=== PATIENT | female | born 2000 | race Caucasian/White ===

== ENCOUNTER 2023-02-18 18:04 | Outpatient (REF) | payer BC, MEDICAID, SELFPAY ==
[2023-02-18 21:37] LABS: HCT 44.8 % (36.0-46.0); HGB 14.4 g/dL (11.2-15.7); MCH 27.2 pg (27.0-33.0); MCHC 32.1 % (32.0-36.0); MCV 85 fL (80-95); MPV 11.5 fL (8.0-11.0); Platelet Count 368 10^3/uL (130-400); RBC 5.29 10^6/uL (3.93-5.22); RDW 14.4 % (11.7-14.6); RDW-SD 43.8 fL; WBC 14.12 10^3/uL (4.4-10.8)
[2023-02-18 21:59] LABS: Iron 37 ug/dL (50-170); Total Iron Binding Capacity 354 ug/dL (250-450); Transferrin Sat 10 % (15-50)
[2023-02-18 22:11] LABS: Vitamin D 25 Total 11.2 ng/mL (30-100)
[2023-02-18 22:17] LABS: ALT 19 U/L (14-59); AST 16 U/L (15-37); Albumin 4.3 g/dL (3.4-5.0); Alkaline Phosphatase 97 U/L (46-116); Anion Gap 10.6 mmol/L (3-11); BUN 10 mg/dL (7-18); Bilirubin, Total 0.3 mg/dL (0.2-1.0); CO2 27.4 mmol/L (21.0-32.0); CREATININE 0.8 mg/dL (0.55-1.02); Calcium 9.8 mg/dL (8.5-10.1); Chloride 104 mmol/L (98-107); Estimated GFR 106.11 (mL/min/1.73m2); Glucose 128 mg/dL (74-106); Potassium 4.8 mmol/L (3.5-5.1); Sodium 142 mmol/L (136-145); TSH (W/Ref FT4) 2.39 uIU/mL (0.36-3.74); Total Protein 7.8 g/dL (6.4-8.2); Vitamin B12 417 pg/mL (193-986)
[2023-02-18 22:36] LABS: Lipase 32 U/L (16-77)
== END 2023-02-18 18:05 | disposition home or self-care (01) ==
LOC: NCHCN 18:04
PROVIDERS: PCP Internal Medicine; Visit Provider Family Medicine
DX: R10.13 Epigastric pain (principal); R53.1 Weakness; E03.9 Hypothyroidism, unspecified; E55.9 Vitamin D deficiency, unspecified; D58.2 Other hemoglobinopathies; R53.83 Other fatigue; M79.10 Myalgia, unspecified site
CPT/HCPCS: 80053; 82306; 83690; 85027; 82607; 83540; 83550; 84443

== ENCOUNTER 2023-04-01 13:32 | Outpatient (REF) | payer BC, MEDICAID, SELFPAY ==
[2023-04-01 20:47] LABS: Abs Immature Grans 0.04 10^3/uL (0.0-0.06); Absolute Eosinophil Count 0.09 10^3/uL (0.0-0.7); Basophils % 0.6; Eosinophils % 0.6; HCT 43.8 % (36.0-46.0); HGB 14.4 g/dL (11.2-15.7); Immature Grans % 0.3; Lymphocytes % 23.5; MCH 27.8 pg (27.0-33.0); MCHC 32.9 % (32.0-36.0); MCV 85 fL (80-95); Monocytes % 8.2; Neutrophils % 66.8; Platelet Count 339 10^3/uL (130-400); RBC 5.18 10^6/uL (3.93-5.22); RDW 14.7 % (11.7-14.6); RDW-SD 45.5 fL; WBC 14.44 10^3/uL (4.4-10.8)
[2023-04-01 20:53] LABS: Absolute Basophil Count 0.09 10^3/uL (0.0-0.2); Absolute Lymphocyte Count 3.39 10^3/uL (1.2-3.4); Absolute Monocyte Count 1.18 10^3/uL (0.1-0.8); Absolute Neutrophil Count 9.65 10^3/uL (1.2-6.7)
[2023-04-01 21:18] LABS: TSH 4.73 uIU/mL (0.36-3.74)
[2023-04-01 21:47] LABS: FREE T4 1.08 ng/dL (0.76-1.46)
[2023-04-02 18:58] LABS: T3, Total 208 ng/dL (97-169)
== END 2023-04-01 13:33 | disposition home or self-care (01) ==
LOC: NCHCN 13:32
PROVIDERS: PCP Family Medicine; Visit Provider Family Medicine
DX: E03.9 Hypothyroidism, unspecified (principal); R53.1 Weakness
CPT/HCPCS: 84439; 84443; 84480; 85025

== ENCOUNTER 2023-04-07 08:24 | Day surgery (SDC) | payer BC, MEDICAID, SELFPAY ==
--- NOTE | 2023-04-07 06:26 | ANES.PREOP_ITS ---
General Info Height: 5 ft Weight: 90.889 kg Body Mass Index (BMI): 39.1 Surgical Procedure: Operation Date: 04/07/23 12:05 Proposed Procedure Side Surgeon p Gastroscopy Ramila Baptiste MD Meds Allergies and Home Medications Allergies Allergy/AdvReac Type Severity Reaction Status Date / Time dog dander Allergy Unknown Verified 04/06/23 12:16 gabapentin Allergy Unknown Verified 04/06/23 12:16 hydroxyzine [From Vistaril] Allergy Unknown Verified 04/06/23 12:16 pollen extracts Allergy Unknown Verified 04/06/23 12:16 Home Medication Medication Instructions Recorded albuterol sulfate 90 mcg/actuation 2 puff inhalation Q6H PRN 03/01/23 aerosol inhaler (ProAir HFA) [id number]-[id number]-[id number] 250 1 tab PO ONCE PRN 03/01/23 mg-250 mg-65 mg tablet (Excedrin Extra Strength) budesonide-formoterol HFA 80 1 puff inhalation BID 03/01/23 mcg-4.5 mcg/actuation aerosol inhaler (Symbicort) cholecalciferol (vitamin D3) 1,250 1,250 mcg PO QWEEK 03/01/23 mcg (50,000 unit) capsule cimetidine 200 mg tablet (Acid 200 mg PO DAILY 03/01/23 Utility Pipe Layer (cimetidine)) etonogestrel 68 mg subdermal 1 implant subdermal ONCE 03/01/23 implant (Nexplanon) ferrous sulfate 325 mg (65 mg 325 mg PO DAILY 03/01/23 iron) tablet ondansetron HCl 4 mg tablet 4 mg PO Q8H PRN 03/01/23 Current Visit Medications: Current Medications Generic Name Dose Route Start Last Admin Trade Name Freq PRN Reason Stop Dose Admin Ringer's Solution 1,000 mls @ 80 mls/hr 04/07/23 06:00 IV 05/06/23 23:59 INFUSION TYLOR IV Miscellaneous Supplies 1 each 04/07/23 06:00 Iv Access IV 05/06/23 23:59 DIRECTED TYLOR Sodium Chloride 0 ml 04/07/23 06:00 Normal Saline Flush 10 Ml Syr IV 05/06/23 23:59 PRN PRN Sodium Chloride 0 ml 04/07/23 06:00 Normal Saline 10 Ml Vial IJ 05/06/23 23:59 DIRECTED PRN Sterile Water 0 ml 04/07/23 06:00 Water,Injection,Sterile 10 Ml Vial IJ 05/06/23 23:59 DIRECTED PRN PFSH Active Problems Active Problems: Problem Status Onset Code Tetrahydrocannabinol (THC) dependence F12.20 Depression F32.A Anxiety F41.9 Nausea R11.0 Epigastric pain R10.13 Medical History Medical History Asthma Chronic pain Delayed puberty Hypothyroidism Iron deficiency (~2018) Migraines Numbness and tingling Tethered cord Tobacco Smoking/Tobacco Use Status: Never Alcohol Alcohol Intake: current Alcohol intake frequency: holidays/special occasions only Substance Use Substance use: Daily Substance use type: marijuana Vital Signs and Lab Results Lab Results Blood Type / Crossmatch: No Data to Display Complete Blood Count: White Blood Count 14.44 10^3/uL (4.4-10.8) H 04/01/23 13:20 Red Blood Count 5.18 10^6/uL (3.93-5.22) 04/01/23 13:20 Hemoglobin 14.4 g/dL (11.2-15.7) 04/01/23 13:20 Hematocrit 43.8 % (36.0-46.0) 04/01/23 13:20 Platelet Count 339 10^3/uL (130-400) 04/01/23 13:20 Complete Metabolic Panel: No Data to Display Liver Function Panel: No Data to Display Coagulation Panel: No Data to Display Cardiac Panel: No Data to Display Arterial Blood Gas: No Data to Display Venous Blood Gas: No Data to Display Pancreas Panel: No Data to Display Thyroid Panel: Thyroid Stimulating Hormone (TSH) 4.73 uIU/mL (0.36-3.74) H 04/01/23 13:20 Total Triiodothyronine 208 ng/dL (97-169) H 04/01/23 13:20 Infectious Disease: No Data to Display Blood Cultures: No Data to Display Toxicology Panel: 2 No Data to Display Panel: No Data to Display Anesthesia Assessment and Plan Anesthesia History Personal History: No History of Anesthesia Complications Family History: No Family History of Anesthesia Complications Implantable Cardiac Device Does patient have a Pacemaker or an ICD?: No Anesthesia Plan Resuscitation Status: Full Code Anesthesia Technique: General Anesthesia Airway Planned: Natural Airway Monitors Used: Standard Monitors Preoperative Comments:: 22 yo female for EGD. Sig PMHx: asthma, hypothyroid, depression/anxiety. daily cannabis, occ EtOH.
[2023-04-07 08:28] VITALS: BP 143/104; PULSE 121; RESP 18; TEMP 37; O2SAT 99
[2023-04-07] MEDS: Lactated Ringers 1,000 ML 80 ML IV (08:56)
--- NOTE | 2023-04-07 09:02 | W.PM.PROGNOT ---
Date of Service Date of service: 04/07/23 Time of Service: 10:48 Assessment and Plan Assessment and plan (1) Epigastric pain: Status: Acute Assessment and plan: Doc is a 22-year-old female who comes in with 4 years of epigastric abdominal pain which has worsened over the last year and a half.? It is not affected by what she eats or if she eats.? She has tried several antacids none of which have helped.? I was asked to see the patient for consideration of an EGD and to do biopsies to rule out celiac disease.? She has lost some weight recently because of her decrease in intake.? She does not have the classic diarrhea or abdominal pain with eating.? We discussed the procedure using a picture.? We also reviewed the risks, benefits and complications.? After our discussion she had a good understanding of the procedure and the possible complications.? Risks, benefits and complications have been reviewed. Complications include but are not limited to bleeding, pain, perforation, sore throat, aspiration, and adverse reaction to the medications.? Questions were entertained and answered to their satisfaction and they wished to proceed. No guarantees were given or implied. Subjective Subjective Interval history since last seen: I saw Doc in [facility] today. She continues with epigastric pain and bloating. Nothing seems to help. No N/V. No hematoemesis She has not had a cold recently Exam Const General: cooperative, comfortable and no acute distress Nutritional Appearance: average body habitus Orientation: alert and oriented x3 HENMT Head: normocephalic and atraumatic Resp Effort & Inspection: normal respiratory effort Objective Last Vital Signs Temp 98.6 F 04/07/23 08:28 Pulse 121 H 04/07/23 08:28 Resp 18 04/07/23 08:28 BP 143/104 H 04/07/23 08:28 Pulse Ox 99 04/07/23 08:28 Time Spent with Patient Time Spent with Patient: <25 minutes Time was spent: counseling the patient
--- NOTE | 2023-04-07 09:03 | ROE_ITS ---
Date of service: 04/07/23 Time of Service: 11:57 Operative Note Operative Note DATE OF PROCEDURE: 04/07/23 PRE-OP DIAGNOSIS: epigastric pain POST-OP DIAGNOSIS: other (gastritis) PROCEDURE: EGD with biopsies SURGEON: Ramila Baptiste Refer to Anesthesia Record ESTIMATED BLOOD LOSS: 3 PATHOLOGY: other (Bx of antrum, duodenum, and GE junction) COMPLICATIONS: None Patient was transported to: same day Patient's condition: stable Indications: Doc is a 22-year-old female who comes in with 4 years of epigastric abdominal pain which has worsened over the last year and a half.? It is not affected by what she eats or if she eats.? She has tried several antacids none of which have helped.? I was asked to see the patient for consideration of an EGD and to do biopsies to rule out celiac disease.? She has lost some weight recently because of her decrease in intake.? She does not have the classic diarrhea or abdominal pain with eating.? We discussed the procedure using a picture.? We also reviewed the risks, benefits and complications.? After our discussion she had a good understanding of the procedure and the possible complications.? Risks, benefits and complications have been reviewed. Complications include but are not limited to bleeding, pain, perforation, sore throat, aspiration, and adverse reaction to the medications.? Questions were entertained and answered to their satisfaction and they wished to proceed. No guarantees were given or implied. Findings: Mild inflammation of the stomach ? reflux esophagitis Procedure Description: After informed consent was obtained the patient was take to the procedure room and placed in a supine position. Monitors were applied and a time out was done. The patients name, date of , procedure type, allergies to medications and metal in their body was reviewed. A bite block was placed and the patient was sedated. Once sedated and comfortable the gastroscope was advanced through the oropharynx which was grossly normal into the esophagus. The proximal and mid- esophagus were normal. In the distal esophagus there was some mild inflammation noted. The scope was advanced into the stomach and through the pylorus into the 3rd portion of the duodenum. The duodenum was noted to be normal. Biopsies were done to rule out celiac disease. The scope was retracted back into the stomach. There was mild inflammation and biopsies were done to rule out H. pylori. There were no ulcers.. The scope was retroflexed. The cardia and fundus were noted to be normal. There was no hiatal hernia noted. The scope was retracted back into the esophagus and biopsies were done of the GE junction to rule out Portillo's. The Z line was regular. The GE junction was at 36 cm. The scope was removed and the patient was woken up and taken back to [facility] in stable condition. Follow up: 2 weeks
--- NOTE | 2023-04-07 09:05 | W.PM.DSUDISC ---
Date of service: 04/07/23 Time of Service: 11:43 Discharge Plan Disposition Patient Disposition: Home Condition: Stable Discharge Details Reason For Visit: Epigastric pain Attending Provider: Ramila Baptiste Primary Care Provider: Sudha Salazar Home Meds and New Rx's Prescriptions: New sucralfate [Carafate] 1 gram tablet 1 g PO QACHS Qty: 56 0RF omeprazole 40 mg capsule,delayed release(DR/EC) 40 mg PO DAILY Qty: 30 0RF Continued budesonide-formoterol [Symbicort] 80-4.5 mcg/actuation HFA aerosol inhaler 1 puff inhalation BID Nexplanon 68 mg implant 1 implant subdermal ONCE Rx Instructions: as a single dose ondansetron HCl 4 mg tablet 4 mg PO Q8H PRN cholecalciferol (vitamin D3) 1,250 mcg (50,000 unit) capsule 1,250 mcg PO QWEEK ferrous sulfate 325 mg (65 mg iron) tablet 325 mg PO DAILY Excedrin Extra Strength 250-250-65 mg tablet 1 tab PO ONCE PRN albuterol sulfate [ProAir HFA] 90 mcg/actuation HFA aerosol inhaler 2 puff inhalation Q6H PRN Discontinued cimetidine [Acid Licensed Physical Therapist (cimetidine)] 200 mg tablet 200 mg PO DAILY Discharge Instructions Instructions: Gastritis (DC), Diet for Stomach Ulcers and Gastritis (ED) Additional Instructions: Findings: mild inflammation of the stomach and esophagus New Medication: Stop Cimetidine Start Omeprazole 40 mg daily and Carafate 1 gm 30 minutes before meals and at bedtime Follow up: 2 weeks Please call if you develop: fevers >101.5 Nausea or Vomiting Abdominal pain that is not transient Rectal bleeding that is more then a tbsp A hard abdomen and inability to pass gas DAY SURGERY UNIT POST ENDOSCOPY INSTRUCTIONS Instructions for everyone who is given Anesthesia: For your safety, please do the following for the next 24 Hours: a. Do not drive or operate dangerous equipment b. Do not drink alcohol beverages or use any recreational drugs for the first 24 hours or while taking pain medications. The medications in your body may have a reaction that can be dangerous. c. Do not make any important decisions or sign any important papers 1. Generally there are no restrictions on your activity after a day or so has gone by, but you may feel a bit fatigued for a few days. 2. After you arrive home you may have a light meal and return to a normal diet as you can tolerate it without feeling sick to your stomach. 3. After surgery, you may feel pain or discomfort. This should be only transient, but if it persists please contact your doctor. 4. If there are any questions regarding the findings of your procedure, please feel free to contact your doctor. 6. If you are unable to contact your doctor with a problem, contact the hospital at [phone]. 7. Continue all your regular medications unless directed otherwise. I understand the above instructions and have no questions. Signature of Patient or Responsible Adult Escort Date/Time Name of Responsible Adult Escort Signature of Nurse Date/Time Stand Alone Forms: Anesthesia Discharge Inst., Fabian Mitchell (DSU) Referrals: Ramila Baptiste MD [ [facility]] - 04/19/23 1:00 pm Activity:: Activity as Tolerated Diet:: low acid DS: Diagnosis Discharge Diagnosis (1) Epigastric pain: Status: Acute Asessment and Plan: Patient is seen and examined after their endoscopy. Patient has minimal sore throat. They have been able to tolerate liquids. They do not have any Nausea or Vomiting. They are not having any chest pain or shortness of breath. They have been able to pass gas and are not having any abdominal pain or distention. they have not vomited any blood. The vital signs have been stable-see nursing notes. She has a bit of a cough We discussed findings on their endoscopy We reviewed the importance of lifestyle modifications- see diet recommendations We reviewed any new medications that the patient may be prescribed- see medicine reconciliation. Patient will either be sent a letter with the biopsy results or follow up in the office- see discharge instructions Patient was given explicit instructions for emergency follow up post endoscopy- see discharge instructions Patient verbalized understanding and was discharged in stable and satisfactory condition. See nursing notes.
--- NOTE | 2023-04-07 09:51 | W.ANESPRE ---
General Info Date of Service Date Performed: 04/07/23 Height: 5 ft Weight: 91.8 kg Body Mass Index (BMI): 39.5 Surgical Procedure: Operation Date: 04/07/23 12:05 Proposed Procedure Side Surgeon p Gastroscopy Ramila Baptiste MD Meds Allergies and Home Medications Allergies Allergy/AdvReac Type Severity Reaction Status Date / Time dog dander Allergy Unknown Verified 04/07/23 08:40 pollen extracts Allergy Unknown Verified 04/07/23 08:40 gabapentin AdvReac Unknown Verified 04/07/23 08:40 hydroxyzine [From Vistaril] AdvReac Unknown Verified 04/07/23 08:40 Home Medication Medication Instructions Recorded albuterol sulfate 90 mcg/actuation 2 puff inhalation Q6H PRN 03/01/23 aerosol inhaler (ProAir HFA) akreqct-ooewambozdwrx-gztngois 250 1 tab PO ONCE PRN 03/01/23 mg-250 mg-65 mg tablet (Excedrin Extra Strength) budesonide-formoterol HFA 80 1 puff inhalation BID 03/01/23 mcg-4.5 mcg/actuation aerosol inhaler (Symbicort) cholecalciferol (vitamin D3) 1,250 1,250 mcg PO QWEEK 03/01/23 mcg (50,000 unit) capsule cimetidine 200 mg tablet (Acid 200 mg PO DAILY 03/01/23 Director Of Maternity Services (cimetidine)) etonogestrel 68 mg subdermal 1 implant subdermal ONCE 03/01/23 implant (Nexplanon) ferrous sulfate 325 mg (65 mg 325 mg PO DAILY 03/01/23 iron) tablet ondansetron HCl 4 mg tablet 4 mg PO Q8H PRN 03/01/23 Current Visit Medications: Current Medications Generic Name Dose Route Start Last Admin Trade Name Freq PRN Reason Stop Dose Admin Ringer's Solution 1,000 mls @ 80 mls/hr 04/07/23 06:00 04/07/23 08:56 IV 05/06/23 23:59 80 mls/hr INFUSION TYLOR Administration IV Miscellaneous Supplies 1 each 04/07/23 06:00 Iv Access IV 05/06/23 23:59 DIRECTED TYLOR Ondansetron HCl 4 mg 04/07/23 09:04 Ondansetron 4 Mg/2 Ml Vial IVP 05/07/23 09:03 Q4H PRN PRN Nausea / Vomiting Sodium Chloride 0 ml 04/07/23 06:00 Normal Saline Flush 10 Ml Syr IV 05/06/23 23:59 PRN PRN Sodium Chloride 0 ml 04/07/23 06:00 Normal Saline 10 Ml Vial IJ 05/06/23 23:59 DIRECTED PRN Sterile Water 0 ml 04/07/23 06:00 Water,Injection,Sterile 10 Ml Vial IJ 05/06/23 23:59 DIRECTED PRN PFSH Active Problems Active Problems: Problem Status Onset Code Epigastric pain R10.13 Nausea R11.0 Anxiety F41.9 Depression F32.A Tetrahydrocannabinol (THC) dependence F12.20 Medical History Medical History Asthma Chronic pain Delayed puberty Hypothyroidism Iron deficiency (~2018) Migraines Numbness and tingling Tethered cord Surgical History Surgical History (Updated 04/07/23 @ 08:38 by Kimberli Saha) Hx of breast reduction, elective Tobacco Smoking/Tobacco Use Status: Never Alcohol Alcohol Intake: current Alcohol intake frequency: holidays/special occasions only Substance Use Substance use: Daily Substance use type: marijuana Vital Signs and Lab Results Vital Signs Most Recent Vital Signs in EMR: Most Recent Vital Signs Temp Pulse Resp BP Pulse Ox 37 C 121 H 18 143/104 H 99 04/07/23 08:28 04/07/23 08:28 04/07/23 08:28 04/07/23 08:28 04/07/23 08:28 Lab Results Blood Type / Crossmatch: No Data to Display Complete Blood Count: White Blood Count 14.44 10^3/uL (4.4-10.8) H 04/01/23 13:20 Red Blood Count 5.18 10^6/uL (3.93-5.22) 04/01/23 13:20 Hemoglobin 14.4 g/dL (11.2-15.7) 04/01/23 13:20 Hematocrit 43.8 % (36.0-46.0) 04/01/23 13:20 Platelet Count 339 10^3/uL (130-400) 04/01/23 13:20 Complete Metabolic Panel: No Data to Display Liver Function Panel: No Data to Display Coagulation Panel: No Data to Display Cardiac Panel: No Data to Display Arterial Blood Gas: No Data to Display Venous Blood Gas: No Data to Display Pancreas Panel: No Data to Display Thyroid Panel: Thyroid Stimulating Hormone (TSH) 4.73 uIU/mL (0.36-3.74) H 04/01/23 13:20 Total Triiodothyronine 208 ng/dL (97-169) H 04/01/23 13:20 Infectious Disease: No Data to Display Blood Cultures: No Data to Display Toxicology Panel: No Data to Display Panel: No Data to Display Anesthesia Assessment and Plan Anesthesia History Personal History: No History of Anesthesia Complications Family History: No Family History of Anesthesia Complications Exercise Tolerance Exercise Tolerance: Metabolic Equivalents>4 Pertinent Negatives Pertinent Negatives: No Major Cardiovascular Symptoms or Complaints Cardiac & Pulmonary Exam Cardiac Exam: Normal S1/S2 Heart Sounds Pulmonary Exam: Clear Bilateral Breath Sounds Implantable Cardiac Device Does patient have a Pacemaker or an ICD?: No Airway Exam Known Difficult Airway: No Mallampati Class: 1 Mouth Opening: Normal (> 3cm) Thyromental Distance: Less than 3 cm Neck Range of Motion: Full ROM Neck Circumference: Normal Teeth Condition: Normal Dentition ASA Classification ASA Score: ASA 2 Emergency Case?: No NPO Status NPO Status: NPO Clears >2 hours, Solids >8 hours Status Status: Negative HCG Anesthesia Plan Resuscitation Status: Full Code Anesthesia Technique: General Anesthesia Airway Planned: Natural Airway Monitors Used: Standard Monitors
[2023-04-07 09:52] VITALS: BMI 39.5
[2023-04-07] MEDS: Sodium Citrate 30 ML CUP PO (11:00)
--- NOTE | 2023-04-07 11:14 | STOM_PTH ---
PATIENT: Jagruti Acevedo LOC: [facility] U#:[id number] AGE/SX: 22/F ROOM: RE04/07/[address]: Ramila Baptiste MD : [id number] BED: DIS: 04/07/2023 SPEC #: [id number] RECD: 04/07/23 13:24 STATUS: SRAVAN REQ #: [id number] CELESTINE: 04/07/23 11:[address]: Ramila Baptiste DEPT: Surgical Specimen RECD BY: Jaqueline Guy ENTERED: 04/07/23 13:25 SP TYPE: STOMACH OTHR DR: Sudha Salazar Tissues: 1 - BIOPSY BOWEL 2 - STOMACH BIOPSY 3 - ESOPHAGUS BIOPSY Procedures: GROSS AND MICRO LEVEL 4 Comments: [id number]
[2023-04-07 11:26] VITALS: BP 116/54; PULSE 105; RESP 14; TEMP 36.7; O2SAT 96
[2023-04-07 12:10] VITALS: BP 115/74; PULSE 77; RESP 16; TEMP 36.8; O2SAT 98
--- NOTE | 2023-04-07 12:31 | W.ANESPOSTOP ---
Postoperative Evaluation Date, Time and Location Date Performed: 04/07/23 Time Performed: 12:35 Patient Location: Day Surgery Unit Vital Signs Most Recent Imported Vital Signs: Most Recent Vital Signs Temp Pulse Resp BP Pulse Ox 36.8 C 77 16 115/74 98 04/07/23 12:10 04/07/23 12:10 04/07/23 12:10 04/07/23 12:10 04/07/23 12:10 Pain Score Most Recent Pain Score: Most Recent Pain Score Pain Level 0 04/07/23 11:26 Assessment Mental Status: Awake (Alert & Oriented to Patient Baseline) Airway and Respiratory Function: Patent airway with normal (patient baseline) respiratory exam Cardiovascular Function: Hemodynamically Stable Hydration Status: Adequately Hydrated Nausea & Vomiting: No Nausea or Vomiting Pain: Pt. Denies Any Pain Peripheral Nerve Block: Patient did not receive a nerve block
== END 2023-04-07 12:45 | disposition home or self-care (01) ==
PROVIDERS: PCP Family Medicine; Visit Provider Surgery
PROC: 0DJ68ZZ Inspection of Stomach, Via Natural or Artificial Opening Endoscopic (ICD-10-PCS; CPT 43235; principal; 2023-04-07 12:00)
DX: R10.13 Epigastric pain (principal); K29.70 Gastritis, unspecified, without bleeding; K20.90 Esophagitis, unspecified without bleeding; K31.89 Other diseases of stomach and duodenum; K22.89 Other specified disease of esophagus
CPT/HCPCS: 43239; 81025; 88305; J2704

== ENCOUNTER 2023-04-26 21:37 | Outpatient (REF) | payer BC, MEDICAID, SELFPAY ==
[2023-04-26 23:16] LABS: FREE T4 0.96 ng/dL (0.76-1.46)
[2023-04-27 18:11] LABS: T3,Free 3.2 pg/mL (2.8-5.3)
== END 2023-04-26 21:38 | disposition home or self-care (01) ==
LOC: NCHCN 21:37
PROVIDERS: PCP Family Medicine; Visit Provider Family Medicine
DX: E03.9 Hypothyroidism, unspecified (principal); R00.2 Palpitations; E55.9 Vitamin D deficiency, unspecified; R42 Dizziness and giddiness
CPT/HCPCS: 84439; 84443; 84481

== ENCOUNTER 2023-06-16 06:11 | Day surgery (SDC) | payer BC, SELFPAY ==
[2023-06-16] VITALS (12 sets, daily range): BP systolic 102–147; BP diastolic 57–93; PULSE 78–104; RESP 10–28; TEMP 36.4–36.8; O2SAT 97–100; BMI 39.4
--- NOTE | 2023-06-16 06:18 | ROE_ITS ---
Date of service: 06/16/23 Time of Service: 08:41 Operative Note Operative Note DATE OF PROCEDURE: 06/16/23 PRE-OP DIAGNOSIS: Biliary colic POST-OP DIAGNOSIS: same Mild Fatty Liver Intrahepatic Gallbladder PROCEDURE: Laparoscopic Cholecystectomy SURGEON: Ramila Baptiste BUSINESS CONTINUITY SPECIALIST: Amanda Hoyos ANESTHESIA TYPE: Local By Surgeon and General LMA/ETT Refer to Anesthesia Record ESTIMATED BLOOD LOSS: 25 PATHOLOGY: other (gallbladder) COMPLICATIONS: None Patient was transported to: PACU Patient's condition: stable Indications: Doc is a pleasant 22-year-old female with ongoing right upper quadrant, epigastric pain that radiates to the back with concomitant nausea. EGD was pretty unremarkable and placing them on a PPI did nothing to help Them with symptoms. We tried a low-fat diet, although I am not sure if they really followed it. They has not had any improvement of Their symptoms. They feel her symptoms are getting worse and more frequent. I did discuss with Them that they do have stones and most likely this is the reason for their discomfort but that I cannot guarantee it. We reviewed the procedure of laparoscopic cholecystectomy as well as possible open. We reviewed the pathophysiology of gallstone. I reviewed the risks, benefits and complications of the surgery. After conversation they seemed to have a good understanding of the procedure and possible complications, and they wished to proceed. Risks, benefits, complications were reviewed with the patient in the office. Complications include but are not limited to bleeding, infection, injury to stomach, small bowel and large bowel, injury to the pancreas, injury to the common bile duct necessitating drainage and referral to tertiary center for repair, bile leak, post-cholecystectomy syndrome, post-cholecystectomy diarrhea, adverse reactions to the medications, complications of intubation including a sore throat or injury to the uvula, [place], stroke and even . Questions were entertained and answered to her satisfaction and she wished to proceed. No guarantees were given or implied. Findings: 2 cm stone in the neck of the Gallbladder Fatty liver Intrahepatic Gallbladder Procedure Description: After informed consent was obtained the patient was brought to the operating room, placed in a supine position and monitors were applied. SCDs were applied to their lower extremities and they were placed under general anesthesia and intubated without difficulty. Their abdomen was then prepped and draped in a sterile fashion using ChloraPrep. At this point a timeout was done and the patient's name, date of , procedure type, allergies to medications, metal in their body, antibiotic and DVT prophylaxis, and fire risk was assessed. At this point 0.25% Bupivocaine was injected just above the umbilicus into the dermis and subcutaneous tissue. A 5 mm incision was made with an 11 blade. The subcutaneous tissue was dissected with a hemostat. The fascia was grasped with cockers. The fascia was opened sharply. The skin next to the incision was grasped with penetrating towel clamps and while pulling up on the skin a 5 mm port was placed under direct visualization. The abdomen was insuflated and then 3 more ports were placed. A 12 mm port was placed in the subxiphoid area and two 5 mm ports were placed in the right upper quadrant. The liver was inspected and had some mild fatty infiltration. The patient's bed was then turned to the left and their head was brought up. The gallbladder was grasped at the body and pushed towards the right shoulder, this allowed me to visualize the neck of the gallbladder. There was a large stone in the ncek of the gallbladder. The body of the Gallbladder was intrahepatic. The neck was grasped and pulled towards the right flank and down allowing me to visualize the lymph node. Using a [place] dissector and hand held cautery the lymph node was gently dissected away from the tissues and the fatty tissue was also dissected away. The cystic duct was identified it was normal in size. The duct was dissected 360 degrees using the [place] dissector in order for me to visualize its entrance into the gallbladder. Liver was noted behind it. There were no other structures right behind. Critical view was achieved. 3 clips were placed one proximal and 2 distal and the cystic duct was cut. The cystic artery was then identified and dissected 360 degrees. It was located just medial to the cystic duct. there was an accessory artery noted coming off laterally. It was visualized going into the gallbladder. Once dissected 3 more clips were placed one proximal and 2 distal and the main artery, and the accessory artery, and they were both was cut. Using the hook dissector the gallbladder was then dissected away from the liver bed and placed into an Endo Catch bag and pulled through the 12 mm port site. The 12 mm port was placed back into the abdomen under direct visualization. The liver bed was inspected and a small amount of bleeding was noted. The bleeding was stopped using cautery and a sheet of surgicel. Pressure was held with a SciAps over the surgicell. The raytech was then removed as well as the surgicel and no bleeding was noted. The abdomen was then irrigated with a 1 1/2 liters of normal saline until the effluent was clear. Once all the fluid was suctioned out, the 12 mm and the 2 right upper quadrant ports were removed under direct visualization and no bleeding was noted from the fascia. The abdomen was deflated completely and lastly the umbilical port was removed. The skin was cleaned and the incisions were closed with 4-0 Monocryl. The skin was dried and skin affix was applied over the closed incisions. Needle, instrument and sponge counts were correct at the end of the case. At this point the patient was woken up, extubated and taken back to recovery in stable condition. There were no immediate complications.
--- NOTE | 2023-06-16 06:24 | PDOC.DSDIS_ITS ---
Date of service: 06/16/23 Time of Service: 11:02 Discharge Plan Disposition Patient Disposition: Home Condition: Stable Discharge Details Reason For Visit: Biliary colic Attending Provider: Ramila Baptiste Primary Care Provider: Sudha Salazar Home Meds and New Rx's Prescriptions: New tramadol 50 mg tablet 50 mg PO Q6H PRNQty: 10 0RF Continued budesonide-formoterol [Symbicort] 80-4.5 mcg/actuation HFA aerosol inhaler 1 puff inhalation BID Nexplanon 68 mg implant 1 implant subdermal ONCE Patient Comments: 06/16/23 pt reports implanted 3 years ago Rx Instructions: as a single dose cholecalciferol (vitamin D3) 1,250 mcg (50,000 unit) capsule 1,250 mcg PO QWEEK ferrous sulfate 325 mg (65 mg iron) tablet 325 mg PO DAILY Excedrin Extra Strength 250-250-65 mg tablet 1 tab PO ONCE PRN albuterol sulfate [ProAir HFA] 90 mcg/actuation HFA aerosol inhaler 2 puff inhalation Q6H PRN venlafaxine 37.5 mg capsule,extended release 24hr PO Patient Comments: TAKE 1 CAPSULE BY MOUTH ONCE DAILY FOR 7 DAYS THEN 2 ONCE DAILY IF TOLERATING WELL. cetirizine 10 mg tablet Patient Comments: TAKE 1 TABLET BY MOUTH ONCE DAILY ondansetron HCl 4 mg tablet Patient Comments: TAKE 1 TABLET BY MOUTH THREE TIMES DAILY NEEDED FOR NAUSEA omeprazole 40 mg capsule,delayed release(DR/EC) 40 mg PO DAILY Qty: 30 0RF Discharge Instructions Instructions: Non-Alcoholic Fatty Liver Disease (DC), Laparoscopic Cholecystectomy (DC) Additional Instructions: Activity at Home after surgery: 1. Make sure you walk outside at least 4 times per day 2. You should be able to climb a flight of stairs 3. No driving while in pain or taking pain medications 4. No strenuous activity or heavy lifting for 2 weeks (laparoscopic surgery) Diet, Nutrition, & wound healin. Avoid alcohol until after you are recovered from your surgery 2. Make sure to eat plenty of lean protein (meat, fish, eggs, cottage cheese, beans) 3. Eat a variety of fruits and vegetables. Eat plenty of high fiber foods to avoid constipation. 4. Drink plenty of liquids to stay hydrated and avoid constipation Pain Medications: 1. Tylenol 650mg every 6 hours as needed and Ibuprofen 600 mg every 6 hours as needed. You may alternate between the 2 medications every 3 hours 2. If a narcotic has been prescribed take as directed only for breakthrough pain For Constipation: 1. Take Milk of Magnesia or MiraLax as needed for constipation Other: 1. You may shower daily. Do not scrub the incisions 2. Do not soak the incisions for 1 week 3. You may alternate ice and heat as needed for pain and swelling Wound Care: 1. Keep the incisions clean and dry Please call our office if you develop: 1. Fevers >101.5 2. Nausea or Vomiting 3. Worsening pain 4. Redness and thick discharge from the wounds If after hours please call the Hospital at and ask to speak to the on-call surgeon Stand Alone Forms: Anesthesia Discharge InstFabian Dumont (DSU) Referrals: Ramila Baptiste MD [ [facility] STAFF PHYSICIAN] - 06/28/23 Activity:: as above Remove Dressings/Wound Care:: Do Not Remove Shower/Bathe:: 24 hours Diet:: low fat Discharge Orders Discharge Orders: Discharge Order (Routine); Ordered 06/16/23 Ordered By: Ramila Baptiste DS: Diagnosis Discharge Diagnosis (1) Biliary colic: Status: Acute Asessment and Plan: The patient is doing well post-op from their Laparoscopic Cholecystectomy surgery.? They having no nausea or vomiting. They are tolerating liquids and a snack. The pt is not having any chest pain or SOB.? Their pain is adequately controlled. ? ?HEENT:? no eye pain/drainage/redness/swelling. Mild sore throat ?Cardio- NSR, no chest pain, BP stable- see VS record ?Pulm: no sob or productive cough. No hemoptysis ?Incision- dressing is c/d/i w/ no excessive bleeding or drainage ?I discussed with the patient the findings at the time of surgery and the patient?s progress. ?We reviewed expectations at home; what the patient could expect for recovery time, and in the post-operative period.? We discussed the importance of walking to avoid blood clots and pneumonia.? We discussed and reviewed the patient's post-operative wound care and dressing needs.?? We reviewed their step-bailey pain management plan, Rx called to the pharmacy of their choice.? We reviewed activity and limitations-see discharge instructions. We reviewed warning signs, and when to seek medical attention- see d/c instructions.?? Patient was given a postoperative follow-up appointment. Patient verbalized understanding of their postoperative instructions, how do to take care of themselves and their incision, and the pain management plan. Please see discharge instructions.?
--- NOTE | 2023-06-16 06:28 | W.ANESPRE ---
General Info Date of Service Date Performed: 06/16/23 Height: 5 ft Weight: 91.626 kg Body Mass Index (BMI): 39.4 Surgical Procedure: Operation Date: 06/16/23 07:40 Proposed Procedure Side Surgeon p Cholecystectomy Laparoscopic Ramila Baptiste MD Meds Allergies and Home Medications Allergies Allergy/AdvReac Type Severity Reaction Status Date / Time dog dander Allergy Unknown Verified 06/16/23 06:38 pollen extracts Allergy Unknown Verified 06/16/23 06:38 gabapentin AdvReac Unknown Verified 06/16/23 06:38 hydroxyzine [From Vistaril] AdvReac Unknown Verified 06/16/23 06:38 Home Medication Medication Instructions Recorded albuterol sulfate 90 mcg/actuation 2 puff inhalation Q6H PRN 03/01/23 aerosol inhaler (ProAir HFA) [id number]-uoyuwfmxhyaxc-[id number] 250 1 tab PO ONCE PRN 03/01/23 mg-250 mg-65 mg tablet (Excedrin Extra Strength) budesonide-formoterol HFA 80 1 puff inhalation BID 03/01/23 mcg-4.5 mcg/actuation aerosol inhaler (Symbicort) cholecalciferol (vitamin D3) 1,250 1,250 mcg PO QWEEK 03/01/23 mcg (50,000 unit) capsule etonogestrel 68 mg subdermal 1 implant subdermal ONCE 03/01/23 implant (Nexplanon) ferrous sulfate 325 mg (65 mg 325 mg PO DAILY 03/01/23 iron) tablet omeprazole 40 mg capsule,delayed 40 mg PO DAILY #30 caps 04/07/23 release cetirizine 10 mg tablet mg 06/16/23 ondansetron HCl 4 mg tablet mg 06/16/23 venlafaxine 37.5 mg mg PO 06/16/23 capsule,extended release 24 hr Current Visit Medications: Current Medications Generic Name Dose Route Start Last Admin Trade Name Freq PRN Reason Stop Dose Admin Acetaminophen 1,000 mg 06/16/23 06:00 Acetaminophen 500 Mg Tab PO 06/16/23 23:59 PREOP TYLOR Celecoxib 200 mg 06/16/23 06:00 Celecoxib 200 Mg Cap PO 06/16/23 23:59 PREOP TYLOR Ringer's Solution 1,000 mls @ 80 mls/hr 06/16/23 06:00 IV 06/16/23 23:59 INFUSION TYLOR Ampicillin Sodium/Sulbactam 100 mls @ 200 mls/hr 06/16/23 06:00 Sodium 3 gm/ Sodium Chloride IVPB 06/16/23 16:00 PREOP TYLOR IV Miscellaneous Supplies 1 each 06/16/23 06:00 Iv Access IV 06/16/23 23:59 DIRECTED TYLOR Sodium Chloride 0 ml 06/16/23 06:00 Normal Saline Flush 10 Ml Syr IV 06/16/23 23:59 PRN PRN Sodium Chloride 0 ml 06/16/23 06:00 Normal Saline 10 Ml Vial IJ 06/16/23 23:59 DIRECTED PRN Sterile Water 0 ml 06/16/23 06:00 Water,Injection,Sterile 10 Ml Vial IJ 06/16/23 23:59 DIRECTED PRN PFSH Active Problems Active Problems: Problem Status Onset Code Gallstones K80.20 Tetrahydrocannabinol (THC) dependence F12.20 Depression F32.A Anxiety F41.9 Nausea R11.0 Epigastric pain R10.13 Medical History Medical History (Updated 06/16/23 @ 06:24 by Ramila Baptiste MD) Iron deficiency (~2017) Numbness and tingling Delayed puberty Chronic pain Hypothyroidism Tethered cord Asthma Migraines Surgical History Surgical History (Updated 06/15/23 @ 11:04 by David Henry) Status post bilateral hernia repair @ 4 months old per mom History of esophagogastroduodenoscopy (~04/2023) Hx of breast reduction, elective Tobacco Smoking/Tobacco Use Status: Never Alcohol Alcohol Intake: current Alcohol intake frequency: holidays/special occasions only Substance Use Substance use: Daily Substance use type: marijuana Vital Signs and Lab Results Vital Signs Most Recent Vital Signs in EMR: Temp Pulse Resp BP Pulse Ox 36.8 C 101 H 16 123/90 99 06/16/23 06:22 06/16/23 06:22 06/16/23 06:22 06/16/23 06:22 06/16/23 06:22 Lab Results Blood Type / Crossmatch: No Data to Display Complete Blood Count: No Data to Display Complete Metabolic Panel: No Data to Display Liver Function Panel: No Data to Display Coagulation Panel: No Data to Display Cardiac Panel: No Data to Display Arterial Blood Gas: No Data to Display Venous Blood Gas: No Data to Display Pancreas Panel: No Data to Display Thyroid Panel: No Data to Display Infectious Disease: No Data to Display Blood Cultures: No Data to Display Toxicology Panel: No Data to Display Panel: No Data to Display Anesthesia Assessment and Plan Anesthesia History Personal History: No History of Anesthesia Complications Family History: No Family History of Anesthesia Complications Exercise Tolerance Exercise Tolerance: Metabolic Equivalents>4 Cardiac & Pulmonary Exam Cardiac Exam: Normal S1/S2 Heart Sounds Pulmonary Exam: Clear Bilateral Breath Sounds Implantable Cardiac Device Does patient have a Pacemaker or an ICD?: No Airway Exam Known Difficult Airway: No Mallampati Class: 1 Mouth Opening: Normal (> 3cm) Thyromental Distance: Less than 3 cm Neck Range of Motion: Full ROM Neck Circumference: Normal Teeth Condition: Normal Dentition ASA Classification ASA Score: ASA 2 Emergency Case?: No NPO Status NPO Status: NPO Clears >2 hours, Solids >8 hours Status Status: Negative HCG Anesthesia Plan Resuscitation Status: Full Code Anesthesia Technique: General Anesthesia Airway Planned: Endotracheal Tube Monitors Used: Standard Monitors Preoperative Comments:: 22 yo female for lap tejal. Sig PMHx: asthma (albut, sybicort), GERD, anxiety/depression, hypothyroid, chronic pain, daily cannabis. Previous Anes: - EGD, prop (280+gtt), natural airway, no issues.
[2023-06-16] MEDS: Acetaminophen 500 MG TAB 1000 MG PO (06:48)
[2023-06-16] MEDS: Celecoxib 200 MG CAP PO (06:48)
[2023-06-16] MEDS: Lactated Ringers 1,000 ML 80 ML IV (06:56)
[2023-06-16] MEDS: AMPICILLIN/SULBACTAM 3 GM in Normal Saline 100 ML IVPB (07:27)
[2023-06-16] MEDS: Bupivacaine 0.25% Pres-Free 30 ML VIAL (07:49)
[2023-06-16] MEDS: Cellulose,Oxidized 4X8 1 PACKET MC (08:11)
--- NOTE | 2023-06-16 08:21 | GB_PTH ---
PATIENT: Jagruti Acevedo LOC: [facility] U#:[id number] AGE/SX: 22/F ROOM: RE06/16/[address]: Ramila Baptiste MD : [id number] BED: DIS: 06/16/2023 SPEC #: [id number] RECD: 06/16/23 12:56 STATUS: SRAVAN REQ #: [id number] CELESTINE: 06/16/23 08:[address]: Ramila Baptiste DEPT: Surgical Specimen RECD BY: Jaqueline Guy ENTERED: 06/16/23 12:56 SP TYPE: GB OTHR DR: Sudha Salazar Tissues: 1 - GALLBLADDER Procedures: GROSS AND MICRO LEVEL 3 Comments: [id number]
[2023-06-16] MEDS: HYDROmorphone 2 MG/ML SYR IVP ×2 (08:56→09:09)
[2023-06-16] MEDS: Normal Saline 10 ML VIAL IJ ×3 (08:57→09:07)
[2023-06-16] MEDS: LORazepam 2 MG/ML VIAL 0.5 MG IVP (09:05)
[2023-06-16] MEDS: fentaNYL 100 MCG/2 ML VIAL IVP ×2 (09:21→09:41)
--- NOTE | 2023-06-16 09:39 | W.ANESPOSTOP ---
Postoperative Evaluation Date, Time and Location Date Performed: 06/16/23 Time Performed: 09:39 Patient Location: PACU Vital Signs Most Recent Imported Vital Signs: Most Recent Vital Signs Temp Pulse Resp BP Pulse Ox 36.4 C L 85 16 142/85 H 100 06/16/23 09:20 06/16/23 09:20 06/16/23 09:20 06/16/23 09:20 06/16/23 09:20 Pain Score Most Recent Pain Score: Most Recent Pain Score Pain Level 9 06/16/23 09:20 Assessment Mental Status: Awake (Alert & Oriented to Patient Baseline) Airway and Respiratory Function: Patent airway with normal (patient baseline) respiratory exam Cardiovascular Function: Hemodynamically Stable Hydration Status: Adequately Hydrated Nausea & Vomiting: No Nausea or Vomiting Pain: Pain is Moderate or Severe Postoperative Pain Management: Pain being addressed with medication Peripheral Nerve Block: Patient did not receive a nerve block
[2023-06-16] MEDS: Droperidol 5 MG/2 ML VIAL 0.625 MG IVP (09:58)
== END 2023-06-16 11:30 | disposition home or self-care (01) ==
PROVIDERS: PCP Family Medicine; Visit Provider Surgery
PROC: 0FT44ZZ Resection of Gallbladder, Percutaneous Endoscopic Approach (ICD-10-PCS; CPT 47562; principal; 2023-06-16 07:30)
DX: K80.10 Calculus of gallbladder with chronic cholecystitis without obstruction (principal); K21.9 Gastro-esophageal reflux disease without esophagitis; K76.0 Fatty (change of) liver, not elsewhere classified
CPT/HCPCS: 47562; 81025; 88304; J0295; J1100; J1170; J1790; J1885; J2060; J2250; J2405; J2704; J3010; J3475

== ENCOUNTER → 2023-07-05 03:12 | Outpatient (CLI) | payer BC, SELFPAY ==
--- NOTE | 2023-07-05 12:38 | DI.RAD_ITS ---
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 TECHNIQUE: 2D digital imaging was performed. COMPARISON: No exams were available for comparison FINDINGS: BONES: No acute fracture is present. Visualized vertebral body and disc heights are maintained. Alig nment is normal. SOFT TISSUE:Airway is patent without radiopaque foreign body. Epiglottis is not enlarged. Prevertebra l soft tissues appear unremarkable. The hyoid bone appears normal on the lateral view but is not wel l seen on the AP view due to bony overlap. IMPRESSION: Unremarkable radiographs of soft tissue neck. DATA REPOSITORY: RADIATION DOSE DELIVERED:
== END ==
PROVIDERS: PCP Family Medicine; Visit Provider Family Medicine
DX: M89.9 Disorder of bone, unspecified (principal)
CPT/HCPCS: 70360

== ENCOUNTER → 2023-08-04 02:16 | Outpatient (CLI) | payer OTHER, SELFPAY ==
--- NOTE | 2023-08-04 | DI.MRI_ITS ---
Exam(s) MR LUMBAR SPINE WO/W EXAM: MR LUMBAR SPINE WO/W CLINICAL HISTORY: LOW LYING CONUS MEDULLARIS, PAIN BOTH LOWER EXTREMITIES, WEAKNESS BOTH LEGS. TECHNIQUE: Multiplanar multisequence MRI of the Lumbar spine was performed. COMPARISON: None FINDINGS: Bones: The last intervertebral disc space is designated the L5/S1 level for the numbering purpose of this examination. The vertebral body heights are well maintained. Alignment is satisfactory. The si gnal characteristics are unremarkable. No vertebral body deformities identified. Cord: The conus tip is low lying, at the L 3 level.. It is of normal size and signal intensity. Intervertebral discs are normal in height. There is minimal disc bulging at L5-S1 and L 1 2. Soft tissues: The visualized SI joints and sacrum are well maintained. The paraspinal soft tissues ar e unremarkable. Metallic artifact in pelvis, anterior to sacrum which may be related to the rectum. No abnormal enhancement seen in the spine, cord or surrounding soft tissues. IMPRESSION: Low lying conus medullaris, at the level of L3. No evidence of mass, disc herniation or central irma l stenosis. DATA REPOSITORY:
[2023-08-04] MEDS: Normal Saline Flush 10 ML SYR IVP (14:10)
[2023-08-04] MEDS: Gadoterate meglumine 20 ML SYRINGE 18 ML IVP (14:11)
== END ==
PROVIDERS: PCP Family Medicine; Visit Provider Physician Assistant Medical
DX: G95.81 Conus medullaris syndrome (principal)
CPT/HCPCS: 72158

== ENCOUNTER → 2023-09-01 02:09 | Outpatient (CLI) | payer OTHER, SELFPAY ==
--- NOTE | 2023-09-01 14:30 | ST.MBS ---
Date of Service Date of service: 09/01/23 Time of Service: 15:20 Modified Barium Swallow Study Findings: Video fluoroscopic Swallowing Evaluation (VFSE) / Modified Barium Swallow Study (MBSS) Speech Language Pathology Report Patient referred for VFSE/MBSS from Sudha Salazar given reported pain with swallowing. HPI & Patient report of function: Patient is a 23 year old patient with GERD on omeprazole, asthma, tethered cord, and trauma to the front of neck as a child. They report on and off pain in the hyoid area over the years but nothing that was ever very concerning to them, however, they note that since their recent abdominal surgery (biliary colic) the pain has been more frequent, and sometimes worse with swallowing. They do endorse history of reflux. Patient also presents with mild hoarse/breathy voice quality which is their baseline and not bothersome. Endorses frequent tension in the neck and shoulders secondary to cord tethering. All Active Problems (Updated 06/28/23 @ 14:13 by Ramila Baptiste MD) Tetrahydrocannabinol (THC) dependence (Acute) Depression (Chronic) Anxiety (Chronic) Medical History (Updated 06/28/23 @ 14:13 by Ramila Baptiste MD) Biliary colic Gallstones Iron deficiency (~2018) Numbness and tingling Delayed puberty Chronic pain Hypothyroidism Tethered cord Asthma Migraines Surgical History (Updated 06/28/23 @ 14:13 by Ramila Baptiste MD) S/P laparoscopic cholecystectomy (~06/16/23) Chronic cholecystitis, cholesterolosis and Cholelithiasis Status post bilateral hernia repair @ 4 months old per mom History of esophagogastroduodenoscopy (~04/2023) Hx of breast reduction, elective IMPRESSIONS: Swallow safety is largely preserved; swallow efficiency is preserved. Mild chronic pharyngoesophageal dysphagia. Characterized primarily by mild delayed onset of pharyngeal swallow, specifically noting sluggish laryngeal elevation relative to UES distension resulting in laryngeal penetration of large sips of thin liquids before and during the swallow from current bolus, with scant residue remaining at the level of the vocal folds, clears effectively with cued throat clear. Patient not spontaneously sensate to penetration. No clear evidence of aspiration during the study, but there is a chance patient aspirates negligible amounts of post-swallow residue. Notably, Hyoid excursion was excellent, UES distension was adequate. Minimal pharyngeal residue. Epiglottis inverts completely. There was some persistent mid-proximal esophageal retention of what appeared to be puree even after liquid wash, without corresponding sensation. It is unclear if patient's reported odynophagia and mild deficits noted above are caused by the same thing. Especially since patient notes it increased noticeably since recent surgery, suspect also an increased impact of reflux on patient's clinical symptoms. There could also be a tension component. Patient appears to be at low risk for potential aspiration PNA and/or pulmonary compromise and low risk for malnutrition, low risk for dehydration. Diet modification is not indicated; non-oral nutrition is not indicated. Swallow prognosis is excellent given: Positive prognostic factors: Age, Severity, Cognitive status, RECOMMENDATIONS: Diet Texture Recommendation:? IDDSI LEVEL SOLIDS 7-Regular Solids LIQUIDS 0-Thin Liquids Please see further details at?[email or web address] MEDICATIONS Whole with 0-Thin Liquids or 4-Puree Do not alter medications (e.g., cut)? without advice from your MD or pharmacist. Risk Management Strategies:? Behavioral reflux precautions, including upright position during + 90 mins after meals. Small sips, approx 10 mL Control risk factors for aspiration pneumonia via (a) thorough oral hygiene & (b) maintaining physical mobility as tolerated PLAN: Therapy: Patient declines further therapy Risk management strategies were discussed with the patient. ----- OBJECTIVE Videofluoroscopic Swallow Evaluation (VFSE/MBSS) was conducted in the lateral and [id number] projection by Speech-Language Pathologist, in collaboration with Radiologist, to evaluate oropharyngeal swallow function. Anatomic view under fluoroscopy: WFL Brief Oral-Motor and Periferal Exam: Unremarkable PO Barium Contrast Trials Oral barium water-soluble contrast was administered as follows: IDDSI Level 0 Varibar thin liquid (40% w/v) IDDSI Level 2 Varibar nectar thick/mildly thick liquid (40% w/v) IDDSI Level 4 Varibar pudding/pureed/extremely thick (40% w/v) IDDSI Level 7 Regular Solid: 1/2 daija cracker coated in 3 mL Varibar pudding 13 mm barium tablet taken with Thin Liquids. MBSImP Component Scores: COMPONENT Scale SCORE 1 Lip closure (0-4) 0 Resulted in no labial escape 2 Hold Position (0-3) 0 Maintained a cohesive bolus between tongue to palatal seal 3 Bolus Preparation (0-4) 0 Resulted in timely and efficient chewing and mashing 4 Bolus Transport (0-4) 0 Was with brisk tongue motion 5 Oral Residue (0-4) 1 Was a trace, lining oral structures 6 Swallow Initiation (0-4) 3 Occurred when the bolus head was in the pyriform sinuses 7 Soft Palate Elevation (0-4) 0 Resulted in no bolus between soft palate and the pharyngeal wall 8 Laryngeal Elevation (0-3) 1 Was decreased with partial superior movement of thyroid cartilage/partial approximation of arytenoids to epiglottic petiole 9 Anterior Hyoid Motion (0-2) 0 Demonstrated complete anterior movement 10 Epiglottic Movement (0-2) 0 Resulted in complete inversion 11 Laryngeal Closure (0-2) 1 Was incomplete with narrow a column of air/contrast in laryngeal vestibule 12 Pharyngeal Stripping Wave (0-2) 0 Was present and complete 13 Pharyngeal (0-3) 0 Was complete 14 PES Opening (0-3) 0 Was completely distended and complete duration with no obstruction of flow 15 Tongue Base Retraction (0-4) 1 Allowed a trace column of contrast or air between tongue base and pharyngeal wall 16 Pharyngeal Residue (0-4) 1 Showed a trace within or on pharyngeal structures 17 Esophageal Clearance (0-4) 1 Resulted in esophageal retention Penetration-Aspiration Scale: COMPONENT Scale SCORE 1 Thin liquid (1-8) 5 Contrast entered the airway, contacted the vocal folds, and was not ejected from the airway. 2 [place] thick (1-8) 1 Contrast did not enter the airway 3 Honey thick (1-8) NA 4 Pudding thick (1-8) 1 Contrast did not enter the airway 5 Cookie (1-8) 1 Contrast did not enter the airway Trialed Compensatory Strategies & Outcome: Maneuvers Successful (+) Unsuccessful (-) Postures Successful (+) Unsuccessful (-) 3 second Preparatory Set? ?+/- Chin Tuck Posture? ? Cough? ? Posterior Head tilt? Reflexive? Cued? Throat Clear? ? Head Tilt to? Reflexive? Left? Cued? ?+ ? Right? ? Saliva swallow? ? Head Turn/ Rotate to? ? Supraglottic Swallow? Left? ? Super-supraglottic Swallow? Right? ? Bolus Modifications Successful (+) Unsuccessful (-) Delivery/Alternating Consistencies ? Follow with Liquid Wash - (to clear esophageal stasis) ? Follow with Solid Bolus? - (to clear esophageal stasis) Delivery/Via Straw? ? Reduced Volume? + (laryngeal penetration) Reduced Rate of Intake? +(laryngeal penetration) Increased Viscosity? ?+(laryngeal penetration) Other:?? ? Thank you for allowing us to take part in this patient's care. Please feel free to contact the [facility] Speech Language Pathology Department with any questions/concerns. Coding CPT Codes MOTION FLUOROSCOPY/SWALLOW - [id number] ([id number])
[2023-09-01] MEDS: Barium Sulfate 700 MG TAB PO (15:18)
[2023-09-01] MEDS: Barium Sulfate 81% w/w for Oral Suspension 148 GM BTL PO (15:18)
[2023-09-01] MEDS: Barium Sulfate Oral Paste 40% W/V 230 ML TUBE PO (15:19)
[2023-09-01] MEDS: Barium Sulfate 40% W/V 240 ML BTL PO (15:20)
--- NOTE | 2023-09-01 15:23 | DI.RAD_ITS ---
Exam(s) RF MODIFIED SPEECH BA SWALLOW TECHNIQUE: Modified barium swallow was performed in conjunction with speech pathology. CONTRAST MATERIAL: Oral barium contrast was administered. COMPARISON: No exams were available for comparison FINDINGS: Note that this is not a dedicated esophagram, distal esophagus not evaluated. Examination was performed with thin barium, barium paste and barium coated cracker. The patient also swallowed a barium tablet. There is no evidence of aspiration. There was penetration with thin liq uids. Speech pathology report to follow. IMPRESSION: Penetration was noted with thin liquids. No aspiration was seen. RADIATION DOSE DELIVERED: lashon Hines=5.1 mGy
== END ==
PROVIDERS: PCP Family Medicine; Visit Provider Family Medicine
DX: R13.14 Dysphagia, pharyngoesophageal phase (principal)
CPT/HCPCS: 92526; 92611; 74221

== ENCOUNTER 2024-01-28 15:57 | Outpatient (REF) | payer OTHER, SELFPAY ==
[2024-01-28 21:45] LABS: TSH (W/Ref FT4) 3.72 uIU/mL (0.36-3.74)
== END 2024-01-28 15:58 | disposition home or self-care (01) ==
LOC: NCHCN 15:57
PROVIDERS: PCP Family Medicine; Visit Provider Family Medicine
DX: E06.3 Autoimmune thyroiditis (principal)
CPT/HCPCS: 84443

== ENCOUNTER 2024-02-22 19:13 | Outpatient (REF) | payer OTHER, SELFPAY ==
--- OUTSIDE RECORDS SUMMARY | 2024-02-22 19:17 | XMS_ITS | Data Portability ---
Author Organization [place] - [facility], [facility] Address [address] [address] Assessment Encounter Date Assessment Date Assessment LastModified by Organization Details LastModified Time 08/19/2023 08/19/2023 The total time devoted to today's encounter, including both the wdrl-gx-yuwo time with the patient and/or family/caregi teresa and ydx-arwr-ln-f carlito time I personally spent is 54 minutes. [facility] Not available 08/19/2023 17:04:36 Plan of Treatment Reminders Order Date Submit Date Provider Last Modified By Organization Details Last Modified Time Details Appointments Nurse Visit 2023 01:00P M Lengby Nursing Staff Not available Not available Not available Nurse Visit 2023 01:00P M Lengby Nursing Staff Not available Not available Not available Office Visit 30 2023 01:30P M Sudha Salazar Not available Not available Not available Lab urinalysi s, dipstick [address], [address] [place] [address], [address], 02/01/2024 14:37:21 urinalysi s, dipstick 2023 024 [facility], [address] [place] [address], [address], 01/28/2024 15:53:57 TSH, serum, reflex free T4 - 1 green top drawn in office-SN 2023 024 [facility] (Registration ), [address] [place] [address] [place], [address], 02/01/2024 14:36:53 urinalysi s, dipstick 2023 024 [facility], [address], [place], [address], 02/22/2024 14:48:50 culture, urine + sensitivi ty - Urine sample 2023 024 [facility] (Registration ), [address] [place] [address] [place], [address], 02/22/2024 14:48:50 Referral None recorded. Procedures None recorded. Surgeries None recorded. Imaging XR, neck - history of trauma to neck, pain in region of hyoid bone [address] [facility] (Radiology), [address] [place] [address] [address] [facility] [place], [address], 10/19/2023 16:19:04 FL, modified barium swallow study - Pain with swallowin g, patient feels hyoid bone does not move properly with swallowin g, normal xray. 2023 024 [facility], [address], [place], [address], 10/19/2023 16:18:41 Medication Orders Aimovig Autoinjec tor 140 mg/mL subcutane ous auto-inje ctor 2023 024 [facility], [address], [place], [address], 08/19/2023 16:56:59 meloxicam 15 mg tablet 2023 024 [facility], [address], [place], [address], 08/19/2023 16:56:59 Symbicort 80 mcg-4.5 mcg/actua tion HFA aerosol inhaler 2023 024 [facility], [address], [place], [address], 08/19/2023 16:56:59 albuterol sulfate HFA 90 mcg/actua tion aerosol inhaler 2023 024 [facility], [address] [place] [address] Road [address], [place], [address], 08/19/2023 16:56:59 omeprazol e 40 mg capsule,d elayed release 2023 024 [facility], [address] [place] [address] [address], [place], [address], 08/19/2023 16:56:59 Aimovig Autoinjec tor 140 mg/mL subcutane ous auto-inje ctor 2023 024 [facility], [address] [place] [address] [address], [place], [address], 10/18/2023 16:02:48 Vitamin D3 25 mcg (1,000 unit) capsule 2023 024 [facility] [address], [address] [place] [address] [address], [place], [address], 10/18/2023 16:02:48 omeprazol e 40 mg capsule,d elayed release 2023 024 [facility], [address], [place], [address], 10/18/2023 16:02:48 venlafaxi ne ER 75 mg capsule,e xtended release 24 hr 2023 024 [facility], [address], [place], [address], 10/18/2023 16:02:51 Patient TargetsNo targets recorded. Patient Instructions Encounter Date Encounter Id Patient Instructions Last Modified By Organization Details Last Modified Time 08/19/2023 [id number] - verify that it is symbicort 80mcg-4.5mcg/actu ation that you are taking, increase to 2 puffs twice a day. - if this is not what you are taking, please let me know - rescue inhaler and symbicort should be used with a spacer. - will try injectable migraine medication, once a month (CGRP antagonist). - try meloxicam once a day for pain, do not take with other nsaids (ibuprofen, aleve, advil, motrin, etc). Ok to take with tylenol. eoleson Not available 08/19/2023 15:32:55 10/18/2023 [id number] learning about healthy weight eoleson Not available 10/19/2023 13:19:47 Reason for Referral None Reported. Results Created Date Observation Date Name Description Value Unit Range Abnormal Flag LastModifiedBy Organization Detail LastModifiedTime 01/28/20 24 01/28/2024 TSH (W/RE F FT4) TSH (w/ref FT4) 3.72 uIU/m L 0.36-3 .74 normal Not Available [facility] (Registration ) [address] [place] [address] [place], [address], 01/28/2024 21:54:45 01/28/20 24 01/28/2024 urina lysis , dipst ick Unknown Analyte Not Available [address], [address], 01/28/2024 15:30:57 01/28/20 24 01/28/2024 urina lysis , dipst ick Leukocytes Small Not Available [address], [address], 01/28/2024 15:31:40 01/28/20 24 01/28/2024 urina lysis , dipst ick Nitrite negati ve Not Available [address], [address], 01/28/2024 15:31:40 01/28/20 24 01/28/2024 urina lysis , dipst ick Urobilinogen .2 Not Available [address], [address], 01/28/2024 15:31:40 01/28/20 24 01/28/2024 urina lysis , dipst ick Protein Trace Not Available [address], [address], 01/28/2024 15:31:40 01/28/20 24 01/28/2024 urina lysis , dipst ick pH 6.0 Not Available [address], [address], 01/28/2024 15:31:40 01/28/20 24 01/28/2024 urina lysis , dipst ick Blood Negati ve Not Available [address], [address], 01/28/2024 15:31:40 01/28/20 24 01/28/2024 urina lysis , dipst ick Specific [place] 1.005 Not Available [address], [address], 01/28/2024 15:31:40 01/28/20 24 01/28/2024 urina lysis , dipst ick Ketone Negati ve Not Available [address], [address], 01/28/2024 15:31:40 01/28/20 24 01/28/2024 urina lysis , dipst ick Bilirubin Negati ve Not Available [address], [address], 01/28/2024 15:31:40 01/28/20 24 01/28/2024 urina lysis , dipst ick Glucose Negati ve Not Available [address], [address], 01/28/2024 15:31:40 01/28/20 24 01/28/2024 urina lysis , dipst ick Appearance Clear Not Available [address], [address], 01/28/2024 15:31:40 01/28/20 24 01/28/2024 urina lysis , dipst ick Color Yellow Not Available [address], [address], 01/28/2024 15:31:40 07/05/20 23 07/05/2023 XR, neck Patien t Name: Kathia Velasco Unit #: [id number] Loc: DI Orderi [facility] er: Sudha Salazar Accoun t #: [id number] Status : REG CLI Primar y Care Provid er: Sudha Salazar Date of Exam: Sex: F Admiss ion Date: : 2000 Age: 22 Exam(s ) XR SOFT TISSUE NECK EXAM: XR SOFT TISSUE NECK CLINIC AL HISTOR Y: DISORD ER OF HYOID BONE,M 89.9,H /O TRAUMA TO NECK,P AIN IN REGION HYOID BONE. TECHNI QUE: 2D digita l imagin g was perfor med. COMPAR DMITRY: No exams were availa ble for compar dmitry FINDIN GS: BONES: No acute fractu re is presen t. Visual ized verteb ral body and disc height s are mainta ined. Alignm ent is normal . SOFT TISSUE :Airwa y is patent withou t radiop aque foreig n body. Epiglo ttis is not enlarg ed. Prever tebral soft tissue s appear unrema rkable . The hyoid bone appear s normal on the latera l view but is not well seen on the AP view due to bony overla p. IMPRES OFELIA: Unrema rkable radiog raphs of soft tissue neck. DATA REPOSI TORY: RADIAT ION DOSE DELIVE RED: Ordere d By: Sudha Salazar CC: ------ ------ ------ ------ ------ ------ ------ ------ ------ ------ ------ ------ - Dictat ed By: Mitra Harp 1640 1640 Transc ribed By: Lizz Art 1640 This is privil eged, confid ential inform ation intend ed only for the provid er named. Any use or distri bution by any person other than this provid er is strict ly prohib ited. If you receiv e this report in error, please notify us immedi ately at and return the origin al report to us at the addres s above. Thank- you. [email or web address] [facility] (Radiology) [address], [place], [address], 10/19/2023 16:19:04 08/04/19 24 08/04/2023 MRI imagi ng repor t Patien t Name: Kathia Velasco Unit #: [id number] Loc: DI Orderi ng Provid er: Latonia Carlton Accoun t #: [id number] Status : REG CLI Primar y Care Provid er: Sudha Salazar Date of Exam: Sex: F Admiss ion Date: : 2000 Age: 22 Exam(s ) MR LUMBAR SPINE WO/W EXAM: MR LUMBAR SPINE WO/W CLINIC AL HISTOR Y: LOW LYING CONUS MEDULL SAVANNA, PAIN BOTH LOWER EXTREM ITIES, WEAKNE SS BOTH LEGS. TECHNI QUE: Multip lanar multis equenc e MRI of the Lumbar spine was perfor med. COMPAR DMITRY: None FINDIN GS: Bones: The last interv ertebr al disc space is design ated the L5/S1 level for the number ing purpos e of this examin ation. The verteb ral body height s are well mainta ined. Alignm ent is satisf actory . The signal charac terist ics are unrema rkable . No verteb ral body deform ities identi fied. Cord: The conus tip is low lying, at the L 3 level. . It is of normal size and signal intens ity. Interv ertebr al discs are normal in height . There is minima l disc bulgin g at L5-S1 and L 1 2. Soft tissue s: The visual ized SI joints and sacrum are well mainta ined. The parasp inal soft tissue s are unrema rkable . Metall ic artifa ct in pelvis , anteri or to sacrum which may be relate d to the rectum . No abnorm al enhanc ement seen in the spine, cord or surrou nding soft tissue s. IMPRES OFELIA: Low lying conus medull savanna, at the level of L3. No eviden ce of mass, disc hernia tion or centra l canal stenos is. DATA REPOSI TORY: Ordere d By: Latonia Carlton CC: ------ ------ ------ ------ ------ ------ ------ ------ ------ ------ ------ ------ - Dictat ed By: Mtira Harp 1530 1530 Transc ribed By: Lizz Art 1530 This is privil eged, confid ential inform ation intend ed only for the provid er named. Any use or distri bution by any person other than this provid er is strict ly prohib ited. If you receiv e this report in error, please notify us immjaki дмитрий at and return the origin al report to us at the addres s above. Thank- you. polo [facility] [address] [place] [address] Dr, [place], [address] 08/04/2023 15:53:25 09/01/19 24 09/01/2023 modif ied melissau m lamarall ow Modifi ed Barium Swallo w MACY Posada NAME: Kathia Velasco UNIT #: [id number] ORDERI NG PROVID ER: ACCOUN T #: [id number] PRIMAR Y CARE PROVID ER: MARIA LUISA MALDONADO, SUDHA DATE/T NANO OF SER VICE: : 2000 Date of Servic e Date of servic e: Time of Servic e: 15:20 Modifi ed Barium Swallo w Study Findin gs: Video fluoro scopic Swallo wing Evalua tion (VFSE) / Modifi ed Barium Swallo w Study (MBSS) Speech Langua ge Pathol ogy Report Macy posada referr ed for VFSE/M BSS from Sudha Salazar given report ed pain with swallo wing. HPI Macy posada report of functi on: Macy posada is a 23 year old patien t with GERD on omepra zole, asthma , tether ed cord, and trauma to the front of neck as a child. They report on and off pain in the hyoid area over the years but nothin g that was ever very concer kacie to them, aura r, they note that since their recent abdomi nal surger y (bilia ry colic) the pain has been more freque nt, and someti mes worse with swallo wing. They do endors e histor y of reflux . Macy posada also presen ts with mild hoarse /breat hy voice qualit y which is their baseli ne and not bother some. Endors es freque nt tensio n in the neck and should ers second slava to cord tether ing. All Active Proble ms (Updat ed @ 14:13 by Ramila caldwell MD) Tetrah ydroca nnabin ol (THC) depend ence (Acute ) Depres ofelia (Chron ic) Anxiet y (Chron ic) Medica l Histor y (Updat ed @ 14:13 by Ramila caldwell MD) Biliar y colic Gallst ones Iron defici ency ( 2018) Numbne ss and tingli ng Delaye d pubert y Chroni c pain Hypoth yroidi sm Tether ed cord Asthma Migrai sharon Surgic al Histor y (Updat ed @ 14:13 by Ramila caldwell MD) S/P laparo scopic cholec ystect shahriar ( ) Chroni c cholec ystiti s, choles terolo sis and Cholel ithias is Status post bilate ral hernia repair @ 4 months old per mom Histor y of esopha gogast roduod enosco py ( 3) Hx of breast reduct ion, electi ve IMPRES SIONS: Swallo w safety is largel y preser joyce; swallo w effici ency is preser joyce. Mild chroni c pharyn goesop hageal dyspha sandhya. Charac terize d primar viji by mild delaye d onset of pharyn geal swallo w, specif ically noting sluggi sh laryng eal elevat ion relati ve to UES disten ofelia result ing in laryng eal penetr ation of large sips of thin liquid s before and during the swallo w from curren t bolus, with scant residu e remain ing at the level of the vocal folds, clears effect ively with cued throat clear. Patien t not sponta neousl y sensat e to penetr ation. No clear eviden ce of aspira tion during the study, but there is a chance patien t aspira melonie neglig ible amount s of post-s wallow residu e. Notabl y, Hyoid excurs ion was excell ent, UES disten ofelia was adequa te. Minima l pharyn geal residu e. Epiglo ttis invert s comple tely. There was some persis tent mid-pr oximal esopha geal retent ion of what appear ed to be puree even after liquid wash, fidel t rachel washburn g sensat ion. It is unclea r if patien t's report ed odynop hagia and mild defici ts noted above are caused by the same thing. Especi ally since patien t notes it increa sed notice ably since recent surger y, suspec t also an increa sed impact of reflux on patien t's clinic al sympto ms. There could also be a tensio n compon ent. Patien t appear s to be at low risk for potent ial aspira tion PNA and/or pulmon slava compro mise and low risk for malnut rition , low risk for dehydr ation. Diet modifi cation is not indica celina; non-or al nutrit ion is not indica celina. Matilde vaca progno sis is excell ent given: Positi ve progno stic factor s: Age, Severi ty, Cognit anjana status , RECOMM ENDATI ONS: Diet Textur e Recomm endati on:??? IDDSI LEVEL SOLIDS 7-Regu lar Solids LIQUID S 0-Thin Liquid s Please see furthe r detail s at???w [email or web address] MEDICA TIONS Whole with 0-Thin Liquid s or 4-Pure e Do not alter medica tions (e.g., cut)?? ? withou t advice from your MD or pharma cist. Risk Manage ment Strate gies:? ?? Behavi oral reflux precau tions, includ ing uprigh t positi on during + 90 mins after meals. Small sips, approx 10 mL Contro l risk factor s for aspira tion pneumo jarvis via (a) thorou gh oral hygien e (b) mainta ining physic al mobili ty as tolera celina PLAN: Therap y: Patibriseyda t declin es furthe r therap y Risk manage ment strate gies were discus sed with the patibriseyda posada. ----- OBJECT ANJANA Videof luomisty vaca Evalua tion (VFSE/ MBSS) was conduc celina in the latera l and anteri or-to- ward service supervisor ior projec tion by Speech -Langu age Pathol ogist, in collab oratio n with Radiol ogist, to evalua te oropha ryngea l matilde vaca functi on. Anatom ic view under fluoro scopy: WFL Brief Oral-M otor and Perife ral Exam: Unrema rkable PO Barium Contra st Trials Oral barium water- solubl e contra st was admini stered as follow s: IDDSI Level 0 Variba r thin liquid (40% w/v) IDDSI Level 2 Variba r nectar thick/ mildly thick liquid (40% w/v) IDDSI Level 4 Variba r puddin g/pure ed/ext remely thick (40% w/v) IDDSI Level 7 Regula r Solid: 1/2 daija cracke r coated in 3 mL Variba r puddin g 13 mm barium tablet taken with Thin Liquid s. MBSImP Compon ent Scores : COMPON ENT Scale SCORE 1 Lip closur e (0-4) 0 Result ed in no labial escape 2 Hold Positi on (0-3) 0 Mainta ined a cohesi ve bolus betwee n tongue to palata l seal 3 Bolus Prepar ation (0-4) 0 Result ed in timely and effici ent chewin g and mashin g 4 Bolus Transp ort (0-4) 0 Was with brisk tongue motion 5 Oral Residu e (0-4) 1 Was a trace, lining oral struct ures 6 Swallo w Initia tion (0-4) 3 Occurr ed when the bolus head was in the pyrifo rm sinuse s 7 Soft Palate Elevat ion (0-4) 0 Result ed in no bolus betwee n soft palate and the pharyn geal wall 8 Laryng eal Elevat ion (0-3) 1 Was decrea sed with partia l superi or moveme nt of thyroi d cartil age/pa rtial approx imatio n of aryten oids to epiglo ttic petiol e 9 Anteri or Hyoid Motion (0-2) 0 Demons trated comple te anteri or moveme nt 10 Epiglo ttic Moveme nt (0-2) 0 Result ed in comple te invers ion 11 Laryng eal Closur e (0-2) 1 Was incomp lete with narrow a column of air/co ntrast in laryng eal vestib ule 12 Pharyn geal Stripp ing Wave (0-2) 0 Was presen t and comple te 13 Pharyn geal (0-3) 0 Was comple te 14 PES Openin g (0-3) 0 Was comple tely disten ded and comple te durati on with no obstru ction of flow 15 Tongue Base Retrac tion (0-4) 1 Allowe d a trace column of contra st or air betwee n tongue base and pharyn geal wall 16 Pharyn geal Residu e (0-4) 1 Showed a trace within or on pharyn geal struct ures 17 Esopha geal Cleara nce (0-4) 1 Result ed in esopha geal retent ion Penetr ation- Aspira tion Scale: COMPON ENT Scale SCORE 1 Thin liquid (1-8) [address] entere d the airway , contac celina the vocal folds, and was not ejecte d from the airway . 2 Peak thick (1-8) [address] did not enter the airway 3 Honey thick (1-8) NA 4 Puddin g thick (1-8) [address] did not enter the airway 5 Cookie (1-8) [address] did not enter the airway Triale d Compen satory Strate gies Outcom e: Maneuv ers Succes sful (+) Unsucc essful (-) Postur es Succes sful (+) Unsucc essful (-) 3 second Prepar atory Set?+/- Chin Tuck Postur e? Cough? Shallot Cleaner ior Head tilt? Reflex anjana? Cued? Throat Clear? Head Tilt to? Reflex anjana? Left? Cued?+ ? Right? Saliva swallo w? Head Turn/ Rotate to? Suprag lottic Swallo w? Left? Super- suprag lottic Matilde w? Right? Bolus Modifi cation s Succes sful (+) Unsucc essful (-) Delive ry/Alt ernati ng Consis tencie s ? Follow with Liquid Wash - (to clear esopha geal stasis ) ? Follow with Solid Bolus? ?? - (to clear esopha geal stasis ) Delive ry/Via Straw? Reduce d Volume ??? + (laryn geal penetr ation) Reduce d Rate of Intake ??? +(shaye ngeal penetr ation) Increa sed Viscos ity?+(l arynge al penetr ation) Other: ? Thank you for kathyai ng us to take part in this patien t's care. Please feel free to contac t the [facility] Speech Langua ge Pathol ogy Depart ment with any questi ons/co ncerns . Coding CPT Codes MOTION FLUORO DORIANIona/ MATILDE W - [id number] ([id number]) CC:SUDHA DHALIWAL MD ------ ------ ------ ------ ------ ------ ------ ------ ------ ------ ------ ------ ------ ------ ------ ------ ---- -- Dictat ed by: CORTNEY LABOY Dicttesha ed:: 1430 1701 Transc ribed Date: Transc ribed Time: 1520 By: GENIE This is privil eged, confid ential inform ation, intend ed only for the provid er named. Any use or distri bution by any person other than this provid er is strict ly prohib ited. If you receiv e this report in error, please notify us immludy choe at and return the origin al report to us at the addres s above. Thank you. MC [facility] [address] [place], [address] 09/11/2023 18:08:30 09/01/19 24 09/01/2023 FL, modif ied bariu m lamarall ow study Patien t Name: Kathia Velasco Unit #: [id number] Loc: DI Orderi ng Provid er: Sudha Salazar Jessica t #: [id number] Status : REG CLI Primar y Care Provid er: Sudha Salazar Date of Exam: Sex: F Admiss ion Date: : 2000 Age: 23 Exam(s ) RF MODIFI ED SPEECH BA SWALLO W TECHNI QUE: Modifi ed barium swallo w was perfor med in conjun ction with speech pathol ogy. CONTRA ST MATERI AL: Oral barium contra st was admini stered . COMPAR DMITRY: No exams were availa ble for compar dmitry FINDIN GS: Note that this is not a dedica celina esopha gram, distal esopha justina not evalua celina. Examin ation was perfor med with thin barium , barium paste and barium coated cracke r. The patien t also swallo wed a barium tablet . There is no eviden ce of aspira tion. There was penetr ation with thin liquid s. Speech pathol ogy report to follow . IMPRES OFELIA: Penetr ation was noted with thin liquid s. No aspira tion was seen. RADIAT ION DOSE DELIVE RED: Ka,r=5 .1 mGy Ordere d By: Sudha Salazar CC: DAVID CHAPMAN, CORTNEY ------ ------ ------ ------ ------ ------ ------ ------ ------ ------ ------ ------ - Dictat ed By: Gerardo Calero M.D. 1812 Transc ribed By: Gerardo Calero 1812 This is privil eged, confid ential inform ation intend ed only for the provid er named. Any use or distri bution by any person other than this provid er is strict ly prohib ited. If you receiv e this report in error, please notify us immedi ately at and return the origin al report to us at the addres s above. Thank- you. [email or web address] [facility] [address], [place], [address], 10/19/2023 16:18:41 Result Notes None recorded. 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 [address], [facility] [address] , [facility] 4 16:34:48 Menometrorrhagia Completed 202208/19/[address], [place] [id number] , [facility] 4 16:34:53 Uncomplicated moderate persistent asthma Active [address], [facility] [address] , [facility] 4 16:33:48 Social phobia Completed 202208/19/[address], [facility] [address] , [facility] 4 16:34:35 Vitamin D deficiency Active [address], [facility] [phone] [place] [address] 4 16:34:17 Sensorineural hearing loss of bilateral ears Completed 202208/19/2023 Problem Code: H90.3; Problem Code Type: ICD-10; MD Shira [address], [facility] [id number] [place] [address] 4 16:34:22 Major depression, single episode Active [address], [facility] [phone] [place] [address] 4 16:34:11 Attention deficit hyperactivity disorder, predominantly inattentive type Active 2022 Problem Code: F90.0; Problem Code Type: ICD-10; Not Available [facility] 3 04:31:37 Chronic pain Active [address], [facility] [id number] 4 16:33:09 Autoimmune thyroiditis Completed 202208/19/2023 Problem Code: E06.3; Problem Code Type: ICD-10; MD Shira [address], [facility] [address] , [facility] 4 15:02:13 Hypothyroidism Completed 202208/19/2023 Problem Code: E03.9; Problem Code Type: ICD-10; MD Shira [address], [facility] [address] , [facility] 4 16:33:37 Intervertebral disc prolapse Completed 202208/19/2023 Problem Code: M51.25; Problem Code Type: ICD-10; MD Shira GARLAND Dr, [address] 4 16:33:29 Sleep disorder Completed 202208/19/2023 Problem Code: G47.8; Problem Code Type: ICD-10; MD Shira GARLAND Dr, [address] 4 16:34:43 Congenital anomaly of spinal cord Active [address], [address] 4 16:33:26 Fatigue Active [address], [address] 4 16:33:44 Asthenia Completed 202208/19/2023 Problem Code: R53.1; Problem Code Type: ICD-10; MD Shira GARLAND Dr, [address] 4 16:33:15 Epigastric pain Completed 202208/19/2023 Problem Code: R10.13; Problem Code Type: ICD-10; MD Shira GARLAND Dr, [address] 4 16:33:17 Palpitations Completed 202208/19/2023 Problem Code: R00.2; Problem Code Type: ICD-10; MD Shira GARLAND Dr, [address] 4 16:33:20 Leukocytosis Active [address], [place], [address] , [facility] 4 16:33:13 Height below average Completed 200504/28/2023 Problem Code: 783.43; Problem Code Type: ICD-9; Not Available [facility] 3 04:31:39 Abnormal gait Completed 202202/21/2023 Problem Code: R26.89; Problem Code Type: ICD-10; Not Available [facility] 3 04:31:39 Hemoglobinopathy Completed 202202/21/2023 Problem Code: D58.2; Problem Code Type: ICD-10; Not Available [facility] 3 04:31:40 Recurrent acute tonsillitis Completed 200802/21/2023 Problem Code: J03.91; Problem Code Type: ICD-10; Not Available [facility] 3 04:31:40 Obstructive sleep apnea syndrome Completed 202202/21/2023 Problem Code: G47.33; Problem Code Type: ICD-10; Not Available [facility] 3 04:31:40 Acne Completed 201304/28/2023 Not Available [facility] 3 04:31:40 Headache Completed 200804/28/2023 Not Available [facility] 3 04:31:40 Snoring Completed 202202/21/2023 Problem Code: R06.83; Problem Code Type: ICD-10; Not Available [facility] 3 04:31:40 Disorder of hyoid bone Active [address], [place], [address] , [facility] 4 16:31:26 Electrocardiogram abnormal Completed 202208/19/2023 Problem Code: R94.31; Problem Code Type: ICD-10; MD Shira GAR[address] Dr, [facility] [address] , [facility] 4 16:31:20 Dizziness and giddiness Completed 202208/19/2023 Problem Code: R42; Problem Code Type: ICD-10; MD Shira GARLAND Dr, [facility] [address] , [facility] 4 16:31:12 Gastroesophageal reflux disease Active [address], [facility] [address] , [facility] 4 16:31:16 Chronic migraine without aura Active [address], [facility] [address] , [facility] 4 16:32:08 Shortened [place] interval Active [address], [facility] [address] , [facility] 4 16:35:52 Iron deficiency Active [address], [facility] [address] , [facility] 4 16:39:09 Dysuria Active [address], [facility] [address] , [facility] 4 15:01:48 Autoimmune thyroiditis Active 2023 Problem Code: E06.3; Problem Code Type: ICD-10; MD Shira GARLAND Dr, [facility] [address] , [facility] 4 15:02:13 Polyuria Active [address], [facility] [address] , [facility] 14:48:37 Problem Notes None recorded. Procedures Surgical History Date Name Laterality Status Provider Name and Address Organization Details Recorded Time 3 Removal of gallbladder completed MD Shira GARLAND Dr, [place], [address], [facility] 06/16/2023 09:26:56 Imaging Results Imaging Date Name Status LastModified by Organiz ation Details LastModified Time 07/05/2023 XR, neck completed [id number] [facility] (Radiology) [address] [place] [address] [place], [address], 10/19/2023 16:19:04 08/04/2023 MRI imaging report completed [address] [place], [address] 08/04/2023 15:53:25 09/01/2023 modified barium swallow completed [address] [place], [address] 09/11/2023 18:08:30 09/01/2023 [place], modified barium swallow study completed [email or web address] [facility], [place], [address], 10/19/2023 16:18:41 Procedure Notes None recorded. Medical Equipment None Reported. Allergies Allergen ID Allergen Name Allergen Category Reaction Reaction Severity Criticality Documentation Date Start Date Code Code System Note Provider Name and Address Organization Details Recorded Time 90966 Canis lupus familiari s extract environme nt other mild Not available 06/11/20232022 83522 4 RxNorm No react ion enter ed [facility] 4 22:20:04 13303 gabapenti n medicatio n other mild Not available 06/11/20232022 45256 RxNorm No react ion enter ed [facility] 4 22:20:32 99162 POLLEN EXTRACTS environme nt,medica tion other mild Not available 06/11/20232022 82995 6 RxNorm No react ion enter ed [facility] 4 22:21:07 56076 Vistaril medicatio n other mild Not available 06/11/20232022 21074 9 RxNorm No react ion enter ed [facility] 4 22:21:35 Medications Name Sig Start Date Stop Date Status Note LastModified by Organization Details LastModified Time vitamin d3 (tejal) 1,000iu cap TAKE 1 CAPSULE BY MOUTH ONCE DAILY 01/27 completed Not Available Not Available Not Available venlafaxine ER 37.5 mg capsule,ext ended release 24 hr 2 ONCE DAILY 10/17 completed Not Available Not Available Not Available venlafaxine ER 75 mg capsule,ext ended release 24 hr TAKE 1 CAPSULE BY MOUTH ONCE DAILY active Not Available Not Available No t Available Concerta 18 mg tablet,exte nded release 04/26 completed Not Available Not Available Not Available cetirizine 10 mg tablet 1 tap po daily active Not Available Not Available No t Available hydrocodone 5 mg-acetamin ophen 325 mg tablet TAKE 1 TABLET BY MOUTH EVERY 6 HOURS 01/27 completed Not Available Not Available Not Available Claritin 10 mg tablet 1TAB qd 11/02 completed Not Available Not Available Not Available meloxicam 15 mg tablet TAKE 1 TABLET BY MOUTH ONCE DAILY WITH MEALS active Not Available Not Available No t Available sucralfate 1 gram tablet TAKE 1 TABLET BY MOUTH BEFORE MEAL(S) AND 1 AT BEDTIME 07/02 completed Not Available Not Available Not Available ondansetron HCl 4 mg tablet TAKE 1 TABLET BY MOUTH THREE TIMES DAILY NEEDED FOR NAUSEA active Not Available Not Available No t Available methylpheni date 5 mg tablet TAKE 1 TABLET BY MOUTH ONCE DAILY . DO NOT EXCEED 1 PER 24 HOURS 07/02 completed Not Available Not Available Not Available prednisone 20 mg tablet TAKE 2 TABLETS BY MOUTH ONCE DAILY FOR 5 DAYS 07/02 completed Not Available Not Available Not Available fluoxetine 10 mg tablet 1 cap 2014 active Not Available Not Available Not Avai lable permethrin 1 % lotion lotion 1, repeat in 7 days 11/17 completed Not Available Not Available Not Available sumatriptan 50 mg tablet 1 tab daily 07/02 completed Not Available Not Available Not Available Space Chamber USE DIRECTED active Not Available Not Available No t Available omeprazole 40 mg capsule,del ayed release TAKE 1 CAPSULE BY MOUTH ONCE DAILY NEEDED active Not Available Not Available No t Available tramadol 50 mg tablet Take 1 tablet every 6 hours by oral route as needed. 07/02 completed Not Available Not Available Not Available IBU-200 200 mg tablet PRN 08/19 completed Not Available Not Available Not Available famotidine 20 mg tablet TAKE 1 TABLET BY MOUTH TWICE DAILY 07/02 completed Not Available Not Available Not Available Lice Treatment (permethrin ) 1 % topical liquid lotion 1, repeat in 7 days 11/02 completed Not Available Not Available Not Available levothyroxi ne 50 mcg tablet TAKE 1/2 (ONE-HALF ) TABLET BY MOUTH ONCE DAILY 07/02 completed Not Available Not Available Not Available pantoprazol e 40 mg tablet,joellen yed release TAKE 1 TABLET BY MOUTH ONCE DAILY 07/02 completed Not Available Not Available Not Available lansoprazol e 30 mg capsule,del ayed release TAKE 1 CAPSULE BY MOUTH ONCE DAILY 07/02 completed Not Available Not Available Not Available fluoxetine 10 mg capsule TAKE 1 CAPSULE BY MOUTH ONCE DAILY 08/19 completed Not Available Not Available Not Available albuterol sulfate HFA 90 mcg/actuati on aerosol inhaler INHALE 2 PUFFS BY MOUTH EVERY 4 HOURS NEEDED active Not Available Not Available No t Available sertraline 50 mg tablet 1 tab daily 04/01 completed Not Available Not Available Not Available fluticasone propionate 110 mcg/actuati on HFA aerosol inhaler Inhale 1 puff twice a day by inhalatio n route. 08/19 completed Not Available Not Available Not Available Acid Instrument Tech (cimetidine ) 200 mg tablet 1 tablet by mouth once a day as needed 02/23 completed Not Available Not Available Not Available escitalopra m 10 mg tablet TAKE 2 TABLETS BY MOUTH ONCE DAILY 07/02 completed Not Available Not Available Not Available escitalopra m 20 mg tablet Take 1 tablet every day by oral route. 08/19 completed Not Available Not Available Not Available Vitamin D3 25 mcg (1,000 unit) capsule Take 1 capsule every day by oral route. 2023 active Not Available Not Available Not Avai lable escitalopra m 5 mg tablet TAKE 1 TABLET BY MOUTH ONCE DAILY IN ADDITION TO 20MG TABLET FOR A TOTAL DAILY DOSE OF 25MG. 08/19 completed Not Available Not Available Not Available duloxetine 30 mg capsule,del ayed release Take 1 capsule every day by oral route. 08/19 completed Not Available Not Available Not Available Flovent HFA 44 mcg/actuati on aerosol inhaler 2 puffs 2 times a day 08/19 completed Not Available Not Available Not Available pregabalin 100 mg capsule TAKE 1 CAPSULE BY MOUTH TWICE DAILY . DO NOT EXCEED 2 PER 24 HOURS 08/19 completed Not Available Not Available Not Available Excedrin 1 10/17 completed Not Available Not Available Not Available Albuterol Sulfate HFA 2 puffs qid 2013 active Not Available Not Available Not Avai lable cholecalcif rosalind (vitamin D3) 1,250 mcg (50,000 unit) capsule Take 1 capsule by mouth once a week 05/14 completed Not Available Not Available Not Available FeroSul 325 mg (65 mg iron) tablet TAKE 1 TABLET BY MOUTH ONCE DAILY TAKE WITH ACIDIC FOOD OR DRINK active Not Available Not Available No t Available omeprazole 20 mg tablet,joellen yed release Take 40 mg by mouth once a day 08/19 completed Not Available Not Available Not Available Nexplanon 68 mg subdermal implant active Not Available Not Available Not Available Aimovig Autoinjecto r 140 mg/mL subcutaneou s auto-inject or INJECT 1 ML SUBCUTANE OUSLY ONCE EVERY MONTH active Not Available Not Available No t Available Breyna 80 mcg-4.5 mcg/actuati on HFA aerosol inhaler INHALE 2 PUFFS BY MOUTH TWICE DAILY active Not Available Not Available No t Available Vitals Date Recorded Body height Body mass index (BMI) Body weight Body temperature Oxygen saturation Oxygen saturation in Arterial blood by Pulse oximetry Heart rate Respiratory rate Systolic blood pressure Diastolic blood pressure Provider Name and Address Organization Details Last Updated DateTime 3 152.298 4 cm 39.4 kg/m2 83957.5 g 98.3 [degF] 99 % 99 % 73 /min 16 /min 120 mm[Hg] 68 mm[Hg] MIRZA DESAI RN [facility] 3 11:34:17 Date Recorded Body height Body mass index (BMI) Body weight Oxygen saturation Oxygen saturation in Arterial blood by Pulse oximetry Heart rate Respiratory rate Systolic blood pressure Diastolic blood pressure Provider Name and Address Organization Details Last Updated DateTime 4 152.298 4 cm 37.5 kg/m2 15213.7 4 g 99 % 99 % 118 /min 18 /min 118 mm[Hg] 66 mm[Hg] HATTIE SIMMONS RN [facility] 4 15:03:33 Date Recorded Body height Body mass index (BMI) Body weight Respiratory rate Oxygen saturation Oxygen saturation in Arterial blood by Pulse oximetry Heart rate Body temperature Systolic blood pressure Diastolic blood pressure Provider Name and Address Organization Details Last Updated DateTime 4 152.298 4 cm 38.7 kg/m2 87798.2 9 g 18 /min 99 % 99 % 106 /min 98 [degF] 110 mm[Hg] 68 mm[Hg] BETTY LOPEZ MA [facility] 4 14:28:46 Date Recorded Body height Body mass index (BMI) Body weight Body temperature Oxygen saturation Oxygen saturation in Arterial blood by Pulse oximetry Heart rate Systolic blood pressure Diastolic blood pressure Provider Name and Address Organization Details Last Updated DateTime 4 152.298 4 cm 38.9 kg/m2 30286.8 8 g 97.8 [degF] 97 % 97 % 80 /min 118 mm[Hg] 70 mm[Hg] BTETY LOPEZ MA [facility], [facility] 4 14:35:09 Social History Question Answer Notes LastModified by Organizat ion Details LastModified Time Tobacco Smoking Status Never Smoker MIRZA DESAI RN [facility], [facility], [facility] 07/02/2023 11:37:13 What Was The Date Of Your Most Recent Tobacco Screening? 10/18/2023 Information not available 10/18/2023 Has Tobacco Cessation Counseling Been Provided? No [place] [address] Information not available 07/02/2023 Do You Or Have You Ever Used Any Other Forms Of Tobacco Or Nicotine? No [place] [address] Information not available 07/02/2023 Sex: Female Functional Status None recorded. Mental Status None recorded. Family History Relationship Description Onset Age of this Age Resolved Age Notes Notes:*Problem: paternal gra ndfather type 1 diabetes. Father with type 2 diabetes. Mother - lupus, RA, fibro, chiari malformation. GM - HTN, diabetes, HLD, dementia Medical History No medical history recorded. Gynecological HistoryNo gynecological history recorded. Obstetrics History GPAL:G 0 P 0 0 0 0 Immunizations Vaccine Type Date Status Provider Name and Address Organization Details Recorded Time MMR 09/22/2006 completed Not Available [facility] 05:56:15 MMR 02/18/2001 completed Not Available [facility] 05:56:16 DTaP, unspecified formulation 10/01/2006 completed Not Available [facility] 06/11/2023 05:56:16 DTaP, unspecified formulation 1999 completed Not Available [facility] 06/11/2023 05:56:16 DTaP, unspecified formulation 11/23/2000 completed Not Available [facility] 06/11/2023 05:56:16 DTaP, unspecified formulation 1999 completed Not Available [facility] 06/11/2023 05:56:16 DTaP, unspecified formulation 02/18/2000 completed Not Available [facility] 06/11/2023 05:56:16 Tdap 09/22/2011 completed Not Available [facility] 05:56:16 Novel Xjrpqznzt-Z1D3-26, all formulations 08/19/2009 completed Not Available [facility] 06/11/2023 05:56:16 Novel Lssnqqshr-Z1D6-31, all formulations 07/18/2009 completed Not Available [facility] 06/11/2023 05:56:16 HPV, unspecified formulation 12/12/2021 completed Not Available [facility] 06/11/2023 05:56:17 HPV, unspecified formulation 02/06/2021 completed Not Available [facility] 06/11/2023 05:56:17 HPV, unspecified formulation 05/13/2021 completed Not Available [facility] 06/11/2023 05:56:17 Pneumococcal Conjugate, unspecified formulation 08/24/2000 completed Not Available [facility] 06/11/2023 05:56:17 Pneumococcal Conjugate, unspecified formulation 11/23/2000 completed Not Available [facility] 06/11/2023 05:56:17 Hib, unspecified formulation 1999 completed Not Available [facility] 06/11/2023 05:56:17 Hib, unspecified formulation 11/23/2000 completed Not Available [facility] 06/11/2023 05:56:17 Hib, unspecified formulation 1999 completed Not Available [facility] 06/11/2023 05:56:17 Hib, unspecified formulation 02/18/2000 completed Not Available [facility] 06/11/2023 05:56:17 COVID-19, mRNA, LNP-S, PF, 30 mcg/0.3 mL dose 11/24/2020 completed Not Available [facility] 06/11/2023 05:56:18 COVID-19, mRNA, LNP-S, PF, 30 mcg/0.3 mL dose 12/15/2020 completed Not Available [facility] 06/11/2023 05:56:18 COVID-19, mRNA, LNP-S, PF, 30 mcg/0.3 mL dose 06/27/2021 completed Not Available [facility] 06/11/2023 05:56:18 varicella 08/24/2000 completed Not Available [facility] 05:56:18 varicella 07/16/2006 completed Not Available [facility] 05:56:18 COVID-19, mRNA, LNP-S, bivalent, PF, 30 mcg/0.3 mL dose 06/05/2022 completed Not Available [facility] 06/11/2023 05:56:18 Hep B, unspecified formulation 1999 completed Not Available [facility] 06/11/2023 05:56:18 Hep B, unspecified formulation 1999 completed Not Available [facility] 06/11/2023 05:56:18 Hep B, unspecified formulation 05/29/2000 completed Not Available [facility] 06/11/2023 05:56:18 influenza, unspecified formulation 05/16/2009 completed Not Available [facility] 06/11/2023 05:56:19 influenza, unspecified formulation 05/31/2007 completed Not Available [facility] 06/11/2023 05:56:19 influenza, unspecified formulation 06/05/2022 completed Not Available [facility] 06/11/2023 05:56:19 influenza, unspecified formulation 06/08/2008 completed Not Available [facility] 06/11/2023 05:56:19 polio, unspecified formulation 1999 completed Not Available [facility] 06/11/2023 05:56:19 polio, unspecified formulation 1999 completed Not Available [facility] 06/11/2023 05:56:19 polio, unspecified formulation 01/15/2004 completed Not Available [facility] 06/11/2023 05:56:19 polio, unspecified formulation 02/18/2001 completed Not Available [facility] 06/11/2023 05:56:19 Tdap 04/26/2023 completed Not Available [facility] 05:31:00 Influenza, split virus, quadrivalent, PF 04/26/2023 completed Not Available [facility] 08/13/2023 05:31:00 Influenza, split virus, quadrivalent, PF 05/27/2023 completed Not Available [facility] 08/13/2023 05:31:00 Past Encounters Encounter ID Performer Location Encounter Start Date Encounter Closed Date Diagnosis/Indication Diagnosis SNOMED-CT Code [id number] SUDHA SALAZAR MD [address] [address] 07/02/2023 11:21:17 07/02/2023 13:09:01 Disorder of hyoid bone 921984435 [id number] SUDHA SALAZAR MD [address] [address] 08/19/2023 14:48:33 08/19/2023 16:32:17 Disorder of hyoid bone 521935543 Gastroesop hageal reflux disease 959844017 Uncomplica celina moderate persistent asthma 587271297 Chronic pain 21739658 Chronic mi graine without aura 764403271593621 [id number] SUDHA SALAZAR MD [address] [address] 10/18/2023 14:10:14 10/18/2023 16:08:36 Chronic migraine without aura 413324337019261 Gastroesop hageal reflux disease 382953198 Vitamin D deficiency 347 75603 Anxiety disorder 4842088 06 Body mass index 30+ - obesity 870320449 Uncomplica celina moderate persistent asthma 344835326 Iron deficiency 09820704 Chronic pain 28905117 [id number] SUDHA SALAAZR MD [address] [address] 01/28/2024 14:07:20 01/28/2024 15:17:00 Dysuria 81529151 Autoimmune thyroiditis 98399422 Chronic mi graine without aura 090439072461197 Chronic pain 12588520 [id number] ASHA HALL CMA [address] [address] 02/22/2024 12:55:25 02/22/2024 13:28:47 Dysuria 66126093 Health Concerns Section Related Observation LastModified by Organization Detai ls LastModified Time None Recorded Concern Status LastModified by Organization Details LastModified Time None Recorded Advance Directives Directive None Recorded Payers Encounter Date Sequence Insurance Name Policy Number Policy Adams Covered Member ID Adams Member ID Guarantor Name 07/02/2023 1 [place] [employer] [place] Cassiopeia L Acevedo [id number] Cassiopeia L Acevedo 08/19/2023 1 [facility] [id number] Cassiopeia L Acevedo [id number] Cassiopeia L Acevedo 10/18/2023 1 [facility] [id number] Cassiopeia L Acevedo [id number] Cassiopeia L Acevedo 01/28/2024 1 [facility] [id number] Cassiopeia L Acevedo [id number] Cassiopeia L Acevedo 02/22/2024 1 [facility] [id number] Cassiopeia L Acevedo [id number] Cassiopeia L Acevedo Notes Date Note Type Note Provider Name and Address Organization Details Recorded Time 07/02/2023 text/html HPI Notes: Here for neck pain. After surgery symptoms worsened but has been ongoing issue for 10 years now. Started with collision during game of tag approx 10 years ago, someone's head went into their neck, sometimes felt like there was something in their throat that was a little loose, felt like something was getting caught or stuck but could maneuver it back. 2-3 years ago became worse, would wake up with throat feeling stuck or caught. Has been wanting to talk about it but have been other pressing issues. 2-3 days after cholecystectomy woke up and couldn't move neck. [place] could feel bone catching in throat and radiating to neck and head. Had pain radiating from front of throat, on the left, directly back to the neck. Went to ED on 06/22, wasn't much help. Trigger point helped with headache but improvement was short lived. CT scan done, no acute issues seen but feels they were focused on the soft tissues. Today no pain, sometimes sore, usually constant pressure type feeling unless hits a certain angle that makes it ache a lot. Can feel bone pressing into the throat. Always been weird to swallow for last couple years. Surgery went well. Itching from surgical glue was the worst part of recovery. Has no other pressing concerns at this time. SUDHA SALAZAR MD [address], [place], [address], [facility]. 07/02/2023 12:30:59 08/19/2023 text/html HPI Notes: Asthm a Reported by patient. Notes: Asthma is worse with the cold weather. Does not think the controller medication helps. They are not certain which ones are taking but thinks it is Symbicort. Taking once a day. Not using spacer. Has been coughing so hard they are vomiting at times. Rescue inhaler takes half an hour to work. Wheezing, throat chino, coughing. Chronic Pain Follow-up Reported by patient. Notes: [place] has pains in their arms and legs. Some days are better than others. Sometimes will start with the legs, progress to the arms and cause the arms to have decreased movement. 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 I am uncertain how this would cause pain in the arms. They are seeing their neurosurgeon next week to discuss MRI results. Did not tolerate PT. [place] it was not helpful and is hard to keep up with. Would like medication for pain management. Aware that I will not prescribe opiates. Would like to consider other options. Headache Reported by patient. Notes: Migraines persist. Not sure if venlafaxine is helpful. Has migraines 5-6 out of 7 days of the week. Has 1 right now. Mostly in the front but also worsens pain at the base of the neck too. Associated w light sensitivity and nausea. Throat Pain Reported by patient. Notes: Pain in region of hyoid bone persists. Xray normal. Still uncomfortable to swallow but less acutely painful. Feels a restriction when breathing. When lying in bed the pillow on the throat is painful. SUDHA SALAZAR MD [address], [place], [address], [facility]. 08/19/2023 17:05:08 10/18/2023 text/html HPI Notes: Denta l issues - needs tooth extractions. Migraines - not better with the aimovig yet. Anxiety, ADHD - her psychiatrist is leaving, transferring psych care to me. Feels venlafaxine has overall been helpful. Chronic pain/chiari malformation - saw neurosurg who referred to [facility] for spinal issues and limb pain. Upper neck is biggest source of pain right now, gets knot on the left, makes it hard to move head or sleep. PT has never been helpful. Has not tried meloxicam yet. Was confused about what she could or could not take it with. Asthma - better since increasing symbicort. SUDHA SALAZAR MD [address], [place], [address], [facility]. 10/19/2023 14:24:30 01/28/2024 text/html HPI Notes: [place] presents in follow up. Biggest concern is wondering about a UTI. Has had urinary frequency and discomfort with urination for a week and a half. No fevers. Migraines - not better with the aimovig yet. Still having intense migraines, 5-6 days on end. Anxiety, ADHD - Feels venlafaxine has overall been helpful. Chronic pain/chiari malformation - saw neurosurg who referred to [facility] for spinal issues and limb pain. Saw Dr. Valdez at [facility]. Didn't offer surgical solution. Did do rheum labs and hasn't heard results or the plan from there. Is not taking meloxicam every day, not sure if it is helpful. Finds it hard to do logistically because it should be taken with food. Asthma - initially said better since increasing symbicort. On Breyna (equivalent) now and not taking regularly. Still notes SOB at times. SUDHA SALAZAR MD [address], [place], [address], [place] [facility]. 01/28/2024 20:29:22 OBGyn Episode No OBEpisode recorded.
--- OUTSIDE RECORDS SUMMARY | 2024-02-22 19:17 | XMS_ITS | Continuity of Care Document ---
Author Organization [facility] Address [address] [place] [address] Assessment No assessment recorded. Plan of Treatment Reminders Order Date Submit Date Provider Last Modified By Organization Details Last Modified Time Details Appointments Nurse Visit 2023 01:00P [facility] Not available Not available Not available Nurse Visit 2023 01:00P [facility] Not available Not available Not available Office Visit 2023 01:30P M Ursula Salazar Not available Not available Not available Lab urinalysi s, dipstick 2023 024 [facility], [address] [place] [address], [id number], 02/22/2024 14:48:50 culture, urine + sensitivi ty - Urine sample 2023 [facility] (Registration ), [address] [place] [address] , [place], [address], 02/22/2024 14:48:50 Referral None recorded. Procedures None recorded. Surgeries None recorded. Imaging None recorded. Medication Orders None recorded. Patient TargetsNo targets recorded. Patient InstructionsNo instructions recorded. Reason for Referral None Reported. 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 [address], [place] [address] , [facility] 4 16:34:48 Menometrorrhagia Completed 202208/19/[address], [address] 16:34:53 Uncomplicated moderate persistent asthma Active [address], [address] 16:33:48 Social phobia Completed 202208/19/[address], [place] [address] , [facility] 4 16:34:35 Vitamin D deficiency Active [address], [place], [place], [address] [place] [address] , [facility] 16:34:17 Sensorineural hearing loss of bilateral ears Completed 202208/19/2023 Problem Code: H90.3; Problem Code Type: ICD-10; MD Shira [address] Dr, [address] 4 16:34:22 Major depression, single episode Active [address], [place], [address] , [facility] 16:34:11 Attention deficit hyperactivity disorder, predominantly inattentive type Active 2022 Problem Code: F90.0; Problem Code Type: ICD-10; Not Available [facility] 3 04:31:37 Chronic pain Active [address], [facility] [address] [place] [address] 4 16:33:09 Autoimmune thyroiditis Completed 202208/19/2023 Problem Code: E06.3; Problem Code Type: ICD-10; MD Shira [address], [facility] [address] 4 15:02:13 Hypothyroidism Completed 202208/19/2023 Problem Code: E03.9; Problem Code Type: ICD-10; MD Shira [address]AR[address] Dr, [facility] [address] [place] [address] 4 16:33:37 Intervertebral disc prolapse Completed 202208/19/2023 Problem Code: M51.25; Problem Code Type: ICD-10; MD Shira [address]AR[address], [facility] [address] [place] [address] 4 16:33:29 Sleep disorder Completed 202208/19/2023 Problem Code: G47.8; Problem Code Type: ICD-10; MD Shira [address] Dr, [facility] [address] 4 16:34:43 Congenital anomaly of spinal cord Active [address], [facility] [address] [place] [address] 4 16:33:26 Fatigue Active [address], [facility] [address] 4 16:33:44 Asthenia Completed 202208/19/2023 Problem Code: R53.1; Problem Code Type: ICD-10; MD Shira GARLAND Dr, [address] 4 16:33:15 Epigastric pain Completed 202208/19/2023 Problem Code: R10.13; Problem Code Type: ICD-10; MD Shira GARLAND Dr, [address] 4 16:33:17 Palpitations Completed 202208/19/2023 Problem Code: R00.2; Problem Code Type: ICD-10; MD Shira GARLAND Dr, [address] 4 16:33:20 Leukocytosis Active [address], [address] 4 16:33:13 Height below average Completed 200504/28/2023 Problem Code: 783.43; Problem Code Type: ICD-9; Not Available [facility] 3 04:31:39 Abnormal gait Completed 202202/21/2023 Problem Code: R26.89; Problem Code Type: ICD-10; Not Available [facility] 3 04:31:39 Hemoglobinopathy Completed 202202/21/2023 Problem Code: D58.2; Problem Code Type: ICD-10; Not Available [facility] 3 04:31:40 Recurrent acute tonsillitis Completed 200802/21/2023 Problem Code: J03.91; Problem Code Type: ICD-10; Not Available [facility] 3 04:31:40 Obstructive sleep apnea syndrome Completed 202202/21/2023 Problem Code: G47.33; Problem Code Type: ICD-10; Not Available [facility] 3 04:31:40 Acne Completed 201304/28/2023 Not Available [facility] 3 04:31:40 Headache Completed 200804/28/2023 Not Available [facility] 3 04:31:40 Snoring Completed 202202/21/2023 Problem Code: R06.83; Problem Code Type: ICD-10; Not Available [facility] 3 04:31:40 Disorder of hyoid bone Active [address], [address] [place] [address] 4 16:31:26 Electrocardiogram abnormal Completed 202208/19/2023 Problem Code: R94.31; Problem Code Type: ICD-10; MD Shira GAR[address] Dr, [place] [id number] [place] [address] 4 16:31:20 Dizziness and giddiness Completed 202208/19/2023 Problem Code: R42; Problem Code Type: ICD-10; MD Shira GAR[address] Dr, [place] [id number] 4 16:31:12 Gastroesophageal reflux disease Active [address], [facility] [address] [place] [address] 4 16:31:16 Chronic migraine without aura Active [address], [address] 4 16:32:08 Shortened ID interval Active [address], [facility] [phone] [place] [address] 4 16:35:52 Iron deficiency Active [address], [facility] [address] , [facility] 4 16:39:09 Dysuria Active [address], [facility] [address] , [facility] 4 15:01:48 Autoimmune thyroiditis Active 2023 Problem Code: E06.3; Problem Code Type: ICD-10; MD Shira GAR[address] Dr, [facility] [address] , [facility] 4 15:02:13 Polyuria Active [address], [facility] [address] , [facility] 4 14:48:37 Problem Notes None recorded. Procedures Surgical History Date Name Laterality Status Provider Name and Address Organization Details Recorded Time 3 Removal of gallbladder completed MD Shira [address], [place], [address], [facility] 06/16/2023 09:26:56 Imaging Results None recorded. Procedure Notes None recorded. Medical Equipment None Reported. Allergies Allergen ID Allergen Name Allergen Category Reaction Reaction Severity Criticality Documentation Date Start Date Code Code System Note Provider Name and Address Organization Details Recorded Time 25405 Canis lupus familiari s extract environme nt other mild Not available 06/11/20232022 25222 4 RxNorm No react ion enter ed [facility] 4 22:20:04 00959 gabapenti n medicatio n other mild Not available 06/11/20232022 99920 RxNorm No react ion enter ed [facility] 22:20:32 38861 POLLEN EXTRACTS environme nt,medica tion other mild Not available 06/11/20232022 15544 6 RxNorm No react ion enter ed [facility] 4 22:21:07 10879 Vistaril medicatio n other mild Not available 06/11/20232022 61946 9 RxNorm No react ion enter ed [facility] 4 22:21:35 Medications Name Sig Start Date [...] Not Available Not Available Not Available Acid Refrigerating Technician (cimetidine ) 200 mg tablet 1 tablet [...] active Not Available Not Available Not Avai labdomonique cholecalcif rosalind (vitamin D3) 1,250 mcg (50,000 [...] Available Not Available No t Available Vitals None Recorded Social History Question Answer Notes LastModified by Organizat ion Details LastModified Time Tobacco Smoking Status Never Smoker MIRZA DESAI RN null, [place] - [facility]. 07/02/2023 11:37:13 What Was The Date Of Your Most Recent Tobacco Screening? 10/18/2023 Information not available 10/18/2023 Has Tobacco Cessation Counseling Been Provided? No [facility] – Information not available 07/02/2023 Do You Or Have You Ever Used Any Other Forms Of Tobacco Or Nicotine? No [facility] – Information not available 07/02/2023 Sex: Female Functional [...] Recorded Time MMR 09/22/2006 completed Not Available [facility] 05:56:15 MMR 02/18/2001 completed Not Available [facility] 05:56:16 DTaP, unspecified formulation 10/01/2006 completed Not Available [facility] 06/11/2023 05:56:16 DTaP, unspecified formulation 1999 completed Not Available [facility] 06/11/2023 05:56:16 DTaP, unspecified formulation 11/23/2000 completed Not Available [facility] 06/11/2023 05:56:16 DTaP, unspecified formulation 1999 completed Not Available [facility] 06/11/2023 05:56:16 DTaP, unspecified formulation 02/18/2000 completed Not Available [facility] 06/11/2023 05:56:16 Tdap 09/22/2011 completed Not Available [facility] 05:56:16 Novel [id number], all formulations 08/19/2009 completed Not Available [facility] 06/11/2023 05:56:16 Novel [id number], all formulations 07/18/2009 completed Not Available [facility] 06/11/2023 05:56:16 HPV, unspecified formulation 12/12/2021 completed Not Available [facility] 06/11/2023 05:56:17 HPV, unspecified formulation 02/06/2021 completed Not Available [facility] 06/11/2023 05:56:17 HPV, unspecified formulation 05/13/2021 completed Not Available [facility] 06/11/2023 05:56:17 Pneumococcal Conjugate, unspecified formulation 08/24/2000 completed Not Available [facility] 06/11/2023 05:56:17 Pneumococcal Conjugate, unspecified formulation 11/23/2000 completed Not Available [facility] 06/11/2023 05:56:17 Hib, unspecified formulation 1999 completed Not Available [facility] 06/11/2023 05:56:17 Hib, unspecified formulation 11/23/2000 completed Not Available [facility] 06/11/2023 05:56:17 Hib, unspecified formulation 1999 completed Not Available [facility] 06/11/2023 05:56:17 Hib, unspecified formulation 02/18/2000 completed Not Available [facility] 06/11/2023 05:56:17 COVID-19, mRNA, LNP-S, PF, 30 mcg/0.3 mL dose 11/24/2020 completed Not Available [facility] 06/11/2023 05:56:18 COVID-19, mRNA, LNP-S, PF, 30 mcg/0.3 mL dose 12/15/2020 completed Not Available [facility] 06/11/2023 05:56:18 COVID-19, mRNA, LNP-S, PF, 30 mcg/0.3 mL dose 06/27/2021 completed Not Available [facility] 06/11/2023 05:56:18 varicella 08/24/2000 completed Not Available [facility] 05:56:18 varicella 07/16/2006 completed Not Available [facility] 05:56:18 COVID-19, mRNA, LNP-S, bivalent, PF, 30 mcg/0.3 mL dose 06/05/2022 completed Not Available [facility] 06/11/2023 05:56:18 Hep B, unspecified formulation 1999 completed Not Available [facility] 06/11/2023 05:56:18 Hep B, unspecified formulation 1999 completed Not Available [facility] 06/11/2023 05:56:18 Hep B, unspecified formulation 05/29/2000 completed Not Available [facility] 06/11/2023 05:56:18 influenza, unspecified formulation 05/16/2009 completed Not Available [facility] 06/11/2023 05:56:19 influenza, unspecified formulation 05/31/2007 completed Not Available [facility] 06/11/2023 05:56:19 influenza, unspecified formulation 06/05/2022 completed Not Available [facility] 06/11/2023 05:56:19 influenza, unspecified formulation 06/08/2008 completed Not Available [facility] 06/11/2023 05:56:19 polio, unspecified formulation 1999 completed Not Available [facility] 06/11/2023 05:56:19 polio, unspecified formulation 1999 completed Not Available [facility] 06/11/2023 05:56:19 polio, unspecified formulation 01/15/2004 completed Not Available [facility] 06/11/2023 05:56:19 polio, unspecified formulation 02/18/2001 completed Not Available [facility] 06/11/2023 05:56:19 Tdap 04/26/2023 completed Not Available [facility] 05:31:00 Influenza, split virus, quadrivalent, PF 04/26/2023 completed Not Available [facility] 08/13/2023 05:31:00 Influenza, split virus, quadrivalent, PF 05/27/2023 completed Not Available [facility] 08/13/2023 05:31:00 Past Encounters Encounter ID Performer Location Encounter Start Date Encounter Closed Date Diagnosis/Indication Diagnosis SNOMED-CT Code [id number] URSLUA SALAZAR MD [address] [address] 01/28/2024 14:07:20 01/28/2024 15:17:00 Dysuria [id number] Autoimmune thyroiditis [id number] Chronic mi graine without aura [id number] Chronic pain [id number] ASHA HALL CMA [address] [address] 02/22/2024 12:55:25 02/22/2024 13:28:47 Dysuria [id number] Health Concerns Section Related Observation LastModified by Organization Luis F ls LastModified Time None Recorded Concern Status LastModified by Organization Details LastModified Time None Recorded Payers Encounter Date Sequence Insurance Name Policy Number Policy Adams Covered Member ID Adams Member ID Guarantor Name 02/22/2024 1 [facility] [id number] Jagruti Cherrying [id number] Jagruti Acevedo OBGyn Episode No OBEpisode recorded.
--- OUTSIDE RECORDS SUMMARY | 2024-02-22 19:18 | XMS_ITS | Continuity of Care Document ---
Author Organization [place] - [facility] Address [address] [place] [id number] Assessment No assessment recorded. Plan of Treatment Reminders Order Date Submit Date Provider Last Modified By Organization Details Last Modified Time Details Appointments Nurse Visit 2023 01:00P [facility] Not available Not available Not available Nurse Visit 2023 01:00P [facility] Not available Not available Not available Office Visit 2023 01:30P M Ursula Salazar Not available Not available Not available Lab urinalysi s, dipstick [address], [address] [place] [address], [phone], 02/01/2024 14:37:21 urinalysi s, dipstick 2023 024 [facility], [address] [place] [address], [phone], 01/28/2024 15:53:57 TSH, serum, reflex free T4 - 1 green top drawn in office-SN 2023 024 [facility] (Registration ), [address] [place] [address] [place], [address], 02/01/2024 14:36:53 Referral None recorded. Procedures None recorded. Surgeries None recorded. Imaging None recorded. Medication Orders None recorded. Patient TargetsNo targets recorded. Patient InstructionsNo instructions recorded. Reason for Referral None Reported. Results Created Date Observation Date Name Description Value Unit Range Abnormal Flag LastModifiedBy Organization Detail LastModifiedTime 01/28/20 24 01/28/2024 urina lysis , dipst ick Unknown Analyte Not Available [address], [address], 01/28/2024 15:30:57 01/28/20 24 01/28/2024 urina lysis , dipst ick Leukocytes Small Not Available [address], [address], 01/28/2024 15:31:40 01/28/20 24 01/28/2024 urina lysis , dipst ick Nitrite negati ve Not Available [address], [address], 01/28/2024 15:31:40 01/28/20 24 01/28/2024 urina lysis , dipst ick Urobilinogen .2 Not Available [address], [address], 01/28/2024 15:31:40 01/28/20 24 01/28/2024 urina lysis , dipst ick Protein Trace Not Available [address], [address], 01/28/2024 15:31:40 01/28/20 24 01/28/2024 urina lysis , dipst ick pH 6.0 Not Available [address], [address], 01/28/2024 15:31:40 01/28/20 24 01/28/2024 urina lysis , dipst ick Blood Negati ve Not Available [address], [address], 01/28/2024 15:31:40 01/28/20 24 01/28/2024 urina lysis , dipst ick Specific Allison 1.005 Not Available [address], [address], 01/28/2024 15:31:40 01/28/20 24 01/28/2024 urina lysis , dipst ick Ketone Negati ve Not Available [address], [address], 01/28/2024 15:31:40 01/28/20 24 01/28/2024 urina lysis , dipst ick Bilirubin Negati ve Not Available [address], [address], 01/28/2024 15:31:40 01/28/20 24 01/28/2024 urina lysis , dipst ick Glucose Negati ve Not Available [address], [address], 01/28/2024 15:31:40 01/28/20 24 01/28/2024 urina lysis , dipst ick Appearance Clear Not Available [address], [address], 01/28/2024 15:31:40 01/28/20 24 01/28/2024 urina lysis , dipst ick Color Yellow Not Available [address], [address], 01/28/2024 15:31:40 Result Notes None recorded. Problems Name Status Onset Date Resolution Date Notes Provider Name and Address Organization Details Recorded Time Anxiety disorder Active [address], [place], [address] , [facility]. 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 [address], [address] 4 16:34:48 Menometrorrhagia Completed 202208/19/[address], [address] 4 16:34:53 Uncomplicated moderate persistent asthma Active [address], [address] 4 16:33:48 Social phobia Completed 202208/19/[address], [address] 4 16:34:35 Vitamin D deficiency Active [address], [address] 4 16:34:17 Sensorineural hearing loss of bilateral ears Completed 202208/19/2023 Problem Code: H90.3; Problem Code Type: ICD-10; MD Shira [address], [address] 4 16:34:22 Major depression, single episode Active [address], [address] 4 16:34:11 Attention deficit hyperactivity disorder, predominantly inattentive type Active 2022 Problem Code: F90.0; Problem Code Type: ICD-10; Not Available [facility] 3 04:31:37 Chronic pain Active [address], [facility] [id number] [place] [address] 4 16:33:09 Autoimmune thyroiditis Completed 202208/19/2023 Problem Code: E06.3; Problem Code Type: ICD-10; MD Shira [address], [facility] [address] [place] [address] 4 15:02:13 Hypothyroidism Completed 202208/19/2023 Problem Code: E03.9; Problem Code Type: ICD-10; MD Shira [address], [facility] [address] 4 16:33:37 Intervertebral disc prolapse Completed 202208/19/2023 Problem Code: M51.25; Problem Code Type: ICD-10; MD Shira [address], [facility] [address] 4 16:33:29 Sleep disorder Completed 202208/19/2023 Problem Code: G47.8; Problem Code Type: ICD-10; MD Shira [address], [facility] [address] , [facility] 4 16:34:43 Congenital anomaly of spinal cord Active [address], [facility] [address] [place] [address] 4 16:33:26 Fatigue Active [address], [facility] [address] [place] [address] 4 16:33:44 Asthenia Completed 202208/19/2023 Problem Code: R53.1; Problem Code Type: ICD-10; MD Shira [address]AR[address] Dr, [address] 4 16:33:15 Epigastric pain Completed 202208/19/2023 Problem Code: R10.13; Problem Code Type: ICD-10; MD Shira [address], [address] 4 16:33:17 Palpitations Completed 202208/19/2023 Problem Code: R00.2; Problem Code Type: ICD-10; MD Shira [address]AR[address] Dr, [address] 4 16:33:20 Leukocytosis Active [address], [address] 4 16:33:13 Height below average Completed 200504/28/2023 Problem Code: 783.43; Problem Code Type: ICD-9; Not Available [facility] 3 04:31:39 Abnormal gait Completed 202202/21/2023 Problem Code: R26.89; Problem Code Type: ICD-10; Not Available [facility] 3 04:31:39 Hemoglobinopathy Completed 202202/21/2023 Problem Code: D58.2; Problem Code Type: ICD-10; Not Available [facility] 3 04:31:40 Recurrent acute tonsillitis Completed 200802/21/2023 Problem Code: J03.91; Problem Code Type: ICD-10; Not Available [facility] 3 04:31:40 Obstructive sleep apnea syndrome Completed 202202/21/2023 Problem Code: G47.33; Problem Code Type: ICD-10; Not Available [facility] 3 04:31:40 Acne Completed 201304/28/2023 Not Available [facility] 3 04:31:40 Headache Completed 200804/28/2023 Not Available [facility] 3 04:31:40 Snoring Completed 202202/21/2023 Problem Code: R06.83; Problem Code Type: ICD-10; Not Available [facility] 3 04:31:40 Disorder of hyoid bone Active [address], [facility] [address] [place] [address] 4 16:31:26 Electrocardiogram abnormal Completed 202208/19/2023 Problem Code: R94.31; Problem Code Type: ICD-10; MD Shira [address], [facility] [address] , [facility] 4 16:31:20 Dizziness and giddiness Completed 202208/19/2023 Problem Code: R42; Problem Code Type: ICD-10; MD Shira [address], [facility] [address] 4 16:31:12 Gastroesophageal reflux disease Active [address], [facility] [address] , [facility] 4 16:31:16 Chronic migraine without aura Active [address], [facility] [address] [place] [address] 4 16:32:08 Shortened TN interval Active [address], [facility] [address] , [facility] 4 16:35:52 Iron deficiency Active [address], [place], [address] , [facility] 4 16:39:09 Dysuria Active [address], [place], [address] , [facility] 4 15:01:48 Autoimmune thyroiditis Active 2023 Problem Code: E06.3; Problem Code Type: ICD-10; MD [address], [place], [address] , [facility] 4 15:02:13 Polyuria Active [address], [facility] [address] , [facility] 4 14:48:37 Problem Notes None recorded. Procedures Surgical History Date Name Laterality Status Provider Name and Address Organization Details Recorded Time 3 Removal of gallbladder completed MD Shira [address], [place], [address], [facility] 06/16/2023 09:26:56 Imaging Results None recorded. Procedure Notes None recorded. Medical Equipment None Reported. Allergies Allergen ID Allergen Name Allergen Category Reaction Reaction Severity Criticality Documentation Date Start Date Code Code System Note Provider Name and Address Organization Details Recorded Time 98938 Canis lupus familiari s extract environme nt other mild Not available 06/11/20232022 48892 4 RxNorm No react ion enter ed [facility] 4 22:20:04 32620 gabapenti n medicatio n other mild Not available 06/11/20232022 96760 RxNorm No react ion enter ed [facility] 4 22:20:32 83742 POLLEN EXTRACTS environme nt,medica tion other mild Not available 06/11/20232022 65524 6 RxNorm No react ion enter ed [facility] 4 22:21:07 49350 Vistaril medicatio n other mild Not available 06/11/20232022 16375 9 RxNorm No react ion enter ed [facility] 4 22:21:35 Medications Name Sig Start Date [...] Not Available Not Available Not Available Acid Door Core Assembler (cimetidine ) 200 mg tablet 1 tablet [...] DateTime 4 152.298 4 cm 38.9 kg/m2 25613.8 8 g 97.8 [degF] 97 % 97 % 80 /min 118 mm[Hg] 70 mm[Hg] BETTY LOPEZ MA [facility] 14:35:09 Social History Question Answer Notes LastModified by Organizat ion Details LastModified Time Tobacco Smoking Status Never Smoker MIRZA DESIA RN [facility], [facility] 07/02/2023 11:37:13 What Was The Date Of Your Most Recent Tobacco Screening? 10/18/2023 Information not available 10/18/2023 Has Tobacco Cessation Counseling Been Provided? No Information not available 07/02/2023 Do You Or Have You Ever Used Any Other Forms Of Tobacco Or Nicotine? No Information not available 07/02/2023 Sex: Female Functional [...] Recorded Time MMR 09/22/2006 completed Not Available [facility] 05:56:15 MMR 02/18/2001 completed Not Available [facility] 05:56:16 DTaP, unspecified formulation 10/01/2006 completed Not Available [facility] 06/11/2023 05:56:16 DTaP, unspecified formulation 1999 completed Not Available [facility] 06/11/2023 05:56:16 DTaP, unspecified formulation 11/23/2000 completed Not Available [facility] 06/11/2023 05:56:16 DTaP, unspecified formulation 1999 completed Not Available [facility] 06/11/2023 05:56:16 DTaP, unspecified formulation 02/18/2000 completed Not Available [facility] 06/11/2023 05:56:16 Tdap 09/22/2011 completed Not Available [facility] 05:56:16 Novel [id number]-[id number], all formulations 08/19/2009 completed Not Available [facility] 06/11/2023 05:56:16 Novel Xjqdxztfp-[id number], all formulations 07/18/2009 completed Not Available [facility] 06/11/2023 05:56:16 HPV, unspecified formulation 12/12/2021 completed Not Available [facility] 06/11/2023 05:56:17 HPV, unspecified formulation 02/06/2021 completed Not Available [facility] 06/11/2023 05:56:17 HPV, unspecified formulation 05/13/2021 completed Not Available [facility] 06/11/2023 05:56:17 Pneumococcal Conjugate, unspecified formulation 08/24/2000 completed Not Available [facility] 06/11/2023 05:56:17 Pneumococcal Conjugate, unspecified formulation 11/23/2000 completed Not Available [facility] 06/11/2023 05:56:17 Hib, unspecified formulation 1999 completed Not Available [facility] 06/11/2023 05:56:17 Hib, unspecified formulation 11/23/2000 completed Not Available [facility] 06/11/2023 05:56:17 Hib, unspecified formulation 1999 completed Not Available [facility] 06/11/2023 05:56:17 Hib, unspecified formulation 02/18/2000 completed Not Available [facility] 06/11/2023 05:56:17 COVID-19, mRNA, LNP-S, PF, 30 mcg/0.3 mL dose 11/24/2020 completed Not Available [facility] 06/11/2023 05:56:18 COVID-19, mRNA, LNP-S, PF, 30 mcg/0.3 mL dose 12/15/2020 completed Not Available [facility] 06/11/2023 05:56:18 COVID-19, mRNA, LNP-S, PF, 30 mcg/0.3 mL dose 06/27/2021 completed Not Available [facility] 06/11/2023 05:56:18 varicella 08/24/2000 completed Not Available [facility] 05:56:18 varicella 07/16/2006 completed Not Available [facility] 05:56:18 COVID-19, mRNA, LNP-S, bivalent, PF, 30 mcg/0.3 mL dose 06/05/2022 completed Not Available [facility] 06/11/2023 05:56:18 Hep B, unspecified formulation 1999 completed Not Available [facility] 06/11/2023 05:56:18 Hep B, unspecified formulation 1999 completed Not Available [facility] 06/11/2023 05:56:18 Hep B, unspecified formulation 05/29/2000 completed Not Available [facility] 06/11/2023 05:56:18 influenza, unspecified formulation 05/16/2009 completed Not Available [facility] 06/11/2023 05:56:19 influenza, unspecified formulation 05/31/2007 completed Not Available [facility] 06/11/2023 05:56:19 influenza, unspecified formulation 06/05/2022 completed Not Available [facility] 06/11/2023 05:56:19 influenza, unspecified formulation 06/08/2008 completed Not Available [facility] 06/11/2023 05:56:19 polio, unspecified formulation 1999 completed Not Available [facility] 06/11/2023 05:56:19 polio, unspecified formulation 1999 completed Not Available [facility] 06/11/2023 05:56:19 polio, unspecified formulation 01/15/2004 completed Not Available [facility] 06/11/2023 05:56:19 polio, unspecified formulation 02/18/2001 completed Not Available [facility] 06/11/2023 05:56:19 Tdap 04/26/2023 completed Not Available [facility] 05:31:00 Influenza, split virus, quadrivalent, PF 04/26/2023 completed Not Available [facility] 08/13/2023 05:31:00 Influenza, split virus, quadrivalent, PF 05/27/2023 completed Not Available [facility] 08/13/2023 05:31:00 Past Encounters Encounter ID Performer Location Encounter Start Date Encounter Closed Date Diagnosis/Indication Diagnosis SNOMED-CT Code [id number] URSULA SALAZAR MD [address] [address] 01/28/2024 14:07:20 01/28/2024 15:17:00 Dysuria 13809719 Autoimmune thyroiditis 07489997 Chronic mi graine without aura 513937512796870 Chronic pain 21888183 Health Concerns Section Related Observation LastModified by Organization Detai ls LastModified Time None Recorded Concern Status LastModified by Organization Details LastModified Time None Recorded Payers Encounter Date Sequence Insurance Name Policy Number Policy Adams Covered Member ID Adams Member ID Guarantor Name 01/28/2024 1 [facility] [id number] Jagruti L Acevedo [id number] Cassioponiela L Acevedo Notes Date Note Type Note Provider Name and Address Organization Details Recorded Time 01/28/2024 text/html HPI Notes: [place] presents in follow up. Biggest concern is wondering about a UTI. Has had urinary frequency and discomfort with urination for a week and a half. No fevers. Migraines - not better with the aimovig yet. Still having intense migraines, 5-6 days on end. Anxiety, ADHD - Feels venlafaxine has overall been helpful. Chronic pain/chiari malformation - saw neurosurg who [place] [facility] [place] and [place] pain. Saw [place]. Valdez [place] [facility] Didn't offer surgical solution. Did do rheum labs and hasn't heard results or the plan from there. Is not taking meloxicam every day, not sure if it is helpful. Finds it hard to do logistically because it should be taken with food. Asthma - initially said better since increasing symbicort. On Breyna (equivalent) now and not taking regularly. Still notes SOB at times. URSULA SALAZAR MD [address], [place], [address], [facility]. 01/28/2024 20:29:22 OBGyn Episode No OBEpisode recorded.
== END 2024-02-22 19:14 | disposition home or self-care (01) ==
LOC: NCHCN 19:13
PROVIDERS: PCP Family Medicine; Visit Provider Family Medicine
DX: R30.0 Dysuria (principal)
CPT/HCPCS: 87086

== ENCOUNTER 2024-03-21 02:59 | Emergency (ER) | payer OTHER, SELFPAY ==
[2024-03-21 03:06] VITALS: BP 173/129; PULSE 78; RESP 16; TEMP 36.8; O2SAT 98
[2024-03-21 03:10] VITALS: TEMP 36.8
--- NOTE | 2024-03-21 03:13 | ED.GENADUL_ITS ---
Discharge Plan Disposition Patient Disposition: Home Condition: Good Discharge Details Clinical Impression: Ovarian cyst Primary Care Provider: Sudha Salazar ED Provider: Rocky Batista Home Meds and New Rx's Prescriptions: No Action budesonide-formoterol [Symbicort] 80-4.5 mcg/actuation HFA aerosol inhaler 1 puff inhalation BID Nexplanon 68 mg implant 1 implant subdermal ONCE Patient Comments: 06/16/23 pt reports implanted 3 years ago Rx Instructions: as a single dose cholecalciferol (vitamin D3) 1,250 mcg (50,000 unit) capsule 1,250 mcg PO QWEEK ferrous sulfate 325 mg (65 mg iron) tablet 325 mg PO DAILY albuterol sulfate [ProAir HFA] 90 mcg/actuation HFA aerosol inhaler 2 puff inhalation Q6H PRN venlafaxine 37.5 mg capsule,extended release 24hr 37.5 mg PO ONCE Patient Comments: TAKE 1 CAPSULE BY MOUTH ONCE DAILY FOR 7 DAYS THEN 2 ONCE DAILY IF TOLERATING WELL. cetirizine 10 mg tablet Patient Comments: TAKE 1 TABLET BY MOUTH ONCE DAILY ondansetron HCl 4 mg tablet 4 mg PO PRN PRN Patient Comments: TAKE 1 TABLET BY MOUTH THREE TIMES DAILY NEEDED FOR NAUSEA omeprazole 40 mg capsule,delayed release(DR/EC) 40 mg PO DAILY Qty: 30 0RF Discharge Instructions Instructions: Ovarian Cyst ED Additional Instructions: At this time you have evidence of an ovarian cyst. These usually improve over the next few days. Please take Tylenol and Motrin as needed for pain. Please take the Zofran as needed for nausea. If you notice any worsening of your symptoms, or any new symptoms such as vomiting, diarrhea, fever, chills, shortness of breath, chest pain, numbness, weakness, or fainting , please return immediately to the emergency department for reevaluation. Please follow up with your primary care provider as soon as possible for reassessment and reevaluation. As always, it was a pleasure participating in your medical care today. Referrals: Sudha Salazar [Primary Care Provider] - Discharge Data Discharge Date/Time-TO BE ENTERED AT DEPARTURE: 03/21/24 06:16 HPI General Date/Time Provider Initiated Documentation: 03/21/24 03:03 . HPI Narrative: 23-year-old female who goes by pronouns he/them, with a past medical history of cholecystectomy, tethered spinal cord, hernia repair 1 years old, presents today for evaluation of abdominal pain. Patient states that for the last few days the patient has had intermittent sharp pain throughout the abdomen, both at the epigastric and lower pelvic region. Patient started their menstrual period today. Patient has had occasional diarrhea, but no vomiting. Today at around 2:30 AM the patient's pain worsened and radiated to the right lower quadrant. Patient was concerned about this and came to the ER for further assessment. Symptoms improved by resting, symptoms worsened by sitting up or walking around. No urinary complaints otherwise. No other complaints at this time. Related Data Home Medications ?Medication ?Instructions ?Recorded ?Confirmed albuterol sulfate 90 mcg/actuation 2 puff inhalation Q6H PRN 03/01/23 03/21/24 aerosol inhaler (ProAir HFA) budesonide-formoterol HFA 80 1 puff inhalation BID 03/01/23 03/21/24 mcg-4.5 mcg/actuation aerosol inhaler (Symbicort) cholecalciferol (vitamin D3) 1,250 1,250 mcg PO QWEEK 03/01/23 03/21/24 mcg (50,000 unit) capsule etonogestrel 68 mg subdermal 1 implant subdermal ONCE 03/01/23 03/21/24 implant (Nexplanon) ferrous sulfate 325 mg (65 mg 325 mg PO DAILY 03/01/23 03/21/24 iron) tablet omeprazole 40 mg capsule,delayed 40 mg PO DAILY #30 caps 04/07/23 03/21/24 release cetirizine 10 mg tablet mg 06/16/23 06/28/23 ondansetron HCl 4 mg tablet 4 mg PO PRN PRN 06/16/23 03/21/24 venlafaxine 37.5 mg 37.5 mg PO ONCE 06/16/23 03/21/24 capsule,extended release 24 hr Previous Rx's ?Medication ?Instructions ?Recorded omeprazole 40 mg capsule,delayed 40 mg PO DAILY #30 caps 04/07/23 release Allergies Allergy/AdvReac Type Severity Reaction Status Date / Time pollen extracts Allergy Mild Unknown Verified 03/21/24 03:16 dog dander Allergy Unknown Topical Verified 03/21/24 03:16 Irritation gabapentin AdvReac Unknown Dizziness/L Verified 03/21/24 03:16 ighthead hydroxyzine (From Vistaril) AdvReac Unknown Diarrhea Verified 03/21/24 03:16 dermabond AdvReac Mild Itching Uncoded 03/21/24 03:16 General Stated Complaint: Abd Prob VALENTINO: 3 Review of Systems All systems reviewed & are unremarkable except as noted in HPI and below Exam Narrative Exam Narrative: 1.Const: Well-nourished, Well-developed, appearing stated age 2.Eyes: PERRL, no conjunctival injection, and symmetrical lids. 3.ENT: Atraumatic external nose and ears. Moist MM. Neck: Symmetric, trachea midline, No thyromegaly. 4.CVS: +S1/S2, No murmurs or gallops. Peripheral pulses 2+ and equal in all extremities. Brisk capillary refill in all extremities. 5.RESP: Unlabored respiratory effort. Clear to auscultation bilaterally. No wheezes rales or rhonchi 6.GI: Soft, nondistended, no guarding or rebound. No worsening of pain on palpation of the lower abdomen, mild worsening of pain on palpation of the epigastric region. No flank or CVA tenderness. 7.MSK: Normocephalic/Atraumatic, Extremities w/o deformity or ttp No cyanosis or clubbing, Normal movement of all extremities 8.Skin: Warm, Dry. No rashes or lesions. 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 Sensation grossly intact, no focal neurologic deficits. 10.Psych: (AAO) x3. Appropriate mood and affect Course Vital Signs Vital signs: Vital Signs Temperature 36.8 C 03/21/24 03:06 Pulse 78 03/21/24 03:06 Respiratory Rate 16 03/21/24 03:06 Blood Pressure 173/129 H 03/21/24 03:06 Pulse Oximetry 98 03/21/24 03:06 Temperature 36.8 C 03/21/24 03:06 Temperature Source Oral 03/21/24 03:06 Pulse 78 03/21/24 03:06 Respiratory Rate 16 03/21/24 03:06 Blood Pressure 173/129 H 03/21/24 03:06 Blood Pressure Position Sitting 03/21/24 03:06 Pulse Oximetry 98 03/21/24 03:06 Medical Decision Making 23-year-old female who goes by pronouns he/them, with a past medical history of cholecystectomy, tethered spinal cord, hernia repair 1 years old, presents today for evaluation of abdominal pain. Patient states that for the last few days the patient has had intermittent sharp pain throughout the abdomen, both at the epigastric and lower pelvic region. Patient started their menstrual period today. Patient has had occasional diarrhea, but no vomiting. Today at around 2:30 AM the patient's pain worsened and radiated to the right lower quadrant. Patient was concerned about this and came to the ER for further assessment. Symptoms improved by resting, symptoms worsened by sitting up or walking around. No urinary complaints otherwise. No other complaints at this time. Exam demonstrates well-appearing patient, no guarding or rebound. Mild worsening of pain on palpation of the left upper quadrant, but no focal worsening of pain in the left or right lower quadrants. Negative heel strike test. Negative obturator and psoas sign. Differential includes ovarian cyst, pancreatitis, enteritis, or appendicitis. Will treat with Toradol and Ofirmev, rehydrate, get a CT scan monitor closely and reassess. CT scan has returned with a small 2.4 cm left ovarian cyst, borderline splenomegaly, however hemoglobin is normal. She has no sore throat to suggest mono. Urinalysis shows no infection. On reassessment patient feels well and would like to go home. Repeat abdominal exam shows no signs of an acute surgical abdomen whatsoever. Symptoms inconsistent with ovarian torsion. Patient stable for discharge. Will recommend continued NSAID therapy at home. Discussed red flags for which to return. I have extensively reviewed the treatment plan and discharge instructions with the patient. I have addressed all patient concerns at this time. The patient was made aware of what symptoms to monitor for that would warrant a return to the emergency department. Discussed the plan with the patient, they demonstrate verbal understanding and agreement with our assessment and plan at this time. The documentation in this chart was dictated using [employer] dictation software. Please excuse any dictation errors. FINDINGS: Liver: Hepatic steatosis. Gallbladder and biliary ducts: Prior cholecystectomy. No biliary ductal dilatation. Pancreas: Unremarkable. Spleen: Borderline splenomegaly. Adrenal glands: Normal. No mass. Kidneys and ureters: Normal. No hydronephrosis. Stomach and bowel: No bowel wall thickening or intestinal obstruction. Appendix: Normal appendix. Intraperitoneal space: Unremarkable. No pneumoperitoneum. No abscess. Vasculature: Unremarkable. Lymph nodes: Unremarkable. Urinary bladder: Unremarkable as visualized. Reproductive: 2.4 cm left ovarian cyst. Bones/joints: Unremarkable. No acute fracture. Soft tissues: Unremarkable. IMPRESSION: 1. 2.4 cm left ovarian cyst. 2. Borderline splenomegaly. Thank you for allowing us to participate in the care of your patient. Dictated and Authenticated by: Canelo Thompson MD 03/21/2024 5:38 AM Eastern Time ([place] & [place]) Quality:SDOH Health Related Social Needs: No Data to Display PFSH All Active Problems (Updated 03/21/24 @ 05:55 by Rocky Batista DO) Ovarian cyst (Acute) Tetrahydrocannabinol (THC) dependence (Acute) Depression (Chronic) Anxiety (Chronic) Medical History Biliary colic Gallstones Iron deficiency (~2017) Numbness and tingling Delayed puberty Chronic pain Hypothyroidism Tethered cord Asthma Migraines Surgical History S/P laparoscopic cholecystectomy (~06/16/23) Chronic cholecystitis, cholesterolosis and Cholelithiasis Status post bilateral hernia repair @ 4 months old per mom History of esophagogastroduodenoscopy (~04/2023) Hx of breast reduction, elective Social History Smoking/Tobacco Use Status: Never Smoking risk assessment performed?: Yes Alcohol Intake: current Alcohol Intake frequency: holidays/special occasions only Drug use: Occasionally Substance use type: marijuana Details: 06/16/23 pt reports has not had any marijuana since 06/11/23 Housing: house Additional Social history: unable to assess [facility]
--- OUTSIDE RECORDS SUMMARY | 2024-03-21 03:18 | XMS_ITS | Continuity of Care Document ---
Author Organization [place] [facility], [facility] Address [address] [place] [address] Assessment No assessment recorded. Plan of Treatment Reminders Order Date Submit Date Provider Last Modified By Organization Details Last Modified Time Details Appointments Office Visit 30 2023 01:30P M Not available Not available Not available Lab urinalysi s, dipstick 2023 024 [facility], [address] [place] [address], [phone], 02/22/2024 14:48:50 culture, urine + sensitivi ty - Urine sample 2023 024 [facility] (Registration ), [address] [place] [address], [id number], 02/25/2024 07:42:53 Referral None recorded. Procedures None recorded. Surgeries None recorded. Imaging None recorded. Medication Orders None recorded. Patient TargetsNo targets recorded. Patient InstructionsNo instructions recorded. Reason for Referral Urologist Referral for Painf ul urinary bladder spasm dysuria, bladder spasms and pressure. Negative urinalysis and culture, symptoms for several weeks. Referring Physician: Ursula Salazar, Family Medicine, Encounter Date: 02/29/2024 Results Created Date Observation Date Name Description Value Unit Range Abnormal Flag LastModifiedBy Organization Detail LastModifiedTime 02/22/20 24 02/22/2024 urina lysis , dipst ick Leukocytes Negati ve Not Available [address], [address], 02/22/2024 13:25:05 02/22/20 24 02/22/2024 urina lysis , dipst ick Nitrite negati ve Not Available [address], [address], 02/22/2024 13:25:05 02/22/20 24 02/22/2024 urina lysis , dipst ick Urobilinogen .2 Not Available [address], [address], 02/22/2024 13:25:05 02/22/20 24 02/22/2024 urina lysis , dipst ick Protein Negati ve Not Available [address], [address], 02/22/2024 13:25:05 02/22/20 24 02/22/2024 urina lysis , dipst ick pH 6.5 Not Available [address], [address], 02/22/2024 13:25:05 02/22/20 24 02/22/2024 urina lysis , dipst ick Blood Negati ve Not Available [address], [address], 02/22/2024 13:25:05 02/22/20 24 02/22/2024 urina lysis , dipst ick Specific [place] 1.005 Not Available [address], [address], 02/22/2024 13:25:05 02/22/20 24 02/22/2024 urina lysis , dipst ick Ketone Negati ve Not Available [address], [address], 02/22/2024 13:25:05 02/22/20 24 02/22/2024 urina lysis , dipst ick Bilirubin Negati ve Not Available [address], [address], 02/22/2024 13:25:05 02/22/20 24 02/22/2024 urina lysis , dipst ick Glucose Negati ve Not Available [address], [address], 02/22/2024 13:25:05 02/22/20 24 02/22/2024 urina lysis , dipst ick Appearance Cloudy Not Available [address], [address], 02/22/2024 13:25:05 02/22/20 24 02/22/2024 urina lysis , dipst ick Color Pale Yellow Not Available [address], [address], 02/22/2024 13:25:05 Result Notes None recorded. Problems Name Status Onset Date Resolution Date Notes Provider Name and Address Organization Details Recorded Time Anxiety disorder Active [address], [place], [address] , [facility] 16:34:29 Environmental allergy Completed 201308/19/[address], [place], [address] , 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 16:34:48 Menometrorrhagia Completed 202208/19/[address], [place], [address] , [facility] 4 16:34:53 Uncomplicated moderate persistent asthma Active [address], [address] 4 16:33:48 Social phobia Completed 202208/19/[address], [address] 4 16:34:35 Vitamin D deficiency Active [address], [address] 4 16:34:17 Sensorineural hearing loss of bilateral ears Completed 202208/19/2023 Problem Code: H90.3; Problem Code Type: ICD-10; MD Shira [address], [facility] [id number] [place] [address] 4 16:34:22 Major depression, single episode Active [address], [address] 4 16:34:11 Attention deficit hyperactivity disorder, predominantly inattentive type Active 2022 Problem Code: F90.0; Problem Code Type: ICD-10; Not Available [facility] 3 04:31:37 Chronic pain Active [address], [address] 4 16:33:09 Autoimmune thyroiditis Completed 202208/19/2023 Problem Code: E06.3; Problem Code Type: ICD-10; MD Shira [address] Dr, [address] 4 15:02:13 Hypothyroidism Completed 202208/19/2023 Problem Code: E03.9; Problem Code Type: ICD-10; MD Shira [address], [facility] [address] [place] [address] 4 16:33:37 Intervertebral disc prolapse Completed 202208/19/2023 Problem Code: M51.25; Problem Code Type: ICD-10; MD Shira [address], [facility] [address] [place] [address] 4 16:33:29 Sleep disorder Completed 202208/19/2023 Problem Code: G47.8; Problem Code Type: ICD-10; MD Shira [address], [facility] [address] , [facility] 4 16:34:43 Congenital anomaly of spinal cord Active [address], [facility] [address] [place] [address] 4 16:33:26 Fatigue Active [address], [facility] [address] , [facility] 4 16:33:44 Asthenia Completed 202208/19/2023 Problem Code: R53.1; Problem Code Type: ICD-10; MD Shira [address]AR[address] Dr, [facility] [address] , [facility] 4 16:33:15 Epigastric pain Completed 202208/19/2023 Problem Code: R10.13; Problem Code Type: ICD-10; MD Shira [address]AR[address] Dr, [facility] [address] , [facility] 4 16:33:17 Palpitations Completed 202208/19/2023 Problem Code: R00.2; Problem Code Type: ICD-10; MD Shira [address], [place], [address] , [facility] 4 16:33:20 Leukocytosis Active [address], [facility] [address] , [facility] 4 16:33:13 Height below average Completed 200504/28/2023 Problem Code: 783.43; Problem Code Type: ICD-9; Not Available [facility] 3 04:31:39 Abnormal gait Completed 202202/21/2023 Problem Code: R26.89; Problem Code Type: ICD-10; Not Available [facility] 3 04:31:39 Hemoglobinopathy Completed 202202/21/2023 Problem Code: D58.2; Problem Code Type: ICD-10; Not Available [facility] 3 04:31:40 Recurrent acute tonsillitis Completed 200802/21/2023 Problem Code: J03.91; Problem Code Type: ICD-10; Not Available [facility] 3 04:31:40 Obstructive sleep apnea syndrome Completed 202202/21/2023 Problem Code: G47.33; Problem Code Type: ICD-10; Not Available [facility] 3 04:31:40 Acne Completed 201304/28/2023 Not Available [facility] 3 04:31:40 Headache Completed 200804/28/2023 Not Available [facility] 3 04:31:40 Snoring Completed 202202/21/2023 Problem Code: R06.83; Problem Code Type: ICD-10; Not Available [facility] 3 04:31:40 Disorder of hyoid bone Active [address] [facility] [address] , [facility] 4 16:31:26 Electrocardiogram abnormal Completed 202208/19/2023 Problem Code: R94.31; Problem Code Type: ICD-10; MD Shira GARLAND Dr, [address] 4 16:31:20 Dizziness and giddiness Completed 202208/19/2023 Problem Code: R42; Problem Code Type: ICD-10; MD Shira GARLAND Dr, [address] 4 16:31:12 Gastroesophageal reflux disease Active [address], [address] 4 16:31:16 Chronic migraine without aura Active [address], [address] 4 16:32:08 Shortened TX interval Active [address], [address] 4 16:35:52 Iron deficiency Active [address], [address] 4 16:39:09 Dysuria Active [address], [address] 4 15:01:48 Autoimmune thyroiditis Active 2023 Problem Code: E06.3; Problem Code Type: ICD-10; MD Shira GAR[address] Dr, [facility] [address] , [facility] 4 15:02:13 Polyuria Active [address], [facility] [address] , [facility] 4 14:48:37 Painful urinary bladder spasm Active [address], [facility] [address] , [facility] 4 20:47:27 Problem Notes None recorded. Procedures Surgical History Date Name Laterality Status Provider Name and Address Organization Details Recorded Time 3 Removal of gallbladder completed MD Shira [address]ARLAND Dr, [place] [address], [facility] 06/16/2023 09:26:56 Imaging Results None recorded. Procedure Notes None recorded. Medical Equipment None Reported. Allergies Allergen ID Allergen Name Allergen Category Reaction Reaction Severity Criticality Documentation Date Start Date Code Code System Note Provider Name and Address Organization Details Recorded Time 27413 Canis lupus familiari s extract environme nt other mild Not available 06/11/20232022 18418 4 RxNorm No react ion enter ed [facility] 4 22:20:04 52671 gabapenti n medicatio n other mild Not available 06/11/20232022 62235 RxNorm No react ion enter ed [facility] 4 22:20:32 46757 POLLEN EXTRACTS environme nt,medica tion other mild Not available 06/11/20232022 73623 6 RxNorm No react ion enter ed [facility] 4 22:21:07 96560 Vistaril medicatio n other mild Not available 06/11/20232022 67612 9 RxNorm No react ion enter ed [facility], [facility]. 22:21:35 Medications Name Sig Start Date Stop [...] Not Available Not Available Not Available Acid Director Channel (cimetidine ) 200 mg tablet 1 tablet [...] Smoking Status Never Smoker MIRZA DESAI RN [facility], [place] - [facility] 07/02/2023 11:37:13 What Was The Date [...] Recorded Time MMR 09/22/2006 completed Not Available [facility] 05:56:15 MMR 02/18/2001 completed Not Available [facility] 05:56:16 DTaP, unspecified formulation 10/01/2006 completed Not Available [facility] 06/11/2023 05:56:16 DTaP, unspecified formulation 1999 completed Not Available [facility] 06/11/2023 05:56:16 DTaP, unspecified formulation 11/23/2000 completed Not Available [facility] 06/11/2023 05:56:16 DTaP, unspecified formulation 1999 completed Not Available [facility] 06/11/2023 05:56:16 DTaP, unspecified formulation 02/18/2000 completed Not Available [facility] 06/11/2023 05:56:16 Tdap 09/22/2011 completed Not Available [facility] 05:56:16 Novel [id number]-[id number], all formulations 08/19/2009 completed Not Available [facility] 06/11/2023 05:56:16 Novel [id number], all formulations 07/18/2009 completed Not Available [facility] 06/11/2023 05:56:16 HPV, unspecified formulation 12/12/2021 completed Not Available [facility] 06/11/2023 05:56:17 HPV, unspecified formulation 02/06/2021 completed Not Available [facility] 06/11/2023 05:56:17 HPV, unspecified formulation 05/13/2021 completed Not Available [facility] 06/11/2023 05:56:17 Pneumococcal Conjugate, unspecified formulation 08/24/2000 completed Not Available [facility] 06/11/2023 05:56:17 Pneumococcal Conjugate, unspecified formulation 11/23/2000 completed Not Available [facility] 06/11/2023 05:56:17 Hib, unspecified formulation 1999 completed [facility] 06/11/2023 05:56:17 Hib, unspecified formulation 11/23/2000 completed Not Available [facility] 06/11/2023 05:56:17 Hib, unspecified formulation 1999 completed Not Available [facility] 06/11/2023 05:56:17 Hib, unspecified formulation 02/18/2000 completed [facility] 06/11/2023 05:56:17 COVID-19, mRNA, LNP-S, PF, 30 mcg/0.3 mL dose 11/24/2020 completed Not Available [facility] 06/11/2023 05:56:18 COVID-19, mRNA, LNP-S, PF, 30 mcg/0.3 mL dose 12/15/2020 completed Not Available [facility] 06/11/2023 05:56:18 COVID-19, mRNA, LNP-S, PF, 30 mcg/0.3 mL dose 06/27/2021 completed Not Available [facility] 06/11/2023 05:56:18 varicella 08/24/2000 completed Not Available [facility] 05:56:18 varicella 07/16/2006 completed Not Available [facility] 05:56:18 COVID-19, mRNA, LNP-S, bivalent, PF, 30 mcg/0.3 mL dose 06/05/2022 completed Not Available [facility] 06/11/2023 05:56:18 Hep B, unspecified formulation 1999 completed Not Available [facility] 06/11/2023 05:56:18 Hep B, unspecified formulation 1999 completed Not Available [facility] 06/11/2023 05:56:18 Hep B, unspecified formulation 05/29/2000 completed Not Available [facility] 06/11/2023 05:56:18 influenza, unspecified formulation 05/16/2009 completed Not Available [facility] 06/11/2023 05:56:19 influenza, unspecified formulation 05/31/2007 completed Not Available [facility] 06/11/2023 05:56:19 influenza, unspecified formulation 06/05/2022 completed Not Available [facility] 06/11/2023 05:56:19 influenza, unspecified formulation 06/08/2008 completed Not Available [facility] 06/11/2023 05:56:19 polio, unspecified formulation 1999 completed Not Available [facility] 06/11/2023 05:56:19 polio, unspecified formulation 1999 completed Not Available [facility] 06/11/2023 05:56:19 polio, unspecified formulation 01/15/2004 completed Not Available [facility] 06/11/2023 05:56:19 polio, unspecified formulation 02/18/2001 completed Not Available [facility] 06/11/2023 05:56:19 Tdap 04/26/2023 completed Not Available [facility] 05:31:00 Influenza, split virus, quadrivalent, PF 04/26/2023 completed Not Available [facility] 08/13/2023 05:31:00 Influenza, split virus, quadrivalent, PF 05/27/2023 completed Not Available [facility] 08/13/2023 05:31:00 Past Encounters Encounter ID Performer Location Encounter Start Date Encounter Closed Date Diagnosis/Indication Diagnosis SNOMED-CT Code [id number] URSULA SALAZAR MD [address] [address] 01/28/2024 14:07:20 01/28/2024 15:17:00 Dysuria 75209160 Autoimmune thyroiditis 30929162 Chronic mi graine without aura [id number] Chronic pain [id number] ASHA HALL CMA [address] [address] 02/22/2024 12:55:25 02/22/2024 13:28:47 Dysuria 61607572 Health Concerns Section Related Observation LastModified by Organization Detai ls LastModified Time None Recorded Concern Status LastModified by Organization Details LastModified Time None Recorded Payers Encounter Date Sequence Insurance Name Policy Number Policy Adams Covered Member ID Adams Member ID Guarantor Name 02/22/2024 1 [facility] [id number] Cassiopeia L Acevedo [id number] Cassiopeia L Acevedo OBGyn Episode No OBEpisode recorded.
--- OUTSIDE RECORDS SUMMARY | 2024-03-21 03:18 | XMS_ITS | Continuity of Care Document ---
Author Organization [facility] Address [address] [place] [address] Assessment No assessment recorded. Plan of Treatment Reminders Order Date Submit Date Provider Last Modified By Organization Details Last Modified Time Details Appointments Office Visit 30 2023 01:30P M Not available Not available Not available Lab hemoglobi n A1C, fingersti ck 2023 024 [facility], [address] [place] [address], [phone], 02/24/2024 13:24:02 Referral None recorded. Procedures None recorded. Surgeries [...] Range Abnormal Flag LastModifiedBy Organization Detail LastModifiedTime 02/24/2002/24/2024 hemog lobin A1C, finge rstic k hemoglobin A1C 6.0 % <5.7 Not Available [address], [address], 02/23/2024 13:28:21 Result Notes None recorded. 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 [address], [address] 4 16:34:48 Menometrorrhagia Completed 202208/19/[address], [address] 4 16:34:53 Uncomplicated moderate persistent asthma Active [address], [address] 4 16:33:48 Social phobia Completed 202208/19/[address], [address] 4 16:34:35 Vitamin D deficiency Active [address], [address] 4 16:34:17 Sensorineural hearing loss of bilateral ears Completed 202208/19/2023 Problem Code: H90.3; Problem Code Type: ICD-10; MD Shira GARLAND Dr, [address] 4 16:34:22 Major depression, single episode Active [address], [place], [address] , [facility] 4 16:34:11 Attention deficit hyperactivity disorder, predominantly inattentive type Active 2022 Problem Code: F90.0; Problem Code Type: ICD-10; Not Available [facility] 3 04:31:37 Chronic pain Active [address], [facility] [phone] [place] [address] 4 16:33:09 Autoimmune thyroiditis Completed 202208/19/2023 Problem Code: E06.3; Problem Code Type: ICD-10; MD Shira GARLAND Dr, [address] 4 15:02:13 Hypothyroidism Completed 202208/19/2023 Problem Code: E03.9; Problem Code Type: ICD-10; MD Shira GARLAND Dr, [facility] [address] 4 16:33:37 Intervertebral disc prolapse Completed 202208/19/2023 Problem Code: M51.25; Problem Code Type: ICD-10; MD Shira GAR[address] Dr, [facility] [phone] 4 16:33:29 Sleep disorder Completed 202208/19/2023 Problem Code: G47.8; Problem Code Type: ICD-10; MD Shira GARLAND Dr, [facility] [phone] [place] [address] 4 16:34:43 Congenital anomaly of spinal cord Active [address], [facility] [phone] [place] [address] 4 16:33:26 Fatigue Active [address], [facility] [phone] [place] [address] 4 16:33:44 Asthenia Completed 202208/19/2023 Problem Code: R53.1; Problem Code Type: ICD-10; MD Shira GARLAND Dr, [address] 4 16:33:15 Epigastric pain Completed 202208/19/2023 Problem Code: R10.13; Problem Code Type: ICD-10; MD Shira GARLAND Dr, [address] 4 16:33:17 Palpitations Completed 202208/19/2023 Problem Code: R00.2; Problem Code Type: ICD-10; MD Shira GARLAND Dr, [address] 4 16:33:20 Leukocytosis Active [address], [address] 4 16:33:13 Height below average Completed 200504/28/2023 Problem Code: 783.43; Problem Code Type: ICD-9; Not Available [facility] 3 04:31:39 Abnormal gait Completed 202202/21/2023 Problem Code: R26.89; Problem Code Type: ICD-10; Not Available [facility] 3 04:31:39 Hemoglobinopathy Completed 202202/21/2023 Problem Code: D58.2; Problem Code Type: ICD-10; Not Available [facility] 3 04:31:40 Recurrent acute tonsillitis Completed 200802/21/2023 Problem Code: J03.91; Problem Code Type: ICD-10; Not Available [facility] 3 04:31:40 Obstructive sleep apnea syndrome Completed 202202/21/2023 Problem Code: G47.33; Problem Code Type: ICD-10; Not Available [facility] 3 04:31:40 Acne Completed 201304/28/2023 Not Available [facility] 3 04:31:40 Headache Completed 200804/28/2023 Not Available [facility] 3 04:31:40 Snoring Completed 202202/21/2023 Problem Code: R06.83; Problem Code Type: ICD-10; Not Available [facility] 3 04:31:40 Disorder of hyoid bone Active [address], [facility] [address] , [facility] 4 16:31:26 Electrocardiogram abnormal Completed 202208/19/2023 Problem Code: R94.31; Problem Code Type: ICD-10; MD Shira GAR[address] Dr, [facility] [address] , [facility] 4 16:31:20 Dizziness and giddiness Completed 202208/19/2023 Problem Code: R42; Problem Code Type: ICD-10; MD Shira GARLAND Dr, [facility] [address] , [facility] 4 16:31:12 Gastroesophageal reflux disease Active [address], [facility] [address] , [facility] 4 16:31:16 Chronic migraine without aura Active [address], [facility] [address] , [facility] 4 16:32:08 Shortened MA interval Active [address], [facility] [phone] [place] [address] 4 16:35:52 Iron deficiency Active [address], [place] [phone] 4 16:39:09 Dysuria Active [address], [address] 4 15:01:48 Autoimmune thyroiditis Active 2023 Problem Code: E06.3; Problem Code Type: ICD-10; MD Shira GARLAND Dr, [address] 4 15:02:13 Polyuria Active [address], [address] 4 14:48:37 Painful urinary bladder spasm Active [address], [address] 4 20:47:27 Problem Notes None recorded. Procedures Surgical History Date Name Laterality Status Provider Name and Address Organization Details Recorded Time 3 Removal of gallbladder completed MD Shira GARLAND Dr, [address] 06/16/2023 09:26:56 Imaging Results None recorded. Procedure Notes None recorded. Medical Equipment None Reported. Allergies Allergen ID Allergen Name Allergen Category Reaction Reaction Severity Criticality Documentation Date Start Date Code Code System Note Provider Name and Address Organization Details Recorded Time 00950 Canis lupus familiari s extract environme nt other mild Not available 06/11/20232022 03284 4 RxNorm No react ion enter ed [facility] 4 22:20:04 99733 gabapenti n medicatio n other mild Not available 06/11/20232022 62369 RxNorm No react ion enter ed [facility] 4 22:20:32 53016 POLLEN EXTRACTS environme nt,medica tion other mild Not available 06/11/20232022 97213 6 RxNorm No react ion enter ed [facility] 4 22:21:07 15448 Vistaril medicatio n other mild Not available 06/11/20232022 78382 9 RxNorm No react ion enter ed [facility] 4 22:21:35 Medications Name Sig Start [...] Not Available Not Available Not Available Acid Certified Surgical Technician (cimetidine ) 200 mg tablet 1 [...] Smoking Status Never Smoker MIRZA DESAI RN [facility], [facility] 07/02/2023 11:37:13 What Was The Date Of [...] Recorded Time MMR 09/22/2006 completed Not Available [facility] 05:56:15 MMR 02/18/2001 completed Not Available [facility] 05:56:16 DTaP, unspecified formulation 10/01/2006 completed Not Available [facility] 06/11/2023 05:56:16 DTaP, unspecified formulation 1999 completed Not Available [facility] 06/11/2023 05:56:16 DTaP, unspecified formulation 11/23/2000 completed Not Available [facility] 06/11/2023 05:56:16 DTaP, unspecified formulation 1999 completed Not Available [facility] 06/11/2023 05:56:16 DTaP, unspecified formulation 02/18/2000 completed Not Available [facility] 06/11/2023 05:56:16 Tdap 09/22/2011 completed Not Available [facility] 05:56:16 Novel [id number], all formulations 08/19/2009 completed Not Available [facility] 06/11/2023 05:56:16 Novel [id number], all formulations 07/18/2009 completed Not Available [facility] 06/11/2023 05:56:16 HPV, unspecified formulation 12/12/2021 completed Not Available [facility] 06/11/2023 05:56:17 HPV, unspecified formulation 02/06/2021 completed Not Available [facility] 06/11/2023 05:56:17 HPV, unspecified formulation 05/13/2021 completed Not Available [facility] 06/11/2023 05:56:17 Pneumococcal Conjugate, unspecified formulation 08/24/2000 completed Not Available [facility] 06/11/2023 05:56:17 Pneumococcal Conjugate, unspecified formulation 11/23/2000 completed Not Available [facility] 06/11/2023 05:56:17 Hib, unspecified formulation 1999 completed Not Available [facility] 06/11/2023 05:56:17 Hib, unspecified formulation 11/23/2000 completed Not Available [facility] 06/11/2023 05:56:17 Hib, unspecified formulation 1999 completed Not Available [facility] 06/11/2023 05:56:17 Hib, unspecified formulation 02/18/2000 completed Not Available [facility] 06/11/2023 05:56:17 COVID-19, mRNA, LNP-S, PF, 30 mcg/0.3 mL dose 11/24/2020 completed Not Available [facility] 06/11/2023 05:56:18 COVID-19, mRNA, LNP-S, PF, 30 mcg/0.3 mL dose 12/15/2020 completed Not Available [facility] 06/11/2023 05:56:18 COVID-19, mRNA, LNP-S, PF, 30 mcg/0.3 mL dose 06/27/2021 completed Not Available [facility] 06/11/2023 05:56:18 varicella 08/24/2000 completed Not Available [facility] 05:56:18 varicella 07/16/2006 completed Not Available [facility] 05:56:18 COVID-19, mRNA, LNP-S, bivalent, PF, 30 mcg/0.3 mL dose 06/05/2022 completed Not Available [facility] 06/11/2023 05:56:18 Hep B, unspecified formulation 1999 completed Not Available [facility] 06/11/2023 05:56:18 Hep B, unspecified formulation 1999 completed Not Available [facility] 06/11/2023 05:56:18 Hep B, unspecified formulation 05/29/2000 completed Not Available [facility] 06/11/2023 05:56:18 influenza, unspecified formulation 05/16/2009 completed Not Available [facility] 06/11/2023 05:56:19 influenza, unspecified formulation 05/31/2007 completed Not Available [facility] 06/11/2023 05:56:19 influenza, unspecified formulation 06/05/2022 completed Not Available [facility] 06/11/2023 05:56:19 influenza, unspecified formulation 06/08/2008 completed Not Available [facility] 06/11/2023 05:56:19 polio, unspecified formulation 1999 completed Not Available [facility] 06/11/2023 05:56:19 polio, unspecified formulation 1999 completed Not Available [facility] 06/11/2023 05:56:19 polio, unspecified formulation 01/15/2004 completed Not Available [facility] 06/11/2023 05:56:19 polio, unspecified formulation 02/18/2001 completed Not Available [facility] 06/11/2023 05:56:19 Tdap 04/26/2023 completed Not Available [facility] 05:31:00 Influenza, split virus, quadrivalent, PF 04/26/2023 completed Not Available [facility] 08/13/2023 05:31:00 Influenza, split virus, quadrivalent, PF 05/27/2023 completed Not Available [facility] 08/13/2023 05:31:00 Past Encounters Encounter ID Performer Location Encounter Start Date Encounter Closed Date Diagnosis/Indication Diagnosis SNOMED-CT Code [id number] URSULA SALAZAR MD [address] [address] 01/28/2024 14:07:20 01/28/2024 15:17:00 Dysuria 26280766 Autoimmune thyroiditis 59060112 Chronic mi graine without aura 450388951344900 Chronic pain [id number] ASHA GAOH [address] [address] 02/22/2024 12:55:25 02/22/2024 13:28:47 Dysuria [id number] ASHA HALL [address] [address] 02/24/2024 12:56:26 02/24/2024 12:58:00 Family history of diabetes mellitus [id number] Health Concerns Section Related Observation LastModified by Organization Detai ls LastModified Time None Recorded Concern Status LastModified by Organization Details LastModified Time None Recorded Payers Encounter Date Sequence Insurance Name Policy Number Policy Adams Covered Member ID Adams Member ID Guarantor Name 02/24/2024 1 [facility] [id number] Jagruti Cherrying [id number] Jagruti Cherrying OBGyn Episode No OBEpisode recorded.
--- OUTSIDE RECORDS SUMMARY | 2024-03-21 03:18 | XMS_ITS | Data Portability ---
Author Organization [place] - [facility], [facility] [place] [address] Assessment Encounter Date Assessment Date Assessment LastModified by Organization Details LastModified Time 08/19/2023 08/19/2023 The total time devoted to today's encounter, including both the gtnc-ec-ptkh time with the patient and/or family/caregi teresa and erw-zzag-zx-f carlito time I personally spent is 54 minutes. [facility] Not available 08/19/2023 17:04:36 Plan of Treatment Reminders Order Date Submit Date Provider Last Modified By Organization Details Last Modified Time Details Appointments Office Visit 30 2023 01:30P M Not available Not available Not available Lab urinalysi s, dipstick [address], [address] [place] [address], [address], 02/01/2024 14:37:21 urinalysi s, dipstick 2023 024 [facility], [address] [place] [address], [address], 01/28/2024 15:53:57 TSH, serum, reflex free T4 - 1 green top drawn in office-SN 2023 024 [facility] (Registration ), [address] [place] [address] [place], [address], 02/01/2024 14:36:53 urinalysi s, dipstick 2023 024 [facility], [address] [place], [address], 02/22/2024 14:48:50 culture, urine + sensitivi ty - Urine sample 2023 024 [facility] (Registration ), [facility], [place], [address], 02/25/2024 07:42:53 hemoglobi n A1C, fingersti ck 2023 024 [facility], [address] [place], [address], 02/24/2024 13:24:02 Referral None recorded. Procedures None recorded. Surgeries None recorded. Imaging [place], modified barium swallow study - Pain with swallowin g, patient feels hyoid bone does not move properly with swallowin g, normal xray. 2023 024 [facility], [address], [place], [address], 10/19/2023 16:18:41 Medication Orders Aimovig Autoinjec tor 140 mg/mL subcutane ous auto-inje ctor 2023 024 [facility], [address] [place] [address] [address], [place], [address], 08/19/2023 16:56:59 meloxicam 15 mg tablet 2023 024 [facility], [address] [facility] [address], [place], [address], 08/19/2023 16:56:59 Symbicort 80 mcg-4.5 mcg/actua tion HFA aerosol inhaler 2023 024 [facility], [address] [place] [address] [address], [place], [address], 08/19/2023 16:56:59 albuterol sulfate HFA 90 mcg/actua tion aerosol inhaler 2023 024 [facility], [address] [place] [address] [address], [place], [address], 08/19/2023 16:56:59 omeprazol e 40 mg capsule,d elayed release 2023 024 [facility], [address] [place] [address] [address], [place], [address], 08/19/2023 16:56:59 Aimovig Autoinjec tor 140 mg/mL subcutane ous auto-inje ctor 2023 024 [facility], [address] [place] [address] [address], [place], [address], 10/18/2023 16:02:48 Vitamin D3 25 mcg (1,000 unit) capsule 2023 024 [facility], [address] [place] [address] [address], [place], [address], 10/18/2023 16:02:48 omeprazol e 40 mg capsule,d elayed release 2023 024 [facility], [address] [place] [address] [address], [place], [address], 10/18/2023 16:02:48 venlafaxi ne ER 75 mg capsule,e xtended release 24 hr 2023 024 [facility], [address] [place] [address] [address], [place], [address], 10/18/2023 16:02:51 Patient TargetsNo targets recorded. Patient Instructions Encounter Date Encounter Id Patient Instructions Last Modified By Organization Details Last Modified Time 08/19/2023 [id number] - verify that it is symbicort 80mcg-4.5mcg/actu [...] tylenol. eoleson Not available 08/19/2023 15:32:55 10/18/2023 [id number] learning about healthy weight eoleson Not available 10/19/2023 13:19:47 Reason for Referral Urologist Referral for Painf ul urinary bladder spasm dysuria, bladder spasms and pressure. Negative urinalysis and culture, symptoms for several weeks. Referring Physician: Sudha Salazar, Family Medicine, Encounter Date: 02/29/2024 Results Created Date Observation Date Name Description Value Unit Range Abnormal Flag LastModifiedBy Organization Detail LastModifiedTime 01/28/20 24 01/28/2024 TSH (W/RE F FT4) TSH (w/ref FT4) 3.72 uIU/m L 0.36-3 .74 normal Not Available [facility] (Registration ) [address] [place] [address] [place], [address], 01/28/2024 21:54:45 01/28/20 24 01/28/2024 urina lysis , dipst ick Unknown Analyte Not Available [address], [address], 01/28/2024 15:30:57 01/28/20 24 01/28/2024 urina lysis , dipst ick Leukocytes Small Not Available [address], [address], 01/28/2024 15:31:40 01/28/20 24 01/28/2024 urina lysis , dipst ick Nitrite negati ve Not Available [address], [address], 01/28/2024 15:31:40 01/28/20 24 01/28/2024 urina lysis , dipst ick Urobilinogen .2 Not Available [address], [address], 01/28/2024 15:31:40 01/28/20 24 01/28/2024 urina lysis , dipst ick Protein Trace Not Available [address], [address], 01/28/2024 15:31:40 01/28/20 24 01/28/2024 urina lysis , dipst ick pH 6.0 Not Available [address], [address], 01/28/2024 15:31:40 01/28/20 24 01/28/2024 urina lysis , dipst ick Blood Negati ve Not Available [address], [address], 01/28/2024 15:31:40 01/28/20 24 01/28/2024 urina lysis , dipst ick Specific [place] 1.005 Not Available [address], [address], 01/28/2024 15:31:40 01/28/20 24 01/28/2024 urina lysis , dipst ick Ketone Negati ve Not Available [address], [address], 01/28/2024 15:31:40 01/28/20 24 01/28/2024 urina lysis , dipst ick Bilirubin Negati ve Not Available [address], [address], 01/28/2024 15:31:40 01/28/20 24 01/28/2024 urina lysis , dipst ick Glucose Negati ve Not Available [address], [address], 01/28/2024 15:31:40 01/28/20 24 01/28/2024 urina lysis , dipst ick Appearance Clear Not Available [address], [address], 01/28/2024 15:31:40 01/28/20 24 01/28/2024 urina lysis , dipst ick Color Yellow Not Available [address], [address], 01/28/2024 15:31:40 02/22/20 24 02/24/2024 URINE CULTU RE urine culture Not Available [facility] (Registration ) [address] [place] [address] [place], [address], 02/24/2024 13:17:49 02/22/20 24 02/24/2024 URINE CULTU RE urine culture colon ies/m L Not Available [facility] (Registration ) [address] [place] [address] [place], [address], 02/24/2024 13:17:49 02/22/20 24 02/25/2024 URINE CULTU RE urine culture Not Available [address] [place], [address] 02/25/2024 09:18:40 02/22/20 24 02/25/2024 URINE CULTU RE urine culture colon ies/m L Not Available [address] [facility] [place], [address] 02/25/2024 09:18:40 02/22/20 24 02/22/2024 urina lysis , dipst ick Leukocytes Negati ve Not Available [address], [address], 02/22/2024 13:25:05 02/22/20 24 02/22/2024 urina lysis , dipst ick Nitrite negati ve Not Available [address], [address], 02/22/2024 13:25:05 02/22/20 24 02/22/2024 urina lysis , dipst ick Urobilinogen .2 Not Available [address], [address], 02/22/2024 13:25:05 02/22/20 24 02/22/2024 urina lysis , dipst ick Protein Negati ve Not Available [address], [address], 02/22/2024 13:25:05 02/22/20 24 02/22/2024 urina lysis , dipst ick pH 6.5 Not Available [address], [address], 02/22/2024 13:25:05 02/22/20 24 02/22/2024 urina lysis , dipst ick Blood Negati ve Not Available [address], [address], 02/22/2024 13:25:05 02/22/20 24 02/22/2024 urina lysis , dipst ick Specific [place] 1.005 Not Available [address], [address], 02/22/2024 13:25:05 02/22/20 24 02/22/2024 urina lysis , dipst ick Ketone Negati ve Not Available [address], [address], 02/22/2024 13:25:05 02/22/20 24 02/22/2024 urina lysis , dipst ick Bilirubin Negati ve Not Available [address], [address], 02/22/2024 13:25:05 02/22/20 24 02/22/2024 urina lysis , dipst ick Glucose Negati ve Not Available [address], [address], 02/22/2024 13:25:05 02/22/20 24 02/22/2024 urina lysis , dipst ick Appearance Cloudy Not Available [address], [address], 02/22/2024 13:25:05 02/22/20 24 02/22/2024 urina lysis , dipst ick Color Pale Yellow Not Available [address], [address], 02/22/2024 13:25:05 02/24/20 24 02/24/2024 hemog lobin A1C, finge rstic k hemoglobin A1C 6.0 % <5.7 Not Available [address], [address], 02/23/2024 13:28:21 08/04/19 24 08/04/2023 MRI imagi ng repor t Macy t Name: Kathia Velasco Unit #: [id number] Loc: DI Orderi ng Provid er: Latonia Carlton Accoun t #: [id number] Status : REG CLI Primar [...] ------ - Dictat ed By: Mitra Harp 1530 153 Transc ribed By: Lizz Art 153 This is privil eged, confid ential inform ation intend ed only for the provid er named. Any use or distri bution by any person other than this provid er is strict ly prohib ited. If you receiv e this report in error, please notify us immedi valentinaly at and return the origin al report to us at the addres s above. Thank- you. [facility] [address], [place], [address] 08/04/2023 15:53:25 09/01/19 24 09/01/2023 modif ied bariu m swall ow Modifi ed Barium Swallo w MACY Posada NAME: Kathia Velasco UNIT #: [id number] ORDERI NG PROVID ER: ACCOUN T #: [id number] PRIMAR Y CARE PROVID ER: SUDHA SALAZAR MD DATE/T NANO OF SER VICE: : 2000 [...] even after liquid wash, fidel t rachel white sensat ion. It is unclea r if patien t's report ed odynop hagia and mild defici ts noted above are caused by the same thing. Especi ally since macy posada notes it increa sed notice ably since recent surger y, suspec t also an increa sed impact of reflux on macy posada's clinic al sympto ms. There could also be a tensio n compon ent. Macy posada appear s to be at low risk for potent ial aspira tion PNA and/or pulmon slava compro mise and low risk for malnut rition , low risk for dehydr ation. Diet modifi cation is not indica celina; non-or al nutrit ion is not indica celina. Lucyo w progno sis is excell ent given: Positi [...] ty as tolera celina PLAN: Therap y: Macy posada declin es furthe r therap y Risk manage ment strate gies were discus sed with the macy posada. ----- OBJECT ANJANA Videof luoros copic Matilde vaca Evalua tion (VFSE/ MBSS) was conduc celina in the latera l and anteri or-to- santa's helper ior projec tion by Speech -Langu age [...] ejecte d from the airway . 2 Interior thick (1-8) [address] did not [...] atory Set?+/- Chin Tuck Postur e? Cough? Flight Software Test Engineer ior Head tilt? Reflex anjana? Cued? Throat Clear? Head Tilt to? Reflex anjana? Left? Cued?+ ? Right? Saliva swallo w? Head Turn/ Rotate to? Suprag lottic Swallo w? Left? Super- suprag lottic Swallo w? Right? Bolus Modifi cation s Succes [...] Please feel free to contac t the [place] Speech Langua ge Pathol ogy Depart ment with any questi ons/co ncerns . Coding CPT Codes MOTION FLUORO SCOPY/ SWALLO W - [id number] ([id number]) CC:SUDHA DHALIWAL MD ------ ------ ------ ------ ------ ------ ------ ------ ------ ------ ------ ------ ------ ------ ------ ------ ---- -- Dictat ed by: CORTNEY LABOY Dictat ed:: [id number] [id number] Transc ribed Date: 01/31/ 24 Transc ribed Time: 1520 By: GENIE This is privil eged, confid ential inform ation, intend ed only for the provid er named. Any use or distri bution by any person other than this provid er is strict ly prohib ited. If you receiv e this report in error, please notify us immedi ately at [phone] and return the origin al report to us at the addres s above. Thank you. [facility] [address], [place], [address] 09/11/2023 18:08:30 09/01/19 24 09/01/2023 [place], modif ied bariu m lamarall ow study Patien t Name: Kathia Velasco Unit #: [id number] Loc: DI Orderi ng Provid er: Sudha Salazar Accoun t #: [id number] Status : REG CLI Primar y [...] mGy Ordere d By: Sudha Salazar CC: CORTNEY LABOY ------ ------ ------ ------ ------ ------ ------ [...] error, please notify us immedi ately at [phone] and return the origin al report to us at the addres s above. Thank- you. [email or web address] [facility] [address], [place], [address], 10/19/2023 16:18:41 Result Notes None recorded. 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 [address], [facility] [address] , [facility] 4 16:34:48 Menometrorrhagia Completed 202208/19/[address], [place], [address] , [facility] 4 16:34:53 Uncomplicated moderate persistent asthma Active [address], [facility] [address] , [facility] 4 16:33:48 Social phobia Completed 202208/19/[address], [facility] [address] , [facility] 4 16:34:35 Vitamin D deficiency Active [address], [place] [address] , [facility] 4 16:34:17 Sensorineural hearing loss of bilateral ears Completed 202208/19/2023 Problem Code: H90.3; Problem Code Type: ICD-10; MD Shira [address], [facility] [address] [place] [address] 4 16:34:22 Major depression, single episode Active [address], [facility] [address] [place] [address] 4 16:34:11 Attention deficit hyperactivity disorder, predominantly inattentive type Active 2022 Problem Code: F90.0; Problem Code Type: ICD-10; Not Available [facility] 3 04:31:37 Chronic pain Active [address], [facility] [address] 4 16:33:09 Autoimmune thyroiditis Completed 202208/19/2023 Problem Code: E06.3; Problem Code Type: ICD-10; MD Shira [address], [facility] [address] 4 15:02:13 Hypothyroidism Completed 202208/19/2023 Problem Code: E03.9; Problem Code Type: ICD-10; MD Shira [address], [facility] [address] [place] [address] 4 16:33:37 Intervertebral disc prolapse Completed 202208/19/2023 Problem Code: M51.25; Problem Code Type: ICD-10; MD Shira [address] Dr, [address] 4 16:33:29 Sleep disorder Completed 202208/19/2023 Problem Code: G47.8; Problem Code Type: ICD-10; MD Shira [address] Dr, [address] 16:34:43 Congenital anomaly of spinal cord Active [address], [address] 4 16:33:26 Fatigue Active [address], [address] 4 16:33:44 Asthenia Completed 202208/19/2023 Problem Code: R53.1; Problem Code Type: ICD-10; MD Shira [address] Dr, [address] 4 16:33:15 Epigastric pain Completed 202208/19/2023 Problem Code: R10.13; Problem Code Type: ICD-10; MD Shira [address], [address] 4 16:33:17 Palpitations Completed 202208/19/2023 Problem Code: R00.2; Problem Code Type: ICD-10; MD [address]ira [address], [place], [address] , [facility] 4 16:33:20 Leukocytosis Active [address], [facility] [address] , [facility] 4 16:33:13 Height below average Completed 200504/28/2023 Problem Code: 783.43; Problem Code Type: ICD-9; Not Available [facility] 3 04:31:39 Abnormal gait Completed 202202/21/2023 Problem Code: R26.89; Problem Code Type: ICD-10; Not Available [facility] 3 04:31:39 Hemoglobinopathy Completed 202202/21/2023 Problem Code: D58.2; Problem Code Type: ICD-10; Not Available [facility] 3 04:31:40 Recurrent acute tonsillitis Completed 200802/21/2023 Problem Code: J03.91; Problem Code Type: ICD-10; Not Available [facility] 3 04:31:40 Obstructive sleep apnea syndrome Completed 202202/21/2023 Problem Code: G47.33; Problem Code Type: ICD-10; Not Available [facility] 3 04:31:40 Acne Completed 201304/28/2023 Not Available [facility] 3 04:31:40 Headache Completed 200804/28/2023 Not Available [facility] 3 04:31:40 Snoring Completed 202202/21/2023 Problem Code: R06.83; Problem Code Type: ICD-10; Not Available [facility] 3 04:31:40 Disorder of hyoid bone Active [address], [place], [address] , [facility] 4 16:31:26 Electrocardiogram abnormal Completed 202208/19/2023 Problem Code: R94.31; Problem Code Type: ICD-10; MD Shira [address] Dr, [address] 4 16:31:20 Dizziness and giddiness Completed 202208/19/2023 Problem Code: R42; Problem Code Type: ICD-10; MD Shira [address], [address] 4 16:31:12 Gastroesophageal reflux disease Active [address], [address] 4 16:31:16 Chronic migraine without aura Active [address], [address] 4 16:32:08 Shortened NV interval Active [address], [address] 4 16:35:52 Iron deficiency Active [address], [address] 4 16:39:09 Dysuria Active [address], [address] 4 15:01:48 Autoimmune thyroiditis Active 2023 Problem Code: E06.3; Problem Code Type: ICD-10; MD Shira [address], [facility] [address] [place] [address] 4 15:02:13 Polyuria Active [address], [place], [address] , [facility] 14:48:37 Painful urinary bladder spasm Active [address], [place], [address] , [facility] 20:47:27 Problem Notes None recorded. Procedures Surgical History Date Name Laterality Status Provider Name and Address Organization Details Recorded Time Removal of gallbladder completed MD Shira [address], [place], [address], [facility] 06/16/2023 09:26:56 Imaging Results Imaging Date Name Status LastModified by Organiz ation Details LastModified Time 08/04/2023 MRI imaging report completed [address] , [place], [address] 08/04/2023 15:53:25 09/01/2023 modified barium swallow completed [address] , [place], [address] 09/11/2023 18:08:30 09/01/2023 [place], modified barium swallow study completed [address] [address], [place], [address], 10/19/2023 16:18:41 Procedure Notes None recorded. Medical Equipment None Reported. Allergies Allergen ID Allergen Name Allergen Category Reaction Reaction Severity Criticality Documentation Date Start Date Code Code System Note Provider Name and Address Organization Details Recorded Time 59069 Canis lupus familiari s extract environme nt other mild Not available 06/11/20232022 79541 4 RxNorm No react ion enter ed [facility] 22:20:04 01054 gabapenti n medicatio n other mild Not available 06/11/20232022 16784 RxNorm No react ion enter ed [facility] 22:20:32 09568 POLLEN EXTRACTS environme nt,medica tion other mild Not available 06/11/20232022 90040 6 RxNorm No react ion enter ed [facility] 4 22:21:07 23095 Vistaril medicatio n other mild Not available 06/11/20232022 04089 9 RxNorm No react ion enter ed [facility] 4 22:21:35 Medications Name [...] Not Available Not Available Not Available [employer] Marine Service Manager (cimetidine ) 200 mg tablet 1 tablet [...] DateTime 4 152.298 4 cm 37.5 kg/m2 93963.7 4 g 99 % 99 % 118 /min 18 /min 118 mm[Hg] 66 mm[Hg] HATTIE SIMMONS RN [facility] 4 15:03:33 Date Recorded Body height Body mass index (BMI) Body weight Respiratory rate Oxygen saturation Oxygen saturation in Arterial blood by Pulse oximetry Heart rate Body temperature Systolic blood pressure Diastolic blood pressure Provider Name and Address Organization Details Last Updated DateTime 4 152.298 4 cm 38.7 kg/m2 09220.2 9 g 18 /min 99 % 99 % 106 /min 98 [degF] 110 mm[Hg] 68 mm[Hg] BETTY LOPEZ MA [facility] 4 14:28:46 Date Recorded Body height Body mass index (BMI) Body weight Body temperature Oxygen saturation Oxygen saturation in Arterial blood by Pulse oximetry Heart rate Systolic blood pressure Diastolic blood pressure Provider Name and Address Organization Details Last Updated DateTime 4 152.298 4 cm 38.9 kg/m2 28957.8 8 g 97.8 [degF] 97 % 97 % 80 /min 118 mm[Hg] 70 mm[Hg] BETTY LOPEZ MA [facility] 4 14:35:09 Social History Question Answer Notes LastModified by Organizat ion Details LastModified Time Tobacco Smoking Status Never Smoker MIRZA DESAI RN [facility], [facility] 07/02/2023 11:37:13 What Was The Date [...] Recorded Time MMR 09/22/2006 completed Not Available [facility] 05:56:15 MMR 02/18/2001 completed Not Available [facility] 05:56:16 DTaP, unspecified formulation 10/01/2006 completed Not Available [facility] 06/11/2023 05:56:16 DTaP, unspecified formulation 1999 completed Not Available [facility] 06/11/2023 05:56:16 DTaP, unspecified formulation 11/23/2000 completed Not Available [facility] 06/11/2023 05:56:16 DTaP, unspecified formulation 1999 completed Not Available [facility] 06/11/2023 05:56:16 DTaP, unspecified formulation 02/18/2000 completed Not Available [facility] 06/11/2023 05:56:16 Tdap 09/22/2011 completed Not Available [facility] 05:56:16 Novel Qdkszldel-[id number], all formulations 08/19/2009 completed Not Available [facility] 06/11/2023 05:56:16 Novel Rycdyuvpe-C5J0-27, all formulations 07/18/2009 completed Not Available [facility] 06/11/2023 05:56:16 HPV, unspecified formulation 12/12/2021 completed Not Available [facility] 06/11/2023 05:56:17 HPV, unspecified formulation 02/06/2021 completed Not Available [facility] 06/11/2023 05:56:17 HPV, unspecified formulation 05/13/2021 completed Not Available [facility] 06/11/2023 05:56:17 Pneumococcal Conjugate, unspecified formulation 08/24/2000 completed Not Available [facility] 06/11/2023 05:56:17 Pneumococcal Conjugate, unspecified formulation 11/23/2000 completed Not Available [facility] 06/11/2023 05:56:17 Hib, unspecified formulation 1999 completed Not Available [facility] 06/11/2023 05:56:17 Hib, unspecified formulation 11/23/2000 completed Not Available [facility] 06/11/2023 05:56:17 Hib, unspecified formulation 1999 completed Not Available [facility] 06/11/2023 05:56:17 Hib, unspecified formulation 02/18/2000 completed Not Available [facility] 06/11/2023 05:56:17 COVID-19, mRNA, LNP-S, PF, 30 mcg/0.3 mL dose 11/24/2020 completed Not Available [facility] 06/11/2023 05:56:18 COVID-19, mRNA, LNP-S, PF, 30 mcg/0.3 mL dose 12/15/2020 completed Not Available [facility] 06/11/2023 05:56:18 COVID-19, mRNA, LNP-S, PF, 30 mcg/0.3 mL dose 06/27/2021 completed Not Available [facility] 06/11/2023 05:56:18 varicella 08/24/2000 completed Not Available [facility] 05:56:18 varicella 07/16/2006 completed Not Available [facility] 05:56:18 COVID-19, mRNA, LNP-S, bivalent, PF, 30 mcg/0.3 mL dose 06/05/2022 completed Not Available [facility] 06/11/2023 05:56:18 Hep B, unspecified formulation 1999 completed Not Available [facility] 06/11/2023 05:56:18 Hep B, unspecified formulation 1999 completed Not Available [facility] 06/11/2023 05:56:18 Hep B, unspecified formulation 05/29/2000 completed Not Available [facility] 06/11/2023 05:56:18 influenza, unspecified formulation 05/16/2009 completed Not Available [facility] 06/11/2023 05:56:19 influenza, unspecified formulation 05/31/2007 completed Not Available [facility] 06/11/2023 05:56:19 influenza, unspecified formulation 06/05/2022 completed Not Available [facility] 06/11/2023 05:56:19 influenza, unspecified formulation 06/08/2008 completed Not Available [facility] 06/11/2023 05:56:19 polio, unspecified formulation 1999 completed Not Available [facility] 06/11/2023 05:56:19 polio, unspecified formulation 1999 completed Not Available [facility] 06/11/2023 05:56:19 polio, unspecified formulation 01/15/2004 completed Not Available [facility] 06/11/2023 05:56:19 polio, unspecified formulation 02/18/2001 completed Not Available [facility] 06/11/2023 05:56:19 Tdap 04/26/2023 completed Not Available [facility] 05:31:00 Influenza, split virus, quadrivalent, PF 04/26/2023 completed Not Available [facility] 08/13/2023 05:31:00 Influenza, split virus, quadrivalent, PF 05/27/2023 completed Not Available [facility] 08/13/2023 05:31:00 Past Encounters Encounter ID Performer Location Encounter Start Date Encounter Closed Date Diagnosis/Indication Diagnosis SNOMED-CT Code [id number] SUDHA SALAZAR MD [address] [address] 07/02/2023 11:21:17 07/02/2023 13:09:01 Disorder of hyoid bone [id number] SUDHA SALAZAR MD [address] [address] 08/19/2023 14:48:33 08/19/2023 16:32:17 Disorder of hyoid bone 732790856 Gastroesop hageal reflux disease 719545017 Uncomplica celina moderate persistent asthma 930011027 Chronic pain 40052578 Chronic mi graine without aura [id number] SUDHA SALAZAR MD [address] [address] 10/18/2023 14:10:14 10/18/2023 16:08:36 Chronic migraine without aura [id number] Gastroesop hageal reflux disease 998566824 Vitamin D deficiency 347 25964 Anxiety disorder 2972534 06 Body mass index 30+ - obesity 910724309 Uncomplica celina moderate persistent asthma 683388351 Iron deficiency 67379014 Chronic pain 77107005 [id number] SUDHA SALAZAR MD [address] [address] 01/28/2024 14:07:20 01/28/2024 15:17:00 Dysuria 05441675 Autoimmune thyroiditis 78359485 Chronic mi graine without aura [id number] Chronic pain 58909344 [id number] ASHA HALL [address] [address] 02/22/2024 12:55:25 02/22/2024 13:28:47 Dysuria 61239661 [id number] ASHA [address] [address] 02/24/2024 12:56:26 02/24/2024 12:58:00 Family history of diabetes mellitus 949747636 Health Concerns Section Related Observation LastModified by Organization Detai ls LastModified Time None Recorded Concern Status LastModified by Organization Details LastModified Time None Recorded Advance Directives Directive None Recorded Payers Encounter Date Sequence Insurance Name Policy Number Policy Adams Covered Member ID Adams Member ID Guarantor Name 08/19/2023 1 [facility] [id number] Cassiopeia L Acevedo [id number] Cassiopeia L Acevedo 10/18/2023 1 [facility] [id number] Cassiopeia L Acevedo [id number] Cassiopeia L Acevedo 01/28/2024 1 [facility] [id number] Cassiopeia L Acevedo [id number] Cassiopeia L Acevedo 02/22/2024 1 [facility] [id number] Cassiopeia L Acevedo [id number] Cassiopeia L Acevedo 02/24/2024 1 [facility] [id number] Cassiopeia L Acevedo [id number] Cassiopeia L Acevedo Notes Date Note Type Note Provider Name and Address Organization Details Recorded Time 08/19/2023 text/html HPI Notes: Asthm a Reported [...] Chronic Pain Follow-up Reported by patient. Notes: Doc has pains in their arms and legs. [...] discuss MRI results. Did not tolerate PT. Bonduel it was not helpful and is hard [...] the pillow on the throat is painful. MD Shira [address], [place], [address], [facility] 08/19/2023 17:05:08 10/18/2023 text/html HPI Notes: Denta l issues - needs tooth extractions. Migraines - not better with the aimovig yet. Anxiety, ADHD - her psychiatrist is leaving, transferring psych care to me. Feels venlafaxine has overall been helpful. Chronic pain/chiari malformation - saw neurosurg who referred to [facility] for spinal issues and limb pain. Upper neck is biggest source of pain right now, gets knot on the left, makes it hard to move head or sleep. PT has never been helpful. Has not tried meloxicam yet. Was confused about what she could or could not take it with. Asthma - better since increasing symbicort. MD Shira [address], [place], [address], [facility] 10/19/2023 14:24:30 01/28/2024 text/html HPI Notes: [place] presents in follow up. Biggest concern is wondering about a UTI. Has had urinary frequency and discomfort with urination for a week and a half. No fevers. Migraines - not better with the aimovig yet. Still having intense migraines, 5-6 days on end. Anxiety, ADHD - Feels venlafaxine has overall been helpful. Chronic pain/chiari malformation - saw neurosurg who referred to [facility] for spinal issues and limb pain. Saw Dr. Valdez at [facility]. Didn't offer surgical solution. Did do rheum [...] times. SUDHA SALAZAR MD [address], [place], [address], [facility], [facility]. 01/28/2024 20:29:22 OBGyn Episode No OBEpisode recorded.
--- OUTSIDE RECORDS SUMMARY | 2024-03-21 03:18 | XMS_ITS | Continuity of Care Document ---
Author Organization [facility] Address [address] [place] [phone] Assessment No assessment recorded. Plan of Treatment Reminders Order Date Submit Date Provider Last Modified By Organization Details Last Modified Time Details Appointments Office Visit 30 2023 01:30P M Not available Not available Not available Lab urinalysi s, dipstick [address], [address] [place] [address], [phone], 02/01/2024 14:37:21 urinalysi s, dipstick 2023 024 [facility], [address] [place] [address], [phone], 01/28/2024 15:53:57 TSH, serum, reflex free T4 - 1 green top drawn in office-SN 2023 024 [facility] (Registration ), [address] [place] [address], [phone], 02/01/2024 14:36:53 Referral None recorded. Procedures None [...] , dipst ick Unknown Analyte Not Available [address], [address], 01/28/2024 15:30:57 01/28/20 24 01/28/2024 urina lysis , dipst ick Leukocytes Small Not Available [address], [address], 01/28/2024 15:31:40 01/28/20 24 01/28/2024 urina lysis , dipst ick Nitrite negati ve Not Available [address], [address], 01/28/2024 15:31:40 01/28/20 24 01/28/2024 urina lysis , dipst ick Urobilinogen .2 Not Available [address], [address], 01/28/2024 15:31:40 01/28/20 24 01/28/2024 urina lysis , dipst ick Protein Trace Not Available [address], [address], 01/28/2024 15:31:40 01/28/20 24 01/28/2024 urina lysis , dipst ick pH 6.0 Not Available [address], [address], 01/28/2024 15:31:40 01/28/20 24 01/28/2024 urina lysis , dipst ick Blood Negati ve Not Available [address], [address], 01/28/2024 15:31:40 01/28/20 24 01/28/2024 urina lysis , dipst ick Specific [place] 1.005 Not Available [address], [address], 01/28/2024 15:31:40 01/28/20 24 01/28/2024 urina lysis , dipst ick Ketone Negati ve Not Available [address], [address], 01/28/2024 15:31:40 01/28/20 24 01/28/2024 urina lysis , dipst ick Bilirubin Negati ve Not Available [address], [address], 01/28/2024 15:31:40 01/28/20 24 01/28/2024 urina lysis , dipst ick Glucose Negati ve Not Available [address], [address], 01/28/2024 15:31:40 01/28/20 24 01/28/2024 urina lysis , dipst ick Appearance Clear Not Available [address], [address], 01/28/2024 15:31:40 01/28/20 24 01/28/2024 urina lysis , dipst ick Color Yellow Not Available [address], [address], 01/28/2024 15:31:40 Result Notes None recorded. Problems Name Status Onset Date Resolution Date Notes Provider Name and Address Organization Details Recorded Time Anxiety disorder Active [address], [place], [address] , [facility] 16:34:29 Environmental allergy Completed 201308/19/[address], 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 [address], [place] [address] , [facility] 16:34:48 Menometrorrhagia Completed 202208/19/[address], [place] [address] , [facility] 4 16:34:53 Uncomplicated moderate persistent asthma Active [address], [address] 16:33:48 Social phobia Completed 202208/19/[address], [place] [address] , [facility] 4 16:34:35 Vitamin D deficiency Active [address], [address] 16:34:17 Sensorineural hearing loss of bilateral ears Completed 202208/19/2023 Problem Code: H90.3; Problem Code Type: ICD-10; MD Shira [address] Dr, [facility] [address] [address] 4 16:34:22 Major depression, single episode Active [address], [address] 4 16:34:11 Attention deficit hyperactivity disorder, predominantly inattentive type Active 2022 Problem Code: F90.0; Problem Code Type: ICD-10; Not Available [facility] 3 04:31:37 Chronic pain Active [address], [facility] [address] [place] [address] 4 16:33:09 Autoimmune thyroiditis Completed 202208/19/2023 Problem Code: E06.3; Problem Code Type: ICD-10; MD Shira [address] Dr, [facility] [address] [place] [address] 4 15:02:13 Hypothyroidism Completed 202208/19/2023 Problem Code: E03.9; Problem Code Type: ICD-10; MD Shira [address], [facility] [address] [place] [address] 4 16:33:37 Intervertebral disc prolapse Completed 202208/19/2023 Problem Code: M51.25; Problem Code Type: ICD-10; MD Shira [address]AR[address] Dr, [facility] [address] [place] [address] 4 16:33:29 Sleep disorder Completed 202208/19/2023 Problem Code: G47.8; Problem Code Type: ICD-10; MD Shira [address], [facility] [address] 4 16:34:43 Congenital anomaly of spinal cord Active [address], [facility] [address] [place] [address] 4 16:33:26 Fatigue Active [address], [facility] [address] [place] [address] 4 16:33:44 Asthenia Completed 202208/19/2023 Problem Code: R53.1; Problem Code Type: ICD-10; MD Shira GAR[address] Dr, [address] 4 16:33:15 Epigastric pain Completed 202208/19/2023 Problem Code: R10.13; Problem Code Type: ICD-10; MD Shira GAR[address] Dr, [address] 4 16:33:17 Palpitations Completed 202208/19/2023 Problem Code: R00.2; Problem Code Type: ICD-10; MD Shira GAR[address] Dr, [address] 4 16:33:20 Leukocytosis Active [address], [address] 4 16:33:13 Height below average Completed 200504/28/2023 Problem Code: 783.43; Problem Code Type: ICD-9; Not Available [facility] 3 04:31:39 Abnormal gait Completed 202202/21/2023 Problem Code: R26.89; Problem Code Type: ICD-10; Not Available [facility] 3 04:31:39 Hemoglobinopathy Completed 202202/21/2023 Problem Code: D58.2; Problem Code Type: ICD-10; Not Available [facility] 3 04:31:40 Recurrent acute tonsillitis Completed 200802/21/2023 Problem Code: J03.91; Problem Code Type: ICD-10; Not Available [facility] 3 04:31:40 Obstructive sleep apnea syndrome Completed 202202/21/2023 Problem Code: G47.33; Problem Code Type: ICD-10; Not Available [facility] 3 04:31:40 Acne Completed 201304/28/2023 Not Available [facility] 3 04:31:40 Headache Completed 200804/28/2023 Not Available [facility] 3 04:31:40 Snoring Completed 202202/21/2023 Problem Code: R06.83; Problem Code Type: ICD-10; Not Available [facility] 3 04:31:40 Disorder of hyoid bone Active [address], [facility] [address] [place] [address] 4 16:31:26 Electrocardiogram abnormal Completed 202208/19/2023 Problem Code: R94.31; Problem Code Type: ICD-10; MD Shira [address] Dr, [facility] [address] 4 16:31:20 Dizziness and giddiness Completed 202208/19/2023 Problem Code: R42; Problem Code Type: ICD-10; MD Shira [address] Dr, [facility] [address] [place] [address] 4 16:31:12 Gastroesophageal reflux disease Active [address], [facility] [address] [place] [address] 4 16:31:16 Chronic migraine without aura Active [address], [facility] [address] [place] [address] 4 16:32:08 Shortened PA interval Active [address], [facility] [address] [place] [address] 4 16:35:52 Iron deficiency Active [address], [place], [address] , [facility] 4 16:39:09 Dysuria Active [address], [facility] [address] , [facility] 4 15:01:48 Autoimmune thyroiditis Active 2023 Problem Code: E06.3; Problem Code Type: ICD-10; MD Shira GAR[address] Dr, [facility] [address] , [facility] 4 15:02:13 Polyuria Active [address], [facility] [address] , [facility] 4 14:48:37 Painful urinary bladder spasm Active [address], [facility] [address] , [facility] 4 20:47:27 Problem Notes None recorded. Procedures Surgical History Date Name Laterality Status Provider Name and Address Organization Details Recorded Time 3 Removal of gallbladder completed MD Shira [address] Dr, [facility] [address], [facility] 06/16/2023 09:26:56 Imaging Results None recorded. Procedure Notes None recorded. Medical Equipment None Reported. Allergies Allergen ID Allergen Name Allergen Category Reaction Reaction Severity Criticality Documentation Date Start Date Code Code System Note Provider Name and Address Organization Details Recorded Time 20315 Canis lupus familiari s extract environme nt other mild Not available 06/11/20232022 73280 4 RxNorm No react ion enter ed [facility] 4 22:20:04 80201 gabapenti n medicatio n other mild Not available 06/11/20232022 44230 RxNorm No react ion enter ed [facility], [facility] 4 22:20:32 08220 POLLEN EXTRACTS environme nt,medica tion other mild Not available 06/11/20232022 88764 6 RxNorm No react ion enter ed [facility] 4 22:21:07 16557 Vistaril medicatio n other mild Not available 06/11/20232022 59391 9 RxNorm No react ion enter ed [facility], [facility] 4 22:21:35 Medications Name Sig Start Date [...] Not Available Not Available Not Available Acid Crepe Laminator Operator (cimetidine ) 200 mg tablet 1 tablet [...] DateTime 4 152.298 4 cm 38.9 kg/m2 64665.8 8 g 97.8 [degF] 97 % 97 % 80 /min 118 mm[Hg] 70 mm[Hg] BETTY LOPEZ MA [facility] 4 14:35:09 Social History Question Answer Notes LastModified by Organizat ion Details LastModified Time Tobacco Smoking Status Never Smoker MIRZA DESAI RN [facility], [facility] 07/02/2023 11:37:13 What Was The [...] Recorded Time MMR 09/22/2006 completed Not Available [facility] 05:56:15 MMR 02/18/2001 completed Not Available [facility] 05:56:16 DTaP, unspecified formulation 10/01/2006 completed Not Available [facility] 06/11/2023 05:56:16 DTaP, unspecified formulation 1999 completed Not Available [facility] 06/11/2023 05:56:16 DTaP, unspecified formulation 11/23/2000 completed Not Available [facility] 06/11/2023 05:56:16 DTaP, unspecified formulation 1999 completed Not Available [facility] 06/11/2023 05:56:16 DTaP, unspecified formulation 02/18/2000 completed Not Available [facility] 06/11/2023 05:56:16 Tdap 09/22/2011 completed Not Available [facility] 05:56:16 Novel Bzfmwbyot-[id number], all formulations 08/19/2009 completed Not Available [facility] 06/11/2023 05:56:16 Novel [id number]-[id number], all formulations 07/18/2009 completed Not Available [facility] 06/11/2023 05:56:16 HPV, unspecified formulation 12/12/2021 completed Not Available [facility] 06/11/2023 05:56:17 HPV, unspecified formulation 02/06/2021 completed Not Available [facility] 06/11/2023 05:56:17 HPV, unspecified formulation 05/13/2021 completed Not Available [facility] 06/11/2023 05:56:17 Pneumococcal Conjugate, unspecified formulation 08/24/2000 completed Not Available [facility] 06/11/2023 05:56:17 Pneumococcal Conjugate, unspecified formulation 11/23/2000 completed Not Available [facility] 06/11/2023 05:56:17 Hib, unspecified formulation 1999 completed Not Available [facility] 06/11/2023 05:56:17 Hib, unspecified formulation 11/23/2000 completed Not Available [facility] 06/11/2023 05:56:17 Hib, unspecified formulation 1999 completed Not Available [facility] 06/11/2023 05:56:17 Hib, unspecified formulation 02/18/2000 completed Not Available [facility] 06/11/2023 05:56:17 COVID-19, mRNA, LNP-S, PF, 30 mcg/0.3 mL dose 11/24/2020 completed Not Available [facility] 06/11/2023 05:56:18 COVID-19, mRNA, LNP-S, PF, 30 mcg/0.3 mL dose 12/15/2020 completed Not Available [facility] 06/11/2023 05:56:18 COVID-19, mRNA, LNP-S, PF, 30 mcg/0.3 mL dose 06/27/2021 completed Not Available [facility] 06/11/2023 05:56:18 varicella 08/24/2000 completed Not Available [facility] 05:56:18 varicella 07/16/2006 completed Not Available [facility] 05:56:18 COVID-19, mRNA, LNP-S, bivalent, PF, 30 mcg/0.3 mL dose 06/05/2022 completed Not Available [facility] 06/11/2023 05:56:18 Hep B, unspecified formulation 1999 completed Not Available [facility] 06/11/2023 05:56:18 Hep B, unspecified formulation 1999 completed Not Available [facility] 06/11/2023 05:56:18 Hep B, unspecified formulation 05/29/2000 completed Not Available [facility] 06/11/2023 05:56:18 influenza, unspecified formulation 05/16/2009 completed Not Available [facility] 06/11/2023 05:56:19 influenza, unspecified formulation 05/31/2007 completed Not Available [facility] 06/11/2023 05:56:19 influenza, unspecified formulation 06/05/2022 completed Not Available [facility] 06/11/2023 05:56:19 influenza, unspecified formulation 06/08/2008 completed Not Available [facility] 06/11/2023 05:56:19 polio, unspecified formulation 1999 completed Not Available [facility] 06/11/2023 05:56:19 polio, unspecified formulation 1999 completed Not Available [facility] 06/11/2023 05:56:19 polio, unspecified formulation 01/15/2004 completed Not Available [facility] 06/11/2023 05:56:19 polio, unspecified formulation 02/18/2001 completed Not Available [facility] 06/11/2023 05:56:19 Tdap 04/26/2023 completed Not Available [facility] 05:31:00 Influenza, split virus, quadrivalent, PF 04/26/2023 completed Not Available [facility] 08/13/2023 05:31:00 Influenza, split virus, quadrivalent, PF 05/27/2023 completed Not Available [facility] 08/13/2023 05:31:00 Past Encounters Encounter ID Performer Location Encounter Start Date Encounter Closed Date Diagnosis/Indication Diagnosis SNOMED-CT Code [id number] URSULA SALAZAR MD [address] [address] 01/28/2024 14:07:20 01/28/2024 15:17:00 Dysuria 06403556 Autoimmune thyroiditis 57706281 Chronic mi graine without aura 856911763287548 Chronic pain 53191595 Health Concerns Section Related Observation LastModified by Organization Detai ls LastModified Time None Recorded Concern Status LastModified by Organization Details LastModified Time None Recorded Payers Encounter Date Sequence Insurance Name Policy Number Policy Adams Covered Member ID Adams Member ID Guarantor Name 01/28/2024 1 [facility] [id number] Cassiopeia L Acevedo [id number] Cassiopeia L Acevedo Notes Date Note Type Note Provider Name and Address Organization Details Recorded Time 01/28/2024 text/html HPI Notes: [place] presents in follow up. Biggest concern is wondering about a UTI. Has had urinary frequency and discomfort with urination for a week and a half. No fevers. Migraines - not better with the aimovig yet. Still having intense migraines, 5-6 days on end. Anxiety, ADHD - Feels venlafaxine has overall been helpful. Chronic pain/chiari malformation - saw neurosurg who referred to [facility] for spinal issues and limb pain. Saw Dr. Valdez at [facility]. Didn't offer surgical solution. Did do rheum labs and hasn't heard results or the plan from there. Is not taking meloxicam every day, not sure if it is helpful. Finds it hard to do logistically because it should be taken with food. Asthma - initially said better since increasing symbicort. On Breyna (equivalent) now and not taking regularly. Still notes SOB at times. MD Shira [address], [place], [address], [place] [facility]. 01/28/2024 20:29:22 OBGyn Episode No OBEpisode recorded.
[2024-03-21 04:11] LABS: Lactate 1.3 mmol/L (0.6-1.4)
[2024-03-21] MEDS: Normal Saline 1,000 ML 1000 ML IV (04:12)
[2024-03-21] MEDS: ACETAMINOPHEN 1,000 MG/100 ML BTL 400 MG IVPB (04:12)
[2024-03-21 04:13] LABS: Abs Immature Grans 0.04 10^3/uL (0.0-0.06); Absolute Basophil Count 0.08 10^3/uL (0.0-0.2); Basophils % 0.6 %; HCT 41.6 % (36.0-46.0); HGB 13.6 g/dL (11.2-15.7); Immature Grans % 0.3 %; Lymphocytes % 25.1 %; MCHC 32.7 % (32.0-36.0); MCV 89 fL (80-95); Monocytes % 9.1 %; Neutrophils % 63.9 %; Platelet Count 319 10^3/uL (130-400); RBC 4.69 10^6/uL (3.93-5.22); RDW-SD 45.3 fL; WBC 13.36 10^3/uL (4.4-10.8)
[2024-03-21 04:22] LABS: Absolute Eosinophil Count 0.13 10^3/uL (0.0-0.7); Absolute Lymphocyte Count 3.35 10^3/uL (1.2-3.4); Absolute Monocyte Count 1.22 10^3/uL (0.1-0.8); Absolute Neutrophil Count 8.54 10^3/uL (1.2-6.7)
[2024-03-21] MEDS: Ketorolac 15 MG/ML VIAL IVP (04:25)
[2024-03-21 04:27] LABS: Bilirubin Negative (Negative); Blood Large (Negative); Clarity Clear (Clear); Glucose Negative (Negative); Ketones Negative (Negative); Leukocyte Esterase Trace (Negative); Nitrite Negative (Negative); Urobilinogen 0.2 mg/dL (Up to 0.2); pH 6.5 (5-8)
[2024-03-21 04:38] LABS: Bacteria Few HPF (Negative); C & S Indicated? No; Casts Negative LPF (Negative); Crystals Negative HPF (Negative); Epithelial Cells Rare HPF (Negative); Mucus Negative (Negative); RBC 20-50 HPF (0-2)
[2024-03-21] MEDS: Normal Saline - Diluent 50 ML VIAL IJ (04:48)
[2024-03-21 04:51] LABS: ALT 20 U/L (14-59); AST 12 U/L (15-37); Albumin 4.1 g/dL (3.4-5.0); Alkaline Phosphatase 88 U/L (46-116); Anion Gap 12.4 mmol/L (3-11); BUN 11 mg/dL (7-18); Bilirubin, Total 0.28 mg/dL (0.2-1.0); CO2 23.6 mmol/L (21.0-32.0); CREATININE 0.9 mg/dL (0.55-1.02); Chloride 103 mmol/L (98-107); Estimated GFR 91.55 (mL/min/1.73m2); Glucose 148 mg/dL (74-106); Lipase 53 U/L (16-77); Potassium 3.7 mmol/L (3.5-5.1); Sodium 139 mmol/L (136-145); Total Protein 7.8 g/dL (6.4-8.2)
[2024-03-21 05:02] LABS: Calcium 9.8 mg/dL (8.5-10.1)
--- NOTE | 2024-03-21 05:07 | DI.CT_ITS ---
Exam(s) CT ABDOMEN PELVIS W EXAM: CT ABDOMEN PELVIS W CLINICAL HISTORY: RLQ pain, eval for appe. TECHNIQUE: Imaging Protocol: Axial computed tomography images with coronal and sagittal reformatted images were created and reviewed CONTRAST MATERIAL: Intravenous: Omnipaque 350 Contrast volume:100 ml Oral: no COMPARISON: No exams were available for comparison FINDINGS: ABDOMEN and PELVIS: Lung Bases: No acute findings. Liver: Normal density. No suspicious mass. Gallbladder and biliary tract: Status post cholecystectomy. No biliary dilation. Pancreas: Normal density. No abnormal calcifications or inflammatory process. No evidence of mass. Spleen: Normal. Kidneys: Normal size, contour and axis. No radiodense stones. No obstructive uropathy. No suspicious masses seen. Adrenal glands: No masses seen. Vasculature: Abdominal aorta non-dilated. Soft tissues: Unremarkable. Bladder: No gross wall thickening. No calculi.No focal mass. Bowel: No obstruction. No bowel wall thickening. Appendix normal. Normal quantity of stool. Peritoneal cavity: No ascites. No focal collection. No mesenteric inflammatory response. Bones: Unremarkable for age. Reproductive organs: Unremarkable. Follicle left ovary. Lymph nodes: No pathologically enlarged lymph nodes. IMPRESSION:: No acute abnormality in the abdomen or pelvis. No evidence of appendicitis. RADIATION DOSE DELIVERED: Total DLP DATA REPOSITORY: All CT scans at this facility are submitted to the National Radiology Data Registry (NRDR) Dose Index Registry (DIR) with the [employer] (A[employer]). RADIATION OPTIMIZATION: All CT scans at this facility use at least one of these dose optimization te chniques: automated exposure control; mA and/or kV adjustment per patient size (includes targeted exa ms where dose is matched to clinical indication); or iterative reconstruction.
[2024-03-21] MEDS: Ondansetron 4 MG/2 ML VIAL IVP (05:25)
--- NOTE | 2024-03-21 05:38 | DI.VRAD_ITS ---
PROCEDURE INFORMATION: Exam: CT Abdomen And Pelvis With Contrast Exam date and time: 03/21/2024 4:54 AM Age: 23 years old Clinical indication: Abdominal pain; Localized; Right lower quadrant (rlq) TECHNIQUE: Imaging protocol: Computed tomography of the abdomen and pelvis with contrast. Radiation optimization: All CT scans at this facility use at least one of these dose optimization techniques: automated exposure control; mA and/or kV adjustment per patient size (includes targeted exams where dose is matched to clinical indication); or iterative reconstruction. Contrast material: OMNI 350; Contrast volume: 100 ml; Contrast route: INTRAVENOUS (IV); COMPARISON: US ABDOMEN LIMITED 04/29/2023 1:10 PM FINDINGS: Liver: Hepatic steatosis. Gallbladder and biliary ducts: Prior cholecystectomy. No biliary ductal dilatation. Pancreas: Unremarkable. Spleen: Borderline splenomegaly. Adrenal glands: Normal. No mass. Kidneys and ureters: Normal. No hydronephrosis. Stomach and bowel: No bowel wall thickening or intestinal obstruction. Appendix: Normal appendix. Intraperitoneal space: Unremarkable. No pneumoperitoneum. No abscess. Vasculature: Unremarkable. Lymph nodes: Unremarkable. Urinary bladder: Unremarkable as visualized. Reproductive: 2.4 cm left ovarian cyst. Bones/joints: Unremarkable. No acute fracture. Soft tissues: Unremarkable. IMPRESSION: 1. 2.4 cm left ovarian cyst. 2. Borderline splenomegaly. Dictated and Authenticated by: Canelo Thompson MD. Ordering:FELIPE Hidalgo MD
[2024-03-21] MEDS: Ondansetron O.D.T. 4 MG TABEF, 3 TABS/BTL PO (06:08)
[2024-03-21 06:15] VITALS: BP 144/90; PULSE 88; RESP 14; TEMP 37; O2SAT 98
== END 2024-03-21 06:16 | disposition home or self-care (01) ==
PROVIDERS: Emergency Provider Student in an Organized Health Care Education/Training Program; PCP Family Medicine
DX: N83.202 Unspecified ovarian cyst, left side (principal)
CPT/HCPCS: 36415; 80053; 81025; 83690; 96361; 96365; 96375; 99285; 74177; 81003; 81015; 83605; 85025; 99284; J0131; J1885; J2405

== ENCOUNTER 2024-03-31 16:45 | Outpatient (REF) | payer OTHER, SELFPAY ==
--- OUTSIDE RECORDS SUMMARY | 2024-03-31 16:59 | XMS_ITS | Continuity of Care Document ---
Author Organization [facility] Ambulatory Clinics Address [address] [place] [address] Care Team Providers Care Tin Worker Name Role Phone URSULA GLASS MD Primary Care Physician Encounter [facility] NBR [id number] Date(s): 03/21/24 - 03/21/24 [facility] Ambulatory Clinics [address] [place] [address]- [place] Discharge Disposition: Home Assessment and Plan Future Appointments Patient Care team information Care Team Personnel Name: URSULA GLASS MD Position: No Access Member Role: Primary Care Physician Address: [address] [place] [address] [address] [place], [place] [address] Insurance Providers Guarantor name: Health Plan Information #: 1 Payer: [facility] CARE Member Number: NA Policy Number: NA
--- OUTSIDE RECORDS SUMMARY | 2024-03-31 16:59 | XMS_ITS | Continuity of Care Document ---
Author Organization [facility] Ambulatory Clinics Address [address] [place] [address] Care Team Providers Care Lumber Press Operator Name Role Phone URSULA GLASS MD Primary Care Physician Encounter [facility] [facility] NBR [id number] Date(s): 03/02/24 - 03/02/24 [facility] Ambulatory Clinics [address] [place] [address]- [place] Patient Care team information Care Team Personnel Name: URSULA GLASS MD Position: No Access Member Role: Primary Care Physician Address: Address: [address] [place] [address] [address] [place], [place] [address]
--- OUTSIDE RECORDS SUMMARY | 2024-03-31 17:00 | XMS_ITS | Continuity of Care Document ---
Author Organization [place] - [facility], [facility] Address [address] [place] [address] Assessment Encounter Date Assessment Date Assessment LastModified by Organization Details LastModified Time 03/31/2024 03/31/2024 Doc Acevedo presents with ongoing painful bladder spasms, frequent urination, and difficulty initiating urination. They have a history of an ovarian cyst discovered during a recent ER visit, which caused severe pain. Doc has pre-diabetes with a hemoglobin A1c of 6 and struggles with appetite due to constant nausea. A urine analysis showed trace leukocyte esterase, and a urine culture has been sent. The plan includes starting amitriptyline for bladder pain, dietary suggestions, monitoring the ovarian cyst, and refilling venlafaxine and cetirizine prescriptions. Follow-up is scheduled for May. Consider ultrasound of liver and spleen in a few months to confirm if hepatic steatosis and splenomegaly are present or not, with conflicting CT reads. eoleson Not available 03/31/2024 08:22:11 Plan of Treatment Reminders Order Date Submit Date Provider Last Modified By Organization Details Last Modified Time Details Appointments follow up ER 2023 07:30A M Not available Not available Not available Office Visit 30 2023 01:30P M Not available Not available Not available Lab culture, urine - 1 urine collected in office-SN 2023 024 RIKI [facility] (Registration ), [address] [place] [address] [place], [address], 03/31/2024 08:35:25 urinalysi s, dipstick 2023 024 [facility], [address] [place], [address], 03/31/2024 09:42:59 Referral None recorded. Procedures None recorded. Surgeries None recorded. Imaging None recorded. Medication Orders cetirizin e 10 mg tablet 2023 [facility], [address] [place], [address], 03/31/2024 08:10:55 amitripty line 10 mg tablet 2023 024 [facility], [address] [place], [address], 03/31/2024 08:10:53 venlafaxi ne ER 75 mg capsule,e xtended release 24 hr 2023 [facility], [address] [place], [address], 03/31/2024 08:10:52 Patient TargetsNo targets recorded. Patient Instructions Encounter Date Encounter Id Patient Instructions Last Modified By Organization Details Last Modified Time 03/31/2024 [id number] Dear Alvaro Roach you for visiting today and discussing your ongoing health concerns. I appreciate your commitment to improving your health and understanding the complexities of your symptoms. Here is a summary of our discussion and the next steps for your care: - Urine Analysis: We have sent your urine for culture to confirm the absence or presence of an infection, given the trace leukocyte esterase found. Results should be available within 24-48 hours. Please check the patient portal for updates. If the culture looks positive, call the on-call doctor or go to urgent care. - Medication Adjustments: - Amitriptyline: Prescribed for potential interstitial cystitis. Start with a low dose at bedtime due to its sedative effects. Monitor for any side effects like dry mouth or constipation. Call or send a message in a couple of weeks about how you're tolerating it. If you're tolerating it okay but haven't noticed improvement, we may increase the dose. - Venlafaxine and Cetirizine: Refills provided as requested. - Dietary Changes: - Focus on reducing sugar and carbohydrate intake to manage pre-diabetes. Avoid sugar-sweetened beverages and limit high-carb foods like bread, rice, pasta, and potatoes. - Increase intake of lean proteins (chicken, fish, tofu) and vegetables. Moderate your fruit consumption, opting for berries as a healthier choice. - Try to pair carb-rich foods with fat or protein when possible. - Consider meeting with a concrete craftsman for more detailed dietary guidance if needed. - Imaging and Monitoring: - We discussed the possibility of conducting an ultrasound of your spleen, liver, and pelvic area in a few months if symptoms persist, especially considering the differing reports from your recent CT scans. - Lifestyle and Management: - I provided handouts on managing interstitial cystitis through dietary adjustments. Review these for additional guidance on foods to avoid and lifestyle changes. - Consider pelvic floor physical therapy post-urology consultation if bladder emptying issues continue. - Follow-Up: Please keep me updated on your response to the new medication and any changes in your symptoms. We have scheduled your next appointment for May. If you have any urgent concerns, especially after reviewing your urine culture results, do not hesitate to contact the on-call doctor or visit urgent care. Thank you for your proactive approach to your health. I look forward to seeing you at your next appointment and am hopeful that these adjustments will provide relief and improve your quality of life. Sincerely, Dr. Sudha Salazar MD Family Medicine eoleson Not available 03/31/2024 08:13:25 Reason for Referral Urologist Referral for Painf ul urinary bladder spasm dysuria, bladder spasms and pressure. Negative urinalysis and culture, symptoms for several weeks. Referring Physician: Sudha Salazar, Family Medicine, Encounter Date: 02/29/2024 Results Created Date Observation Date Name Description Value Unit Range Abnormal Flag Note LastModifiedBy Organization Detail LastModifiedTime 03/31/2003/31/2024 urina lysis , dipst ick Leukocytes Trace Not Available [address], [address], 03/31/2024 08:25:43 08/30/20 24 03/31/2024 urina lysis , dipst ick Nitrite negati ve Not Available [address], [address], 03/31/2024 08:25:43 03/31/20 24 03/31/2024 urina lysis , dipst ick Urobilinogen .2 Not Available [address], [address], 03/31/2024 08:25:43 03/31/20 24 03/31/2024 urina lysis , dipst ick Protein Negati ve Not Available [address], [address], 03/31/2024 08:25:43 03/31/20 24 03/31/2024 urina lysis , dipst ick pH 5.0 Not Available [address], [address], 03/31/2024 08:25:43 03/31/20 24 03/31/2024 urina lysis , dipst ick Blood Negati ve Not Available [address], [address], 03/31/2024 08:25:43 03/31/20 24 03/31/2024 urina lysis , dipst ick Specific [place] 1.020 Not Available [address], [address], 03/31/2024 08:25:43 03/31/20 24 03/31/2024 urina lysis , dipst ick Ketone Negati ve Not Available [address], [address], 03/31/2024 08:25:43 03/31/20 24 03/31/2024 urina lysis , dipst ick Bilirubin Negati ve Not Available [address] [place], [address], 03/31/2024 08:25:43 03/31/20 24 03/31/2024 urina lysis , dipst ick Glucose Negati ve Not Available [address], [address], 03/31/2024 08:25:43 03/31/20 24 03/31/2024 urina lysis , dipst ick Appearance Clear Not Available [address], [address], 03/31/2024 08:25:43 03/31/20 24 03/31/2024 urina lysis , dipst ick Color Pale Yellow Not Available [address], [address], 03/31/2024 08:25:43 03/21/20 24 03/21/2024 vrad repor t Patien t Name: Kathia Velasco tieshaemilie Lam Unit #: [id number] Loc: ER OrderCritical access hospital er: Jessica t #: [id number] Status : REG ER Primar y [facility] er: Sudha Salazar Date of Exam: Sex: F : 2000 Age: 23 Exam(s ) PROCED URE INFORM ATION: Exam: CT Abdome n And Pelvis With Contra st Exam date and time: 024 4:54 AM Age: 23 years old Clinic al indica tion: Abdomi nal pain; Locali zed; Right lower quadra nt (rlq) TECHNI QUE: Imagin g protoc ol: Comput ed tomogr aphy of the abdome n and pelvis with contra st. Radiat ion optimi zation : All CT scans at this facili ty use at least one of these dose optimi zation techni ques: automa celina exposu re contro l; mA and/or kV adjust ment per patien t size (inclu andrea target ed exams where dose is matche d to clinic al indica tion); or iterat saundra recons tructi on. Contra st materi al: OMNI 350; Contra st volume : 100 ml; Contra st route: INTRAV ENOUS (IV); COMPAR DMITRY: US ABDOME N LIMITE D 023 1:10 PM FINDIN GS: Liver: Hepati c steato sis. Gallbl adder and biliar y ducts: Prior cholec ystect shahriar. No biliar y ductal dilata tion. Pancre as: Unrema rkable . Spleen : Border line spleno megaly . Adrena l glands : Normal . No mass. Kidney s and ureter s: Normal . No hydron ephros is. Stomac h and bowel: No bowel wall thicke kacie or intest inal obstru ction. Append ix: Normal append ix. Intrap eriton eal space: Unrema rkable . No pneumo perito neum. No absces s. Vascul ature: Unrema rkable . Lymph nodes: Unrema rkable . Urinar y bladde r: Unrema rkable as visual ized. Reprod uctive : 2.4 cm left ovaria n cyst. Bones/ joints : Unrema rkable . No acute fractu re. Soft tissue s: Unrema rkable . IMPRES OFELIA: 1. 2.4 cm left ovaria n cyst. 2. Border line spleno megaly . Dictat ed and Authen ticate d by: Emily matias MD. Orderi ng:P.S ASIF Hidalgo MD Access ion#=[id number] Ordernya d By: CC: ------ ------ ------ ------ ------ ------ ------ ------ ------ ------ ------ ------ ---- Dictat ed By: Report s vrad 0454 0538 Transc ribed By: Stephie Torres 4 This is privil eged, confid ential inform ation intend ed only for the provid er named. Any use or distri bution by any person other than this provid er is strict ly prohib ited. If you receiv e this report in error, please notify us immedi ately at and return the origin al report to us at the addres s above. Thank- you. [facility] [address] [place], [address] 03/22/2024 07:53:14 03/21/20 24 03/21/2024 CT imagi ng repor t Patien t Name: Kathia Velasco Unit #: [id number] Loc: ER Orderi ng Provid er: Kin Batista DO Accoun t #: [id number] Status : DEP ER Primar y Care Provid er: Sudha Salazar Date of Exam: Sex: F : 2000 Age: 23 Exam(s ) a CT:CT abdome n pelvis w Exam(s ) CT ABDOME N PELVIS W EXAM: CT ABDOME N PELVIS W CLINIC AL HISTOR Y: RLQ pain, eval for appe. TECHNI QUE: Imagin g Protoc ol: Axial comput ed tomogr aphy images with raygoza l and sagitt al reform atted images were create d and review ed CONTRA ST MATERI AL: Intrav enous: Omnipa que [address] volume :100 ml Oral: no COMPAR DMITRY: No exams were availa ble for compar dmitry FINDIN GS: ABDOME N and PELVIS : Lung Bases: No acute findin gs. Liver: Normal densit y. No suspic ious mass. Gallbl adder and biliar y tract: Status post cholec ystect shahriar. No biliar y dilati on. Pancre as: Normal densit y. No abnorm al calcif icatio ns or inflam matory proces s. No eviden ce of mass. Spleen : Normal . Kidney s: Normal size, contou r and axis. No radiod ense stones . No obstru ctive uropat hy. No suspic ious masses seen. Adrena l glands : No masses seen. Vascul ature: Abdomi nal aorta non-di lated. Soft tissue s: Unrema rkable . Bladde r: No gross wall thicke kacie. No calcul i.No focal mass. Bowel: No obstru ction. No bowel wall thicke kacie. Append ix normal . Normal quanti ty of stool. Perito carlos cavity : No ascite s. No focal collec tion. No mesent mara inflam matory respon se. Bones: Unrema rkable for age. Reprod uctive organs : Unrema rkable . Follic le left ovary. Lymph nodes: No pathol ogical ly enlarg ed lymph nodes. IMPRES OFELIA:: No acute abnorm ality in the abdome n or pelvis . No eviden ce of append icitis . RADIAT ION DOSE DELIVE RED: Total DLP DATA REPOSI TORY: All CT scans at this facili ty are submit celina to the [facility] al Radiol ogy Data Regist ry (NRDR) Dose Index Regist ry (DIR) with the [place] [employer] [place] of Radiol ogy (ACR). RADIAT ION OPTIMI ZATION : All CT scans at this facili ty use at least one of these dose optimi zation techni ques: automa celina exposu re contro l; mA and/or kV adjust ment per patien t size (inclu andrea target ed exams where dose is matche d to clinic al indica tion); or iterat saundra recons tructi on. 006: Total DLP = 0.00 mGy-cm Ordere d By: Kin Batista DO CC: ------ ------ ------ ------ ------ ------ ------ ------ ------ ------ ------ ------ ---- Dictat ed By: Mitra Harp 940 Transc ribed By: Lizz Art 940 This is privil eged, confid ential inform ation intend ed only for the provid er named. Any use or distri bution by any person other than this provid er is strict ly prohib ited. If you receiv e this report in error, please notify us immedi valentinaly at and return the origin al report to us at the addres s above. Thank- you. [facility] [address], [place], [address] 03/22/2024 07:53:15 Result Notes None recorded. 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 434439154 Active [address], [facility] [address] , [facility] 16:34:48 Menometr orrhagia 722490589 Completed 202208/19/[address], [facility] [address] , [facility] 16:34:53 Uncompli cated moderate persiste nt asthma 734584673 Active [address], [facility] [address] , [facility] 16:33:48 Social phobia 73359367 Completed 202208/19/[address], [facility] [address] , [facility] 16:34:35 Vitamin D deficien cy 84496887 Active [address], [facility] [address] , [facility] 4 16:34:17 Sensorin eural hearing loss of bilatera l ears 488443106 Completed 202208/19/2023 Problem Code: H90.3; Problem Code Type: ICD-10; MD Shira [address], [place] [address] , [facility] 4 16:34:22 Major depressi on, single episode 66425952 Active [address], [address] 4 16:34:11 Attentio n deficit hyperact ivity disorder , predomin antly inattent saundra type 01412259 Active 2022 Problem Code: F90.0; Problem Code Type: ICD-10; Not Available [facility] 3 04:31:37 Chronic pain 04739269 Active [address], [address] 4 16:33:09 Autoimmu ne thyroidi tis 00273123 Completed 202208/19/2023 Problem Code: E06.3; Problem Code Type: ICD-10; MD Shira [address] Dr, [address] 4 15:02:13 Hypothyr oidism 25557641 Completed 202208/19/2023 Problem Code: E03.9; Problem Code Type: ICD-10; MD Shira GARLAND Dr, [address] 4 16:33:37 Interver tebral disc prolapse 82837440 Completed 202208/19/2023 Problem Code: M51.25; Problem Code Type: ICD-10; MD Shira GARLAND Dr, [address] 4 16:33:29 Sleep disorder 10216448 Completed 202208/19/2023 Problem Code: G47.8; Problem Code Type: ICD-10; MD Shira GARLAND Dr, [address] 4 16:34:43 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 [address], [address] 4 16:33:26 Fatigue 26961144 Active [address], [address] 4 16:33:44 Asthenia 81111981 Completed 202208/19/2023 Problem Code: R53.1; Problem Code Type: ICD-10; MD Shira GARLAND Dr, [address] 4 16:33:15 Epigastr ic pain 98189149 Completed 202208/19/2023 Problem Code: R10.13; Problem Code Type: ICD-10; MD Shira GARLAND Dr, [address] 4 16:33:17 Palpitat ions 56761788 Completed 202208/19/2023 Problem Code: R00.2; Problem Code Type: ICD-10; MD Shira GARLAND Dr, [address] 4 16:33:20 Leukocyt osis 659279222 Active [address], [place], [address] , [facility] 4 16:33:13 Height below average 027445606 Completed 200504/28/2023 Problem Code: 783.43; Problem Code Type: ICD-9; Not Available [facility] 3 04:31:39 Abnormal gait 41287709 Completed 202202/21/2023 Problem Code: R26.89; Problem Code Type: ICD-10; Not Available [facility] 3 04:31:39 Hemoglob inopathy 60050918 Completed 202202/21/2023 Problem Code: D58.2; Problem Code Type: ICD-10; Not Available [facility] 3 04:31:40 Recurren t acute tonsilli tis 897123039 Completed 200802/21/2023 Problem Code: J03.91; Problem Code Type: ICD-10; Not Available [facility] 3 04:31:40 Obstruct saundra sleep apnea syndrome 96065719 Completed 202202/21/2023 Problem Code: G47.33; Problem Code Type: ICD-10; Not Available [facility] 3 04:31:40 Acne 86375087 Completed 201304/28/2023 Not Available [facility] 3 04:31:40 Headache 21077876 Completed 200804/28/2023 Not Available [facility] 3 04:31:40 Snoring 49047486 Completed 202202/21/2023 Problem Code: R06.83; Problem Code Type: ICD-10; Not Available [facility] 3 04:31:40 Disorder of hyoid bone 796544366 Active [address], [place], [address] , [facility] 4 16:31:26 Electroc ardiogra m abnormal 494516931 Completed 202208/19/2023 Problem Code: R94.31; Problem Code Type: ICD-10; MD Shira GARLAND Dr, [address] 4 16:31:20 Dizzines s and giddines s 349954690 Completed 202208/19/2023 Problem Code: R42; Problem Code Type: ICD-10; MD Shira GARLAND Dr, [address] 4 16:31:12 Gastroes ophageal reflux disease 057020962 Active [address], [address] 4 16:31:16 Chronic migraine without aura 32966188208 4105 Active [address], [address] 16:32:08 Shortene d [place] interval 33956064 Active [address], [address] 16:35:52 Iron deficien cy 32533993 Active [address], [address] 16:39:09 Dysuria 97445534 Active [address], [address] 15:01:48 Autoimmu ne thyroidi tis 48765923 Active 2023 Problem Code: E06.3; Problem Code Type: ICD-10; MD Shira [address] Dr, [facility] [address] , [facility] 4 15:02:13 Polyuria 65891093 Active [address], [place] [address] , [facility] 4 14:48:37 Painful urinary bladder spasm 4002400 Active [address], [address] 4 20:47:27 Chronic intersti tial cystitis 854144537 Active [address], [address] 4 07:40:29 Allergic rhinitis 58923669 Active [address], [address] 4 08:10:37 Prediabe melonie 645651764 Active [address], [address] 4 08:19:10 Problem Notes None recorded. Procedures Surgical History Date Name Laterality Status Provider Name and Address Organization Details Recorded Time 3 Removal of gallbladder completed MD Shira [address] Dr, [place] [address], [facility] 06/16/2023 09:26:56 Imaging Results None recorded. Procedure Notes None recorded. Medical Equipment None Reported. Allergies Allergen ID Allergen Name Allergen Category Reaction Reaction Severity Criticality Documentation Date Start Date Code Code System Note Provider Name and Address Organization Details Recorded Time 40407 Canis lupus familiari s extract environme nt other mild Not available 06/11/20232022 59838 4 RxNorm No react ion enter ed [facility] 4 22:20:04 69067 gabapenti n medicatio n other mild Not available 06/11/20232022 49418 RxNorm No react ion enter ed [facility] 4 22:20:32 77618 POLLEN EXTRACTS environme nt,medica tion other mild Not available 06/11/20232022 67379 6 RxNorm No react ion enter ed [facility] 4 22:21:07 12845 Vistaril medicatio n other mild Not available 06/11/20232022 29517 9 RxNorm No react ion enter ed [facility] 4 22:21:35 Medications Name Sig Start [...] 75 mg capsule,ext ended release 24 hr Take 1 capsule every day by oral route. 2023 active Not Available Not Available Not Avai lable Concerta 18 mg tablet,exte nded release 04/26 completed Not Available Not Available Not Available cetirizine 10 mg tablet 1 tap po daily 2023 active Not Available Not Available Not Avai lable hydrocodone 5 mg-acetamin ophen 325 mg tablet [...] completed Not Available Not Available Not Available amitriptyli ne 10 mg tablet Take 1 tablet every day by oral route. 2023 active Not Available Not Available Not Avai lable levothyroxi ne 50 mcg tablet TAKE 1/2 [...] Not Available Not Available Not Available Acid Biomedical Scientist (cimetidine ) 200 mg tablet 1 tablet [...] Not Available Nexplanon 68 mg subdermal implant Was re-implan celina on 03/29 active Not Available Not Available No t Available Aimovig Autoinjecto r 140 mg/mL subcutaneou s auto-inject or INJECT 1 ML SUBCUTANE OUSLY ONCE EVERY MONTH active Not Available Not Available No t Available Breyna 80 mcg-4.5 mcg/actuati on HFA aerosol inhaler INHALE 2 PUFFS BY MOUTH TWICE DAILY active Not Available Not Available No t Available Vitals Date Recorded Body height Body temperature Body mass index (BMI) Body weight Oxygen saturation Oxygen saturation in Arterial blood by Pulse oximetry Heart rate Systolic blood pressure Diastolic blood pressure Provider Name and Address Organization Details Last Updated DateTime 4 152.298 4 cm 97.8 [degF] 39.5 kg/m2 86188.6 6 g 99 % 99 % 87 /min 118 mm[Hg] 68 mm[Hg] BETTY LOPEZ [facility] 4 07:34:24 Social History Question Answer Notes LastModified by Organizat ion Details LastModified Time Tobacco Smoking Status Never Smoker MIRZA DESAI RN [facility], [facility] 07/02/2023 11:37:13 What Was The Date Of Your Most Recent Tobacco Screening? 10/18/2023 Information not available 10/18/2023 Has Tobacco Cessation Counseling Been Provided? No [email or web address] Information not available 07/02/2023 Do You Or Have You Ever Used Any Other Forms Of Tobacco Or Nicotine? No [email or web address] Information not available 07/02/2023 Sex: Female Functional Status None recorded. Mental Status None recorded. Family History Nothing Reported Notes:*Problem: paternal gra ndfather type 1 diabetes. Father with type 2 diabetes. Mother - lupus, RA, fibro, chiari malformation. GM - HTN, diabetes, HLD, dementia Medical History No medical history recorded. Gynecological HistoryNo gynecological history recorded. Obstetrics History GPAL:G 0 P 0 0 0 0 Immunizations Vaccine Type Date Status Provider Name and Address Organization Details Recorded Time MMR 09/22/2006 completed Not Available [facility] 05:56:15 MMR 02/18/2001 completed Not Available [facility] 05:56:16 DTaP, unspecified formulation 10/01/2006 completed Not Available [facility] 06/11/2023 05:56:16 DTaP, unspecified formulation 1999 completed Not Available [facility] 06/11/2023 05:56:16 DTaP, unspecified formulation 11/23/2000 completed Not Available [facility] 06/11/2023 05:56:16 DTaP, unspecified formulation 1999 completed Not Available [facility] 06/11/2023 05:56:16 DTaP, unspecified formulation 02/18/2000 completed Not Available [facility] 06/11/2023 05:56:16 Tdap 09/22/2011 completed Not Available [facility] 05:56:16 Novel [id number], all formulations 08/19/2009 completed Not Available [facility] 06/11/2023 05:56:16 Novel [id number], all formulations 07/18/2009 completed Not Available [facility] 06/11/2023 05:56:16 HPV, unspecified formulation 12/12/2021 completed Not Available [facility] 06/11/2023 05:56:17 HPV, unspecified formulation 02/06/2021 completed Not Available [facility] 06/11/2023 05:56:17 HPV, unspecified formulation 05/13/2021 completed Not Available [facility] 06/11/2023 05:56:17 Pneumococcal Conjugate, unspecified formulation 08/24/2000 completed Not Available [facility] 06/11/2023 05:56:17 Pneumococcal Conjugate, unspecified formulation 11/23/2000 completed Not Available [facility] 06/11/2023 05:56:17 Hib, unspecified formulation 1999 completed Not Available [facility] 06/11/2023 05:56:17 Hib, unspecified formulation 11/23/2000 completed Not Available [facility] 06/11/2023 05:56:17 Hib, unspecified formulation 1999 completed Not Available [facility] [facility] 05:56:17 Hib, unspecified formulation 02/18/2000 completed Not Available [facility] 06/11/2023 05:56:17 COVID-19, mRNA, LNP-S, PF, 30 mcg/0.3 mL dose 11/24/2020 completed Not Available [facility] 06/11/2023 05:56:18 COVID-19, mRNA, LNP-S, PF, 30 mcg/0.3 mL dose 12/15/2020 completed Not Available [facility] 06/11/2023 05:56:18 COVID-19, mRNA, LNP-S, PF, 30 mcg/0.3 mL dose 06/27/2021 completed Not Available [facility] 06/11/2023 05:56:18 varicella 08/24/2000 completed Not Available [facility] 05:56:18 varicella 07/16/2006 completed Not Available [facility] 05:56:18 COVID-19, mRNA, LNP-S, bivalent, PF, 30 mcg/0.3 mL dose 06/05/2022 completed Not Available [facility] 06/11/2023 05:56:18 Hep B, unspecified formulation 1999 completed Not Available [facility] 06/11/2023 05:56:18 Hep B, unspecified formulation 1999 completed Not Available [facility] 06/11/2023 05:56:18 Hep B, unspecified formulation 05/29/2000 completed Not Available [facility] 06/11/2023 05:56:18 influenza, unspecified formulation 05/16/2009 completed Not Available [facility] 06/11/2023 05:56:19 influenza, unspecified formulation 05/31/2007 completed Not Available [facility] 06/11/2023 05:56:19 influenza, unspecified formulation 06/05/2022 completed Not Available [facility] 06/11/2023 05:56:19 influenza, unspecified formulation 06/08/2008 completed Not Available [facility] 06/11/2023 05:56:19 polio, unspecified formulation 1999 completed Not Available [facility] 06/11/2023 05:56:19 polio, unspecified formulation 1999 completed Not Available [facility] 06/11/2023 05:56:19 polio, unspecified formulation 01/15/2004 completed Not Available [facility] 06/11/2023 05:56:19 polio, unspecified formulation 02/18/2001 completed Not Available [facility] 06/11/2023 05:56:19 Tdap 04/26/2023 completed Not Available [facility] 05:31:00 Influenza, split virus, quadrivalent, PF 04/26/2023 completed Not Available [facility] 08/13/2023 05:31:00 Influenza, split virus, quadrivalent, PF 05/27/2023 completed Not Available [facility] 08/13/2023 05:31:00 Past Encounters Encounter ID Performer Location Encounter Start Date Encounter Closed Date Diagnosis/Indication Diagnosis SNOMED-CT Code Diagnosis ICD10 Code [id number] SUDHA SALAZAR MD [address] [address] 03/31/2024 07:21:38 03/31/2024 08:16:13 Chronic interstitial cystitis 333311312 N30.10 Anxiety disorder 6272618 06 F41.9 Allergic rhinitis 718350 04 J30.9 Prediabetes 380601739 R7 3.03 Health Concerns Section Related Observation LastModified by Organization Detai ls LastModified Time None Recorded Concern Status LastModified by Organization Details LastModified Time None Recorded Payers Encounter Date Sequence Insurance Name Policy Number Policy Adams Covered Member ID Adams Member ID Guarantor Name 03/31/2024 1 [facility] [id number] Clevelandonielortega Carole Acevedo [id number] [place] Lam Kristina Notes Date Note Type Note Provider Name and Address Organization Details Recorded Time 03/31/2024 text/html HPI Notes: Doc Acevedo presents with ongoing and painful bladder issues, experiencing painful bladder spasms similar to the pressure felt when the bladder is full. They report frequent urges to urinate, often within five minutes of the previous void, but struggle to initiate urination, sometimes with no output. Painful urination is also reported, though not consistently. Pressure on the area exacerbates the pain, but no correlation with allergy flare-ups has been noticed. Bladder Issues - Doc visited the emergency room a week and a half ago due to severe bladder pain and was found to have an ovarian cyst. The pain from the cyst was different from their usual bladder pain and was the worst they have ever experienced. While the cyst pain has improved, discomfort persists. Their mother noticed trace leukocyte esterase in their lab results, suggesting a possible infection. Doc has been consistent with water intake but admits to not drinking as much as they should daily, though they have increased their consumption since the ER visit. Doc does not feel like they completely empty their bladder when voiding and has to press on their lower abdomen to do so. They have recently experienced a slower stream and increased time to void. The pain is worst when lying down, especially when sleeping on their stomach. The bladder pain has been ongoing for a couple of months. Medications and Allergies - Doc is currently taking venlafaxine and requires a refill, as well as cetirizine for allergies. They have a history of a negative reaction to hydroxyzine, which caused violent nausea. Pre-diabetes - Doc has pre-diabetes with an elevated glucose level and a hemoglobin A1c of 6. They consume sugar in coffee and honey in tea but do not drink sugar-sweetened beverages frequently. Doc struggles with appetite due to constant nausea and tends to consume snack foods like chips and crackers. Gynecological History - The patient has a Nexplanon implant for control and has noticed that their cyst pain coincided with the return of their menstrual cycle. Doc expresses concern about the cyst, mentioning a family history of painful ovarian cysts. - CT Scan: - Date: Approximately 1.5 weeks ago - Conflicting reports; one indicating fatty infiltration of the liver, borderline enlarged spleen, and a 2.4 cm left ovarian cyst. Another report found spleen, liver, and reproductive organs unremarkable except for a normal follicle in the left ovary. SUDHA SALAZAR MD [address], [place], [address], [facility]. 03/31/2024 09:03:53 OBGyn Episode No OBEpisode recorded.
--- OUTSIDE RECORDS SUMMARY | 2024-03-31 17:00 | XMS_ITS | Continuity of Care Document ---
Author Organization [facility] Address [address] [place] [address] Assessment No assessment recorded. Plan of Treatment Reminders Order Date Submit Date Provider Last Modified By Organization Details Last Modified Time Details Appointments follow up ER 2023 07:30A M Not available Not available Not available Office Visit 30 2023 01:30P M Not available Not available Not available Lab hemoglobi n A1C, fingersti ck 2023 024 [facility], [address] [place] [address], [address], 02/24/2024 13:24:02 Referral None recorded. Procedures None [...] Abnormal Flag Note LastModifiedBy Organization Detail LastModifiedTime 02/24/2002/24/2024 hemog lobshruthi A1C, finge rstic k hemoglobin A1C 6.0 % <5.7 Not Available [facility] [address] [place], [address], 02/23/2024 13:28:21 03/21/20 24 03/21/2024 vrad repor t Patien t Name: Kathia Velasco Unit #: [id number] Loc: ER Orderi ng Provid er: Accjet t #: [id number] Status : REG ER Primar y Care Provid er: Sudha [...] ticate d by: Emily matias MD. Orderi ng:Gomez Hidalgo MD Access ion#=[id number] Ordere d By: CC: ------ ------ ------ ------ ------ ------ ------ ------ ------ ------ ------ ------ ---- Dictat ed By: Report s vrad [id number] Transc ribed By: Di Merge 4 This is privil eged, confid ential [...] at the addres s above. Thank- you. [facility] [address], [place], [address] 03/22/2024 07:53:14 03/21/2003/21/2024 CT imagi ng ofelia t Elana t Name: Kathia Velasco Unit #: [id number] Loc: ER Orderi ng Provid er: Kin Batista DO Accoun t #: [id number] Status : DEP ER Primar y [...] facili ty are submit celina to the Nation al Radiol ogy Data Regist ry (NRDR) Dose Index Regist ry (DIR) with the [employer] (ACR). RADIAT ION [...] at the addres s above. Thank- you. [facility] [address] , [place], [address] 03/22/2024 07:53:15 Result Notes None recorded. Problems Name Problem SNOMED Code Status Onset Date Resolution Date Notes Provider Name and Address Organization Details Recorded Time Anxiety disorder 503833788 Active [address], [place], [address] , [facility] 16:34:29 Environm ental allergy 210313120 Completed 201308/19/[address], [place], [address] , [facility] 16:34:42 Idiopath ic hypersom jarvis associat ed with long sleep time 585437070 Active [address], [place], [address] , [facility] 4 16:34:48 Menometr orrhagia 682904571 Completed 202208/19/[address], [address] 4 16:34:53 Uncompli cated moderate persiste nt asthma 302644339 Active [address], [address] 4 16:33:48 Social phobia 45976385 Completed 202208/19/[address], [address] 4 16:34:35 Vitamin D deficien cy 93601691 Active [address], [address] 4 16:34:17 Sensorin eural hearing loss of bilatera l ears 578038358 Completed 202208/19/2023 Problem Code: H90.3; Problem Code Type: ICD-10; MD Shira [address], [address] 4 16:34:22 Major depressi on, single episode 83814735 Active [address], [address] 4 16:34:11 Attentio n deficit hyperact ivity disorder , predomin antly inattent saundra type 37140169 Active 2022 Problem Code: F90.0; Problem Code Type: ICD-10; Not Available [facility] 3 04:31:37 Chronic pain 35700285 Active [address], [address] [place] [address] 4 16:33:09 Autoimmu ne thyroidi tis 47821570 Completed 202208/19/2023 Problem Code: E06.3; Problem Code Type: ICD-10; MD Shira [address], [address] 4 15:02:13 Hypothyr oidism 92418281 Completed 202208/19/2023 Problem Code: E03.9; Problem Code Type: ICD-10; MD Shira [address], [address] 4 16:33:37 Interver tebral disc prolapse 07892648 Completed 202208/19/2023 Problem Code: M51.25; Problem Code Type: ICD-10; MD Shira [address], [address] 4 16:33:29 Sleep disorder 24974969 Completed 202208/19/2023 Problem Code: G47.8; Problem Code Type: ICD-10; MD Shira [address], [address] 4 16:34:43 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 Active [address], [address] 4 16:33:26 Fatigue 02665238 Active [address], [address] 4 16:33:44 Asthenia 34262398 Completed 202208/19/2023 Problem Code: R53.1; Problem Code Type: ICD-10; MD [address], [place], [place], [address] [place] [address] , [facility] 4 16:33:15 Epigastr ic pain 09863298 Completed 202208/19/2023 Problem Code: R10.13; Problem Code Type: ICD-10; MD Shira [address], [place] [address] , [facility] 4 16:33:17 Palpitat ions 82256592 Completed 202208/19/2023 Problem Code: R00.2; Problem Code Type: ICD-10; MD [address], [place] [address] , [facility] 4 16:33:20 Leukocyt osis 062830109 Active [address], [place] [address] , [facility] 16:33:13 Height below average 863761265 Completed 200504/28/2023 Problem Code: 783.43; Problem Code Type: ICD-9; Not Available [facility] 3 04:31:39 Abnormal gait 64387655 Completed 202202/21/2023 Problem Code: R26.89; Problem Code Type: ICD-10; Not Available [facility] 04:31:39 Hemoglob inopathy 13285602 Completed 202202/21/2023 Problem Code: D58.2; Problem Code Type: ICD-10; Not Available [facility] 04:31:40 Recurren t acute tonsilli tis 198174413 Completed 200802/21/2023 Problem Code: J03.91; Problem Code Type: ICD-10; Not Available [facility] 3 04:31:40 Obstruct saundra sleep apnea syndrome 35841879 Completed 202202/21/2023 Problem Code: G47.33; Problem Code Type: ICD-10; Not Available [facility] 3 04:31:40 Acne 37789710 Completed 201304/28/2023 Not Available [facility] 3 04:31:40 Headache 25225099 Completed 200804/28/2023 Not Available [facility] 3 04:31:40 Snoring 61822589 Completed 202202/21/2023 Problem Code: R06.83; Problem Code Type: ICD-10; Not Available [facility] 3 04:31:40 Disorder of hyoid bone 142165839 Active [address], [place] [address] , [facility] 4 16:31:26 Electroc ardiogra m abnormal 193389626 Completed 202208/19/2023 Problem Code: R94.31; Problem Code Type: ICD-10; MD Shira [address], [address] , [facility] 4 16:31:20 Dizzines s and giddines s 939856671 Completed 202208/19/2023 Problem Code: R42; Problem Code Type: ICD-10; MD Shira [address], [facility] [address] , [facility] 4 16:31:12 Gastroes ophageal reflux disease 102894369 Active [address], [facility] [address] , [facility] 4 16:31:16 Chronic migraine without aura 18873714622 4105 Active [address] [place] [address] , [facility] 4 16:32:08 Shortene d TX interval 92646103 Active [address], [address] 4 16:35:52 Iron deficien cy 85247717 Active [address], [address] 4 16:39:09 Dysuria 60832186 Active [address], [address] 4 15:01:48 Autoimmu ne thyroidi tis 11630136 Active 2023 Problem Code: E06.3; Problem Code Type: ICD-10; MD Shira [address], [address] 4 15:02:13 Polyuria 88496173 Active [address], [address] 4 14:48:37 Painful urinary bladder spasm 9864715 Active [address], [address] 4 20:47:27 Chronic intersti tial cystitis 167108177 Active [address], [address] 4 07:40:29 Allergic rhinitis 73083110 Active [address], [address] [place] [address] 4 08:10:37 Prediabe melonie 424412438 Active [address], [address] 4 08:19:10 Problem Notes None recorded. Procedures Surgical History Date Name Laterality Status Provider Name and Address Organization Details Recorded Time 3 Removal of gallbladder completed MD Shira GARLAND Dr, [address] 06/16/2023 09:26:56 Imaging Results None recorded. Procedure Notes None recorded. Medical Equipment None Reported. Allergies Allergen ID Allergen Name Allergen Category Reaction Reaction Severity Criticality Documentation Date Start Date Code Code System Note Provider Name and Address Organization Details Recorded Time 21209 Canis lupus familiari s extract environme nt other mild Not available 06/11/20232022 49951 4 RxNorm No react ion enter ed [facility] 4 22:20:04 51773 gabapenti n medicatio n other mild Not available 06/11/20232022 75664 RxNorm No react ion enter ed [facility] 4 22:20:32 90951 POLLEN EXTRACTS environme nt,medica tion other mild Not available 06/11/20232022 96916 6 RxNorm No react ion enter ed [facility] 4 22:21:07 88501 Vistaril medicatio n other mild Not available 06/11/20232022 75712 9 RxNorm No react ion enter ed [facility] 4 22:21:35 Medications Name Sig Start [...] Not Available Not Available Not Available Acid Rig Builder (cimetidine ) 200 mg tablet 1 tablet [...] Smoking Status Never Smoker MIRZA DESAI RN [facility], [place] - [facility] 07/02/2023 11:37:13 What Was The Date Of [...] Recorded Time MMR 09/22/2006 completed Not Available [facility] 05:56:15 MMR 02/18/2001 completed Not Available [facility] 05:56:16 DTaP, unspecified formulation 10/01/2006 completed Not Available [facility] 06/11/2023 05:56:16 DTaP, unspecified formulation 1999 completed Not Available [facility] 06/11/2023 05:56:16 DTaP, unspecified formulation 11/23/2000 completed Not Available [facility] 06/11/2023 05:56:16 DTaP, unspecified formulation 1999 completed Not Available [facility] 06/11/2023 05:56:16 DTaP, unspecified formulation 02/18/2000 completed Not Available [facility] 06/11/2023 05:56:16 Tdap 09/22/2011 completed Not Available [facility] 05:56:16 Novel Raqrupcyp-[id number], all formulations 08/19/2009 completed Not Available [facility] 06/11/2023 05:56:16 Novel Jzmjvpaam-I7G2-07, all formulations 07/18/2009 completed Not Available [facility] 06/11/2023 05:56:16 HPV, unspecified formulation 12/12/2021 completed Not Available [facility] 06/11/2023 05:56:17 HPV, unspecified formulation 02/06/2021 completed Not Available [facility] 06/11/2023 05:56:17 HPV, unspecified formulation 05/13/2021 completed Not Available [facility] 06/11/2023 05:56:17 Pneumococcal Conjugate, unspecified formulation 08/24/2000 completed Not Available [facility] 06/11/2023 05:56:17 Pneumococcal Conjugate, unspecified formulation 11/23/2000 completed Not Available [facility] 06/11/2023 05:56:17 Hib, unspecified formulation 1999 completed Not Available [facility] 06/11/2023 05:56:17 Hib, unspecified formulation 11/23/2000 completed [...] B, unspecified formulation 05/29/2000 completed Not Available [facility] 06/11/2023 05:56:18 influenza, unspecified formulation 05/16/2009 completed Not Available [facility] 06/11/2023 05:56:19 influenza, unspecified formulation 05/31/2007 completed Not Available [facility] 06/11/2023 05:56:19 influenza, unspecified formulation 06/05/2022 completed Not Available [facility] 06/11/2023 05:56:19 influenza, unspecified formulation 06/08/2008 completed Not Available [facility] 06/11/2023 05:56:19 polio, unspecified formulation 1999 completed Not Available [facility] 06/11/2023 05:56:19 polio, unspecified formulation 1999 completed Not Available [facility] 06/11/2023 05:56:19 polio, unspecified formulation 01/15/2004 completed Not Available [facility] 06/11/2023 05:56:19 polio, unspecified formulation 02/18/2001 completed Not Available [facility] 06/11/2023 05:56:19 Tdap 04/26/2023 completed Not Available [facility] 05:31:00 Influenza, split virus, quadrivalent, PF 04/26/2023 completed Not Available [facility] 08/13/2023 05:31:00 Influenza, split virus, quadrivalent, PF 05/27/2023 completed Not Available [facility] 08/13/2023 05:31:00 Past Encounters Encounter ID Performer Location Encounter Start Date Encounter Closed Date Diagnosis/Indication Diagnosis SNOMED-CT Code Diagnosis ICD10 Code [id number] SUDHA SALAZAR MD [address] [address] 01/28/2024 14:07:20 01/28/2024 15:17:00 Dysuria 09500059 R30.0 Autoimmune thyroiditis 38393870 E06.3 Chronic mi graine without aura 2953168257 29692 G43.709 Chronic pain 48308362 G8 9.29 [id number] ASHA HALL [address] [address] 02/22/2024 12:55:25 02/22/2024 13:28:47 Dysuria 77164722 R30.0 [id number] ASHA HALL [address] [address] 02/24/2024 12:56:26 02/24/2024 12:58:00 Family history of diabetes mellitus 435161616 Z83.3 Health Concerns Section Related Observation LastModified by Organization Detai ls LastModified Time None Recorded Concern Status LastModified by Organization Details LastModified Time None Recorded Payers Encounter Date Sequence Insurance Name Policy Number Policy Adams Covered Member ID Adams Member ID Guarantor Name 02/24/2024 1 [facility] [id number] Jagruti Cherrying [id number] Jagruti Acevedo OBGyn Episode No OBEpisode recorded.
--- OUTSIDE RECORDS SUMMARY | 2024-03-31 17:00 | XMS_ITS | Continuity of Care Document ---
Author Organization [facility] Address [address] [place] [id number] Assessment No assessment recorded. Plan of Treatment Reminders Order Date Submit Date Provider Last Modified By Organization Details Last Modified Time Details Appointments follow up ER 2023 07:30A M Not available Not available Not available Office Visit 30 2023 01:30P M Not available Not available Not available Lab urinalysi s, dipstick [address], [address] [place] [address], [phone], 02/01/2024 14:37:21 urinalysi s, dipstick 2023 024 [facility], [address] [place] [address], [phone], 01/28/2024 15:53:57 TSH, serum, reflex free T4 - 1 green top drawn in office-SN 2023 024 [facility] (Registration ), [address] [place] [address] [place], [address], 02/01/2024 14:36:53 Referral None recorded. Procedures None [...] Abnormal Flag Note LastModifiedBy Organization Detail LastModifiedTime 01/28/20 24 01/28/2024 urina lysis , dipst ick Unknown Analyte Not Available [address], [address], 01/28/2024 15:30:57 01/28/20 24 01/28/2024 urina lysis , dipst ick Leukocytes Small Not Available [address], [address], 01/28/2024 15:31:40 01/28/20 24 01/28/2024 urina lysis , dipst ick Nitrite negati ve Not Available [address], [address], 01/28/2024 15:31:40 01/28/20 24 01/28/2024 urina lysis , dipst ick Urobilinogen .2 Not Available [address], [address], 01/28/2024 15:31:40 01/28/20 24 01/28/2024 urina lysis , dipst ick Protein Trace Not Available [address], [address], 01/28/2024 15:31:40 01/28/20 24 01/28/2024 urina lysis , dipst ick pH 6.0 Not Available [address], [address], 01/28/2024 15:31:40 01/28/20 24 01/28/2024 urina lysis , dipst ick Blood Negati ve Not Available [address], [address], 01/28/2024 15:31:40 01/28/20 24 01/28/2024 urina lysis , dipst ick Specific [place] 1.005 Not Available [address], [address], 01/28/2024 15:31:40 01/28/20 24 01/28/2024 urina lysis , dipst ick Ketone Negati ve Not Available [address], [address], 01/28/2024 15:31:40 01/28/20 24 01/28/2024 urina lysis , dipst ick Bilirubin Negati ve Not Available [address], [address], 01/28/2024 15:31:40 01/28/20 24 01/28/2024 urina lysis , dipst ick Glucose Negati ve Not Available [address], [address], 01/28/2024 15:31:40 01/28/20 24 01/28/2024 urina lysis , dipst ick Appearance Clear Not Available [address], [address], 01/28/2024 15:31:40 01/28/20 24 01/28/2024 urina lysis , dipst ick Color Yellow Not Available [address], [address], 01/28/2024 15:31:40 03/21/20 24 03/21/2024 lemuel posada Name: Dilipshruthi whiteKathia wray Carole Unit #: [id number] Loc: ER Orderi ng Provid er: Accjet t #: [id number] Status : REG ER Primar y [...] MD. Orderi ng:Gomez Hidalgo MD Access ion#=[id number] Michael d By: CC: ------ ------ ------ ------ ------ ------ ------ ------ ------ ------ ------ ------ ---- Dictat ed By: Report s vrad [id number] Transc ribed By: Di Merge 4 [...] at the addres s above. Thank- you. [facility] [address], [place], [address] 03/22/2024 07:53:14 03/21/2003/21/2024 CT imagi ng ofelia posada Name: Kathia Velasco Unit #: [id number] Loc: ER Orderi ng Provid er: Kin Batista DO Accoun t #: [id number] Status : DEP ER Primar y [...] tion); or iterat saundra recons tructi on. 819- 006: Total DLP = 0.00 mGy-cm Ordere d By: Kin Batista R DO CC: ------ ------ ------ ------ ------ [...] report in error, please notify us immedi дмитрий at 020-05 6-2728 and return the origin al report to us at the addres s above. Thank- you. [facility] [address], [place], [address] 03/22/2024 07:53:15 Result Notes None recorded. Problems Name Problem SNOMED Code Status Onset Date Resolution Date Notes Provider Name and Address Organization Details Recorded Time Anxiety disorder 625117097 Active [address], [place], [address] , [facility] 4 16:34:29 Environm ental allergy 865213601 Completed 201308/19/[address], [place], [address] , [facility] 4 16:34:42 Idiopath ic hypersom jarvis associat ed with long sleep time 228759998 Active [address], [place], [address] , [facility] 4 16:34:48 Menometr orrhagia 302056805 Completed 202208/19/[address], [place] [address] , [facility] 4 16:34:53 Uncompli cated moderate persiste nt asthma 928966988 Active [address], [place] [address] , [facility] 4 16:33:48 Social phobia 90868197 Completed 202208/19/[address], [address] 4 16:34:35 Vitamin D deficien cy 98199917 Active [address], [address] 4 16:34:17 Sensorin eural hearing loss of bilatera l ears 917778489 Completed 202208/19/2023 Problem Code: H90.3; Problem Code Type: ICD-10; MD Shira [address], [address] 4 16:34:22 Major depressi on, single episode 67418606 Active [address], [address] 4 16:34:11 Attentio n deficit hyperact ivity disorder , predomin antly inattent saundra type 03519986 Active 2022 Problem Code: F90.0; Problem Code Type: ICD-10; Not Available [facility] 3 04:31:37 Chronic pain 90730913 Active [address], [address] 4 16:33:09 Autoimmu ne thyroidi tis 70512705 Completed 202208/19/2023 Problem Code: E06.3; Problem Code Type: ICD-10; MD Shira [address], [address] 15:02:13 Hypothyr oidism 74041559 Completed 202208/19/2023 Problem Code: E03.9; Problem Code Type: ICD-10; MD Shira [address], [address] 16:33:37 Interver tebral disc prolapse 46898866 Completed 202208/19/2023 Problem Code: M51.25; Problem Code Type: ICD-10; MD Shira [address], [address] 16:33:29 Sleep disorder 11570069 Completed 202208/19/2023 Problem Code: G47.8; Problem Code Type: ICD-10; MD Shira [address], [address] 16:34:43 Congenit al anomaly of spinal cord 38014619 Active [address], [address] 4 16:33:26 Fatigue 63506393 Active [address], [address] 16:33:44 Asthenia 37039101 Completed 202208/19/2023 Problem Code: R53.1; Problem Code Type: ICD-10; MD [address], [place], [address] [place] [address] 4 16:33:15 Epigastr ic pain 06227923 Completed 202208/19/2023 Problem Code: R10.13; Problem Code Type: ICD-10; MD Shira [address], [facility] [address] [place] [address] 4 16:33:17 Palpitat ions 16972029 Completed 202208/19/2023 Problem Code: R00.2; Problem Code Type: ICD-10; MD Shiar [address], [address] 4 16:33:20 Leukocyt osis 001489273 Active [address], [address] 4 16:33:13 Height below average 377659468 Completed 200504/28/2023 Problem Code: 783.43; Problem Code Type: ICD-9; Not Available [facility] 04:31:39 Abnormal gait 09612151 Completed 202202/21/2023 Problem Code: R26.89; Problem Code Type: ICD-10; Not Available [facility] 3 04:31:39 Hemoglob inopathy 72903173 Completed 202202/21/2023 Problem Code: D58.2; Problem Code Type: ICD-10; Not Available [facility] 3 04:31:40 Recurren t acute tonsilli tis 332590763 Completed 200802/21/2023 Problem Code: J03.91; Problem Code Type: ICD-10; Not Available [facility] 3 04:31:40 Obstruct saundra sleep apnea syndrome 87727516 Completed 202202/21/2023 Problem Code: G47.33; Problem Code Type: ICD-10; Not Available [facility] 3 04:31:40 Acne 15804753 Completed 201304/28/2023 Not Available [facility] 3 04:31:40 Headache 00348469 Completed 200804/28/2023 Not Available [facility] 3 04:31:40 Snoring 13687712 Completed 202202/21/2023 Problem Code: R06.83; Problem Code Type: ICD-10; Not Available [facility] 3 04:31:40 Disorder of hyoid bone 755787557 Active [address], [address] 4 16:31:26 Electroc ardiogra m abnormal 317143958 Completed 202208/19/2023 Problem Code: R94.31; Problem Code Type: ICD-10; MD Shira [address], [place] [address] , [facility] 4 16:31:20 Dizzines s and giddines s 434275831 Completed 202208/19/2023 Problem Code: R42; Problem Code Type: ICD-10; MD [address], [place] [address] , [facility] 4 16:31:12 Gastroes ophageal reflux disease 639159151 Active [address], [place] [address] , [facility] 4 16:31:16 Chronic migraine without aura 91399854422 4105 Active [address], [place] [address] , [facility] 4 16:32:08 Shortene d ME interval 12561585 Active [address], [place] [address] , [facility] 4 16:35:52 Iron deficien cy 69209637 Active [address], [address] 4 16:39:09 Dysuria 72521575 Active [address], [address] 4 15:01:48 Autoimmu ne thyroidi tis 61909709 Active 2023 Problem Code: E06.3; Problem Code Type: ICD-10; MD Shira [address], [address] 15:02:13 Polyuria 68169202 Active [address], [address] 14:48:37 Painful urinary bladder spasm 9768276 Active [address], [address] 4 20:47:27 Chronic intersti tial cystitis 301351806 Active [address], [address] 4 07:40:29 Allergic rhinitis 36825485 Active [address], [address] 4 08:10:37 Prediabe melonie 613179176 Active [address], [place], [address] , [facility] 4 08:19:10 Problem Notes None recorded. Procedures Surgical History Date Name Laterality Status Provider Name and Address Organization Details Recorded Time 3 Removal of gallbladder completed MD [address], [place], [address], [facility] 06/16/2023 09:26:56 Imaging Results None recorded. Procedure Notes None recorded. Medical Equipment None Reported. Allergies Allergen ID Allergen Name Allergen Category Reaction Reaction Severity Criticality Documentation Date Start Date Code Code System Note Provider Name and Address Organization Details Recorded Time 23594 Canis lupus familiari s extract environme nt other mild Not available 06/11/20232022 29704 4 RxNorm No react ion enter ed [facility] 4 22:20:04 98066 gabapenti n medicatio n other mild Not available 06/11/20232022 13768 RxNorm No react ion enter ed [facility] 4 22:20:32 90993 POLLEN EXTRACTS environme ,medica tion other mild Not available 06/11/20232022 10578 6 RxNorm No react ion enter ed [facility] 4 22:21:07 62468 Vistaril medicatio n other mild Not available 06/11/20232022 83593 9 RxNorm No react ion enter ed [facility] 4 22:21:35 Medications Name Sig Start [...] Not Available Not Available Not Available Acid Auditor (cimetidine ) 200 mg tablet 1 tablet [...] DateTime 4 152.298 4 cm 38.9 kg/m2 36706.8 8 g 97.8 [degF] 97 % 97 % 80 /min 118 mm[Hg] 70 mm[Hg] BETTY LOPEZ MA [facility] 4 14:35:09 Social History Question Answer Notes LastModified by Organizat ion Details LastModified Time Tobacco Smoking Status Never Smoker MIRZA DESAI RN null, [facility] 07/02/2023 11:37:13 What Was The Date Of Your Most Recent Tobacco Screening? 10/18/2023 Information not available 10/18/2023 Has Tobacco Cessation Counseling Been Provided? No [facility] Information not available 07/02/2023 Do You Or Have You Ever Used Any Other Forms Of Tobacco Or Nicotine? [facility] Information not available 07/02/2023 Sex: Female Functional [...] Recorded Time MMR 09/22/2006 completed Not Available [facility] 05:56:15 MMR 02/18/2001 completed Not Available [facility] 05:56:16 DTaP, unspecified formulation 10/01/2006 completed Not Available [facility] 06/11/2023 05:56:16 DTaP, unspecified formulation 1999 completed Not Available [facility] 06/11/2023 05:56:16 DTaP, unspecified formulation 11/23/2000 completed Not Available [facility] 06/11/2023 05:56:16 DTaP, unspecified formulation 1999 completed Not Available [facility] 06/11/2023 05:56:16 DTaP, unspecified formulation 02/18/2000 completed Not Available [facility] 06/11/2023 05:56:16 Tdap 09/22/2011 completed Not Available [facility] 05:56:16 Novel Nzyefabqe-J5A2-00, all formulations 08/19/2009 completed Not Available [facility] 06/11/2023 05:56:16 Novel Cdnpxmnoo-H7R6-27, all formulations 07/18/2009 completed Not Available [facility] 06/11/2023 05:56:16 HPV, unspecified formulation 12/12/2021 completed Not Available [facility] 06/11/2023 05:56:17 HPV, unspecified formulation 02/06/2021 completed Not Available [facility] 06/11/2023 05:56:17 HPV, unspecified formulation 05/13/2021 completed Not Available [facility] 06/11/2023 05:56:17 Pneumococcal Conjugate, unspecified formulation 08/24/2000 completed Not Available [facility] 06/11/2023 05:56:17 Pneumococcal Conjugate, unspecified formulation 11/23/2000 completed Not Available [facility] 06/11/2023 05:56:17 Hib, unspecified formulation 1999 completed Not Available [facility] 06/11/2023 05:56:17 Hib, unspecified formulation 11/23/2000 completed Not Available [facility] 06/11/2023 05:56:17 Hib, unspecified formulation 1999 completed Not Available [facility] 06/11/2023 05:56:17 Hib, unspecified formulation 02/18/2000 completed Not Available [facility] 06/11/2023 05:56:17 COVID-19, mRNA, LNP-S, PF, 30 mcg/0.3 mL dose 11/24/2020 completed Not Available [facility] 06/11/2023 05:56:18 COVID-19, mRNA, LNP-S, PF, 30 mcg/0.3 mL dose 12/15/2020 completed Not Available [facility] 06/11/2023 05:56:18 COVID-19, mRNA, LNP-S, PF, 30 mcg/0.3 mL dose 06/27/2021 completed Not Available [facility] 06/11/2023 05:56:18 varicella 08/24/2000 completed Not Available [facility] 05:56:18 varicella 07/16/2006 completed Not Available [facility] 05:56:18 COVID-19, mRNA, LNP-S, bivalent, PF, 30 mcg/0.3 mL dose 06/05/2022 completed Not Available [facility] 06/11/2023 05:56:18 Hep B, unspecified formulation 1999 completed Not Available [facility] 06/11/2023 05:56:18 Hep B, unspecified formulation 1999 completed Not Available [facility] 06/11/2023 05:56:18 Hep B, unspecified formulation 05/29/2000 completed Not Available [facility] 06/11/2023 05:56:18 influenza, unspecified formulation 05/16/2009 completed Not Available [facility] 06/11/2023 05:56:19 influenza, unspecified formulation 05/31/2007 completed Not Available [facility] 06/11/2023 05:56:19 influenza, unspecified formulation 06/05/2022 completed Not Available [facility] 06/11/2023 05:56:19 influenza, unspecified formulation 06/08/2008 completed Not Available [facility] 06/11/2023 05:56:19 polio, unspecified formulation 1999 completed Not Available [facility] 06/11/2023 05:56:19 polio, unspecified formulation 1999 completed Not Available [facility] 06/11/2023 05:56:19 polio, unspecified formulation 01/15/2004 completed Not Available [facility] 06/11/2023 05:56:19 polio, unspecified formulation 02/18/2001 completed Not Available [facility] 06/11/2023 05:56:19 Tdap 04/26/2023 completed Not Available [facility] 05:31:00 Influenza, split virus, quadrivalent, PF 04/26/2023 completed Not Available [facility] 08/13/2023 05:31:00 Influenza, split virus, quadrivalent, PF 05/27/2023 completed Not Available [facility] 08/13/2023 05:31:00 Past Encounters Encounter ID Performer Location Encounter Start Date Encounter Closed Date Diagnosis/Indication Diagnosis SNOMED-CT Code Diagnosis ICD10 Code [id number] SUDHA SALAZAR MD [address] [address] 01/28/2024 14:07:20 01/28/2024 15:17:00 Dysuria 25149591 R30.0 Autoimmune thyroiditis 44267227 E06.3 Chronic mi graine without aura 6497005371 50608 G43.709 Chronic pain 44848966 G8 9.29 Health Concerns Section Related Observation LastModified by Organization Detai ls LastModified Time None Recorded Concern Status LastModified by Organization Details LastModified Time None Recorded Payers Encounter Date Sequence Insurance Name Policy Number Policy Adams Covered Member ID Adams Member ID Guarantor Name 01/28/2024 1 [facility] [id number] Jagruti Acevedo [id number] Jagruti Acevedo Notes Date Note Type Note Provider Name and Address Organization Details Recorded Time 01/28/2024 text/html HPI Notes: [place] presents in follow up. Biggest concern is wondering about a UTI. Has had urinary frequency and discomfort with urination for a week and a half. No fevers. Migraines - not better with the aimovig yet. Still having intense migraines, 5-6 days on end. Anxiety, ADHD - Feels venlafaxine has overall been helpful. Chronic pain/chiari malformation - saw neurosurg who referred to [facility] for spinal issues and limb pain. Saw Dr. Valdez at [facility]. Didn't offer surgical solution. Did do rheum [...] times. SUDHA SALAZAR MD [address], [place], [address], [place] [facility]. 01/28/2024 20:29:22 OBGyn Episode No OBEpisode recorded.
--- OUTSIDE RECORDS SUMMARY | 2024-03-31 17:00 | XMS_ITS | Continuity of Care Document ---
Author Organization [place] [facility], [facility] Address [address] [place] [address] Assessment No assessment recorded. Plan of Treatment Reminders Order Date Submit Date Provider Last Modified By Organization Details Last Modified Time Details Appointments follow up ER 2023 07:30A M Not available Not available Not available Office Visit 30 2023 01:30P M Not available Not available Not available Lab urinalysi s, dipstick 2023 024 [facility], [address] [place] [address], [id number], 02/22/2024 14:48:50 culture, urine + sensitivi ty - Urine sample 2023 024 [facility] (Registration ), [address] [place] [address] [place], [address], 02/25/2024 07:42:53 Referral None recorded. Procedures None [...] Abnormal Flag Note LastModifiedBy Organization Detail LastModifiedTime 02/22/20 24 02/22/2024 urina lysis , dipst ick Leukocytes Negati ve Not Available [address], [address], 02/22/2024 13:25:05 02/22/20 24 02/22/2024 urina lysis , dipst ick Nitrite negati ve Not Available [address], [address], 02/22/2024 13:25:05 02/22/20 24 02/22/2024 urina lysis , dipst ick Urobilinogen .2 Not Available [address], [address], 02/22/2024 13:25:05 02/22/20 24 02/22/2024 urina lysis , dipst ick Protein Negati ve Not Available [address], [address], 02/22/2024 13:25:05 02/22/20 24 02/22/2024 urina lysis , dipst ick pH 6.5 Not Available [address], [address], 02/22/2024 13:25:05 02/22/20 24 02/22/2024 urina lysis , dipst ick Blood Negati ve Not Available [address], [address], 02/22/2024 13:25:05 02/22/20 24 02/22/2024 urina lysis , dipst ick Specific Ransom 1.005 Not Available [address] [place] [address], [address], 02/22/2024 13:25:05 02/22/20 24 02/22/2024 urina lysis , dipst ick Ketone Negati ve Not Available [address], [address], 02/22/2024 13:25:05 02/22/20 24 02/22/2024 urina lysis , dipst ick Bilirubin Negati ve Not Available [address], [address], 02/22/2024 13:25:05 02/22/20 24 02/22/2024 urina lysis , dipst ick Glucose Negati ve Not Available [address], [address], 02/22/2024 13:25:05 02/22/20 24 02/22/2024 urina lysis , dipst ick Appearance Cloudy Not Available [address], [address], 02/22/2024 13:25:05 02/22/20 24 02/22/2024 urina lysis , dipst ick Color Pale Yellow Not Available [address], [address], 02/22/2024 13:25:05 03/21/20 24 03/21/2024 lemuel posada Name: Kathia Velasco Unit #: [id number] Loc: ER [facility] er: Jessica t #: [id number] Status : REG ER Primar y [facility] er: Sudha Salazar Date of Exam: Sex: [...] line spleno megaly . Dictat ed and Authbriseyda ticate d by: Emily matias MD. Orderi ng:Gomez Hidalgo MD Access ion#=[id number] Ordere d By: CC: ------ ------ ------ ------ ------ ------ ------ ------ ------ ------ ------ ------ ---- Dictat ed By: Report s vrad [id number] Transc ribed By: Stephie Merge 0454 This is privil eged, confid ential inform ation intend ed only for the provid er named. Any use or distri bution by any person other than this provid er is strict ly prohib ited. If you receiv e this report in error, please notify us immedi ately at [phone] and return the origin al report to us at the addres s above. Thank- you. [facility] [address], [place], [address] 03/22/2024 07:53:14 03/21/2003/21/2024 CT imagi ng repor t Elana t Name: Kathia Velasco Unit #: [id number] Loc: ER Orderi ng Provid er: Kin Batista DO Accoun t #: [id number] Status : DEP ER Primar y [...] Index Regist ry (DIR) with the [place] benji fay of Radiol ogy (ACR). RADIAT ION OPTIMI [...] at the addres s above. Thank- you. [address] , [place], [address] 03/22/2024 07:53:15 Result Notes None recorded. 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 512166734 Active [address], [facility] [address] , [facility] 4 16:34:48 Menometr orrhagia 851815487 Completed 202208/19/[address], [facility] [address] , [facility] 4 16:34:53 Uncompli cated moderate persiste nt asthma 508416673 Active [address], [facility] [address] , [facility] 4 16:33:48 Social phobia 79652852 Completed 202208/19/[address], [place] [address] , [facility] 4 16:34:35 Vitamin D deficien cy 81465075 Active [address], [address] 4 16:34:17 Sensorin eural hearing loss of bilatera l ears 284756340 Completed 202208/19/2023 Problem Code: H90.3; Problem Code Type: ICD-10; MD Shira GARLAND Dr, [address] 4 16:34:22 Major depressi on, single episode 64163984 Active [address], [address] 4 16:34:11 Attentio n deficit hyperact ivity disorder , predomin antly inattent saundra type 44898970 Active 2022 Problem Code: F90.0; Problem Code Type: ICD-10; Not Available [facility] 3 04:31:37 Chronic pain 20015756 Active [address], [address] 4 16:33:09 Autoimmu ne thyroidi tis 01191429 Completed 202208/19/2023 Problem Code: E06.3; Problem Code Type: ICD-10; MD Shira GARLAND Dr, [address] 4 15:02:13 Hypothyr oidism 90448038 Completed 202208/19/2023 Problem Code: E03.9; Problem Code Type: ICD-10; MD Shira GARLAND Dr, [address] 4 16:33:37 Interver tebral disc prolapse 85704885 Completed 202208/19/2023 Problem Code: M51.25; Problem Code Type: ICD-10; MD Shira GARLAND Dr, [address] 4 16:33:29 Sleep disorder 91923059 Completed 202208/19/2023 Problem Code: G47.8; Problem Code Type: ICD-10; MD Shira GARLAND Dr, [address] 4 16:34:43 Congenit al anomaly of spinal cord 00653280 Active [address], [address] 4 16:33:26 Fatigue 96737560 Active [address], [address] 4 16:33:44 Asthenia 47025880 Completed 202208/19/2023 Problem Code: R53.1; Problem Code Type: ICD-10; MD Shira GARLAND Dr, [address] 4 16:33:15 Epigastr ic pain 91868996 Completed 202208/19/2023 Problem Code: R10.13; Problem Code Type: ICD-10; MD Shira GARLAND Dr, [address] 4 16:33:17 Palpitat ions 93191705 Completed 202208/19/2023 Problem Code: R00.2; Problem Code Type: ICD-10; MD Shira GAR[address] Dr, [facility] [address] , [facility] 4 16:33:20 Leukocyt osis 355835996 Active [address], [facility] [address] , [facility] 4 16:33:13 Height below average 180989340 Completed 200504/28/2023 Problem Code: 783.43; Problem Code Type: ICD-9; Not Available [facility] 3 04:31:39 Abnormal gait 31934655 Completed 202202/21/2023 Problem Code: R26.89; Problem Code Type: ICD-10; Not Available [facility] 3 04:31:39 Hemoglob inopathy 37126743 Completed 202202/21/2023 Problem Code: D58.2; Problem Code Type: ICD-10; Not Available [facility] 3 04:31:40 Recurren t acute tonsilli tis 918019499 Completed 200802/21/2023 Problem Code: J03.91; Problem Code Type: ICD-10; Not Available [facility] 3 04:31:40 Obstruct saundra sleep apnea syndrome 87601251 Completed 202202/21/2023 Problem Code: G47.33; Problem Code Type: ICD-10; Not Available [facility] 3 04:31:40 Acne 68133638 Completed 201304/28/2023 Not Available [facility] 3 04:31:40 Headache 59420463 Completed 200804/28/2023 Not Available [facility] 3 04:31:40 Snoring 57837992 Completed 202202/21/2023 Problem Code: R06.83; Problem Code Type: ICD-10; Not Available [facility] 3 04:31:40 Disorder of hyoid bone 352533807 Active [address], [place], [address] [place] [address] , [facility] 4 16:31:26 Electroc ardiogra m abnormal 678204224 Completed 202208/19/2023 Problem Code: R94.31; Problem Code Type: ICD-10; MD Shira GARLAND Dr, [place] [address] , [facility] 4 16:31:20 Dizzines s and giddines s 743617621 Completed 202208/19/2023 Problem Code: R42; Problem Code Type: ICD-10; MD Shira GAR[address] Dr, [place] [address] , [facility] 4 16:31:12 Gastroes ophageal reflux disease 418039215 Active [address], [place] [address] , [facility] 4 16:31:16 Chronic migraine without aura 03156952864 4105 Active [address], [place] [address] , [facility] 4 16:32:08 Shortene d [place] interval 74946179 Active [address], [place] [address] , [facility] 4 16:35:52 Iron deficien cy 10512502 Active [address], [place] [address] , [facility] 4 16:39:09 Dysuria 53613235 Active [address], [place] [address] , [facility] 4 15:01:48 Autoimmu ne thyroidi tis 53380638 Active 2023 Problem Code: E06.3; Problem Code Type: ICD-10; MD Shira GARLAND Dr, [address] 4 15:02:13 Polyuria 69710006 Active [address], [address] 4 14:48:37 Painful urinary bladder spasm 4608088 Active [address], [address] 4 20:47:27 Chronic intersti tial cystitis 115152120 Active [address], [address] 4 07:40:29 Allergic rhinitis 74151209 Active [address], [address] 4 08:10:37 Prediabe melonie 809875508 Active [address], [address] 4 08:19:10 Problem Notes None recorded. Procedures Surgical History Date Name Laterality Status Provider Name and Address Organization Details Recorded Time 3 Removal of gallbladder completed MD Shira GARLAND Dr, [address] 06/16/2023 09:26:56 Imaging Results None recorded. Procedure Notes None recorded. Medical Equipment None Reported. Allergies Allergen ID Allergen Name Allergen Category Reaction Reaction Severity Criticality Documentation Date Start Date Code Code System Note Provider Name and Address Organization Details Recorded Time 51923 Canis lupus familiari s extract environme nt other mild Not available 06/11/20232022 08588 4 RxNorm No react ion enter ed [facility] 4 22:20:04 04036 gabapenti n medicatio n other mild Not available 06/11/20232022 98764 RxNorm No react ion enter ed [facility] 4 22:20:32 65309 POLLEN EXTRACTS environme ,medica tion other mild Not available 06/11/20232022 04640 6 RxNorm No react ion enter ed [facility] 4 22:21:07 41957 Vistaril medicatio n other mild Not available 06/11/20232022 26477 9 RxNorm No react ion enter ed [facility] 4 22:21:35 Medications Name Sig [...] Not Available Not Available Not Available Acid Assembling Inspector (cimetidine ) 200 mg tablet 1 tablet [...] Never Smoker MIRZA DESAI RN [facility], [facility] 07/02/2023 11:37:13 What Was The [...] Recorded Time MMR 09/22/2006 completed Not Available [facility] 05:56:15 MMR 02/18/2001 completed Not Available [facility] 05:56:16 DTaP, unspecified formulation 10/01/2006 completed Not Available [facility] 06/11/2023 05:56:16 DTaP, unspecified formulation 1999 completed Not Available [facility] 06/11/2023 05:56:16 DTaP, unspecified formulation 11/23/2000 completed Not Available [facility] 06/11/2023 05:56:16 DTaP, unspecified formulation 1999 completed Not Available [facility] 06/11/2023 05:56:16 DTaP, unspecified formulation 02/18/2000 completed Not Available [facility] 06/11/2023 05:56:16 Tdap 09/22/2011 completed Not Available [facility] 05:56:16 Novel [id number], all formulations 08/19/2009 completed Not Available [facility] 06/11/2023 05:56:16 Novel [id number], all formulations 07/18/2009 completed Not Available [facility] 06/11/2023 05:56:16 HPV, unspecified formulation 12/12/2021 completed Not Available [facility] 06/11/2023 05:56:17 HPV, unspecified formulation 02/06/2021 completed Not Available [facility] 06/11/2023 05:56:17 HPV, unspecified formulation 05/13/2021 completed Not Available [facility] 06/11/2023 05:56:17 Pneumococcal Conjugate, unspecified formulation 08/24/2000 completed Not Available [facility] 06/11/2023 05:56:17 Pneumococcal Conjugate, unspecified formulation 11/23/2000 completed Not Available [facility] 06/11/2023 05:56:17 Hib, unspecified formulation 1999 completed Not Available [facility] 06/11/2023 05:56:17 Hib, unspecified formulation 11/23/2000 completed Not Available [facility] 06/11/2023 05:56:17 Hib, unspecified formulation 1999 completed Not Available [facility] 06/11/2023 05:56:17 Hib, unspecified formulation 02/18/2000 completed Not Available [facility] 06/11/2023 05:56:17 COVID-19, mRNA, LNP-S, PF, 30 mcg/0.3 mL dose 11/24/2020 completed Not Available [facility] 06/11/2023 05:56:18 COVID-19, mRNA, LNP-S, PF, 30 mcg/0.3 mL dose 12/15/2020 completed Not Available [facility] 06/11/2023 05:56:18 COVID-19, mRNA, LNP-S, PF, 30 mcg/0.3 mL dose 06/27/2021 completed Not Available [facility] 06/11/2023 05:56:18 varicella 08/24/2000 completed Not Available [facility] 05:56:18 varicella 07/16/2006 completed Not Available [facility] 05:56:18 COVID-19, mRNA, LNP-S, bivalent, PF, 30 mcg/0.3 mL dose 06/05/2022 completed Not Available [facility] 06/11/2023 05:56:18 Hep B, unspecified formulation 1999 completed Not Available [facility] 06/11/2023 05:56:18 Hep B, unspecified formulation 1999 completed Not Available [facility] 06/11/2023 05:56:18 Hep B, unspecified formulation 05/29/2000 completed Not Available [facility] 06/11/2023 05:56:18 influenza, unspecified formulation 05/16/2009 completed Not Available [facility] 06/11/2023 05:56:19 influenza, unspecified formulation 05/31/2007 completed Not Available [facility] 06/11/2023 05:56:19 influenza, unspecified formulation 06/05/2022 completed Not Available [facility] 06/11/2023 05:56:19 influenza, unspecified formulation 06/08/2008 completed Not Available [facility] 06/11/2023 05:56:19 polio, unspecified formulation 1999 completed Not Available [facility] 06/11/2023 05:56:19 polio, unspecified formulation 1999 completed Not Available [facility] 06/11/2023 05:56:19 polio, unspecified formulation 01/15/2004 completed Not Available [facility] 06/11/2023 05:56:19 polio, unspecified formulation 02/18/2001 completed Not Available [facility] 06/11/2023 05:56:19 Tdap 04/26/2023 completed Not Available [facility] 05:31:00 Influenza, split virus, quadrivalent, PF 04/26/2023 completed Not Available [facility] 08/13/2023 05:31:00 Influenza, split virus, quadrivalent, PF 05/27/2023 completed Not Available [facility] 08/13/2023 05:31:00 Past Encounters Encounter ID Performer Location Encounter Start Date Encounter Closed Date Diagnosis/Indication Diagnosis SNOMED-CT Code Diagnosis ICD10 Code [id number] SUDHA SALAZAR MD [address] [address] 01/28/2024 14:07:20 01/28/2024 15:17:00 Dysuria 52410810 R30.0 Autoimmune thyroiditis 18764907 E06.3 Chronic mi graine without aura 9011363992 34343 G43.709 Chronic pain 48580378 G8 9.29 [id number] ASHA HALL CMA [address] [address] 02/22/2024 12:55:25 02/22/2024 13:28:47 Dysuria 33638016 R30.0 Health Concerns Section Related Observation LastModified by Organization Detai ls LastModified Time None Recorded Concern Status LastModified by Organization Details LastModified Time None Recorded Payers Encounter Date Sequence Insurance Name Policy Number Policy Adams Covered Member ID Adams Member ID Guarantor Name 02/22/2024 1 [facility] [id number] Jagruti Lam Acevedo [id number] Jagruti Lam Acevedo OBGyn Episode No OBEpisode recorded.
--- OUTSIDE RECORDS SUMMARY | 2024-03-31 17:00 | XMS_ITS | Data Portability ---
Author Organization MD - [facility], [facility] Address Yumi Clark [facility] [address] Assessment Encounter Date Assessment Date Assessment LastModified [...] present or not, with [facility] reads[facility] 03/31/2024 08:22:11 Plan of Treatment Reminders Order Date Submit Date Provider Last Modified By Organization Details Last Modified Time Details Appointments follow up ER 2023 07:30A M Not available Not available Not available Office Visit 30 2023 01:30P M Not available Not available Not available Lab urinalysi s, dipstick [address], [address] [place] [address], [address], 02/01/2024 14:37:21 urinalysi s, dipstick 2023 024 [facility], [address] [place] [address], [phone], 01/28/2024 15:53:57 TSH, serum, reflex free T4 - 1 green top drawn in office-SN 2023 024 [facility] (Registration ), [address] [place] [address] [place], [address], 02/01/2024 14:36:53 urinalysi s, dipstick 2023 [facility], [address] [place] [address], [phone], 02/22/2024 14:48:50 culture, urine + sensitivi ty - Urine sample 2023 [facility] (Registration ), [address] [place] [address] [place], [address], 02/25/2024 07:42:53 hemoglobi n A1C, fingersti ck 2023 024 [facility], [address] [place] [address], [phone], 02/24/2024 13:24:02 culture, urine - 1 urine collected in office-SN 2023 024 [facility] (Registration ), [address] [place] [address] [place], [address], 03/31/2024 08:35:25 urinalysi s, dipstick 2023 024 [facility], [address] [place] [address], [phone], 03/31/2024 09:42:59 Referral None recorded. Procedures None recorded. Surgeries None recorded. Imaging None recorded. Medication Orders Aimovig Autoinjec tor 140 mg/mL subcutane ous auto-inje ctor 2023 024 [facility], [address] [facility] [address] [place], [address], 10/18/2023 16:02:48 Vitamin D3 25 mcg (1,000 unit) capsule 2023 024 [facility], [address] [facility] [address], [place], [address], 10/18/2023 16:02:48 omeprazol e 40 mg capsule,d elayed release 2023 024 [facility], [address] [facility] [address], [place], [address], 10/18/2023 16:02:48 venlafaxi ne ER 75 mg capsule,e xtended release 24 hr 2023 024 [facility], [address] [facility] [address], [place], [address], 10/18/2023 16:02:51 cetirizin e 10 mg tablet 2023 024 [facility], [address] [place] [address], [address], 03/31/2024 08:10:55 amitripty line 10 mg tablet 2023 024 [facility], [address] [place] [address], [address], 03/31/2024 08:10:53 venlafaxi ne ER 75 mg capsule,e xtended release 24 hr 2023 024 [facility], [address] [place] [address], [id number], 03/31/2024 08:10:52 Patient TargetsNo targets recorded. Patient Instructions Encounter Date Encounter Id Patient Instructions Last Modified By Organization Details Last Modified Time 10/18/[id number] learning about healthy weight eoleson Not available 10/19/2023 13:19:47 03/31/2024 [id number] Dear Alvaro Roach you for visiting today [...] when possible. - Consider meeting with a consignee for more detailed dietary guidance if needed. [...] uIU/m L 0.36-3 .74 normal Not Available [facility] (Registration ) [address] [place] [address] [place], [address], 01/28/2024 21:54:45 01/28/20 24 01/28/2024 urina lysis , dipst ick Unknown Analyte Not Available [address], [address], 01/28/2024 15:30:57 01/28/20 24 01/28/2024 urina lysis , dipst ick Leukocytes Small Not Available [address], [address], 01/28/2024 15:31:40 01/28/20 24 01/28/2024 urina lysis , dipst ick Nitrite negati ve Not Available [address], [address], 01/28/2024 15:31:40 01/28/20 24 01/28/2024 urina lysis , dipst ick Urobilinogen .2 Not Available [address], [address], 01/28/2024 15:31:40 01/28/20 24 01/28/2024 urina lysis , dipst ick Protein Trace Not Available [address], [address], 01/28/2024 15:31:40 01/28/20 24 01/28/2024 urina lysis , dipst ick pH 6.0 Not Available [address], [address], 01/28/2024 15:31:40 01/28/20 24 01/28/2024 urina lysis , dipst ick Blood Negati ve Not Available [address], [address], 01/28/2024 15:31:40 01/28/20 24 01/28/2024 urina lysis , dipst ick Specific [place] 1.005 Not Available [address], [address], 01/28/2024 15:31:40 01/28/20 24 01/28/2024 urina lysis , dipst ick Ketone Negati ve Not Available [address], [address], 01/28/2024 15:31:40 01/28/20 24 01/28/2024 urina lysis , dipst ick Bilirubin Negati ve Not Available [address], [address], 01/28/2024 15:31:40 01/28/20 24 01/28/2024 urina lysis , dipst ick Glucose Negati ve Not Available [address], [address], 01/28/2024 15:31:40 01/28/20 24 01/28/2024 urina lysis , dipst ick Appearance Clear Not Available [facility] [address] [place], [address], 01/28/2024 15:31:40 01/28/20 24 01/28/2024 urina lysis , dipst ick Color Yellow Not Available [facility] [address] [place], [address], 01/28/2024 15:31:40 02/22/20 24 02/24/2024 URINE CULTU RE urine culture Urine Cultu re Proba ble conta minat ed colle ction APPEA BRIANA Mixed Gram Posit anjaan Lo COLON Y COUNT Not Available [facility] (Registration ) [address] [place] [address] [place], [address], 02/24/2024 13:17:49 02/22/20 24 02/24/2024 URINE CULTU RE urine culture colon ies/m L 10,00 0 - 50,00 0 Day 1 Resul t ISOLA NATALY BELOW O:GPF M (ORGA NISM ID: 1.1) - GRAM POSIT ANJANA LO ,MIXE D Urine Cultu re (ORGA NISM ID: 1.1) - COLON Y COUNT (ORGA NISM ID: 1.1) - 10,00 0 - 50,00 0 Not Available [facility] (Registration ) [address] [place] [address] [place], [address], 02/24/2024 13:17:49 02/22/20 24 02/25/2024 URINE CULTU RE urine culture Urine Cultu re Proba ble conta minat ed colle ction APPEA BRIANA Mixed Gram Posit anjana Lo APPEA BRIANA Mixed Gram Posit anjana Lo COLON Y COUNT Not Available [address] [place], [address] 02/25/2024 09:18:40 02/22/20 24 02/25/2024 URINE CULTU RE urine culture colon ies/m L 10,00 0 - 50,00 0 COLON Y COUNT 10,00 0 - 50,00 0 Day 1 Resul t ISOLA NATALY BELOW Day 2 Resul t ISOLA NATALY BELOW O:GPF M (ORGA NISM ID: [id number]) - GRAM POSIT ANJANA LO ,MIXE D Urine Cultu re (ORGA NISM ID: 1.1) - COLON Y COUNT (ORGA NISM ID: 1.1) - 10,00 0 - 50,00 0 Not Available [place] [address] [place], [address] 02/25/2024 09:18:40 02/22/20 24 02/22/2024 urina lysis , dipst ick Leukocytes Negati ve Not Available [address], [address], 02/22/2024 13:25:05 02/22/20 24 02/22/2024 urina lysis , dipst ick Nitrite negati ve Not Available [address], [address], 02/22/2024 13:25:05 02/22/20 24 02/22/2024 urina lysis , dipst ick Urobilinogen .2 Not Available [address], [address], 02/22/2024 13:25:05 02/22/20 24 02/22/2024 urina lysis , dipst ick Protein Negati ve Not Available [address], [address], 02/22/2024 13:25:05 02/22/20 24 02/22/2024 urina lysis , dipst ick pH 6.5 Not Available [address], [address], 02/22/2024 13:25:05 02/22/20 24 02/22/2024 urina lysis , dipst ick Blood Negati ve Not Available [address], [address], 02/22/2024 13:25:05 02/22/20 24 02/22/2024 urina lysis , dipst ick Specific [place] 1.005 Not Available [address], [address], 02/22/2024 13:25:05 02/22/20 24 02/22/2024 urina lysis , dipst ick Ketone Negati ve Not Available [address], [address], 02/22/2024 13:25:05 02/22/20 24 02/22/2024 urina lysis , dipst ick Bilirubin Negati ve Not Available [address], [address], 02/22/2024 13:25:05 02/22/20 24 02/22/2024 urina lysis , dipst ick Glucose Negati ve Not Available [address], [address], 02/22/2024 13:25:05 02/22/20 24 02/22/2024 urina lysis , dipst ick Appearance Cloudy Not Available [address], [address], 02/22/2024 13:25:05 02/22/20 24 02/22/2024 urina lysis , dipst ick Color Pale Yellow Not Available [address], [address], 02/22/2024 13:25:05 02/24/20 24 02/24/2024 hemog lobin A1C, finge rstic k hemoglobin A1C 6.0 % <5.7 Not Available [address], [address], 02/23/2024 13:28:21 03/21/20 24 03/21/2024 LACTA TE lactate 1.3 mmol/ L 0.6-1. 4 normal Not Available [address] [place], [address] 03/21/2024 04:15:16 03/21/20 24 03/21/2024 COMPL ETE BLOOD COUNT W/DIF F WBC 13.36 10_3/ uL 4.4-10 .8 high Not Available [address] [place], [address] 03/21/2024 04:24:17 03/21/20 24 03/21/2024 COMPL ETE BLOOD COUNT W/DIF F RBC 4.69 10_6/ uL 3.93-5 .22 normal Not Available [address] [place], [address] 03/21/2024 04:24:17 03/21/20 24 03/21/2024 COMPL ETE BLOOD COUNT W/DIF F HGB 13.6 g/dL 11.2-1 5.7 normal Not Available [address] [place], [address] 03/21/2024 04:24:17 03/21/20 24 03/21/2024 COMPL ETE BLOOD COUNT W/DIF F HCT 41.6 % 36.0-4 6.0 normal Not Available [address] [place], [address] 03/21/2024 04:24:17 03/21/20 24 03/21/2024 COMPL ETE BLOOD COUNT W/DIF F MCV 89 fL 80-95 normal Not Available Ozzie colin [address] [place], [address] 03/21/2024 04:24:17 03/21/20 24 03/21/2024 COMPL ETE BLOOD COUNT W/DIF F MCH 29.0 pg 27.0-3 3.0 normal Not Available [address] [place], [address] 03/21/2024 04:24:17 03/21/20 24 03/21/2024 COMPL ETE BLOOD COUNT W/DIF F MCHC 32.7 % 32.0-3 6.0 normal Not Available [address] [place], [address] 03/21/2024 04:24:17 03/21/20 24 03/21/2024 COMPL ETE BLOOD COUNT W/DIF F RDW 14.0 % 11.7-1 4.6 normal Not Available [address] [place], [address] 03/21/2024 04:24:17 03/21/20 24 03/21/2024 COMPL ETE BLOOD COUNT W/DIF F platelet count 319 10_3/ uL 130-40 0 normal Not Available [address] [place], [address] 03/21/2024 04:24:17 03/21/20 24 03/21/2024 COMPL ETE BLOOD COUNT W/DIF F MPV 11.0 fL 8.0-11 .0 normal Not Available [address] [place], [address] 03/21/2024 04:24:17 03/21/20 24 03/21/2024 COMPL ETE BLOOD COUNT W/DIF F neutrophils % 63.9 % Not Available [address] [place], [address] 03/21/2024 04:24:17 03/21/20 24 03/21/2024 COMPL ETE BLOOD COUNT W/DIF F lymphocytes % 25.1 % Not Available [address] [place], [address] 03/21/2024 04:24:17 03/21/20 24 03/21/2024 COMPL ETE BLOOD COUNT W/DIF F monocytes % 9.1 % Not Available [address] [place], [address] 03/21/2024 04:24:17 03/21/20 24 03/21/2024 COMPL ETE BLOOD COUNT W/DIF F eosinophils % 1.0 % Not Available [address] [place], [address] 03/21/2024 04:24:17 03/21/20 24 03/21/2024 COMPL ETE BLOOD COUNT W/DIF F basophils % 0.6 % Not Available [address] [place], [address] 03/21/2024 04:24:17 03/21/20 24 03/21/2024 COMPL ETE BLOOD COUNT W/DIF F immature grans % 0.3 % Not Available [address] [place], [address] 03/21/2024 04:24:17 03/21/20 24 03/21/2024 COMPL ETE BLOOD COUNT W/DIF F nucleated RBC 0.0 % 0.0-0. 3 normal Not Available [address] [place], [address] 03/21/2024 04:24:17 03/21/20 24 03/21/2024 COMPL ETE BLOOD COUNT W/DIF F absolute neutrophil count 8.54 10_3/ uL 1.2-6. 7 high Not Available [address] [place], [address] 03/21/2024 04:24:17 03/21/20 24 03/21/2024 COMPL ETE BLOOD COUNT W/DIF F absolute lymphocyte count 3.35 10_3/ uL 1.2-3. 4 normal Not Available [address] [place], [address] 03/21/2024 04:24:17 03/21/20 24 03/21/2024 COMPL ETE BLOOD COUNT W/DIF F absolute monocyte count 1.22 10_3/ uL 0.1-0. 8 high Not Available [address] [place], [address] 03/21/2024 04:24:17 03/21/20 24 03/21/2024 COMPL ETE BLOOD COUNT W/DIF F absolute eosinophil count 0.13 10_3/ uL 0.0-0. 7 normal Not Available [address] [place], [address] 03/21/2024 04:24:17 03/21/20 24 03/21/2024 COMPL ETE BLOOD COUNT W/DIF F absolute basophil count 0.08 10_3/ uL 0.0-0. 2 normal Not Available [address] [place], [address] 03/21/2024 04:24:17 03/21/20 24 03/21/2024 URINA LYSIS color [place] yellow Not Available Ozzie colin [address] [place], [address] 03/21/2024 04:29:18 03/21/20 24 03/21/2024 URINA LYSIS clarity Clear clear Not Available Ozzie colin [address] [place], [address] 03/21/2024 04:29:18 03/21/20 24 03/21/2024 URINA LYSIS specific gravity 1.010 1.005- 1.025 normal Not Available [address] [place], [address] 03/21/2024 04:29:18 03/21/20 24 03/21/2024 URINA LYSIS pH 6.5 5-8 normal Not Available Ozzie colin [address] [place], [address] 03/21/2024 04:29:18 03/21/20 24 03/21/2024 URINA LYSIS leukocyte esterase Trace negati ve abnormal Not Available [address] [place], [address] 03/21/2024 04:29:18 03/21/20 24 03/21/2024 URINA LYSIS nitrite Negati ve negati ve Not Available [address] [place], [address] 03/21/2024 04:29:18 03/21/20 24 03/21/2024 URINA LYSIS protein Trace mg/dL neg-tr carlito Not Available [address] [place], [address] 03/21/2024 04:29:18 03/21/20 24 03/21/2024 URINA LYSIS glucose Negati ve mg/dL negati ve Not Available [address] [place], [address] 03/21/2024 04:29:18 03/21/20 24 03/21/2024 URINA LYSIS ketones Negati ve mg/dL negati ve Not Available [address] [place], [address] 03/21/2024 04:29:18 03/21/20 24 03/21/2024 URINA LYSIS urobilinogen 0.2 mg/dL up to 0.2 Not Available [address] [place], [address] 03/21/2024 04:29:18 03/21/20 24 03/21/2024 URINA LYSIS bilirubin Negati ve negati ve Not Available [address] [place], [address] 03/21/2024 04:29:18 03/21/20 24 03/21/2024 URINA LYSIS blood Large negati ve abnormal Not Available [address] [place], [address] 03/21/2024 04:29:18 03/21/20 24 03/21/2024 URINA LYSIS color [place] yellow Not Available Ozzie colin [address] [place], [address] 03/21/2024 04:40:17 03/21/20 24 03/21/2024 URINA LYSIS clarity Clear clear Not Available Ozzie colin [address] [place], [address] 03/21/2024 04:40:17 03/21/20 24 03/21/2024 URINA LYSIS specific gravity 1.010 1.005- 1.025 normal Not Available [address] [place], [address] 03/21/2024 04:40:17 03/21/20 24 03/21/2024 URINA LYSIS pH 6.5 5-8 normal Not Available Ozzie colin [address] [place], [address] 03/21/2024 04:40:17 03/21/20 24 03/21/2024 URINA LYSIS leukocyte esterase Trace negati ve abnormal Not Available [address] [place], [address] 03/21/2024 04:40:17 03/21/20 24 03/21/2024 URINA LYSIS nitrite Negati ve negati ve Not Available [address] [place], [address] 03/21/2024 04:40:17 03/21/20 24 03/21/2024 URINA LYSIS protein Trace mg/dL neg-tr carlito Not Available [address] [place], [address] 03/21/2024 04:40:17 03/21/20 24 03/21/2024 URINA LYSIS glucose Negati ve mg/dL negati ve Not Available [address] [place], [address] 03/21/2024 04:40:17 03/21/20 24 03/21/2024 URINA LYSIS ketones Negati ve mg/dL negati ve Not Available [address] [place], [address] 03/21/2024 04:40:17 03/21/20 24 03/21/2024 URINA LYSIS urobilinogen 0.2 mg/dL up to 0.2 Not Available [address] [place], [address] 03/21/2024 04:40:17 03/21/20 24 03/21/2024 URINA LYSIS bilirubin Negati ve negati ve Not Available [address] [place], [address] 03/21/2024 04:40:17 03/21/20 24 03/21/2024 URINA LYSIS blood Large negati ve abnormal Not Available [address] [place], [address] 03/21/2024 04:40:17 03/21/20 24 03/21/2024 MICRO SCOPI C FINDI NGS WBC 3-5 hpf 0-5 Not Available Ozzie colin [address] [place], [address] 03/21/2024 04:40:18 03/21/20 24 03/21/2024 MICRO SCOPI C FINDI NGS RBC 20-50 hpf 0-2 abnormal Not Available [facility] [address] [place], [address] 03/21/2024 04:40:18 03/21/20 24 03/21/2024 MICRO SCOPI C FINDI NGS epithelial cells Rare hpf negati ve Not Available [address] [place], [address] 03/21/2024 04:40:18 03/21/20 24 03/21/2024 MICRO SCOPI C FINDI NGS bacteria Few hpf negati ve Not Available [address] [place], [address] 03/21/2024 04:40:18 03/21/20 24 03/21/2024 MICRO SCOPI C FINDI NGS crystals Negati ve hpf negati ve Not Available [address] [place], [address] 03/21/2024 04:40:18 03/21/20 24 03/21/2024 MICRO SCOPI C FINDI NGS mucus Negati ve negati ve Not Available [address] [place], [address] 03/21/2024 04:40:18 03/21/20 24 03/21/2024 MICRO SCOPI C FINDI NGS casts Negati ve lpf negati ve Not Available [address] [place], [address] 03/21/2024 04:40:18 03/21/20 24 03/21/2024 MICRO SCOPI C FINDI NGS C S indicated? No Not Available [address] [place], [address] 03/21/2024 04:40:18 03/21/20 24 03/21/2024 COMPR EHENS ANJANA METAB OLIC PANEL calcium 9.8 mg/dL 8.5-10 .1 normal Resul t verif ied by repea t tana sis Not Available [address] [place], [address] 03/21/2024 05:04:19 03/21/20 24 03/21/2024 COMPR EHENS ANJANA METAB OLIC PANEL glucose 148 mg/dL 74-106 high Not Available Ozzie colin [address] [place], [address] 03/21/2024 05:04:19 08/20/20 24 03/21/2024 COMPR EHENS ANJANA METAB OLIC PANEL BUN 11 mg/dL 7-18 normal Not Available Ozzie colin [address] [place], [address] 03/21/2024 05:04:19 03/21/20 24 03/21/2024 COMPR EHENS ANJANA METAB OLIC PANEL creatinine 0.9 mg/dL 0.55-1 .02 normal Not Available [address] [place], [address] 03/21/2024 05:04:19 03/21/20 24 03/21/2024 COMPR EHENS ANJANA METAB OLIC PANEL estimated GFR 91.55 mL/min /1.73m 2 The eGFR is calcu lated from a serum creat inine using the CKD-E PI 2020 equat ion. Other varia bles requi red for the equat ion are gende r and age; this equat ion does not inclu de a race coeff icien t. This equat ion has simil ar overa ll perfo rmanc e to previ ous equat ions excep t value s may diffe r, in parti cular , in patie nts with highe r value s of eGFR and young er-ag ed adult s. Not Available [address] [place], [address] 03/21/2024 05:04:19 03/21/20 24 03/21/2024 COMPR EHENS ANJANA METAB OLIC PANEL total protein 7.8 g/dL 6.4-8. 2 normal Not Available [address] [place], [address] 03/21/2024 05:04:19 03/21/20 24 03/21/2024 COMPR EHENS ANJANA METAB OLIC PANEL albumin 4.1 g/dL 3.4-5. 0 normal Not Available [address] [place], [address] 03/21/2024 05:04:19 03/21/20 24 03/21/2024 COMPR EHENS ANJANA METAB OLIC PANEL bilirubin, total 0.28 mg/dL 0.2-1. 0 normal Not Available [address] [place], [address] 03/21/2024 05:04:19 03/21/20 24 03/21/2024 COMPR EHENS ANJANA METAB OLIC PANEL alk phos 88 U/L 46-116 normal Not Available [address] [place], [address] 03/21/2024 05:04:19 03/21/20 24 03/21/2024 COMPR EHENS ANJANA METAB OLIC PANEL sodium 139 mmol/ L 136-14 5 normal Not Available [address] [place], [address] 03/21/2024 05:04:19 03/21/20 24 03/21/2024 COMPR EHENS ANJANA METAB OLIC PANEL potassium 3.7 mmol/ L 3.5-5. 1 normal Not Available [address] [place], [address] 03/21/2024 05:04:19 03/21/20 24 03/21/2024 COMPR EHENS ANJANA METAB OLIC PANEL chloride 103 mmol/ L 98-107 normal Not Available [address] [place], [address] 03/21/2024 05:04:19 03/21/20 24 03/21/2024 COMPR EHENS ANJANA METAB OLIC PANEL CO2 23.6 mmol/ L 21.0-3 2.0 normal Not Available [address] [place], [address] 03/21/2024 05:04:19 03/21/20 24 03/21/2024 COMPR EHENS ANJANA METAB OLIC PANEL anion gap 12.4 mmol/ L 3-11 high Not Available [address] [place], [address] 03/21/2024 05:04:19 03/21/20 24 03/21/2024 COMPR EHENS ANJANA METAB OLIC PANEL AST 12 U/L 15-37 low Not Available [address] [place], [address] 03/21/2024 05:04:19 03/21/20 24 03/21/2024 COMPR EHENS ANJANA METAB OLIC PANEL ALT 20 U/L 14-59 normal Not Available Ozzie colin [facility] [address] [place], [address] 03/21/2024 05:04:19 03/21/20 24 03/21/2024 LIPAS E lipase 53 U/L 16-77 normal Not Available Ozzie colin [facility] [address] [place] [address] [place], [address] 03/21/2024 05:04:20 03/31/20 24 03/31/2024 urina lysis , dipst ick Leukocytes Trace Not Available [address], [address], 03/31/2024 08:25:43 03/31/20 24 03/31/2024 urina lysis , dipst ick Nitrite negati ve Not Available [address], [address], 03/31/2024 08:25:43 03/31/20 24 03/31/2024 urina lysis , dipst ick Urobilinogen .2 Not Available [address], [address], 03/31/2024 08:25:43 03/31/20 24 03/31/2024 urina lysis , dipst ick Protein Negati ve Not Available [address], [address], 03/31/2024 08:25:43 03/31/20 24 03/31/2024 urina lysis , dipst ick pH 5.0 Not Available [address], [address], 03/31/2024 08:25:43 03/31/20 24 03/31/2024 urina lysis , dipst ick Blood Negati ve Not Available [address], [address], 03/31/2024 08:25:43 03/31/20 24 03/31/2024 urina lysis , dipst ick Specific [place] 1.020 Not Available [address], [address], 03/31/2024 08:25:43 03/31/20 24 03/31/2024 urina lysis , dipst ick Ketone Negati ve Not Available [address], [address], 03/31/2024 08:25:43 03/31/20 24 03/31/2024 urina lysis , dipst ick Bilirubin Negati ve Not Available [address], [address], 03/31/2024 08:25:43 03/31/20 24 03/31/2024 urina lysis , dipst ick Glucose Negati ve Not Available [address], [address], 03/31/2024 08:25:43 03/31/20 24 03/31/2024 urina lysis , dipst ick Appearance Clear Not Available [address], [address], 03/31/2024 08:25:43 03/31/20 24 03/31/2024 urina lysis , dipst ick Color Pale Yellow Not Available [address], [address], 03/31/2024 08:25:43 03/21/20 24 03/21/2024 lemuel posada Name: Kathia Velasco tieshaemilie Lam Unit #: [id number] Loc: ER Orderi ng Provid er: Jessica t #: [id number] Status : REG ER Primar y [...] to clinic al indica tion); or iterat anjana recons tructi on. Contra st materi al: [...] MD. Orderi ng:Gomez Hidalgo MD Access ion#=[id number] Ordere d By: CC: ------ ------ ------ ------ ------ ------ ------ ------ ------ ------ ------ ------ ---- Dictat ed By: Report s vrad 4 [id number] Transc ribed By: Di Merge 453 This is privil eged, confid ential inform ation intend ed only for the provid er named. Any use or distri bution by any person other than this provid er is strict ly prohib ited. If you receiv e this report in error, please notify us immedi дмитрий at [phone] and return the origin al report to us at the addres s above. Thank- you. [facility] [address], [place], [address] 03/22/2024 07:53:14 03/21/2003/21/2024 CT imagi ng ofelia posada Name: Kathia Velasco Unit #: [id number] Loc: ER Orderi ng Provid er: Kin Batista DO Accoun t #: [id number] Status : DEP ER Primar y [...] to clinic al indica tion); or iterat anjana recons tructi on. 819- 006: Total DLP [...] error, please notify us immedi дмитрий at and return the origin al report to us at the addres s above. Thank- you. [facility] [address], [place], [address] 03/22/2024 07:53:15 Result Notes None recorded. 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 303579473 Active [address], [facility] [address] , [facility] 4 16:34:48 Menometr orrhagia 291322970 Completed 202208/19/[address], [place] [address] , [facility] 4 16:34:53 Uncompli cated moderate persiste nt asthma 564443739 Active [address], [place] [address] , [facility] 4 16:33:48 Social phobia 84392311 Completed 202208/19/[address], [address] 4 16:34:35 Vitamin D deficien cy 94930344 Active [address], [address] 4 16:34:17 Sensorin eural hearing loss of bilatera l ears 824668016 Completed 202208/19/2023 Problem Code: H90.3; Problem Code Type: ICD-10; MD Shira GARLAND Dr, [address] 4 16:34:22 Major depressi on, single episode 12665618 Active [address], [address] 4 16:34:11 Attentio n deficit hyperact ivity disorder , predomin antly inattent anjana type 62440001 Active 2022 Problem Code: F90.0; Problem Code Type: ICD-10; Not Available [facility] 3 04:31:37 Chronic pain 28242347 Active [address], [address] 4 16:33:09 Autoimmu ne thyroidi tis 86828963 Completed 202208/19/2023 Problem Code: E06.3; Problem Code Type: ICD-10; MD Shira GARLAND Dr, [address] 4 15:02:13 Hypothyr oidism 25942751 Completed 202208/19/2023 Problem Code: E03.9; Problem Code Type: ICD-10; MD Shira GARLAND Dr, [address] 4 16:33:37 Interver tebral disc prolapse 19163747 Completed 202208/19/2023 Problem Code: M51.25; Problem Code Type: ICD-10; MD Shira GARLAND Dr, [address] 4 16:33:29 Sleep disorder 41707712 Completed 202208/19/2023 Problem Code: G47.8; Problem Code Type: ICD-10; MD Shira GARLAND Dr, [address] 4 16:34:43 Congenit al anomaly of spinal cord 99324393 Active [address], [address] 4 16:33:26 Fatigue 16121808 Active [address], [address] 4 16:33:44 Asthenia 50590693 Completed 202208/19/2023 Problem Code: R53.1; Problem Code Type: ICD-10; MD Shira GARLAND Dr, [address] 4 16:33:15 Epigastr ic pain 13104679 Completed 202208/19/2023 Problem Code: R10.13; Problem Code Type: ICD-10; SUDHA SALAZAR MD [address], [address] 4 16:33:17 Palpitat ions 05131325 Completed 202208/19/2023 Problem Code: R00.2; Problem Code Type: ICD-10; SUDHA SALAZAR MD [address], [address] 4 16:33:20 Leukocyt osis 053937552 Active 2022 SUDHA SALAZAR MD [address], [address] 4 16:33:13 Height below average 132313760 Completed 200504/28/2023 Problem Code: 783.43; Problem Code Type: ICD-9; Not Available [facility] 3 04:31:39 Abnormal gait 80919106 Completed 202202/21/2023 Problem Code: R26.89; Problem Code Type: ICD-10; Not Available [facility] 3 04:31:39 Hemoglob inopathy 79820100 Completed 202202/21/2023 Problem Code: D58.2; Problem Code Type: ICD-10; Not Available [facility] 3 04:31:40 Recurren t acute tonsilli tis 933243898 Completed 200802/21/2023 Problem Code: J03.91; Problem Code Type: ICD-10; Not Available [facility] 3 04:31:40 Obstruct anjana sleep apnea syndrome 24696074 Completed 202202/21/2023 Problem Code: G47.33; Problem Code Type: ICD-10; Not Available [facility] 3 04:31:40 Acne 99159507 Completed 201304/28/2023 Not Available [facility] 3 04:31:40 Headache 13238820 Completed 200804/28/2023 Not Available [facility] 3 04:31:40 Snoring 13382077 Completed 202202/21/2023 Problem Code: R06.83; Problem Code Type: ICD-10; Not Available [facility] 3 04:31:40 Disorder of hyoid bone 847175357 Active [address], [address] , [facility] 4 16:31:26 Electroc ardiogra m abnormal 597167027 Completed 202208/19/2023 Problem Code: R94.31; Problem Code Type: ICD-10; MD Shira GARLAND Dr, [facility] [address] , [facility] 4 16:31:20 Dizzines s and giddines s 516214261 Completed 202208/19/2023 Problem Code: R42; Problem Code Type: ICD-10; MD Shira GAR[address] Dr, [facility] [address] , [facility] 4 16:31:12 Gastroes ophageal reflux disease 895130296 Active [address], [facility] [address] , [facility] 4 16:31:16 Chronic migraine without aura 58628203681 4105 Active [address], [facility] [address] , [facility] 4 16:32:08 Shortene d [place] interval 97511436 Active [address], [address] 16:35:52 Iron deficien cy 95522122 Active [address], [address] 4 16:39:09 Dysuria 75363418 Active [address], [address] 4 15:01:48 Autoimmu ne thyroidi tis 95970981 Active 2023 Problem Code: E06.3; Problem Code Type: ICD-10; MD Shira GARLAND Dr, [address] 15:02:13 Polyuria 85056281 Active [address], [address] 14:48:37 Painful urinary bladder spasm 3992857 Active [address], [address] 20:47:27 Chronic intersti tial cystitis 019756393 Active [address], [address] 4 07:40:29 Allergic rhinitis 79911254 Active [address], [address] 08:10:37 Prediabe nataly 877394795 Active [address], [place], [address] , [facility] 4 08:19:10 Problem Notes None recorded. Procedures Surgical History Date Name Laterality Status Provider Name and Address Organization Details Recorded Time 3 Removal of gallbladder completed MD Shira GARLAND Dr, [place], [address], [facility] 06/16/2023 09:26:56 Imaging Results Imaging Date Name Status LastModified by Organiz ation Details LastModified Time 03/21/2024 vrad report completed [address] [place], [address] 03/22/2024 07:53:14 03/21/2024 CT imaging report completed [address] [place], [address] 03/22/2024 07:53:15 Procedure Notes None recorded. Medical Equipment None Reported. Allergies Allergen ID Allergen Name Allergen Category Reaction Reaction Severity Criticality Documentation Date Start Date Code Code System Note Provider Name and Address Organization Details Recorded Time 34947 Canis lupus familiari s extract environme nt other mild Not available 06/11/20232022 04458 4 RxNorm No react [facility] 4 22:20:04 99073 gabapenti n medicatio n other mild Not available 06/11/20232022 80236 RxNorm No react ion enter ed Kera Jelly [facility] 4 22:20:32 33638 POLLEN EXTRACTS environme nt,medica tion other mild Not available 06/11/20232022 80749 6 RxNorm No react ion enter ed Kera Jelly [facility] 4 22:21:07 84481 Vistaril medicatio n other mild Not available 06/11/20232022 95382 9 RxNorm No react ion enter ed Kera Jelly [facility] 22:21:35 Medications Name Sig Start Date Stop [...] Not Available Not Available Not Available Acid Swimming Instructor (cimetidine ) 200 mg tablet 1 tablet [...] DateTime 4 152.298 4 cm 38.7 kg/m2 10843.2 9 g 18 /min 99 % 99 % 106 /min 98 [degF] 110 mm[Hg] 68 mm[Hg] [facility] 4 14:28:46 Date Recorded Body height Body mass index (BMI) Body weight Body temperature Oxygen saturation Oxygen saturation in Arterial blood by Pulse oximetry Heart rate Systolic blood pressure Diastolic blood pressure Provider Name and Address Organization Details Last Updated DateTime 4 152.298 4 cm 38.9 kg/m2 29394.8 8 g 97.8 [degF] 97 % 97 % 80 /min 118 mm[Hg] 70 mm[Hg] [facility] 4 14:35:09 Date Recorded Body height Body temperature Body mass index (BMI) Body weight Oxygen saturation Oxygen saturation in Arterial blood by Pulse oximetry Heart rate Systolic blood pressure Diastolic blood pressure Provider Name and Address Organization Details Last Updated DateTime 4 152.298 4 cm 97.8 [degF] 39.5 kg/m2 75050.6 6 g 99 % 99 % 87 /min 118 mm[Hg] 68 mm[Hg] [facility], [facility] 4 07:34:24 Social History Question Answer Notes LastModified by Organizat ion Details LastModified Time Tobacco Smoking Status Never Smoker MIRZA DESAI RN [facility], [facility] 07/02/2023 11:37:13 What Was The Date Of Your Most Recent Tobacco Screening? 10/18/2023 Information not available 10/18/2023 Has Tobacco Cessation Counseling Been Provided? No [email or web address] Information not available 07/02/2023 Do You Or [...] Recorded Time MMR 09/22/2006 completed Not Available [facility] 05:56:15 MMR 02/18/2001 completed Not Available [facility] 05:56:16 DTaP, unspecified formulation 10/01/2006 completed Not Available [facility] 06/11/2023 05:56:16 DTaP, unspecified formulation 1999 completed Not Available [facility] 06/11/2023 05:56:16 DTaP, unspecified formulation 11/23/2000 completed Not Available [facility] 06/11/2023 05:56:16 DTaP, unspecified formulation 1999 completed Not Available [facility] 06/11/2023 05:56:16 DTaP, unspecified formulation 02/18/2000 completed Not Available [facility] 06/11/2023 05:56:16 Tdap 09/22/2011 completed Not Available [facility] 05:56:16 Novel [id number], all formulations 08/19/2009 completed Not Available [facility] 06/11/2023 05:56:16 Novel [id number], all formulations 07/18/2009 completed Not Available [facility] 06/11/2023 05:56:16 HPV, unspecified formulation 12/12/2021 completed Not Available [facility] 06/11/2023 05:56:17 HPV, unspecified formulation 02/06/2021 completed Not Available [facility] 06/11/2023 05:56:17 HPV, unspecified formulation 05/13/2021 completed Not Available [facility] 06/11/2023 05:56:17 Pneumococcal Conjugate, unspecified formulation 08/24/2000 completed Not Available [facility] 06/11/2023 05:56:17 Pneumococcal Conjugate, unspecified formulation 11/23/2000 completed Not Available [facility] 06/11/2023 05:56:17 Hib, unspecified formulation 1999 completed Not Available [facility] 06/11/2023 05:56:17 Hib, unspecified formulation 11/23/2000 completed Not Available [facility] 06/11/2023 05:56:17 Hib, unspecified formulation 1999 completed Not Available [facility] 06/11/2023 05:56:17 Hib, unspecified formulation 02/18/2000 completed Not Available [facility] 06/11/2023 05:56:17 COVID-19, mRNA, LNP-S, PF, 30 mcg/0.3 mL dose 11/24/2020 completed Not Available [facility] 06/11/2023 05:56:18 COVID-19, mRNA, LNP-S, PF, 30 mcg/0.3 mL dose 12/15/2020 completed Not Available [facility] 06/11/2023 05:56:18 COVID-19, mRNA, LNP-S, PF, 30 mcg/0.3 mL dose 06/27/2021 completed Not Available [facility] 06/11/2023 05:56:18 varicella 08/24/2000 completed Not Available [facility] 05:56:18 varicella 07/16/2006 completed Not Available [facility] 05:56:18 COVID-19, mRNA, LNP-S, bivalent, PF, 30 mcg/0.3 mL dose 06/05/2022 completed Not Available [facility] 06/11/2023 05:56:18 Hep B, unspecified formulation 1999 completed Not Available [facility] 06/11/2023 05:56:18 Hep B, unspecified formulation 1999 completed Not Available [facility] 06/11/2023 05:56:18 Hep B, unspecified formulation 05/29/2000 completed Not Available [facility] 06/11/2023 05:56:18 influenza, unspecified formulation 05/16/2009 completed Not Available [facility] 06/11/2023 05:56:19 influenza, unspecified formulation 05/31/2007 completed Not Available [facility] 06/11/2023 05:56:19 influenza, unspecified formulation 06/05/2022 completed Not Available [facility] 06/11/2023 05:56:19 influenza, unspecified formulation 06/08/2008 completed Not Available [facility] 06/11/2023 05:56:19 polio, unspecified formulation 1999 completed Not Available [facility] 06/11/2023 05:56:19 polio, unspecified formulation 1999 completed Not Available [facility] 06/11/2023 05:56:19 polio, unspecified formulation 01/15/2004 completed Not Available [facility] 06/11/2023 05:56:19 polio, unspecified formulation 02/18/2001 completed Not Available [facility] 06/11/2023 05:56:19 Tdap 04/26/2023 completed Not Available [facility] 05:31:00 Influenza, split virus, quadrivalent, PF 04/26/2023 completed Not Available [facility] 08/13/2023 05:31:00 Influenza, split virus, quadrivalent, PF 05/27/2023 completed Not Available [facility] 08/13/2023 05:31:00 Past Encounters Encounter ID Performer Location Encounter Start Date Encounter Closed Date Diagnosis/Indication Diagnosis SNOMED-CT Code Diagnosis ICD10 Code [id number] SUDHA SALAZAR MD [address] [address] 07/02/2023 11:21:17 07/02/2023 13:09:01 Disorder of hyoid bone 453102319 M89.9 [id number] SUDHA SALAZAR MD [address] [address] 08/19/2023 14:48:33 08/19/2023 16:32:17 Disorder of hyoid bone 510644293 M89.9 Gastroesop hageal reflux disease 296903296 K21.9 Uncomplica celina moderate persistent asthma 331765592 J45.40 Chronic pain 06489958 G8 9.29 Chronic mi graine without aura 8244453917 14416 G43.240 [id number] SUDHA SALAZAR MD [address] [address] 10/18/2023 14:10:14 10/18/2023 16:08:36 Chronic migraine without aura 4554052058 45737 G43.709 Gastroesop hageal reflux disease 978103994 K21.9 Vitamin D deficiency 347 25612 E55.9 Anxiety disorder 6811362 06 F41.9 Body mass index 30+ - obesity 004817379 Z68.37 Uncomplica celina moderate persistent asthma 898851170 J45.40 Iron deficiency 50521864 E61.1 Chronic pain 79130368 G8 9.29 [id number] SUDHA SALAZAR MD [address] [address] 01/28/2024 14:07:20 01/28/2024 15:17:00 Dysuria 27642132 R30.0 Autoimmune thyroiditis 11860070 E06.3 Chronic mi graine without aura 2957548360 96446 G43.709 Chronic pain 88273985 G8 9.29 [id number] ASHA HALL [address] [address] 02/22/2024 12:55:25 02/22/2024 13:28:47 Dysuria 45308187 R30.0 [id number] ASHA HALL [address] [address] 02/24/2024 12:56:26 02/24/2024 12:58:00 Family history of diabetes mellitus 464397565 Z83.3 [id number] SUDHA SALAZAR MD [address] [address] 03/31/2024 07:21:38 03/31/2024 08:16:13 Chronic interstitial cystitis 668595915 N30.10 Anxiety disorder 4148850 06 F41.9 Allergic rhinitis 325674 04 J30.9 Prediabetes 263533419 R7 3.03 Health Concerns Section Related Observation LastModified by Organization Detai ls LastModified Time None Recorded Concern Status LastModified by Organization Details LastModified Time None Recorded Advance Directives Directive None Recorded Payers Encounter Date Sequence Insurance Name Policy Number Policy Adams Covered Member ID Adams Member ID Guarantor Name 10/18/2023 1 [facility] [id number] Cassiopeia L Acevedo [id number] Cassiopeia L Acevedo 01/28/2024 1 [facility] [id number] Cassiopeia L Acevedo [id number] Cassiopeia L Acevedo 02/22/2024 1 [facility] [id number] Cassiopeia L Acevedo [id number] Cassiopeia L Acevedo 02/24/2024 1 [facility] [id number] Cassiopeia L Acevedo [id number] Cassiopeia L Acevedo 03/31/2024 1 [facility] [id number] Freda L Acevedo [id number] Cassioponiela L Acevedo Notes Date Note Type Note Provider Name and Address Organization Details Recorded Time 10/18/2023 text/html HPI Notes: Denta l issues - needs tooth extractions. Migraines - not better with the aimovig yet. Anxiety, ADHD - her psychiatrist is leaving, transferring psych care to me. Feels venlafaxine has overall been helpful. Chronic pain/chiari malformation - saw neurosurg who [place] [facility] [place] and limb pain. Upper neck is biggest source of pain right now, gets knot on the left, makes it hard to move head or sleep. PT has never been helpful. Has not tried meloxicam yet. Was confused about what she could or could not take it with. Asthma - better since increasing symbicort. MD Shira GARLAND [address], [place], [address], [facility] 10/19/2023 14:24:30 01/28/2024 text/html HPI Notes: [place] presents in follow up. Biggest concern is wondering about a UTI. Has had urinary frequency and discomfort with urination for a week and a half. No fevers. Migraines - not better with the aimovig yet. Still having intense migraines, 5-6 days on end. Anxiety, ADHD - Feels venlafaxine has overall been helpful. Chronic pain/chiari malformation - saw neurosurg who referred [place] [facility] [place] issues and limb pain. Saw Dr. Valdez at [facility]. Didn't offer surgical solution. Did do rheum [...] SOB at times. MD Shira GAR[address] Dr, [place], [address], [facility] 01/28/2024 20:29:22 03/31/2024 text/html HPI Notes: Doc Acevedo presents [...] ovary. SUDHA SALAZAR MD [address], [place], [address], [facility]. 03/31/2024 09:03:53 OBGyn Episode No OBEpisode recorded.
== END 2024-03-31 16:46 | disposition home or self-care (01) ==
LOC: NCHCN 16:45
PROVIDERS: PCP Family Medicine; Visit Provider Family Medicine
DX: R30.0 Dysuria (principal)
CPT/HCPCS: 87086

== ENCOUNTER 2024-08-31 17:33 | Outpatient (REF) | payer OTHER, SELFPAY ==
[2024-08-31 15:40] LABS: TSH (W/Ref FT4) 3.18 uIU/mL (0.36-3.74)
[2024-08-31 15:55] LABS: Hemoglobin A1C 6.6 % (<5.7)
--- OUTSIDE RECORDS SUMMARY | 2024-08-31 17:35 | XMS_ITS | Continuity of Care Document ---
Author Organization [facility] Amb[facility] Address [address] [place] [address] Care Team Providers Care Senior Ui Ux Developer Name Role Phone URSULA GLASS MD Primary Care Physician [phone] Encounter [facility] NBR [id number] Date(s): 04/26/24 - 04/26/24 [facility] [address] [place] [address]- [place] Encounter Diagnosis Dysuria(Discharge Diagnosis) - 04/26/24 Urinary frequency(Discharge Diagnosis) - 04/26/24 Discharge Disposition: Home or Self Care Attending Physician: Sammie Cabral APRN Referring Physician: URSULA GLASS MD Allergies, Adverse Reactions, Alerts Substance Criticality Severity Reaction Reaction Severity Status gabapentin Unable to assess criticality Unknown Active Vistaril Unable to assess criticality Unknown Active Dog dander Unable to assess criticality Unknown Active Assessment and Plan Extracted from: Title:URO-Office Visit Note Author:Sammie Cabral APRN Date:04/26/24 1.??Dysuria??R30.0 ??Tylenol 1000 mg po??tid if symptoms are bothersome enough for her to do so.?? 2.??Urinary frequency??R35.0 ??1. She will complete a voiding diary and mail it back to me. I will call her with results and recommendations.?2. I gave her printed information on Gemtesa, she would be a candidate to trial this if her voiding diary is suggestive of OAB. Ms. Moe is a pleasant 23 y.o.??patient with a recent history of dysuria, urinary frequency, and bladder spasms.?? Medications Aimovig SureClick Autoinjector 140 mg/mL subcutaneous solution INJECT 1 ML SUBCUTANEOUSLY ONCE EVERY MONTH Start Date: 03/30/24 Status: Ordered Albuterol (Eqv-Proventil HFA) 90 mcg/inh inhalation aerosol 0 Refill(s) Start Date: 03/30/24 Status: Ordered Breyna 80 mcg-4.5 mcg/inh inhalation aerosol 0 Refill(s) Start Date: 03/30/24 Status: Ordered meloxicam 15 mg oral tablet 0 Refill(s) Start Date: 03/30/24 Status: Ordered omeprazole 40 mg oral delayed release capsule 0 Refill(s) Start Date: 03/30/24 Status: Ordered Symbicort 80 mcg-4.5 mcg/inh inhalation aerosol 2 puffs, Inhale, BID, # 10.2 g, 0 Refill(s) Start Date: 04/26/24 Status: Ordered venlafaxine 75 mg oral capsule, extended release 75 mg = 1 cap, Oral, Daily, # 30 cap, 0 Refill(s) Start Date: 03/30/24 Status: Ordered VITAMIN D3 (FLORINDA) 1,000IU CAP VITAMIN D3 (FLORINDA) 1,000IU CAP, TAKE 1 CAPSULE BY MOUTH ONCE DAILY Start Date: 03/30/24 Status: Ordered Problem List Condition Confirmation Course Effective Dates Status Health St atus Informant Dysuria Confirmed Active Urinary frequency Confirmed Active Anxiety and depression Confirmed Active Painful bladder spasm Confirmed Active Procedures Procedure Date Related Diagnosis Body Site Status Removal of gallbladder 06/15/23 Co mpleted Results Laboratory List Name Date .Urinalysis POCT 04/26/24 Most recent to oldest [Reference Range]: 1 Method of Collect POC Clean Catch *NA* (04/26/24 10:57 AM) Specific [place], Ur POC 1.015 *NA* (04/26/24 10:57 AM) Specimen Color POC [Yellow] Yellow (04/26/24 10:57 AM) Glucose, Urine POC Negative mg/dL *NA* (04/26/24 10:57 AM) Bilirubin, Urine POC [Negative] Negative (04/26/24 10:57 AM) Ketones, Urine POC [Negative mg/dL] Nega tive mg/dL (04/26/24 10:57 AM) Blood, Urine POC [Negative] Negative (04/26/24 10:57 AM) pH, Urine POC 5.5 *NA* (04/26/24 10:57 AM) Protein, Urine POC [Negative mg/dL] Nega tive mg/dL (04/26/24 10:57 AM) Urobilinogen, Urine POC [0.2] 0.2 (04/26/24 10:57 AM) Nitrite, Urine POC [Negative] Negative (04/26/24 10:57 AM) Leuk Esterase, Urine POC [Negative] Nega tive (04/26/24 10:57 AM) Clarity, Urine POC [Clear] Clear (04/26/24 10:57 AM) Vital Signs Most recent to oldest [Reference Range]: 1 Peripheral Pulse Rate [60-100 bpm] 105 b pm *HI* (04/26/24 10:21 AM) Blood Pressure [90-140/60-90 mmHg] 128/8 2mmHg (04/26/24 10:21 AM) Mean Arterial Pressure, Cuff [65-140 mmH g] 97 mmHg (04/26/24 10:21 AM) Social History Social History Type Response Tobacco Never tobacco user T obacco Use:. Sex Sex Representation Female (finding) Physician Emergency department Note * Event Display: ED Note Physician Physician Outpatient Note * Sammie Cabral, DENTAL TECHNICIAN APPRENTICE: PERFORM Event Display: Office Clinic Note Physician Authored Date: [id number] GEGE MOE :2000 Age:23 years Sex:Female Visit Date:04/26/2024 Primary Care Physician: URSULA GLASS MD Chief Complaint painful urination History of Present Illness Mr. Chand is a pleasant 23 y.o. patient who presents to the clinic today for evaluation of painful urination. She reports a several month history of dysuria, bladder spasms, and pressure. Urinalysis and culture have been negative. She tells me today, symptoms started in December.? Urinalysis obtained on 02/22/24 was completely unremarkable. Culture suggestive of contamination. Urinalysis today is also completely unremarkable.? She describes s urinary stream that starts off strong and then becomes weak with intermittency. Sometimes it takes??a minute to initiate her stream. Frequency is typically 1.5h. Nocturia 1-2x. She reports mild PINKY with cough and sneeze and she is sometimes unaware incontinence has occurred. She is not wearing a pad or liner for symptom management. She describes bladder spasms especially bothersome if her bladder is full. There is always a nagging discomfort over her bladder, she describes as?? soreness or twinges.??She feels she voids to completion most of the time, PVR was 4 mL today. ?? CT Abd/Pelvis w/contrast obtained on 03/21/24 revealed no urologic abnormalities. A follicle was noted on left ovary.? She denies a history of UTI, urolithiasis, or gross hematuria.? She drinks mostly water during the day. She no longer drinks soda or juice. She has coffee once a week or so and sometimes tea. She thinks she is drinking about 30-40 oz of water daily. ?? She is wondering if her symptoms may be caused by endometriosis. She will discuss with her FORMING OPERATOR provider. She is using Nexplanon for control and tells me she just needed it replaced a few weeks ago. Prior to replacement, she was noticing her periods returning and a worsening of current symptoms. She thinks over the last week or so her symptoms are slowly starting to improve.? She smokes marijuana a few times a week to help with pain management.? Her mom has IC.? Bladder Scan PVR Entered On: ??04/26/2024 10:57 EDT?Performed On: ??04/26/2024 10:57 EDT by Bianca Schuler? Bladder Scan PVR?? Void Prior to Bladder Scan : ?Yes?? Bladder Distention : ?Absent?? Patient States Need to Void : ?No?? Position During Bladder Scan : ?Supine?? Bladder Scan Volume : ?4 mL?? Bianca Schuler - 04/26/2024 10:57 EDT? Result type:?Bladder Scan PVR Amb - Text Result date:?April 26, 2024 10:57 EDT Result status:?Auth (Verified) Result title:?Bladder Scan PVR Performed by:?Bianca Schuler on April 26, 2024 10:57 EDT Verified by:?Bianca Schuler on April 26, 2024 10:57 EDT Encounter info:?[id number], [id number], 04/26/2024 - ?? [1] Review of Systems Constitutional:?No??fevers,?No??chills,?No??sweats Eye:?No??recent visual problems ENT:?No??ear pain,?No??nasal congestion,?No??sore throat Respiratory:?Positive for??asthma,?No??cough, SOB Cardiovascular:?No??Chest pain,?No??palpitations,?No??syncope Gastrointestinal:?Positive for??GERD,?No??vomiting, nausea,?No??diarrhea Genitourinary:?Positive for??dysuria, SP pressure, urinary frequency, nexplanon??implant for control?? 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 BP:??128/82?? SpO2:??99%?? GENERAL APPEARANCE:??alert and oriented in NAD; appropriate with good affect.?? NEURO:??grossly intact.?? HEENT:??NCAT; EOMI.?? NECK:??supple.?? CHEST:??symmetric excursions.?? ABDOMEN: deferred. MUSCULOSKELETAL:??good gait and station.?? EXTREMITIES:??no c/c/e??.?? BACK/SPINE: deferred.?? :??deferred. Assessment/Plan 1.??Dysuria??R30.0 ??Tylenol 1000 mg po??tid if symptoms are bothersome enough for her to do so.?? 2.??Urinary frequency??R35.0 ??1. She will complete a voiding diary and mail it back to me. I will call her with results and recommendations.?2. I gave her printed information on Gemtesa, she would be a candidate to trial this if her voiding diary is suggestive of OAB. Ms. Moe is a pleasant 23 y.o.??patient with a recent history of dysuria, urinary frequency, andbladder spasms.?? Problem List/Past Medical History Ongoing Anxiety and depression Dysuria Painful bladder spasm Urinary frequency Historical No qualifying data Procedure/Surgical History ???Removal of gallbladder (06/16/2023) Medications Aimovig SureClick Autoinjector 140 mg/mL subcutaneous solution Albuterol (Eqv-Proventil HFA) 90 mcg/inh inhalation aerosol Breyna 80 mcg-4.5 mcg/inh inhalation aerosol meloxicam 15 mg oral tablet omeprazole 40 mg oral delayed release capsule Symbicort 80 mcg-4.5 mcg/inh inhalation aerosol, 2 puffs, Inhale, BID venlafaxine 75 mg oral capsule, extended release, 75 mg= 1 cap, Oral, Daily VITAMIN D3 (FLORINDA) 1,000IU CAP Allergies Dog dander Vistaril gabapentin Social History Electronic Cigarette/Vaping Electronic Cigarette Use: Never. Tobacco Never tobacco user Tobacco Use:. Family History Diabetes mellitus: Father and Grandfather (P). Lab Results Test Name Test Result Date/Time Method of Collect POC Clean Catch 04/26/2024 10:57 EDT Specimen Color POC Yellow 04/26/2024 10:57 EDT Clarity, Urine POC Clear 04/26/2024 10:57 EDT Glucose, Urine POC Negative 04/26/2024 10:57 EDT Bilirubin, Urine POC Negative 04/26/2024 10:57 EDT Ketones, Urine POC Negative 04/26/2024 10:57 EDT Specific [place], Ur POC 1.015 04/26/2024 10:57 EDT pH, Urine POC 5.5 04/26/2024 10:57 EDT Protein, Urine POC Negative 04/26/2024 10:57 EDT Urobilinogen, Urine POC 0.2 04/26/2024 10:57 EDT Nitrite, Urine POC Negative 04/26/2024 10:57 EDT Blood, Urine POC Negative 04/26/2024 10:57 EDT Leuk Esterase, Urine POC Negative 04/26/2024 10:57 EDT Electronically Signed on 04/26/2024 13:39 EDT Sammie Cabral APRN Patient Care team information Care Team Personnel Name: URSULA GLASS MD Position: No Access Member Role: Primary Care Physician Address: [address] [place] [address]- Care Team Related Persons Name: LEXUS THURMAN Insurance Providers Guarantor name: LEANDRO Health Plan Information #: 1 Payer: [employer] Member Number: [id number] Policy Number: NA Health Plan Information #: 2 Payer: [employer] Member Number: [id number] Policy Number: NA
--- OUTSIDE RECORDS SUMMARY | 2024-08-31 17:35 | XMS_ITS | Data Portability ---
Author Organization [place] - [facility], [facility] Address [address] [place] [address] Assessment Encounter Date Assessment Date Assessment LastModified [...] CT reads. [email or web address] Not available 03/31/2024 08:22:11 05/04/2024 05/04/2024 Doc Acevedo presents for follow-up, reporting no improvement in daily migraines and ongoing painful bladder spasms. Amitriptyline was ineffective for both conditions. The patient experiences severe migraines with photophobia, phonophobia, nausea, and vomiting, and is open to switching to Ajovy and trying Sumatriptan. They also report abdominal pain are interested in an abdominal ultrasound. The patient has been referred to urology for suspected overactive bladder and is awaiting further recommendations. Vaccinations for flu and COVID are due and will be administered during the visit. [email or web address] Not available 05/04/2024 13:59:47 Plan of Treatment Reminders Order Date Submit Date Provider Last Modified By Organization Details Last Modified Time Details Appointments Office Visit 30 2024 10:00A Gauri Salazar Not available Not available Not available Follow Up 20 2024 03:10P Gauri Salazar Not available Not available Not available Lab urinalysi s, dipstick 2023 024 [facility], [address] [place] [address], [address], 02/22/2024 14:48:50 culture, urine + sensitivi ty - Urine sample 2023 [facility] (Registration ), [address] [place] [address] [place], [address], 02/25/2024 07:42:53 hemoglobi n A1C, fingersti ck 2023 [facility], [address] [place] [address], [id number], 02/24/2024 13:24:02 culture, urine - 1 urine collected in office-SN 2023 [facility] (Registration ), [address] [place] [address] [place], [address], 04/05/2024 12:59:00 urinalysi s, dipstick 2023 024 [facility], [address] [place] [address], [address], 03/31/2024 09:42:59 Referral None recorded. Procedures None recorded. Surgeries None recorded. Imaging US, abdomen - question of hepatospl enomegaly and hepatic steatosis on prior imaging, please confirm. Also evaluate ovaries, bilateral ovarian pain and prior cyst on left ovary. 2023 [id number] [facility] (Radiology), [address] [place] [address] [place], [address], 08/31/2024 14:11:12 Medication Orders cetirizin e 10 mg tablet 2023 024 [facility], [address] [place], [address], 03/31/2024 08:10:55 amitripty line 10 mg tablet 2023 024 [facility], [address] [place] [address], [id number], 05/04/2024 13:41:02 venlafaxi ne ER 75 mg capsule,e xtended release 24 hr 2023 024 [facility], [address] [place] [address], [address], 03/31/2024 08:10:52 Ajovy 225 mg/1.5 mL subcutane ous auto-inje ctor 2023 024 [facility], [address] [place] [address], [id number], 08/31/2024 10:12:06 sumatript an 50 mg tablet 2023 024 [facility], [address] [place] [address], [id number], 05/04/2024 13:58:26 Patient TargetsNo targets recorded. Patient Instructions Encounter Date Encounter Id Patient Instructions Last Modified By Organization Details Last Modified Time 03/31/2024 [id number] Dear Alvaro Roach you for visiting today [...] when possible. - Consider meeting with a south asian history professor for more detailed dietary guidance if needed. [...] Family Medicine [email or web address] Not available 03/31/2024 08:13:25 05/04/2024 [id number] Dear Doc, Your commitment to addressing your health concerns is appreciated, and I am dedicated to assisting you in improving your overall well-being. Here is a summary of the reyes instructions and next steps we discussed during your visit: - Medication Changes: - Begin Ajovy: For migraine prevention, with a monthly dosing schedule. - Begin Sumatriptan: For acute migraine attacks, to be taken at the onset of symptoms. This can be taken in conjunction with Tylenol if necessary. You may repeat the Sumatriptan dose after two hours if the first dose is not effective. - Diagnostic Tests: - Complete a 2-day Voiding Diary: To assess symptoms of overactive bladder. - Schedule Comprehensive Abdominal Ultrasound: Focusing on the liver, spleen, and ovaries to further investigate your reported pain and check for possible enlargement. This will also examine the right side where you've been experiencing pain. - Follow-Up Care: - Await Feedback from Urologist: Regarding the voiding diary results and potential treatment with trospium. - Schedule Follow-up Appointment: In three months to evaluate the effectiveness of the new migraine medication and discuss any further adjustments needed. - Consider Laparoscopy: To evaluate potential endometriosis, based on ongoing symptoms and previous discussions. - Additional Recommendations: - Vaccinations: You will receive flu and COVID vaccinations during today's visit. Please feel free to reach out if you have any questions or need further clarification on your treatment plan. I look forward to seeing you at your next appointment. Best regards, Dr. Sudha Salazar MD [email or web address] Not available 05/04/2024 13:53:39 Reason for Referral Neurologist Referral for Chr onic migraine without aura migraines not responsive to many treatment trials Referring Physician: Sudha Salazar Family Medicine, Encounter Date: 08/31/2024 Oil Change Technician Referral for Nausea chronic daily nausea, not improved with THC cessation for months Referring Physician: Sudha Salaazr [facility] Medicine, Encounter Date: 08/31/2024 Results Created Date Observation Date Name Description Value Unit Range Abnormal Flag Note LastModifiedBy Organization Detail LastModifiedTime 01/28/20 24 01/28/2024 TSH (W/RE F FT4) TSH (w/ref FT4) 3.72 uIU/m L 0.36-3 .74 normal Not Available [facility] (Registration ) [address] [place] [address] [place], [address], 01/28/2024 21:54:45 01/28/2001/28/2024 urina lysis , dipst ick Unknown Analyte Not Available [address] [place], [address], 01/28/2024 15:30:57 01/28/20 24 01/28/2024 urina lysis , dipst ick Leukocytes Small Not Available [address], [address], 01/28/2024 15:31:40 01/28/20 24 01/28/2024 urina lysis , dipst ick Nitrite negati ve Not Available [address], [address], 01/28/2024 15:31:40 01/28/20 24 01/28/2024 urina lysis , dipst ick Urobilinogen .2 Not Available [address], [address], 01/28/2024 15:31:40 01/28/20 24 01/28/2024 urina lysis , dipst ick Protein Trace Not Available [address], [address], 01/28/2024 15:31:40 01/28/20 24 01/28/2024 urina lysis , dipst ick pH 6.0 Not Available [address], [address], 01/28/2024 15:31:40 01/28/20 24 01/28/2024 urina lysis , dipst ick Blood Negati ve Not Available [address], [address], 01/28/2024 15:31:40 01/28/20 24 01/28/2024 urina lysis , dipst ick Specific [place] 1.005 Not Available [address], [address], 01/28/2024 15:31:40 01/28/20 24 01/28/2024 urina lysis , dipst ick Ketone Negati ve Not Available [address], [address], 01/28/2024 15:31:40 01/28/20 24 01/28/2024 urina lysis , dipst ick Bilirubin Negati ve Not Available [address], [address], 01/28/2024 15:31:40 01/28/20 24 01/28/2024 urina lysis , dipst ick Glucose Negati ve Not Available [address], [address], 01/28/2024 15:31:40 01/28/20 24 01/28/2024 urina lysis , dipst ick Appearance Clear Not Available [address], [address], 01/28/2024 15:31:40 01/28/20 24 01/28/2024 urina lysis , dipst ick Color Yellow Not Available [address], [address], 01/28/2024 15:31:40 02/22/20 24 02/24/2024 URINE CULTU RE urine culture Urine Cultu re Proba ble conta minat ed colle ction APPEA BRIANA Mixed Gram Posit anjana Lo COLON Y COUNT Not Available [facility] (Registration ) [address] [place], [address], 02/24/2024 13:17:49 02/22/20 24 02/24/2024 URINE CULTU RE urine culture colon ies/m L 10,00 0 - 50,00 0 Day 1 Resul t ISOLA NATALY BELOW O:GPF M (ORGA NISM ID: 1.1) - GRAM POSIT ANJANA LO ,MIXE D Urine Cultu re (ORGA NISM ID: 1.1) - COLON Y COUNT (ORGA NISM ID: 1.1) - 10,00 0 - 50,00 0 Not Available [facility] (Registration ) [address] [place] [address] [place], [address], 02/24/2024 13:17:49 02/22/20 24 02/25/2024 URINE CULTU RE urine culture Urine Cultu re Proba ble conta minat ed colle ction APPEA BRIANA Mixed Gram Posit anjana Lo APPEA BRIANA Mixed Gram Posit anjana Lo COLON Y COUNT Not Available [address] [place], [address] 02/25/2024 09:18:40 02/22/20 24 02/25/2024 URINE CULTU [...] 10,00 0 - 50,00 0 Not Available [address] [place], [address] 02/25/2024 09:18:40 02/22/20 24 02/22/2024 urina lysis , dipst ick Leukocytes Negati ve Not Available [address], [address], 02/22/2024 13:25:05 02/22/20 24 02/22/2024 urina lysis , dipst ick Nitrite negati ve Not Available [address], [address], 02/22/2024 13:25:05 02/22/20 24 02/22/2024 urina lysis , dipst ick Urobilinogen .2 Not Available [address], [address], 02/22/2024 13:25:05 02/22/20 24 02/22/2024 urina lysis , dipst ick Protein Negati ve Not Available [address], [address], 02/22/2024 13:25:05 02/22/20 24 02/22/2024 urina lysis , dipst ick pH 6.5 Not Available [address], [address], 02/22/2024 13:25:05 02/22/20 24 02/22/2024 urina lysis , dipst ick Blood Negati ve Not Available [address], [address], 02/22/2024 13:25:05 02/22/20 24 02/22/2024 urina lysis , dipst ick Specific [place] 1.005 Not Available [address], [address], 02/22/2024 13:25:05 02/22/20 24 02/22/2024 urina lysis , dipst ick Ketone Negati ve Not Available [address], [address], 02/22/2024 13:25:05 02/22/20 24 02/22/2024 urina lysis , dipst ick Bilirubin Negati ve Not Available [address], [address], 02/22/2024 13:25:05 02/22/20 24 02/22/2024 urina lysis , dipst ick Glucose Negati ve Not Available [address], [address], 02/22/2024 13:25:05 02/22/20 24 02/22/2024 urina lysis , dipst ick Appearance Cloudy Not Available [facility] [address] [place], [address], 02/22/2024 13:25:05 02/22/20 24 02/22/2024 urina lysis , dipst ick Color Pale Yellow Not Available [facility] [address] [place], [address], 02/22/2024 13:25:05 02/24/20 24 02/24/2024 hemog lobin A1C, finge rstic k hemoglobin A1C 6.0 % <5.7 Not Available [facility] [address] [place], [address], 02/23/2024 13:28:21 03/21/20 24 03/21/2024 LACTA TE lactate 1.3 mmol/ L 0.6-1. 4 normal Not Available [address] [place], [address] 03/21/2024 04:15:16 03/21/20 24 03/21/2024 COMPL ETE BLOOD COUNT W/DIF F WBC 13.36 10_3/ uL 4.4-10 .8 high Not Available [address] [place], [address] 03/21/2024 04:24:17 03/21/20 24 03/21/2024 COMPL ETE BLOOD COUNT W/DIF F RBC 4.69 10_6/ uL 3.93-5 .22 normal Not Available [address] [place], [address] 03/21/2024 04:24:17 03/21/20 24 03/21/2024 COMPL ETE BLOOD COUNT W/DIF F HGB 13.6 g/dL 11.2-1 5.7 normal Not Available [address] [place], [address] 03/21/2024 04:24:17 03/21/20 24 03/21/2024 COMPL ETE BLOOD COUNT W/DIF F HCT 41.6 % 36.0-4 6.0 normal Not Available [address] [place], [address] 03/21/2024 04:24:17 03/21/20 24 03/21/2024 COMPL ETE BLOOD COUNT W/DIF F MCV 89 fL 80-95 normal Not Available Ozzie colin [address] [place], [address] 03/21/2024 04:24:17 03/21/20 24 03/21/2024 COMPL ETE BLOOD COUNT W/DIF F MCH 29.0 pg 27.0-3 3.0 normal Not Available [address] [place], [address] 03/21/2024 04:24:17 03/21/20 24 03/21/2024 COMPL ETE BLOOD COUNT W/DIF F MCHC 32.7 % 32.0-3 6.0 normal Not Available [address] [place], [address] 03/21/2024 04:24:17 03/21/20 24 03/21/2024 COMPL ETE BLOOD COUNT W/DIF F RDW 14.0 % 11.7-1 4.6 normal Not Available [address] [place], [address] 03/21/2024 04:24:17 03/21/20 24 03/21/2024 COMPL ETE BLOOD COUNT W/DIF F platelet count 319 10_3/ uL 130-40 0 normal Not Available [address] [place], [address] 03/21/2024 04:24:17 03/21/20 24 03/21/2024 COMPL ETE BLOOD COUNT W/DIF F MPV 11.0 fL 8.0-11 .0 normal Not Available [address] [place], [address] 03/21/2024 04:24:17 03/21/20 24 03/21/2024 COMPL ETE BLOOD COUNT W/DIF F neutrophils % 63.9 % Not Available [address] [place], [address] 03/21/2024 04:24:17 03/21/20 24 03/21/2024 COMPL ETE BLOOD COUNT W/DIF F lymphocytes % 25.1 % Not Available [address] [place], [address] 03/21/2024 04:24:17 03/21/20 24 03/21/2024 COMPL ETE BLOOD COUNT W/DIF F monocytes % 9.1 % Not Available [address] [place], [address] 03/21/2024 04:24:17 03/21/20 24 03/21/2024 COMPL ETE BLOOD COUNT W/DIF F eosinophils % 1.0 % Not Available [address] [place], [address] 03/21/2024 04:24:17 03/21/20 24 03/21/2024 COMPL ETE BLOOD COUNT W/DIF F basophils % 0.6 % Not Available [address] [place], [address] 03/21/2024 04:24:17 03/21/20 24 03/21/2024 COMPL ETE BLOOD COUNT W/DIF F immature grans % 0.3 % Not Available [address] [place], [address] 03/21/2024 04:24:17 03/21/20 24 03/21/2024 COMPL ETE BLOOD COUNT W/DIF F nucleated RBC 0.0 % 0.0-0. 3 normal Not Available [address] [place], [address] 03/21/2024 04:24:17 03/21/20 24 03/21/2024 COMPL ETE BLOOD COUNT W/DIF F absolute neutrophil count 8.54 10_3/ uL 1.2-6. 7 high Not Available [address] [place], [address] 03/21/2024 04:24:17 03/21/20 24 03/21/2024 COMPL ETE BLOOD COUNT W/DIF F absolute lymphocyte count 3.35 10_3/ uL 1.2-3. 4 normal Not Available [address] [place], [address] 03/21/2024 04:24:17 03/21/20 24 03/21/2024 COMPL ETE BLOOD COUNT W/DIF F absolute monocyte count 1.22 10_3/ uL 0.1-0. 8 high Not Available [address] [place], [address] 03/21/2024 04:24:17 03/21/20 24 03/21/2024 COMPL ETE BLOOD COUNT W/DIF F absolute eosinophil count 0.13 10_3/ uL 0.0-0. 7 normal Not Available [address] [place], [address] 03/21/2024 04:24:17 03/21/20 24 03/21/2024 COMPL ETE BLOOD COUNT W/DIF F absolute basophil count 0.08 10_3/ uL 0.0-0. 2 normal Not Available [address] [place], [address] 03/21/2024 04:24:17 03/21/20 24 03/21/2024 URINA LYSIS color [place] yellow Not Available Ozzie colin [address] [place], [address] 03/21/2024 04:29:18 03/21/20 24 03/21/2024 URINA LYSIS clarity Clear clear Not Available Ozzie colin [address] [place], [address] 03/21/2024 04:29:18 03/21/20 24 03/21/2024 URINA LYSIS specific gravity 1.010 1.005- 1.025 normal Not Available [address] [place], [address] 03/21/2024 04:29:18 03/21/20 24 03/21/2024 URINA LYSIS pH 6.5 5-8 normal Not Available Ozzie colin [address] [place], [address] 03/21/2024 04:29:18 08/20/20 24 03/21/2024 URINA LYSIS leukocyte esterase Trace negati ve abnormal Not Available [address] [place], [address] 03/21/2024 04:29:18 03/21/20 24 03/21/2024 URINA LYSIS nitrite Negati ve negati ve Not Available [address] [place], [address] 03/21/2024 04:29:18 03/21/20 24 03/21/2024 URINA LYSIS protein Trace mg/dL neg-tr carlito Not Available [address] [place], [address] 03/21/2024 04:29:18 03/21/20 24 03/21/2024 URINA LYSIS glucose Negati ve mg/dL negati ve Not Available [address] [place], [address] 03/21/2024 04:29:18 03/21/20 24 03/21/2024 URINA LYSIS ketones Negati ve mg/dL negati ve Not Available [address] [place], [address] 03/21/2024 04:29:18 03/21/20 24 03/21/2024 URINA LYSIS urobilinogen 0.2 mg/dL up to 0.2 Not Available [address] [place], [address] 03/21/2024 04:29:18 03/21/20 24 03/21/2024 URINA LYSIS bilirubin Negati ve negati ve Not Available [address] [place], [address] 03/21/2024 04:29:18 03/21/20 24 03/21/2024 URINA LYSIS blood Large negati ve abnormal Not Available [address] [place], [address] 03/21/2024 04:29:18 03/21/20 24 03/21/2024 URINA LYSIS color [place] yellow Not Available Ozzie colin [address] [place], [address] 03/21/2024 04:40:17 08/20/20 24 03/21/2024 URINA LYSIS clarity Clear clear Not Available zOzie colin [address] [place], [address] 03/21/2024 04:40:17 03/21/20 24 03/21/2024 URINA LYSIS specific gravity 1.010 1.005- 1.025 normal Not Available [address] [place], [address] 03/21/2024 04:40:17 03/21/20 24 03/21/2024 URINA LYSIS pH 6.5 5-8 normal Not Available Ozzie colin [address] [place], [address] 03/21/2024 04:40:17 03/21/20 24 03/21/2024 URINA LYSIS leukocyte esterase Trace negati ve abnormal Not Available [address] [place], [address] 03/21/2024 04:40:17 03/21/20 24 03/21/2024 URINA LYSIS nitrite Negati ve negati ve Not Available [address] [place], [address] 03/21/2024 04:40:17 03/21/20 24 03/21/2024 URINA LYSIS protein Trace mg/dL neg-tr carlito Not Available [address] [place], [address] 03/21/2024 04:40:17 03/21/20 24 03/21/2024 URINA LYSIS glucose Negati ve mg/dL negati ve Not Available [address] [place], [address] 03/21/2024 04:40:17 03/21/20 24 03/21/2024 URINA LYSIS ketones Negati ve mg/dL negati ve Not Available [address] [place], [address] 03/21/2024 04:40:17 03/21/20 24 03/21/2024 URINA LYSIS urobilinogen 0.2 mg/dL up to 0.2 Not Available [address] [place], [address] 03/21/2024 04:40:17 03/21/20 24 03/21/2024 URINA LYSIS bilirubin Negati ve negati ve Not Available [address] [place], [address] 03/21/2024 04:40:17 03/21/20 24 03/21/2024 URINA LYSIS blood Large negati ve abnormal Not Available [address] [place], [address] 03/21/2024 04:40:17 03/21/20 24 03/21/2024 MICRO SCOPI C FINDI NGS WBC 3-5 hpf 0-5 Not Available [address] [place], [address] 03/21/2024 04:40:18 03/21/20 24 03/21/2024 MICRO SCOPI C FINDI NGS RBC 20-50 hpf 0-2 abnormal Not Available [address], [address] 03/21/2024 04:40:18 03/21/20 24 03/21/2024 MICRO SCOPI C FINDI NGS epithelial cells Rare hpf negati ve Not Available [address] [place], [address] 03/21/2024 04:40:18 03/21/20 24 03/21/2024 MICRO SCOPI C FINDI NGS bacteria Few hpf negati ve Not Available [address] [place], [address] 03/21/2024 04:40:18 03/21/20 24 03/21/2024 MICRO SCOPI C FINDI NGS crystals Negati ve hpf negati ve Not Available [address] [place], [address] 03/21/2024 04:40:18 03/21/20 24 03/21/2024 MICRO SCOPI C FINDI NGS mucus Negati ve negati ve Not Available [address] [place], [address] 03/21/2024 04:40:18 03/21/20 24 03/21/2024 MICRO SCOPI C FINDI NGS casts Negati ve lpf negati ve Not Available [address] [place], [address] 03/21/2024 04:40:18 03/21/20 24 03/21/2024 MICRO SCOPI C FINDI NGS C S indicated? No Not Available [address] [place], [address] 03/21/2024 04:40:18 03/21/20 24 03/21/2024 COMPR EHENS ANJANA METAB OLIC PANEL calcium 9.8 mg/dL 8.5-10 .1 normal Resul t verif ied by repea t tana sis Not Available [address] [place], [address] 03/21/2024 05:04:19 03/21/20 24 03/21/2024 COMPR EHENS ANJANA METAB OLIC PANEL glucose 148 mg/dL 74-106 high Not Available Ozzie colin [address] [place], [address] 03/21/2024 05:04:19 03/21/20 24 03/21/2024 COMPR EHENS ANJANA METAB OLIC PANEL BUN 11 mg/dL 7-[address] [facility] [address] [place], [address] 03/21/2024 05:04:19 03/21/20 24 03/21/2024 COMPR EHENS ANJANA METAB OLIC PANEL creatinine 0.9 mg/dL 0.55-1 .02 normal Not Available [address] [place], [address] 03/21/2024 05:04:19 03/21/20 24 03/21/2024 COMPR EHENS [...] young er-ag ed adult s. Not Available [address] [place], [address] 03/21/2024 05:04:19 03/21/20 24 03/21/2024 COMPR EHENS ANJANA METAB OLIC PANEL total protein 7.8 g/dL 6.4-8. 2 normal Not Available [address] [place], [address] 03/21/2024 05:04:19 03/21/20 24 03/21/2024 COMPR EHENS ANJANA METAB OLIC PANEL albumin 4.1 g/dL 3.4-5. 0 normal Not Available [address] [place], [address] 03/21/2024 05:04:19 03/21/20 24 03/21/2024 COMPR EHENS ANJANA METAB OLIC PANEL bilirubin, total 0.28 mg/dL 0.2-1. 0 normal Not Available [address] [place], [address] 03/21/2024 05:04:19 03/21/20 24 03/21/2024 COMPR EHENS ANJANA METAB OLIC PANEL alk phos 88 U/L 46-116 normal Not Available [address] [place], [address] 03/21/2024 05:04:19 03/21/20 24 03/21/2024 COMPR EHENS ANJANA METAB OLIC PANEL sodium 139 mmol/ L 136-14 5 normal Not Available [address] [place], [address] 03/21/2024 05:04:19 03/21/20 24 03/21/2024 COMPR EHENS ANJANA METAB OLIC PANEL potassium 3.7 mmol/ L 3.5-5. 1 normal Not Available [address] [place], [address] 03/21/2024 05:04:19 03/21/20 24 03/21/2024 COMPR EHENS ANJANA METAB OLIC PANEL chloride 103 mmol/ L 98-107 normal Not Available [address] [place], [address] 03/21/2024 05:04:19 03/21/20 24 03/21/2024 COMPR EHENS ANJANA METAB OLIC PANEL CO2 23.6 mmol/ L 21.0-3 2.0 normal Not Available [address] [place], [address] 03/21/2024 05:04:19 03/21/20 24 03/21/2024 COMPR EHENS ANJANA METAB OLIC PANEL anion gap 12.4 mmol/ L 3-11 high Not Available [address] [place], [address] 03/21/2024 05:04:19 03/21/20 24 03/21/2024 COMPR EHENS ANJANA METAB OLIC PANEL AST 12 U/L 15-37 low Not Available Ozzie colin [address] [place], [address] 03/21/2024 05:04:19 03/21/20 24 03/21/2024 COMPR EHENS ANJANA METAB OLIC PANEL ALT 20 U/L 14-59 normal Not Available Ozzie colin [address] [place], [address] 03/21/2024 05:04:19 03/21/20 24 03/21/2024 LIPAS E lipase 53 U/L 16-77 normal Not Available Ozzie colin [address] [place], [address] 03/21/2024 05:04:20 03/31/20 24 04/01/2024 URINE CULTU RE urine culture Urine Cultu re PRESE NCE OF MULTI PLE ORGAN ISMS - SUGGE STIVE OF CONTA MINAT ED COLLE CTION , OR CRISELDA TER BIOFI LM. IF CLINI KERON INDIC ATED: PLEAS E SUBMI T CLEAN CATCH , OR STRAI GHT CATH SPECI MEN. IF FROM INDWE LLING CRISELDA TER, PLEAS E SUBMI T SPECI MEN POST CRISELDA TER PADILLA E. APPEA BRIANA Mixed Gram Posit anjana Lo APPEA BRIANA Gram Negat anjana Gunnar COLON Y COUNT Not Available [facility] (Registration ) [address] [place] [address] [place], [address], 04/01/2024 13:06:49 03/31/20 24 04/01/2024 URINE CULTU RE urine culture colon ies/m L 10,00 0 - 50,00 0 COLON Y COUNT 10,00 0 - 50,00 0 Day 1 Resul t ISOLA NATALY BELOW O:GPF M (ORGA NISM ID: 1.1) - GRAM POSIT ANJANA LO ,MIXE D Urine Cultu re (ORGA NISM ID: 1.1) - COLON Y COUNT (ORGA NISM ID: 1.1) - 10,00 0 - 50,00 0 O:GNR (ORGA NISM ID: 1.2) - GRAM NEGAT ANJANA GUNNAR Urine Cultu re (ORGA NISM ID: 1.2) - COLON Y COUNT (ORGA NISM ID: 1.2) - 10,00 0 - 50,00 0 Not Available [facility] (Registration ) [address] [place] [address] [place], [address], 04/01/2024 13:06:49 03/31/20 24 04/02/2024 URINE CULTU RE urine culture Urine Cultu re PRESE NCE OF MULTI PLE ORGAN ISMS - SUGGE STIVE OF CONTA MINAT ED COLLE CTION , OR CRISELDA TER BIOFI LM. IF CLINI KERON INDIC ATED: PLEAS E SUBMI T CLEAN CATCH , OR STRAI GHT CATH SPECI MEN. IF FROM INDWE LLING CRISELDA TER, PLEAS E SUBMI T SPECI MEN POST CRISELDA TER PADILLA E. APPEA BRIANA Mixed Gram Posit anjana Lo APPEA BRIANA Gram Negat anjana Gunnar APPEA BRIANA Mixed Gram Posit anjana Lo APPEA BRIANA Gram Negat anjana Gunnar COLON Y COUNT Not Available [address] [place], [address] 04/02/2024 09:59:12 03/31/20 24 04/02/2024 URINE CULTU RE urine culture colon ies/m L 10,00 0 - 50,00 0 COLON Y COUNT 10,00 0 - 50,00 0 COLON Y COUNT 10,00 0 - 50,00 0 COLON Y COUNT 10,00 0 - 50,00 0 Day 1 Resul t ISOLA NATALY BELOW Day 2 Resul t ISOLA NATALY BELOW O:GPF M (ORGA NISM ID: 1.1) - GRAM POSIT ANJANA LO ,MIXE D Urine Cultu re (ORGA NISM ID: 1.1) - COLON Y COUNT (ORGA NISM ID: 1.1) - 10,00 0 - 50,00 0 O:GNR (ORGA NISM ID: 1.2) - GRAM NEGAT ANJANA GUNNAR Urine Cultu re (ORGA NISM ID: 1.2) - COLON Y COUNT (ORGA NISM ID: 1.2) - 10,00 0 - 50,00 0 Not Available [facility] [address] [place], [address] 04/02/2024 09:59:12 03/31/20 24 03/31/2024 urina lysis , dipst ick Leukocytes Trace Not Available [address], [address], 03/31/2024 08:25:43 03/31/20 24 03/31/2024 urina lysis , dipst ick Nitrite negati ve Not Available [address], [address], 03/31/2024 08:25:43 03/31/20 24 03/31/2024 urina lysis , dipst ick Urobilinogen .2 Not Available [address], [address], 03/31/2024 08:25:43 03/31/20 24 03/31/2024 urina lysis , dipst ick Protein Negati ve Not Available [address], [address], 03/31/2024 08:25:43 03/31/20 24 03/31/2024 urina lysis , dipst ick pH 5.0 Not Available [address], [address], 03/31/2024 08:25:43 03/31/20 24 03/31/2024 urina lysis , dipst ick Blood Negati ve Not Available [address], [address], 03/31/2024 08:25:43 03/31/20 24 03/31/2024 urina lysis , dipst ick Specific [place] 1.020 Not Available [address], [address], 03/31/2024 08:25:43 03/31/20 24 03/31/2024 urina lysis , dipst ick Ketone Negati ve Not Available [address], [address], 03/31/2024 08:25:43 03/31/20 24 03/31/2024 urina lysis , dipst ick Bilirubin Negati ve Not Available [address], [address], 03/31/2024 08:25:43 03/31/20 24 03/31/2024 urina lysis , dipst ick Glucose Negati ve Not Available [address], [address], 03/31/2024 08:25:43 03/31/20 24 03/31/2024 urina lysis , dipst ick Appearance Clear Not Available [address], [address], 03/31/2024 08:25:43 03/31/20 24 03/31/2024 urina lysis , dipst ick Color Pale Yellow Not Available [address], [address], 03/31/2024 08:25:43 03/21/20 24 03/21/2024 vrad repor t Patien t Name: Kathia Velasco Unit #: [id number] Loc: ER Orderi ng Provid er: Jessica t #: [id number] Status : REG ER Primar y [...] MD. Orderi ng:Gomez Hidalgo MD Access ion#=[id number] Ordere d By: CC: ------ ------ ------ ------ ------ ------ ------ ------ ------ ------ ------ ------ ---- Dictat ed By: Report s vrad [id number] Transc ribed By: Di Merge 453 [...] at the addres s above. Thank- you. [facility] [address], [place], [address] 03/22/2024 07:53:14 03/21/2003/21/2024 CT, abdom en + pelvi s, w/ contr ast Patien t Name: Kathia Velasco Unit #: [id number] Loc: ER Orderi ng Provid er: Kin Batista DO Accoun t #: [id number] Status : DEP ER Primar y [...] tomogr aphy images with raygoza l and bobby al reform atted images were create d [...] tion); or iterat anjana recons tructi on. 006: Total DLP = [...] error, please notify us immedi ately at [phone] and return the origin al report to us at the addres s above. Thank- you. [email or web address] [facility] [address], [place], [address] 08/31/2024 14:10:37 04/13/20 24 04/26/2023 imagi ng/di agnos tic resul t No observ ation record ed. [email or web address] Not Available 04/13 23:57:10 04/13/20 24 04/29/2023 US, abdom en No observ ation record ed. [email or web address] Not Available 2024 14:10:58 05/17/20 24 05/17/2024 US, abdom en + pelvi s Patien t Name: Kathia Velasco Unit #: [id number] Loc: DI Orderi ng Provid er: Sudha Salazar Accoun t #: [id number] Status : REG CLI Primar y Care Provid er: Sudha Salazar Date of Exam: Sex: F Admiss ion Date: : 2000 Age: 23 Exam(s ) US ABDOME N PELVIS EXAM: US ABDOME N PELVIS CLINIC AL HISTOR Y: HEPATO MEGALY W/SPLE NOMEGA LY N94.89 FEMALE ORGAN CONDIT ION TECHNI QUE: Ultras ound abdome n and pelvis perfor med using standa rd protoc ol. The patien t declin ed the transv aginal portio n of the pelvic examin ation. COMPAR DMITRY: CT CT ABDOME N PELVIS W from 2023 FINDIN GS: ABDOME N ABDOMI NAL AORTA AND IVC: Visual ized portio ns normal calibe r. PANCRE : Normal where visual ized. LIVER: Normal . Hepato petal flow in the Portal Vein. No eviden ce of a hepati c mass. The liver measur es 14.1 cm long. GALLBL ADDER: Status post cholec ystect shahriar. BILIAR Y SYSTEM : Common bile duct measur es < 7 mm. No intrah epatic biliar y ductal dilati on. KIDNEY S: Kidney s are symmet taylor in size. No eviden ce of renal calcul i. No eviden ce of hydron ephros is. No renal mass or cyst identi fied. SPLEEN : Not enlarg ed. The spleen measur es 10.6 cm long. ASCITE S: None seen. PELVIC : The patien t declin ed the transv aginal portio n of the examin ation. UTERUS : Positi on: Anteve rted. Size: 7.4 long by 1.7 AP by 3.7 transv erse cm Endome trium: 0.5 cm. Normal for patien t's menstr ual status . Myomet rium: Unrema rkable . Cervix : Unrema rkable . OVARIE S: The left ovary was not visual ized on this examin ation. The right ovary was not well seen. Right: 2.4 x 1.8 x 3.6 cm Cyst or mass: No defini te suspic ious lesion s are seen on the right ovary. DOPPLE R: Color: Unifor m blood flow is seen to the right ovary. No hypere carter. CUL-DE -SAC: Free fluid: None. IMPRES OFELIA: 1. No sonogr aphic eviden ce of hepato spleno megaly . 2. Status post cholec ystect shahriar. No biliar y ductal dilata tion. 3. The uterus and right ovary grossl y unrema rkable on this transa bdomin al pelvic examin ation. 4. The left ovary cannot be seen on this transa bdomin al examin ation. 5. The patien t declin ed the transv aginal portio n of the pelvic examin ation. DATA REPOSI TORY: Ordere d By: Sudha Salazar CC: ------ ------ ------ ------ ------ ------ ------ ------ ------ ------ ------ ------ - Dictat ed By: Gerardo Calero M.D. 1121 112 Transc ribed By: Gerardo Calero 1121 This is privil eged, confid ential inform ation intend ed only for the provid er named. Any use or distri bution by any person other than this provid er is strict ly prohib ited. If you receiv e this report in error, please notify us immedi ately at and return the origin al report to us at the addres s above. Thank- you. [email or web address] [facility] [address] , [place], [address] 08/31/2024 14:10:28 Result Notes None recorded. 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 842294084 Active [address], [address] 16:34:48 Menometr orrhagia 733717330 Completed 202208/19/[address], [address] 16:34:53 Uncompli cated moderate persiste nt asthma 430869431 Active [address], [address] 16:33:48 Social phobia 08511324 Completed 202208/19/[address], [address] 16:34:35 Vitamin D deficien cy 35325484 Active [address], [address] 16:34:17 Sensorin eural hearing loss of bilatera l ears 257016538 Completed 202208/19/2023 Problem Code: H90.3; Problem Code Type: ICD-10; SUDHA MARIA LUISA, MD [address], [address] 4 16:34:22 Major depressi on, single episode 23283659 Active [address], [address] 4 16:34:11 Attentio n deficit hyperact ivity disorder , predomin antly inattent anjana type 47366245 Active 2022 Problem Code: F90.0; Problem Code Type: ICD-10; Not Available [facility] 3 04:31:37 Chronic pain 36545597 Active [address], [address] 4 16:33:09 Autoimmu ne thyroidi tis 06293433 Completed 202208/19/2023 Problem Code: E06.3; Problem Code Type: ICD-10; MD Shira [address], [address] 4 15:02:13 Hypothyr oidism 16554020 Completed 202208/19/2023 Problem Code: E03.9; Problem Code Type: ICD-10; MD Shira [address], [address] 4 16:33:37 Interver tebral disc prolapse 61199571 Completed 202208/19/2023 Problem Code: M51.25; Problem Code Type: ICD-10; MD Shira [address], [address] 4 16:33:29 Sleep disorder 04736114 Completed 202208/19/2023 Problem Code: G47.8; Problem Code Type: ICD-10; MD [address]ira [address], [place] [address], [facility] 4 16:34:43 Congenit al anomaly of spinal cord 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 Active [address], [address] 4 16:33:26 Fatigue 93240993 Active [address], [address] 4 16:33:44 Asthenia 25976976 Completed 202208/19/2023 Problem Code: R53.1; Problem Code Type: ICD-10; MD Shira [address], [address] 4 16:33:15 Epigastr ic pain 82199428 Completed 202208/19/2023 Problem Code: R10.13; Problem Code Type: ICD-10; MD Shira [address], [address] 4 16:33:17 Palpitat ions 48835587 Completed 202208/19/2023 Problem Code: R00.2; Problem Code Type: ICD-10; MD Shira [address], [address] 4 16:33:20 Leukocyt osis 288815102 Active [address], [address] 16:33:13 Height below average 680949866 Completed 200504/28/2023 Problem Code: 783.43; Problem Code Type: ICD-9; Not Available [facility] 3 04:31:39 Abnormal gait 28686511 Completed 202202/21/2023 Problem Code: R26.89; Problem Code Type: ICD-10; Not Available [facility] 3 04:31:39 Hemoglob inopathy 19272602 Completed 202202/21/2023 Problem Code: D58.2; Problem Code Type: ICD-10; Not Available [facility] 3 04:31:40 Recurren t acute tonsilli tis 488430588 Completed 200802/21/2023 Problem Code: J03.91; Problem Code Type: ICD-10; Not Available [facility] 3 04:31:40 Obstruct anjana sleep apnea syndrome 02807482 Completed 202202/21/2023 Problem Code: G47.33; Problem Code Type: ICD-10; Not Available [facility] 3 04:31:40 Acne 70036227 Completed 201304/28/2023 Not Available [facility] 3 04:31:40 Headache 21184320 Completed 200804/28/2023 Not Available [facility] 3 04:31:40 Snoring 09304079 Completed 202202/21/2023 Problem Code: R06.83; Problem Code Type: ICD-10; Not Available [facility] 3 04:31:40 Disorder of hyoid bone 247487037 Active [address], [place], [address], [facility] 4 16:31:26 Electroc ardiogra m abnormal 438459797 Completed 202208/19/2023 Problem Code: R94.31; Problem Code Type: ICD-10; MD [address], [place], [address], [facility] 4 16:31:20 Dizzines s and giddines s 435328675 Completed 202208/19/2023 Problem Code: R42; Problem Code Type: ICD-10; MD Shira [address], [address] 4 16:31:12 Gastroes ophageal reflux disease 214670854 Active [address], [address] 4 16:31:16 Chronic migraine without aura 0761059825 02701 Active [address], [address] 4 16:32:08 Shortene d ME interval 33475559 Active [address], [address] 4 16:35:52 Iron deficien cy 70709008 Active [address], [address] 4 16:39:09 Dysuria 55969275 Active [address], [address] 4 15:01:48 Autoimmu ne thyroidi tis 43363911 Active 2023 Problem Code: E06.3; Problem Code Type: ICD-10; MD Shira [address], [address] 4 15:02:13 Polyuria 79476351 Active [address], [address] 4 14:48:37 Painful urinary bladder spasm 9329384 Active [address], [address] 4 20:47:27 Chronic intersti tial cystitis 042341459 Active [address], [address] 4 07:40:29 Allergic rhinitis 03914238 Active [address], [address] 4 08:10:37 Prediabe nataly 953459603 Completed 202308/31/[address], [address] 5 17:20:57 Hepatosp lenomega ly 82542228 Active [address], [address] 4 13:51:25 Abdomina l pain 80629501 Active [address], [address] 4 13:58:42 Ovarian pain 718625648 Active 2023 Katia Huber RN [facility], [facility] 4 11:46:01 Problem Notes None recorded. Procedures Surgical History Date Name Laterality Status Provider Name and Address Organization Details Recorded Time 06/16/20 23 Cholecystectomy w/cholang completed MD Shira [address]ARLAND Dr, [address] 06/16/2023 09:26:56 Imaging Results Imaging Date Name Status LastModified by Organiz ation Details LastModified Time 03/21/2024 vrad report completed [email or web address] [address] [place], [address] 03/22/2024 07:53:14 03/21/2024 CT, abdomen + pelvis, w/ contrast completed [email or web address] [address] [place], [address] 08/31/2024 14:10:37 04/26/2023 imaging/diagn ostic result completed [email or web address] Information not available 04/13/2024 23:57:10 04/29/2023 US, abdomen completed [email or web address] Information n ot available 08/31/2024 14:10:58 05/17/2024 US, abdomen + pelvis completed [email or web address] [address] [place], [address] 08/31/2024 14:10:28 Procedure Notes None recorded. Medical Equipment None Reported. Allergies Allergen ID Allergen Name Allergen Category Reaction Reaction Severity Criticality Documentation Date Start Date Code Code System Note Provider Name and Address Organization Details Recorded Time 66907 Canis lupus familiari s extract environme nt other mild Not available 06/11/20232022 87206 4 RxNorm No react ion enter ed [facility] 22:20:04 60181 gabapenti n medicatio n other mild Not available 06/11/20232022 22492 RxNorm No react ion enter ed Kera [facility] 4 22:20:32 97153 POLLEN EXTRACTS environme nt,medica tion other mild Not available 06/11/20232022 20858 6 RxNorm No react ion enter ed [facility] 22:21:07 95766 Vistaril medicatio n other mild Not available 06/11/20232022 03708 9 RxNorm No react ion enter ed Kera [facility] 4 22:21:35 34303 mic mab-vfrm medicatio n hives Not available Not available 08/31/2024 90 RxNorm BETTY LOPEZIDA [facility] 5 10:11:58 Medications Name Sig Start Date Stop Date Status Note LastModified by Organization Details LastModified Time vitamin d3 (tejal) 1,000iu cap TAKE 1 CAPSULE BY MOUTH ONCE DAILY 01/27 completed Not Available Not Available Not Available Prescript ion - Prior Authoriza tion Request active Ajovy Rejectio n Not Available Not Available Not Available venlafaxi ne ER 37.5 mg capsule,e xtended release 24 hr 2 ONCE DAILY 10/17 completed Not Available Not Available Not Available venlafaxi ne ER 75 mg capsule,e xtended release 24 hr TAKE ONE CAPSULE BY MOUTH EVERY DAY active Not Available Not Available No t Available Concerta 18 mg tablet,ex tended release 04/26 completed Not Available Not Available Not Available cetirizin e 10 mg tablet TAKE ONE TABLET BY MOUTH EVERY DAY active Not Available Not Available No t Available hydrocodo ne 5 mg-acetam inophen 325 mg tablet TAKE 1 TABLET BY MOUTH EVERY 6 HOURS 01/27 completed Not Available Not Available Not Available Claritin 10 mg tablet 1TAB qd 11/02 completed Not Available Not Available Not Available meloxicam 15 mg tablet TAKE 1 TABLET BY MOUTH ONCE DAILY WITH MEALS active Not Available Not Available No t Available sucralfat e 1 gram tablet TAKE 1 TABLET BY MOUTH BEFORE MEAL(S) AND 1 AT BEDTIME 07/02 completed Not Available Not Available Not Available ondansetr on HCl 4 mg tablet TAKE 1 TABLET BY MOUTH THREE TIMES DAILY NEEDED FOR NAUSEA 08/31 completed Not Available Not Available Not Available methylphe nidate 5 mg tablet TAKE 1 TABLET BY MOUTH ONCE DAILY . DO NOT EXCEED 1 PER 24 HOURS 07/02 completed Not Available Not Available Not Available prednison e 20 mg tablet TAKE 2 TABLETS BY MOUTH ONCE DAILY FOR 5 DAYS 07/02 completed Not Available Not Available Not Available fluoxetin e 10 mg tablet 1 cap 2014 active Not Available Not Available Not Avai lable permethri n 1 % lotion lotion 1, repeat in 7 days 11/17 completed Not Available Not Available Not Available sumatript an 50 mg tablet TAKE ONE TABLET BY MOUTH AT ONSET OF HEADACHE , MAY REPEAT IN TWO HOURS IF NECESSAR Y active Not Available Not Available No t Available Space Chamber USE DIRECTED active Not Available Not Available No t Available omeprazol e 40 mg capsule,d elayed release TAKE 1 CAPSULE BY MOUTH ONCE DAILY NEEDED active Not Available Not Available No t Available tramadol 50 mg tablet Take 1 tablet every 6 hours by oral route as needed. 07/02 completed Not Available Not Available Not Available amitripty line 50 mg tablet Take 1 tablet every day by oral route for 30 days, for take after 2 weeks on 25mg, for migraine , chronic nausea, intersti tial cystitis . 2024 active Not Available Not Available Not Avai lable IBU-200 200 mg tablet PRN 08/19 completed Not Available Not Available Not Available famotidin e 20 mg tablet TAKE 1 TABLET BY MOUTH TWICE DAILY 07/02 completed Not Available Not Available Not Available amitripty line 25 mg tablet Take 1 tablet every day by oral route at bedtime for 14 days, for migraine , chronic nausea, intersti tial cystitis . 2024 active Not Available Not Available Not Avai lable Lice Treatment (permethr in) 1 % topical liquid lotion 1, repeat in 7 days 11/02 completed Not Available Not Available Not Available amitripty line 10 mg tablet TAKE ONE TABLET BY MOUTH EVERY DAY 05/04 completed Not Available Not Available Not Available levothyro xine 50 mcg tablet TAKE 1/2 (ONE-BAL F) TABLET BY MOUTH ONCE DAILY 07/02 completed Not Available Not Available Not Available pantopraz ole 40 mg tablet,de layed release TAKE 1 TABLET BY MOUTH ONCE DAILY 07/02 completed Not Available Not Available Not Available lansopraz ole 30 mg capsule,d elayed release TAKE 1 CAPSULE BY MOUTH ONCE DAILY 07/02 completed Not Available Not Available Not Available fluoxetin e 10 mg capsule TAKE 1 CAPSULE BY MOUTH ONCE DAILY 08/19 completed Not Available Not Available Not Available norethind erika acetate 5 mg tablet TAKE 1 TABLET BY MOUTH ONCE DAILY active Not Available Not Available No t Available albuterol sulfate HFA 90 mcg/actua tion aerosol inhaler INHALE 2 PUFFS BY MOUTH EVERY 4 HOURS NEEDED active Not Available Not Available No t Available sertralin e 50 mg tablet 1 tab daily 04/01 completed Not Available Not Available Not Available fluticaso ne propionat e 110 mcg/actua tion HFA aerosol inhaler Inhale 1 puff twice a day by inhalati on route. 08/19 completed Not Available Not Available Not Available Acid Gas Pit Worker (cimetidi ne) 200 mg tablet 1 tablet by mouth once a day as needed 02/23 completed Not Available Not Available Not Available escitalop sherwin 10 mg tablet TAKE 2 TABLETS BY MOUTH ONCE DAILY 07/02 completed Not Available Not Available Not Available escitalop sherwin 20 mg tablet Take 1 tablet every day by oral route. 08/19 completed Not Available Not Available Not Available Vitamin D3 25 mcg (1,000 unit) capsule Take 1 capsule every day by oral route. 2023 active Not Available Not Available Not Avai lable escitalop sherwin 5 mg tablet TAKE 1 TABLET BY MOUTH ONCE DAILY IN ADDITION TO 20MG TABLET FOR A TOTAL DAILY DOSE OF 25MG. 08/19 completed Not Available Not Available Not Available duloxetin e 30 mg capsule,d elayed release Take 1 capsule every day by oral route. 08/19 completed Not Available Not Available Not Available Flovent HFA 44 mcg/actua tion aerosol inhaler 2 puffs 2 times a day 08/19 completed Not Available Not Available Not Available pregabali n 100 mg capsule TAKE 1 CAPSULE BY MOUTH TWICE DAILY . DO NOT EXCEED 2 PER 24 HOURS 08/19 completed Not Available Not Available Not Available Excedrin 1 10/17 completed Not Available Not Available Not Available Albuterol Sulfate HFA 2 puffs qid 2013 active Not Available Not Available Not Avai lable cholecalc iferol (vitamin D3) 1,250 mcg (50,000 unit) capsule Take 1 capsule by mouth once a week 05/14 completed Not Available Not Available Not Available FeroSul 325 mg (65 mg iron) tablet TAKE 1 TABLET BY MOUTH ONCE DAILY TAKE WITH ACIDIC FOOD OR DRINK active Not Available Not Available No t Available omeprazol e 20 mg tablet,de layed release Take 40 mg by mouth once a day 08/19 completed Not Available Not Available Not Available Nexplanon 68 mg subdermal implant Was re-impla nted on 03/29 active Not Available Not Available No t Available Aimovig Autoinjec tor 140 mg/mL subcutane ous auto-inje ctor Inject 1 mL every 4 weeks by subcutan eous route. 05/04 completed Not Available Not Available Not Available Ajovy 225 mg/1.5 mL subcutane ous auto-inje ctor Inject 225 mg every month by subcutan eous route for 90 days. 08/31 completed Not Available Not Available Not Available Breyna 80 mcg-4.5 mcg/actua tion HFA aerosol inhaler INHALE 2 PUFFS BY [...] 152.298 4 cm 97.8 [degF] 39.5 kg/m2 39637.6 6 g 99 % 99 % 87 /min 118 mm[Hg] 68 mm[Hg] [facility] 4 07:34:24 Date Recorded Body height Body temperature Body mass index (BMI) Body weight Oxygen saturation Oxygen saturation in Arterial blood by Pulse oximetry Heart rate Systolic blood pressure Diastolic blood pressure Provider Name and Address Organization Details Last Updated DateTime 4 152.298 4 cm 97.3 [degF] 38.1 kg/m2 37505.5 1 g 99 % 99 % 108 /min 110 mm[Hg] 62 mm[Hg] [facility] 4 13:28:40 Date Recorded Body height Body temperature Body mass index (BMI) Body weight Oxygen saturation Oxygen saturation in Arterial blood by Pulse oximetry Heart rate Systolic blood pressure Diastolic blood pressure Provider Name and Address Organization Details Last Updated DateTime 5 152.298 4 cm 97.8 [degF] 38.9 kg/m2 06223.8 8 g 99 % 99 % 98 /min 120 mm[Hg] 60 mm[Hg] CARLEENABDOULNya JESSICA IDA [facility] 5 10:14:09 Social History Question Answer Notes LastModified by Organizat ion Details LastModified Time Tobacco Smoking Status Current Some Day Smoker BETTY AYONSIDA null, [facility] 05/04/2024 13:29:15 What Was The Date Of Your Most Recent Tobacco Screening? 05/04/2024 Information not available 05/04/2024 How Much Tobacco Do You Smoke? No Information not available 05/04/2024 Has Tobacco Cessation Counseling Been Provided? No [email or web address] Information not available 07/02/2023 Do You Or Have You Ever Used Any Other Forms Of Tobacco Or Nicotine? No Smokes Marijuana Occasionally. Information not available 05/04/2024 Sex: Female Functional Status None recorded. Mental [...] 0 0 Immunizations Vaccine Type Date Status Note Provider Nam e and Address Organization Details Recorded Time Influenza, split virus, trivalent, PF 4 completed MD [address], [place], [address], [facility] 05/04/2024 19:54:06 COVID-19, mRNA, LNP-S, PF, lynn-sucrose, 30 mcg/0.3 mL 4 completed MD [address], [place], [address], [facility] 05/04/2024 19:54:06 MMR 7 completed Not Available [facility] 06/11/2023 05:56:15 MMR 1 completed Not Available [facility] 06/11/2023 05:56:16 DTaP, unspecified formulation 7 completed Not Available [facility] 06/11/2023 05:56:16 DTaP, unspecified formulation 0 completed Not Available [facility] 06/11/2023 05:56:16 DTaP, unspecified formulation 1 completed Not Available [facility] 06/11/2023 05:56:16 DTaP, unspecified formulation 0 completed Not Available [facility] 06/11/2023 05:56:16 DTaP, unspecified formulation 0 completed Not Available [facility] 06/11/2023 05:56:16 Tdap 2 completed Not Available [facility] 06/11/2023 05:56:16 Novel [id number] , all formulations 0 completed Not Available [facility] 06/11/2023 05:56:16 Novel [id number] , all formulations 9 completed Not Available [facility] 06/11/2023 05:56:16 HPV, unspecified formulation 2 completed Not Available [facility] 06/11/2023 05:56:17 HPV, unspecified formulation 1 completed Not Available [facility] 06/11/2023 05:56:17 HPV, unspecified formulation 1 completed Not Available [facility] 06/11/2023 05:56:17 Pneumococcal Conjugate, unspecified formulation 1 completed Not Available [facility] 06/11/2023 05:56:17 Pneumococcal Conjugate, unspecified formulation 1 completed Not Available [facility] 06/11/2023 05:56:17 Hib, unspecified formulation 0 completed Not Available [facility] 06/11/2023 05:56:17 Hib, unspecified formulation 1 completed Not Available [facility] 06/11/2023 05:56:17 Hib, unspecified formulation 0 completed Not Available [facility] 06/11/2023 05:56:17 Hib, unspecified formulation 0 completed Not Available [facility] 06/11/2023 05:56:17 COVID-19, mRNA, LNP-S, PF, 30 mcg/0.3 mL dose 1 completed Not Available [facility] 06/11/2023 05:56:18 COVID-19, mRNA, LNP-S, PF, 30 mcg/0.3 mL dose 1 completed Not Available [facility] 06/11/2023 05:56:18 COVID-19, mRNA, LNP-S, PF, 30 mcg/0.3 mL dose 1 completed Not Available [facility] 06/11/2023 05:56:18 varicella 1 completed Not Available [facility] 06/11/2023 05:56:18 varicella 6 completed Not Available [facility] 06/11/2023 05:56:18 COVID-19, mRNA, LNP-S, bivalent, PF, 30 mcg/0.3 mL dose 2 completed Not Available [facility] 06/11/2023 05:56:18 Hep B, unspecified formulation 0 completed Not Available [facility] 06/11/2023 05:56:18 Hep B, unspecified formulation 0 completed Not Available [facility] 06/11/2023 05:56:18 Hep B, unspecified formulation 0 completed Not Available [facility] 06/11/2023 05:56:18 influenza, unspecified formulation 9 completed Not Available [facility] 06/11/2023 05:56:19 influenza, unspecified formulation 7 completed Not Available [facility] 06/11/2023 05:56:19 influenza, unspecified formulation 2 completed Not Available [facility] 06/11/2023 05:56:19 influenza, unspecified formulation 8 completed Not Available [facility] 06/11/2023 05:56:19 polio, unspecified formulation 0 completed Not Available [facility] 06/11/2023 05:56:19 polio, unspecified formulation 0 completed Not Available [facility] 06/11/2023 05:56:19 polio, unspecified formulation 4 completed Not Available [facility] 06/11/2023 05:56:19 polio, unspecified formulation 1 completed Not Available [facility] 06/11/2023 05:56:19 Tdap 3 completed Not Available [facility] 08/13/2023 05:31:00 Influenza, split virus, quadrivalent, PF 3 completed Not Available [facility] 08/13/2023 05:31:00 Influenza, split virus, quadrivalent, PF 3 completed Not Available [facility] 08/13/2023 05:31:00 Past Encounters Encounter ID Performer Location Encounter Start Date Encounter Closed Date Diagnosis/Indication Diagnosis SNOMED-CT Code Diagnosis ICD10 Code Diagnosis Note [id number] SUDHA SALAZAR MD [address] [address] 07/02/2023 11:21:17 07/02/2023 13:09:01 Disorder of hyoid bone 940689653 M89.9 Suspect positionin g of neck in hyperexten ofelia for intubation has caused a flare up of their symptoms. Will attempt to evaluate the hyoid bone via xray. Could consider swallow study for dynamic view as next step. Could also consider ENT referral. They will talk to their chiropract or about any gentle manipulati ons that may help.I am hopeful this will continue to improve back to baseline as time from surgery progresses . [id number] SUDHA SALAZAR MD [address] [address] 08/19/2023 14:48:33 08/19/2023 16:32:17 Disorder of hyoid bone 547587666 M89.9 Swallow study for dynamic view of movement of neck while swallowing including hyoid bone. If not helpful, consider ENT referral. Gastroesop hageal reflux disease 069187794 K21.9 Stable currently. Uncomplica celina moderate persistent asthma 180890175 J45.40 Need to increase symbicort dosing to 2 puffs BID for better control of asthma. Instructed on importance of spacer as well.Had been on singulair in the past, could consider if this not helpful. Concern re mood side effects. Chronic pain 68062247 G8 9.29 This is of unclear etiology. If neurosurge ry does not think the spine is contributi ng, which I suspect they will not, will need to consider alternate diagnoses including fibromyalg ia or chronic myofascial pain, or rheumatolo gic conditionW ill need a dedicated office visit to work through the exact locations of pain and perform detailed exam.Trial of daily meloxicam. If the meloxicam can get her symptoms under control, would encourage her to pursue PT and dialy movement.C onsider rheum labs (negative in 2019) and detailed evaluation of this at next visit. Had been on pregabalin previously . On review of records, not clear how helpful this was. Chronic mi graine without aura 1266677004 96276 G43.709 Will try cgrp antagonist at this point. She has failed venlafaxin e, which I will keep on board for mood and chronic pain effects and consider increasing in the future for these indication s. She has also tried and failed amitriptyl ine in the past (2018).If she needs guidance on her first injection, I asked her to call for a nurse visit to do with a nurse. It seems historical ly, has not had great compliance with taking medication s as prescribed . This is limiting her success with treatment trials for her many concerns. [id number] SUDHA SALAZAR MD [address] [address] 10/18/2023 14:10:14 10/18/2023 16:08:36 Chronic migraine without aura [id number] 20921 G43.709 Continue cgrp antagonist for at least 3 months before concluding it as ineffectiv e. Gastroesop hageal reflux disease 355417652 K21.9 Stable currently. Some constipati on concerns and she is on constipati ng medication s. Vitamin D deficiency 347 87806 E55.9 Plan to recheck levels with next labs. Anxiety disorder 6564933 06 F41.9 Continue venlafaxin e. Body mass index 30+ - obesity 038625174 Z68.37 Uncomplica celina moderate persistent asthma 425562377 J45.40 Continue symbicort. Iron deficiency 23331193 E61.1 Check levels with next lab draw. Not taking iron consistent ly due to constipati on concerns. Chronic pain 02755014 G8 9.29 Trial of daily meloxicam. If the meloxicam can get her symptoms under control, would encourage her to pursue PT and dialy movement. [id number] SUDHA SALAZAR MD [address] [address] 01/28/2024 14:07:20 01/28/2024 15:17:00 Dysuria 63222776 R30.0 UA unremarkab le. Encouraged to hydrate. If symptoms persist next week, repeat UA. Autoimmune thyroiditis 83726656 E06.3 Due to recheck TSH. Chronic mi graine without aura 7334819997 86374 G43.709 [place] would like to continue with aimovig despite saying it hasn't help. Feels they need more time to assess if it is helpful. I suggested keeping a symptom log to help objectify the severity and frequency of symptoms. Chronic pain 50825343 G8 9.29 Suggested taking the meloxicam at lunch or dinner if that is more likely to result it taking it consistent ly. [place] will consider this. Suggested symptom log as above.Will request records from [facility]. [id number] ASHA HALL [address] [address] 02/22/2024 12:55:25 02/22/2024 13:28:47 Dysuria 84803189 R30.0 [id number] ASHA HALL [address] [address] 02/24/2024 12:56:26 02/24/2024 12:58:00 Family history of diabetes mellitus 153183538 Z83.3 [id number] SUDHA SALAZAR MD [address] [address] 03/31/2024 07:21:38 03/31/2024 08:16:13 Chronic interstitial cystitis 665008831 N30.10 - Patient reports constant discomfort with periodic flares - Symptoms include bladder spasms, pressure, and frequent urge to urinate - Pain worsens with pressure on the area - Urine showed trace leukocyte esterase- Suspected interstiti al cystitis - Plan: a. Send urine for culture to rule out infection b. Start low-dose amitriptyl ine for bladder pain management , discussed risks/bene fits, side effects. Patient to update on amitriptyl ine tolerance and progress via message. c. Provide patient with dietary suggestion s for interstiti al cystitis management d. Follow up with urologist dwight fay. Consider pelvic floor physical therapy after urology evaluation f. Consider pelvic ultrasound if adnexal pain persists Anxiety disorder 3196853 06 F41.9 Continue venlafaxin e. Allergic rhinitis 714620 04 J30.9 Prediabetes 812000476 R7 3.03 - Plan:a. Encourage patient to focus on nutrition, reducing carbohydra te and sugar intakeb. Suggest lean protein sources and increased vegetable consumptio nc. Monitor glucose levels in future visits- Additional details:- Hemoglobin A1c result: 6.0 (pre-diabe nataly range)- Discussed dietary changes, including reducing bread, rice, pasta, and potatoes- Patient reports difficulty with consistent meals due to nausea and appetite issues [id number] SUDHA SALAZAR MD [address] [address] 05/04/2024 13:07:01 05/04/2024 14:18:10 Chronic migraine without aura 5956654822 84392 G43.709 - Patient reports persistent migraines and daily headaches, some lasting nearly a week, accompanie d by photophobi a, phonophobi a, and nausea with vomiting. It does sound like aimovig was helping somewhat as symptoms worsened off of it in the last month.- Plan: Initiate Ajovy. Prescribe Sumatripta n for abortive therapy, to be taken at the onset of a migraine. A second dose of Sumatripta n may be taken 2 hours after the first if necessary, and can be combined with Tylenol. Schedule a follow-up in 3 months to evaluate treatment efficacy. Discussed can take 3-6 months of CGRP antagonist treatment to see full effect. Hepatosplenomegaly 79675 000 R16.2 - Discrepanc ies in CT scans regarding the enlargemen t of the liver and spleen.- Plan: Incorporat e liver and spleen assessment in the upcoming abdominal ultrasound to verify enlargemen t. Painful ur inary bladder spasm 5668615 N32.89 - The urologist suspects overactive bladder and has requested a 2-day voiding diary.- The patient notes the pain is less severe than the episode leading to an ER visit in December but remains abnormal.- Plan: Await voiding diary results and urologist' s recommenda tions. Abdominal pain 78809131 R10.9 - The patient describes ongoing abdominal pain, recent exacerbati on on the RLQ.- Plan: Order a comprehens anjana abdominal ultrasound focusing on the liver, spleen, and ovaries. If pain continues and other causes are excluded, consider evaluation for endometrio sis via laparoscop y. Active or passive immunization 541064920 Z23 [id number] [address] [address] 08/31/2024 10:04:42 08/31/2024 10:52:25 Prediabetes 162235596 R73.03 Autoimmune thyroiditis 90846434 E06.3 Chronic mi graine without aura 4089858081 04812 G43.709 Nausea 090185024 R11.0 Chronic in terstitial cystitis 942380576 N30.10 Health Concerns Section Related Observation LastModified by Organization Detai ls LastModified Time None Recorded Concern Status LastModified by Organization Details LastModified Time None Recorded Advance Directives Directive None Recorded Payers Encounter Date Sequence Insurance Name Policy Number Policy Adams Covered Member ID Adams Member ID Guarantor Name 02/22/2024 1 [facility] [id number] Cassiopeia L Acevedo [id number] Cassiopeia L Acevedo 02/24/2024 1 [facility] [id number] Cassiopeia L Acevedo [id number] Cassiopeia L Acevedo 03/31/2024 1 [facility] [id number] Cassiopeia L Acevedo [id number] Cassiopeia L Acevedo 05/04/2024 1 [facility] [id number] Cassiopeia L Acevedo [id number] Cassiopeia L Acevedo Notes Date Note Type Note Provider Name and Address Organization Details Recorded Time 03/31/2024 text/html [place] Acevedo presents with ongoing and painful bladder [...] no correlation with allergy flare-ups has been noticed.Bladder Issues - Doc visited the emergency room [...] have increased their consumption since the ER visit.Doc does not feel like they completely empty their bladder when voiding and has to press on their lower abdomen to do so. They have recently experienced a slower stream and increased time to void. The pain is worst when lying down, especially when sleeping on their stomach. The bladder pain has been ongoing for a couple of months.Medications and Allergies - Doc is currently taking venlafaxine and requires a refill, as well as cetirizine for allergies. They have a history of a negative reaction to hydroxyzine, which caused violent nausea.Pre-diabetes - Doc has pre-diabetes with an elevated glucose level and a hemoglobin A1c of 6. They consume sugar in coffee and honey in tea but do not drink sugar-sweetened beverages frequently. Doc struggles with appetite due to constant nausea and tends to consume snack foods like chips and crackers.Gynecologi yuliet History - The patient has a Nexplanon implant for control and has noticed that their cyst pain coincided with the return of their menstrual cycle. Doc expresses concern about the cyst, mentioning a family history of painful ovarian cysts. - CT Scan:- Date: Approximately 1.5 weeks ago - Conflicting reports; one indicating fatty infiltration of the liver, borderline enlarged spleen, and a 2.4 cm left ovarian cyst. Another report found spleen, liver, and reproductive organs unremarkable except for a normal follicle in the left ovary. SUDHA SALAZAR MD [address], [place], [address], [facility]. 03/31/2024 09:03:53 05/04/2024 text/html Migraines - Par[place] Acevedo presents for follow-up, reporting no improvement in their migraines, which have been occurring daily for the past two months. They describe the migraines as severe, causing sensitivity to light and noise, worsening nausea, and leading to vomiting. In the past two to three weeks, the migraines have been particularly bad, with episodes lasting almost a full week and causing Doc to lay down in the afternoon due to light and noise sensitivity. Doc did stop aimovig and last dose was 2 months ago.Doc has previously been prescribed Sumatriptan for their migraines but does not recall its effectiveness. They are open to trying the medication again, as their current treatment with Tylenol is not providing adequate relief.Bladder pain - Doc has been trialed on amitriptyline for possible interstitial cystitis and referred to urology. However, they report that amitriptyline has not provided any relief, and they did not continue the prescription. Doc continues to experience bladder pain, although it is not as severe as when it first began in December or when they ended up in the ER because of it.The patient has also been evaluated by a urologist, who suspects overactive bladder as a possible cause of their symptoms. They have been instructed to complete a 2-day voiding diary and await further recommendations.Abd ominal Pain - Doc mentions having abdominal pain, possibly related to an ovarian cyst or endometriosis. They have considered undergoing exploratory surgery for endometriosis but have not yet pursued this option. The patient also reports experiencing pain on the right side of their abdomen. There was a previously identified follicular cyst on the left side. They express interest in having an abdominal ultrasound to further evaluate their liver, spleen, and ovaries. There were conflicting reports on whether or not the liver and spleen were enlarged on prior CT scan. SUDHA SALAZAR MD [address], [place], [address], [place] [facility]. 05/04/2024 19:54:32 OBGyn Episode No OBEpisode recorded.
== END 2024-08-31 17:34 | disposition home or self-care (01) ==
LOC: NCHCN 17:33
PROVIDERS: PCP Family Medicine; Visit Provider Family Medicine
DX: R73.03 Prediabetes (principal); E06.3 Autoimmune thyroiditis
CPT/HCPCS: 83036; 84443

== ENCOUNTER 2024-09-13 09:29 | Outpatient (CLI) | payer OTHER, SELFPAY ==
[2024-09-13 09:29] LABS: Anion Gap 9.4 mmol/L (3-11); BUN 11 mg/dL (7-18); CO2 22.6 mmol/L (21.0-32.0); CREATININE 0.9 mg/dL (0.55-1.02); Chloride 109 mmol/L (98-107); Estimated GFR 90.98 (mL/min/1.73m2); Glucose 160 mg/dL (74-106); Sodium 141 mmol/L (136-145)
[2024-09-15 20:43] LABS: C-Peptide 7.7 ng/mL (1.1 - 4.4)
[2024-09-21 16:46] LABS: ZnT8 Ab, S <15.0 U/mL (<15.0)
[2024-09-26 10:02] LABS: GAD65 Ab Assay 0.01 nmol/L (<= 0.02)
== END 2024-09-13 09:30 | disposition home or self-care (01) ==
LOC: LBO 09:29
PROVIDERS: PCP Family Medicine; Visit Provider Family Medicine
DX: E13.9 Other specified diabetes mellitus without complications (principal)
CPT/HCPCS: 36415; 80048; 86341; 84681; 86337

== ENCOUNTER 2024-12-26 01:37 | Outpatient (CLI) | payer OTHER, SELFPAY ==
[2024-12-26] MEDS: Normal Saline Flush 10 ML SYR IVP (12:14)
[2024-12-26] MEDS: Gadoterate meglumine 20 ML SYRINGE 19 ML IVP (12:15)
--- NOTE | 2024-12-26 13:15 | DI.MRI_ITS ---
Exam(s) MR BRAIN WO/W EXAM: MR BRAIN WO/W CLINICAL HISTORY: G43.E11 Chronic migraine w/aura,intractable,w/status migrainosus. TECHNIQUE: Multiplanar multisequence MRI of the brain was performed. CONTRAST MATERIAL: IV Contrast: 19 ML of Dotarem contrast administered. COMPARISON: No exams were available for comparison FINDINGS: VENTRICLES AND EXTRA AXIAL SPACES: Normal in size and morphology for the patient's age. HEMORRHAGE: None. CEREBRAL PARENCHYMA: No focus of restricted diffusion to suggest acute infarct. No space-occupying le nicol identified. BRAINSTEM/CEREBELLUM: Normal. CALVARIUM: Normal. ENHANCEMENT: No suspicious enhancement identified. VISUALIZED PARANASAL SINUSES/MASTOIDS: Clear. Orbits: Unremarkable. Pituitary: Not enlarged. Vasculature: Normal flow voids. IMPRESSION: Unremarkable MRI of the brain. DATA REPOSITORY:
== END 2024-12-26 01:57 ==
LOC: DI 01:37
PROVIDERS: PCP Family Medicine; Visit Provider Family Medicine
DX: G43.E11 Chronic migraine with aura, intractable, with status migrainosus (principal)
CPT/HCPCS: 70553

== ENCOUNTER 2025-06-22 02:11 | Outpatient (CLI) | payer OTHER, SELFPAY ==
[2025-06-22] MEDS: Inhaler, Assist Device 1 EACH MC (16:33)
[2025-06-22] MEDS: Methacholine 100 MG VIAL IH (16:34)
[2025-06-22] MEDS: Albuterol HFA 18 GM 200 PUFF INH IH (16:34)
--- NOTE | 2025-06-25 14:53 | W.PFT ---
Date of service: 06/22/25 Time of Service: 14:54 Pulmonary Function Test Result Indications: Asthma Impression 1. Good patient effort was noted. ATS standards for reproducibility were met. 2. Spirometry showed mild obstructive lung disease with an FEV1 of 82% (2.37 L) 3. TLC was normal. No evidence of restrictive lung disease 4. DLCO was normal at 114% 5. At 0.25 mg/mL of methacholine, there was a 23% fall in FEV1 Conclusion: - mild obstructive lung disease - positive methacholine challenge test
== END 2025-06-22 02:12 | disposition home or self-care (01) ==
LOC: RT 02:12
PROVIDERS: PCP Family Medicine; Visit Provider Family Medicine
DX: J45.40 Moderate persistent asthma, uncomplicated (principal); J44.9 Chronic obstructive pulmonary disease, unspecified
CPT/HCPCS: 94070; 94726; 94729; 95070; J7674

== ENCOUNTER 2025-07-03 19:49 | Outpatient (REF) | payer SELFPAY ==
[2025-07-03 20:59] LABS: Abs Immature Grans 0.03 10^3/uL (0.0-0.06); HCT 43.5 % (36.0-46.0); HGB 13.7 g/dL (11.2-15.7); Immature Grans % 0.2 %; MCH 28.2 pg (27.0-33.0); MCHC 31.5 % (32.0-36.0); MCV 90 fL (80-95); MPV 11.3 fL (8.0-11.0); Platelet Count 322 10^3/uL (130-400); RBC 4.86 10^6/uL (3.93-5.22); RDW 13.5 % (11.7-14.6); RDW-SD 44.4 fL; WBC 13.23 10^3/uL (4.4-10.8)
[2025-07-03 21:12] LABS: C-Reactive Protein 1.56 mg/dL (<=0.50)
[2025-07-03 21:16] LABS: ALT 19 U/L (10-49); AST 18 U/L (<34); Albumin 4.8 g/dL (3.2-5.0); Alkaline Phosphatase 89 U/L (46-116); Anion Gap 10.2 mmol/L (3-11); BUN 13 mg/dL (9-23); Bilirubin, Total 0.40 mg/dL (0.2-1.2); CO2 23.8 mmol/L (20.0-31.0); Calcium 9.7 mg/dL (8.3-10.6); Chloride 107 mmol/L (98-107); Cholesterol 170 mg/dL (<200); Glucose 100 mg/dL (74-106); HDL Cholesterol 36 mg/dL (>40); Potassium 4.5 mmol/L (3.5-5.1); Sodium 141 mmol/L (136-145); TSH (W/Ref FT4) 2.32 uIU/mL (0.55-4.78); Total Protein 7.2 g/dL (5.7-8.2)
[2025-07-03 22:04] LABS: Microalb ug/mg Crea 25.9 ug/mg Cr
[2025-07-04 08:06] LABS: Glucose Negative (Negative)
[2025-07-04 09:28] LABS: C & S Indicated? No; RBC 0-2 HPF (0-2)
== END 2025-07-03 19:50 | disposition home or self-care (01) ==
LOC: NCHCN 19:49
PROVIDERS: PCP Family Medicine; Visit Provider Family Medicine
DX: E13.9 Other specified diabetes mellitus without complications (principal); Z13.220 Encounter for screening for lipoid disorders; E06.3 Autoimmune thyroiditis; D72.829 Elevated white blood cell count, unspecified; N30.10 Interstitial cystitis (chronic) without hematuria
CPT/HCPCS: 80053; 80061; 84403; 81003; 81015; 82043; 82570; 84443; 85025; 86140